=== PATIENT | male | born 1975 | race Caucasian/White ===

== ENCOUNTER 2016-09-14 11:04 | Inpatient (IN) | payer OTHER ==
[~2016-09-14] VITALS: Ht 195.6 cm; Wt 121.0 kg
[~2016-09-14 11:04] MED LIST: ETOMIDATE 20 MG INJ ONE; MIDAZOLAM 1 MG/ML 2 ML INJ ONE; ROCURONIUM 50 MG INJ ONE
[2016-09-14] MEDS ORDERED: SODIUM CHLORIDE 0.9% 1L BAG IV* STA (11:25)
[2016-09-14] MEDS ORDERED: MIDAZOLAM 1 MG/ML 5 ML INJ IV ONE (11:30)
[2016-09-14] MEDS ORDERED: ROCURONIUM 50 MG INJ IV ONE (11:30)
[2016-09-14] MEDS ORDERED: ETOMIDATE 20 MG INJ IV ONE (11:30)
--- NOTE | 2016-09-14 11:50 | ERA ---
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 He was found to have shallow respirations, and was given Narcan. He had improvement of his respirations but did not become more responsive. He was noted to have pinpoint pupils. A glucose was 476. History is limited due to patient's altered mental status. ROS All systems reviewed and are negative except as per history of present illness. Medications Home Meds Unable to Obtain Active Prescriptions or Reported Meds Allergies Allergies: Coded Allergies: Unable to Assess (Verified Allergy, Severe, 09/14/16) PMhx/Soc Past medical history: Unknown Past surgical history: Unknown Social history: Unknown FmHx Unobtainable due to altered mental status Physical Exam Vitals Vital Signs Date Time Temp Pulse Resp B/P Pulse Ox O2 Delivery O2 Flow Rate FiO2 09/14/16 12:32 100.5 114 20 121/80 98 Room Air 09/14/16 11:11 98.6 141 19 141/98 83 Physical Exam Const: Unresponsive, occasional spontaneous movements of hoarse extremities Head: Atraumatic Eyes: Normal Conjunctiva, pinpoint pupils ENT: Normal External Ears, gurgling respirations and large emesis on the mouthing clothes Neck: No mass or bruising Resp: Bilateral rales in diffuse lung paige, right greater than left. Tachypnea. Cardio: Tachycardia, regular rhythm, no murmurs Abd: Soft, non distended. No pulsatile mass Skin: No petechiae or rashes Back: No midline or flank tenderness Ext: No cyanosis, or edema Neur: Unresponsive, occasional spontaneous movement of 4 extremities Psych: Unobtainable due to altered mental status Result Diagram: 09/14/16 1150 09/14/16 1150 Results 24 hrs Laboratory Tests Test 09/14/16 11:25 09/14/16 11:50 Blood Gas Specimen Source Blood arterial Arterial Blood Date Drawn 09/14/2016 12:18:21 PM Arterial Blood pH (Temp corrected) 7.282 Arterial Blood pCO2 (Temp correct) 47.2mmhg Arterial Blood pO2 (Temp corrected) 70.3mmHG Arterial Blood HCO3 21.8mmol/L Arterial Blood Base Excess -5.1mmol/L Arterial Blood Oxygen Saturation 92.9mmHG Vinicius Test ACCEPTAB Arterial Blood Gas Puncture Site Right Radial Arterial Blood Carboxyhemoglobin 0.8% Arterial Blood Methemoglobin 0.4% Blood Gas A-a O2 Differential 595.5mmHg Oxyhemoglobin Percent 91.8% Total Hemoglobin 15.9g/dl Blood Gas Temperature 37.0C Blood Gas Respiration Rate 30.0 Blood Gas Modality VENT - AC FiO2 100.0% Blood Gas Tidal Volume 500.0mL Blood Gas Low PEEP Setting 10.0cmH2O Blood Gas Critical Value Read Back DR. MORALES Blood Gas Notified Whom RT Blood Gas Notified Time 09/14/2016 12:23:29 PM Lactic Acid Level 2.7mmol/L Creatine Kinase 256IU/L White Blood Count 26.710^3/ul Red Blood Count 4.9810^6/ul Hemoglobin 14.6g/dl Hematocrit 44.9% Mean Corpuscular Volume 90.2fl Mean Corpuscular Hemoglobin 29.3pg Mean Corpuscular Hemoglobin Concent 32.5g/dl Red Cell Distribution Width 13.4% Platelet Count 39617^3/UL Mean Platelet Volume 9.3fl Neutrophils % 92.2% Lymphocytes % 2.7% Monocytes % 3.1% Eosinophils % 0.2% Basophils % 0.2% Nucleated Red Blood Cells % 0.0/100WBC Neutrophils # 24.610^3/ul Lymphocytes # 0.710^3/ul Monocytes # 0.810^3/ul Eosinophils # 0.110^3/ul Basophils # 0.110^3/ul Nucleated Red Blood Cells # 0.010^3/ul Prothrombin Time 13.2Sec Prothrombin Time Ratio 1.0 INR International Normalized Ratio 1.00 Activated Partial Thromboplast Time 25.3Sec Urine Color YELLOW Urine Clarity CLEAR Urine pH 5.0 Urine Specific [place] 1.024 Urine Ketones NEGATIVEmg/dL Urine Nitrite NEGATIVEmg/dL Urine Bilirubin NEGATIVEmg/dL Urine Urobilinogen NEGATIVEmg/dL Urine Leukocyte Esterase NEGATIVELeu/ul Urine Hemoglobin NEGATIVEmg/dL Urine Glucose NEGATIVEmg/dL Urine Total Protein NEGATIVEmg/dl Sodium Level 147mmol/L Potassium Level 3.6mmol/L Chloride Level 106mmol/L Carbon Dioxide Level 24mmol/L Anion Gap 21 Blood Urea Nitrogen 15mg/dl Creatinine 1.52mg/dl Glucose Level 232mg/dl Calcium Level 7.9mg/dl Total Bilirubin 0.4mg/dl Direct Bilirubin 0.00mg/dl Indirect Bilirubin 0.4mg/dl Aspartate Amino Transf (AST/SGOT) 162IU/L Alanine Aminotransferase (ALT/SGPT) 93IU/L Alkaline Phosphatase 78IU/L Troponin I 0.774ng/ml Total Protein 6.4g/dl Albumin 3.6g/dl Globulin 2.80g/dl Albumin/Globulin Ratio 1.28 Lipase 259U/L Salicylates Level < 1.0mg/dl Urine Opiates Screen Negative Acetaminophen Level < 10.0ug/ml Urine Barbiturates Negative Urine Amphetamines Screen POSITIVE Urine Benzodiazepines Screen Negative Urine Cocaine Screen Negative Urine Cannabinoids Negative Ethyl Alcohol Level < 10.0mg/dl Current Medications Medications (Trade) Dose Ordered Sig/Paulina Route PRN Reason Start Time Stop Time Status Last Admin Dose Admin Sodium Chloride (NS) 4,650 ml BOLUS OVER 2 HOURS STAT IV* 09/14/16 11:25 09/14/16 11:29 DC 09/14/16 12:48 Etomidate (Amidate) 30 mg ONCE ONCE IV 09/14/16 11:30 09/14/16 11:31 DC Rocuronium [place] (Zemuron) 130 mg ONCE ONCE IV 09/14/16 11:30 09/14/16 11:31 DC Midazolam HCl 5 mg 5 mg ONCE ONCE IV 09/14/16 11:30 09/14/16 11:31 DC Ceftriaxone Sodium (Rocephin) 50 ml @ 100 mls/hr ONCE ONCE IVPB 09/14/16 12:30 09/14/16 12:59 DC 09/14/16 12:30 Pantoprazole (Protonix Iv) 40 mg ONCE ONCE IV 09/14/16 14:30 09/14/16 14:31 DC 09/14/16 15:03 Epinephrine 1 mg STK-MED ONCE .ROUTE 09/14/16 14:17 09/14/16 14:18 DC Aspirin (Aspirin) 300 mg ONCE ONCE [place] 09/14/16 15:30 09/14/16 15:31 Procedures/MDM EKG read by me: Time 1107, rate 117 Rhythm: Sinus tachycardia [place]: Normal Intervals: Normal ST-T waves: ST depression in anterior and lateral leads Ectopy: No Q-waves: No Impression: Sinus tachycardia with possible ischemic changes. No STEMI Endotracheal Intubation by me: Pre assessment performed. Pre-oxygenation performed with 100% oxygen RSI: Performed w/o complication or hypoxic events. Medications as ordered. Blade: Mac 4 ET Tube: 7.5 cm Depth: 24 cm at the lip Intubation confirmed by colorimetric CO2, equal breath sounds, quiet over the stomach. Chest X-ray 1V Interpreted by me: 5 cm above the marlin ET tube. Normal soft tissue, No pneumothorax. ET tube will be advanced by 2 cm. Central Line Placement by me: Patient consented, sterilely draped, full prep, gown, glove, mask, time out performed. Anesthesia: Deferred Location: Left subclavian Device: Multiple lumen Technique: Seldinger technique. Secured with suture. Results: Venous return from all ports with easy saline flush. No complications. Guide wire retrieved and disposed of. Chest X-ray 1V Interpreted by me: Central line in SVC, Normal soft tissue, No evidence of pneumothorax. EKG read by me: Time 1339, rate 107 Rhythm: Sinus tachycardia [place]: Normal Intervals: Normal ST-T waves: no ischemic changes Ectopy: No Q-waves: No Impression: No evidence of ischemia or arrhythmia MDM: Patient is a 43-year-old male brought by ambulance to the ER after being found unresponsive in his car. There is vomiting prior to ER arrival and in the ER. There is evidence of aspiration. The patient was satting 88% on nonrebreather mask with poor protection of airway, so he was intubated for oxygenation and airway protection. He had dry mucous membranes and was found to have a core temperature of 100.5, so sepsis protocol was initiated. The patient was given weight-based fluids and antibiotics, and blood and urine cultures were sent. A left subclavian central line was placed for access and further monitoring. A Paulino catheter was placed with minimal urine output. CT scan of the head was unremarkable. Labs revealed significant leukocytosis and mild elevation of lactic acid. Chest x-ray showed diffuse infiltrates which may be due to underlying pneumonia but more likely due to aspiration. Tox screen was positive for amphetamines, but clinically the patient had signs suggestive of opiate overdose. He had initially had low respiratory rate, and he had pinpoint pupils on arrival in the ER. The patient had an EKG with ST depressions initially, and his troponin was elevated. Repeat EKG showed normalization of ST depressions, which I believe are more likely due to sepsis and/or strain from amphetamine use. He was given aspirin rectally for cardiac protection. There was no evidence of STEMI. He will be admitted to the ICU for further workup and treatment. Case was discussed with Dr. Dale. Critical Care Time: 40 minutes Treatments/Evaluations: Close monitoring and treatment of unstable vital signs, cardiorespiratory, and neurologic status, while maintaining tight balance of fluid, respiratory, and cardiac interventions. This time includes discussing the case with the patient and the patient's family. This time does not include all procedures stated elsewhere in this record. This time also includes reviewing old records, labs and radiological studies. This time includes examining and re-examining the patient. Additionally, this time also includes arranging care with admitting and consulting physicians. Departure Diagnosis: Primary Impression: Altered mental status Qualified Code: R40.2432 - [place] coma scale total score 3-8, at arrival to emergency department Additional Impressions: Sepsis Qualified Code: A41.9 - Sepsis, due to unspecified organism Hypoxemia Aspiration into airway Qualified Code: T17.908A - Aspiration into airway, initial encounter Drug overdose Qualified Code: T50.904A - Drug overdose, undetermined intent, initial encounter Condition: Serious LACY MORALES MD Sep 14, 2016 11:50
--- NOTE | 2016-09-14 12:20 | RADRPT ---
PROCEDURE: XR Chest. CLINICAL INDICATION: Status post intubation TECHNIQUE: Single portable view of the chest was obtained COMPARISON: None FINDINGS: There is a new endotracheal tube 6.9 cm above the marlin. There is a left-sided central line with its tip overlying the mid SVC. There is no pneumothorax. The heart is normal in size. There are scattered patchy bilateral upper lobe and lower lobe infiltrates. RPTAT: AA IMPRESSION: New endotracheal tube in appropriate position. Left-sided central line in place with no pneumothorax. Scattered bilateral infiltrates. .Patricio Fagan MD, MD Date Time Electronically viewed and signed by .Patricio Fagan MD, on 09/14/2016 12:19 .S/
[2016-09-14 12:23] LABS: AADO2 Arterial 595.5 mmHg (7.0-24.0); Allen Test ACCEPTAB; Arterial Base Excess -5.1 mmol/L (-3.0-3); Arterial COHb 0.8 % (0.0-3.0); Arterial Fraction of Oxyhgb 91.8 % (93.0-99.0); Arterial HCO3 21.8 mmol/L (22.0-26.0); Arterial MetHb 0.4 % (0.0-1.5); Arterial Total Hemglobin 15.9 g/dl (12.0-18.0); MODE VENT - AC
[2016-09-14 12:24] LABS: ABNORMAL IP MESSAGE 1; BASOPHIL # 0.1 10^3/ul (0.0-0.1); BASOPHILS % 0.2 % (0.0-2.0); EOSINOPHILS # 0.1 10^3/ul (0.0-0.5); EOSINOPHILS % 0.2 % (0.0-7.0); HEMATOCRIT 44.9 % (42.0-52.0); HEMOGLOBIN 14.6 g/dl (14.0-18.0); LYMPHOCYTES # 0.7 10^3/ul (0.8-2.9); LYMPHOCYTES % 2.7 % (15.0-51.0); MEAN CORPUSCULAR HEMOGLOBIN 29.3 pg (29.0-33.0); MEAN CORPUSCULAR HGB CONC 32.5 g/dl (32.0-37.0); MEAN CORPUSCULAR VOLUME 90.2 fl (82.0-101.0); MEAN PLATELET VOLUME 9.3 fl (7.4-10.4); MONOCYTE # 0.8 10^3/ul (0.3-0.9); MONOCYTES % 3.1 % (0.0-11.0); NEUTROPHIL # 24.6 10^3/ul (1.6-7.5); NEUTROPHILS % 92.2 % (39.0-77.0); PLATELET COUNT 349 10^3/UL (140-415); POSITIVE DIFF @See below; RED BLOOD COUNT 4.98 10^6/ul (4.70-6.10); RED CELL DISTRIBUTION WIDTH 13.4 % (11.5-14.5); WHITE BLOOD COUNT 26.7 10^3/ul (4.8-10.8)
[2016-09-14 12:29] LABS: ADD UMIC NO; UR ASCORBIC ACID 40 mg/dL (NEGATIVE); UR BILIRUBIN (Dip) NEGATIVE (NEGATIVE); UR BLOOD (Dip) NEGATIVE (NEGATIVE); UR CLARITY CLEAR (CLEAR); UR COLOR YELLOW (YELLOW); UR GLUCOSE (Dip) NEGATIVE (NEGATIVE); UR KETONES (Dip) NEGATIVE (NEGATIVE); UR LEUKOCYTE ESTERASE (Dip) NEGATIVE Leu/ul (NEGATIVE); UR NITRITE (Dip) NEGATIVE (NEGATIVE); UR SPECIFIC GRAVITY (Dip) 1.024 (1.003-1.030); UR TOTAL PROTEIN (Dip) NEGATIVE (NEGATIVE); UR UROBILINOGEN (Dip) NEGATIVE (NEGATIVE)
[2016-09-14] MEDS ORDERED: CEFTRIAXONE 2 GM/50 ML (PMX) 50 ML IVPB ONE (12:30)
[2016-09-14 13:04] LABS: PROTIME 13.2 Sec (12.2-14.2)
[2016-09-14 13:05] LABS: PARTIAL THROMBOPLASTIN TIME 25.3 Sec (25.0-35.0)
[2016-09-14 13:06] LABS: BARBITURATES Negative (NEGATIVE); BENZODIAZEPINES Negative (NEGATIVE); CANNABINOIDS Negative (NEGATIVE); COCAINE Negative (NEGATIVE); OPIATES Negative (NEGATIVE)
[2016-09-14 13:28] LABS: ACETAMINOPHEN < 10.0 ug/ml (10.0-30.0); ALANINE AMINOTRANSFERASE 93 IU/L (13-69); ALBUMIN 3.6 g/dl (3.3-4.9); ALBUMIN/GLOBULIN RATIO 1.28; ALKALINE PHOSPHATASE 78 IU/L (42-121); ANION GAP 21 (8-16); ASPARTATE AMINO TRANSFERASE 162 IU/L (15-46); BILIRUBIN,INDIRECT 0.4 mg/dl (0-1.1); BILIRUBIN,TOTAL 0.4 mg/dl (0.2-1.3); BLOOD UREA NITROGEN 15 mg/dl (7-20); CALCIUM 7.9 mg/dl (8.4-10.2); CARBON DIOXIDE 24 mmol/L (21-31); CHLORIDE 106 mmol/L (97-110); CREATININE 1.52 mg/dl (0.61-1.24); GLUCOSE 232 mg/dl (70-220); POTASSIUM 3.6 mmol/L (3.5-5.1); SALICYLATE < 1.0 mg/dl (5.0-30.0); SODIUM 147 mmol/L (135-144); TOTAL PROTEIN 6.4 g/dl (6.1-8.1)
[2016-09-14 13:30] LABS: TROPONIN-I 0.774 ng/ml (0.00-0.12)
[2016-09-14 13:40] LABS: ETHANOL < 10.0 mg/dl
[2016-09-14] MEDS ORDERED: EPINEPHrine 0.1 MG/ML SYG ONE (14:17)
[2016-09-14] MEDS ORDERED: PANTOPRAZOLE 40 MG INJ IV ONE (14:30)
--- NOTE | 2016-09-14 14:35 | RADRPT ---
PROCEDURE: CT brain without contrast CLINICAL INDICATION: Overdose. Altered mental status TECHNIQUE: CT of the brain without contrast performed on a multidetector CT scanner, with multiplan ar reformats. One or more of the following dose reduction techniques were used: Automated exposure control, adjustment in mA and / or kV according to patient size, use of iterative reconstructive gaurav hnique. CTDIvol = 44 mGy; DLP = 720 mGy-cm. COMPARISON: None available FINDINGS: No acute intracranial hemorrhage is identified. No extra-axial fluid collection is seen. There is no mass effect. No midline shift is identified. The ventricles/sulci are within normal limits for size and configuration. The density of the brain is unremarkable. Mendoza-white differentiation is preserved. Calvarium and skull base are intact. The mastoids are grossly clear. Mild bilateral sphenoid sinus mucosal thickening with small left-sided mucous retention cyst, and mild bilateral posterior ethmoi d air cell mucosal thickening are noted. IMPRESSION: No evidence of acute intracranial pathology; unremarkable noncontrast CT appearance of the brain. RPTAT: VV .Myke Baumann MD, MD Date Time Electronically viewed and signed by .Myke Baumann MD, MD on 09/14/2016 14:35 .O/
[2016-09-14] MEDS ORDERED: PROPOFOL 100 ML ONE (15:23)
[2016-09-14] MEDS ORDERED: ASPIRIN 300 MG SUPP PR ONE (15:30)
[2016-09-14] MEDS: PROPOFOL 100 ML IV SCH (16:16)
--- NOTE | 2016-09-14 16:32 | HP ---
Date/Time of Note Date/Time of Note DATE: 09/14/16 TIME: 16:21 Assessment/Plan VTE Prophylaxis VTE Prophylaxis Intervention: SCD's Lines/Catheters Urinary Cath still in place: No Assessment/Plan Chief Complaint/Hosp Course 1. 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 NSTEMI likely type II from demand Cardiology consultation, 2D echo 3. Leukocytosis-reactive Monitor 4. Hypernatremia with likely acute kidney injury secondary to dehydration IV fluid 5. Hyperglycemia possibly from stress Check A1c Prophylaxis: SCD Problems: HPI/ROS Admit Date/Time Admit Date/Time September 14, 2016 Hx of Present Illness Patient is 43-year-old male with unknown medical history. 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 He was found to have shallow respirations and was given Narcan. He had improvement of his respirations but did not become more responsive. He was noted to have pinpoint pupils and glucose was 476. Patient was altered and was intubated in the ER for airway protection, no history can be obtained from patient and history is obtained from the ER physician. ROS Unable to obtain PMH/Family/Social Past Medical History Unable to obtain Family History Significant Family History: other (Unable to obtain) Social History Unable to obtain Smoking Status: Unknown if ever smoked Exam/Review of Systems Vital Signs Vitals Vital Signs Date Time Temp Pulse Resp B/P Pulse Ox O2 Delivery O2 Flow Rate FiO2 09/14/16 15:36 103 20 114/92 100 Mechanical Ventilator 09/14/16 15:01 100 09/14/16 14:30 99.8 Exam Constitutional: non-verbal Head: normocephalic ENMT: intubated Respiratory: clear to auscultation Cardiovascular: regular rate and rhythm Gastrointestinal: soft, No distended Musculoskeletal: nl extremities to inspection Labs Result Diagram: 09/14/16 1150 09/14/16 1150 Medications Medications Current Medications Propofol (Diprivan) 100 ml @ 0 mls/hr TITRATE IV Last administered on 09/14/16t 16:16; Admin Dose 6.6 MLS/HR; Start 09/14/16 at 14:[address] head:No evidence of acute intracranial pathology; unremarkable noncontrast CT appearance of the brain. Chest x-ray:New endotracheal tube in appropriate position. Left-sided central line in place with no pneumothorax. Scattered bilateral infiltrates. MARCIO STOREY Sep 14, 2016 16:32
[2016-09-14] MEDS ORDERED: ONDANSETRON 4 MG INJ IV PRN (17:00)
[2016-09-14] MEDS ORDERED: NACL 0.9% 3 ML SYG IV SCH (17:00)
[2016-09-14] MEDS ORDERED: morphine 4 MG/ML VIAL IV PRN (17:00)
[2016-09-14] MEDS: 1/2 NS + KCL 20 MEQ 1,000 ML IV SCH (17:29)
[2016-09-15] MEDS: 1/2 NS + KCL 20 MEQ 1,000 ML IV SCH ×3 (01:35→18:00)
[2016-09-15] MEDS: PANTOPRAZOLE 40 MG INJ IV SCH ×2 (05:51→11:16)
[2016-09-15 06:09] LABS: HAAIG REFLEX REFLEX FILED
[2016-09-15 06:26] LABS: BASOPHIL # 0.1 10^3/ul (0.0-0.1); BASOPHILS % 0.3 % (0.0-2.0); EOSINOPHILS # 0.1 10^3/ul (0.0-0.5); EOSINOPHILS % 0.6 % (0.0-7.0); HEMATOCRIT 42.1 % (42.0-52.0); HEMOGLOBIN 13.4 g/dl (14.0-18.0); LYMPHOCYTES # 1.3 10^3/ul (0.8-2.9); MEAN CORPUSCULAR HEMOGLOBIN 29.3 pg (29.0-33.0); MEAN CORPUSCULAR HGB CONC 31.8 g/dl (32.0-37.0); MEAN CORPUSCULAR VOLUME 91.9 fl (82.0-101.0); MEAN PLATELET VOLUME 9.4 fl (7.4-10.4); MONOCYTE # 0.8 10^3/ul (0.3-0.9); MONOCYTES % 4.7 % (0.0-11.0); NEUTROPHIL # 15.6 10^3/ul (1.6-7.5); NEUTROPHILS % 86.8 % (39.0-77.0); PLATELET COUNT 279 10^3/UL (140-415); RED BLOOD COUNT 4.58 10^6/ul (4.70-6.10); RED CELL DISTRIBUTION WIDTH 13.3 % (11.5-14.5)
[2016-09-15 06:36] LABS: ALBUMIN/GLOBULIN RATIO 1.07; BILIRUBIN,INDIRECT 1.1 mg/dl (0-1.1); BILIRUBIN,TOTAL 1.1 mg/dl (0.2-1.3); CALCIUM 7.7 mg/dl (8.4-10.2); CHOL/HDL RATIO 4.1 RATIO; CREATININE 0.99 mg/dl (0.61-1.24); MAGNESIUM 1.9 mg/dl (1.7-2.5); PHOSPHORUS 3.3 mg/dl (2.5-4.9); POTASSIUM 4.3 mmol/L (3.5-5.1); TOTAL PROTEIN 5.8 g/dl (6.1-8.1)
[2016-09-15 06:51] LABS: T3 UPTAKE 43.5 % (23.5-40.5)
--- NOTE | 2016-09-15 07:44 | RADRPT ---
PROCEDURE: MR Brain noncontrast. CLINICAL INDICATION: Altered level of consciousness. CVA. The patient was in a hot car for a long p eriod of time TECHNIQUE: Multiplanar multisequence noncontrast MRI of the brain was performed. COMPARISON: Noncontrast CT of the head from September 14, 2016. FINDINGS: The ventricles and sulci are within normal limits. There is ovoid symmetric T2 hyperintensity within the bilateral globus pallidus with associate restr icted diffusion. There is also subtle T2 hyperintensity within the bilateral posterior limb/cerebral peduncles with questionable associated restricted diffusion. There are mild to moderate scattered bilateral subcortical T2 hyperintensities which are nonspecific . There is also a 3 mm acute / recent infarction within the right frontal lobe (image 15 series 3). There is no intracranial hemorrhage or extra-axial fluid collection. There is no midline shift. The brainstem is within normal limits. The posterior fossa is unremarkable. The normal intracranial, intravascular flow voids are preserved. The orbits are grossly unremarkable. There is mild bilateral ethmoid sinus mucosal thickening. There is minimal bilateral maxillary sinu s mucosal thickening. There is no destructive osseous lesion. IMPRESSION: 1. Ovoid symmetric T2 hyperintensity with associated restricted diffusion within the bilateral glob us pallidus suggesting acute hypoxic ischemic injury which can be seen with carbon monoxide poisonin g less likely etiologies. 2. Acute / recent 3 mm infarction within the right frontal lobe 3. Mild to moderate scattered bilateral subcortical T2 hyperintensities which are nonspecific but m ay be related to sequelae of migraines, prior trauma, prior infectious/inflammatory etiologies or ea rly chronic microvascular ischemic changes. Further findings as detailed above. These findings were discussed with Dr. Hernández at 07:40 a.m. on September 15, 2016. RPTAT: PP .Jeancarlos Freeman MD, Date Time Electronically viewed and signed by .Jeancarlos Freeman MD, on 09/15/2016 07:43 .F/
[2016-09-15 07:59] LABS: HEPATITIS B CORE ANTIBODY NEGATIVE (NEGATIVE)
[2016-09-15] MEDS: FENTAnyl (DRIP) 1000 mcg/100mL 100 ML IV SCH (13:49)
--- NOTE | 2016-09-15 16:04 | RADRPT ---
Echocardiogram Report Patient Name: ASIM REYNAGA Gender: Male Date: 12-Feb-1973 Study Date: 15-Sep-2016 [employer] Driver: Lalit Baldwin RDCS Location: 1 Ref. Physician: MARCIO STOREY Quality: Technically Difficult Study Procedures: Transthoracic echocardiogram with complete 2D, M-Mode, and doppler examination. Indications: Elevated troponins. 2D/M Mode Doppler Measurement Value Normal Ranges Measurement Value Normal Ranges LVIDd 2D 5.0 3.5 - 5.6 cm AV Peak Daniele 1.3 m/sec LVIDs 2D 2.4 2.1 - 4.1 cm AV Peak PG 6.3 mmHg LVPWd 2D 1.1 0.6 - 1.1 cm LVOT Peak Daniele 1.0 m/sec IVSd 2D 1.2 0.6 - 1.1 cm LVOT Peak PG 4.2 mmHg AoR Diam 2D 3.4 2.0 - 3.7 cm MV E Peak Daniele 0.5 m/sec EDV 2D 118.2 cm3 MV A Peak Dan[place] 0.6 m/sec ESV 2D 13.6 cm3 MV E/A 0.9 LA Dimen 2D 3.8 2.3 - 4.0 cm MV Decel Time 139 msec MV Decel [place] 4 MV E/A 0.9 TR Peak Daniele 1.9 m/sec TR Peak PG 14.7 mmHg RVSP 30.0 mmHg Findings Left Ventricle: Lower limits of normal systolic function. Normal left ventricular cavity size. Normal left ventricular wall thickness. Ejection fraction is visually estimated at 5055 %. Right Ventricle: Normal right ventricular size. Normal right ventricular systolic function. Left Atrium: The left atrium is normal in size. Right Atrium: The right atrium is normal in size. Mitral Valve: Mitral valve leaflets appear mildly thickened. Mild mitral annular calcification. Trace mitral regurgitation. Aortic Valve: Normal appearance of the aortic valve. No significant aortic stenosis or insufficiency. Tricuspid Valve: Normal appearance of the tricuspid valve. Estimated peak PA systolic pressure 30 mmHg. There is trace tricuspid regurgitation. Pulmonic Valve: Pulmonic valve not well visualized. Pericardium: Normal pericardium with no significant pericardial effusion. Aorta: Normal aortic root. IVC: Inferior vena cava without respiratory collapse, however, patient on ventilator. Conclusions 1.The left ventricle is normal in size with lower limits of normal systolic function. 2.Estimated left ventricular ejection fraction of 50-55%. Electronically Signed By: Inocencio Street 15-Sep-2016 16:03:37 -0700 Patient Name: ASIM REYNAGA Study Date: 15-Sep-2016 [id number]
--- NOTE | 2016-09-15 17:48 | PN ---
Date/Time of Note Date/Time of Note DATE: 09/15/16 TIME: 17:39 Assessment/Plan VTE Prophylaxis VTE Prophylaxis Intervention: SCD's Lines/Catheters Urinary Cath still in place: No Assessment/Plan Chief Complaint/Hosp Course 1. 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 NSTEMI likely type II from demand Cardiology consultation, 2D echo shows borderline normal EF 3. Leukocytosis-reactive Monitor 4. Hypernatremia with likely acute kidney injury secondary to dehydration- resolved IV fluid 5. Hyperglycemia from stress-resolved A1c at 5.6 6. Anoxic brain injury as noted on brain MRI secondary to prolonged hypoxia from drug overdose Neurological consultation Prophylaxis: SCD Problems: Subjective 24 Hr Interval Summary Subjective hx not possible: pt non-verbal Exam/Review of Systems Vital Signs Vitals Vital Signs Date Time Temp Pulse Resp B/P Pulse Ox O2 Delivery O2 Flow Rate FiO2 09/15/16 14:30 99 20 149/75 92 Mechanical Ventilator 09/15/16 13:30 99.0 09/15/16 11:22 40 Intake and Output 09/14/16 09/14/16 09/15/16 15:00 23:00 07:00 Intake Total 4700 ml Output Total 550 ml Balance 4150 ml Exam Constitutional: non-verbal ENMT: intubated Respiratory: clear to auscultation Cardiovascular: regular rate and rhythm Gastrointestinal: soft, No distended Musculoskeletal: nl extremities to inspection Results Result Diagram: 09/15/16 0544 09/15/16 0544 Results 24 hrs Laboratory Tests Test 09/15/16 05:44 White Blood Count 18.0 #H Red Blood Count 4.58 L Hemoglobin 13.4 L Hematocrit 42.1 Mean Corpuscular Volume 91.9 Mean Corpuscular Hemoglobin 29.3 Mean Corpuscular Hemoglobin Concent 31.8 L Red Cell Distribution Width 13.3 Platelet Count 279 # Mean Platelet Volume 9.4 Neutrophils % 86.8 H Lymphocytes % 7.0 L Monocytes % 4.7 Eosinophils % 0.6 Basophils % 0.3 Nucleated Red Blood Cells % 0.0 Neutrophils # 15.6 H Lymphocytes # 1.3 Monocytes # 0.8 Eosinophils # 0.1 Basophils # 0.1 Nucleated Red Blood Cells # 0.0 Sodium Level 143 Potassium Level 4.3 Chloride Level 103 Carbon Dioxide Level 30 Anion Gap 14 # Blood Urea Nitrogen 18 Creatinine 0.99 Glucose Level 97 # Hemoglobin A1c 5.6 Lactic Acid Level 1.5 Calcium Level 7.7 L Phosphorus Level 3.3 Magnesium Level 1.9 Total Bilirubin 1.1 Direct Bilirubin 0.00 Indirect Bilirubin 1.1 Aspartate Amino Transf (AST/SGOT) 122 H Alanine Aminotransferase (ALT/SGPT) 77 H Alkaline Phosphatase 67 Total Protein 5.8 L Albumin 3.0 L Globulin 2.80 Albumin/Globulin Ratio 1.07 Triglycerides Level 93 Cholesterol Level 129 LDL Cholesterol, Calculated 79 HDL Cholesterol 31 Cholesterol/HDL Ratio 4.1 Free Thyroxine Index 2.65 Thyroxine (T4) 6.1 Triiodothyronine (T3) Uptake 43.5 H Hepatitis B Surface Antigen NEGATIVE Hepatitis B Core Total Antibody NEGATIVE Hepatitis C Antibody NEGATIVE HIV (1&2) Antibody NEGATIVE Medications Medications Current Medications Propofol 100 ml @ 0 mls/hr TITRATE IV Last administered on 09/14/16 16:16; Admin Dose 6.6 MLS/HR; Start 09/14/16 at 14:00 Potassium Chloride/Sodium Chloride (1/2 NS + KCl 20 Meq) 1,000 ml @ 125 mls/hr Q8H IV Last administered on 09/15/16 11:16; Admin Dose 125 MLS/HR; Start at 18:00 Ondansetron HCl (Zofran Inj) 4 mg Q6H PRN IV NAUSEA AND/OR VOMITING; Start 09/14 at 17:00 Morphine Sulfate (morphine) 2 mg Q4H PRN IV SEVERE PAIN LEVEL 7-10; Start at 17:00 Pantoprazole 40 mg 40 mg DAILY@06 IV Last administered on 09/15/16 11:16; Admin Dose 40 MG; Start 09/15/16 at 06:00 Fentanyl (Sublimaze) 100 ml @ 2.5 mls/hr TITRATE IV Last administered on 13:49; Admin Dose 2.5 MLS/HR; Start 09/15/16 at 13:30 MARCIO STOREY Sep 15, 2016 17:48
--- NOTE | 2016-09-15 19:16 | CONS ---
Date/Time of Note Date/Time of Note DATE: 09/15/16 TIME: 19:09 Assessment/Plan Assessment/Plan Chief Complaint/Hosp Course Assessment: NSTEMI - likely type 2 Acute encephalopathy Acute left frontal stroke Possible anoxic brain injury Amphetamine abuse Leukocytosis - possibly reactive Recommendations: -echocardiogram showed LVEF 50-55% -check additional troponin -continue aspirin 300mg NM daily -follow up neurology recommendations Problems: Consultation Date/Type/Reason Admit Date/Time September 14, 2016 Type of Consultation: Cardiology Reason for Consultation elevated troponin Hx of Present Illness The patient is a 43 year-old male who was brought into the emergency department after being 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 He was reported to have shallow breathing and pinpoint pupils. He has been intubated for airway protection. His urine toxicology was positive for amphetamines. Initial EKG showed sinus tachycardia with inferior and lateral ST depressions, though repeat EKG showed resolution of ST depressions. Initial troponin was mildly elevated at 0.774. Brain MRI showed evidence of an acute right frontal lobe stroke as well as changes suggestive of anoxic brain injury. Unable to obtain review of systems, patient is intubated. Past Medical History Unable to obtain Past Surgical History Unable to obtain Family History Significant Family History: other (unable to obtain) Social History Unable to obtain Smoking Status: Unknown if ever smoked Exam/Review of Systems Vital Signs Vitals Vital Signs Date Time Temp Pulse Resp B/P Pulse Ox O2 Delivery O2 Flow Rate FiO2 09/15/16 17:30 99.7 104 24 134/71 95 Mechanical Ventilator 09/15/16 17:17 40 Intake and Output 09/14/16 09/14/16 09/15/16 15:00 23:00 07:00 Intake Total 4700 ml Output Total 550 ml Balance 4150 ml Exam Constitutional: other (sedated), No alert Psych: No nl mood/affect, No no complaints Head: atraumatic, normocephalic Eyes: nl conjunctiva, nl lids ENMT: intubated Respiratory: clear to auscultation Cardiovascular: regular rate and rhythm Gastrointestinal: non-tender, soft Musculoskeletal: nl extremities to inspection Extremities: No clubbing, No cyanosis, No edema Neurological: No nl mental status, No nl speech Skin: nl turgor Results Result Diagram: 09/15/16 0544 09/15/16 0544 Results 24 hrs Laboratory Tests Test 09/15/16 05:44 White Blood Count 18.0 #H Red Blood Count 4.58 L Hemoglobin 13.4 L Hematocrit 42.1 Mean Corpuscular Volume 91.9 Mean Corpuscular Hemoglobin 29.3 Mean Corpuscular Hemoglobin Concent 31.8 L Red Cell Distribution Width 13.3 Platelet Count 279 # Mean Platelet Volume 9.4 Neutrophils % 86.8 H Lymphocytes % 7.0 L Monocytes % 4.7 Eosinophils % 0.6 Basophils % 0.3 Nucleated Red Blood Cells % 0.0 Neutrophils # 15.6 H Lymphocytes # 1.3 Monocytes # 0.8 Eosinophils # 0.1 Basophils # 0.1 Nucleated Red Blood Cells # 0.0 Sodium Level 143 Potassium Level 4.3 Chloride Level 103 Carbon Dioxide Level 30 Anion Gap 14 # Blood Urea Nitrogen 18 Creatinine 0.99 Glucose Level 97 # Hemoglobin A1c 5.6 Lactic Acid Level 1.5 Calcium Level 7.7 L Phosphorus Level 3.3 Magnesium Level 1.9 Total Bilirubin 1.1 Direct Bilirubin 0.00 Indirect Bilirubin 1.1 Aspartate Amino Transf (AST/SGOT) 122 H Alanine Aminotransferase (ALT/SGPT) 77 H Alkaline Phosphatase 67 Total Protein 5.8 L Albumin 3.0 L Globulin 2.80 Albumin/Globulin Ratio 1.07 Triglycerides Level 93 Cholesterol Level 129 LDL Cholesterol, Calculated 79 HDL Cholesterol 31 Cholesterol/HDL Ratio 4.1 Free Thyroxine Index 2.65 Thyroxine (T4) 6.1 Triiodothyronine (T3) Uptake 43.5 H Hepatitis B Surface Antigen NEGATIVE Hepatitis B Core Total Antibody NEGATIVE Hepatitis C Antibody NEGATIVE HIV (1&2) Antibody NEGATIVE Medications Medications Current Medications Propofol 100 ml @ 0 mls/hr TITRATE IV Last administered on 09/14/16 16:16; Admin Dose 6.6 MLS/HR; Start 09/14/16 at 14:00 Potassium Chloride/Sodium Chloride (1/2 NS + KCl 20 Meq) 1,000 ml @ 125 mls/hr Q8H IV Last administered on 09/15/16 11:16; Admin Dose 125 MLS/HR; Start at 18:00 Ondansetron HCl (Zofran Inj) 4 mg Q6H PRN IV NAUSEA AND/OR VOMITING; Start 09/14 at 17:00 Morphine Sulfate (morphine) 2 mg Q4H PRN IV SEVERE PAIN LEVEL 7-10; Start at 17:00 Pantoprazole 40 mg 40 mg DAILY@06 IV Last administered on 09/15/16 11:16; Admin Dose 40 MG; Start 09/15/16 at 06:00 Fentanyl 100 ml @ 2.5 mls/hr TITRATE IV Last administered on 09/15/16 13:49; Admin Dose 2.5 MLS/HR; Start 09/15/16 at 13:30 Midazolam HCl (Versed) 50 ml @ 1 mls/hr TITRATE IV ; Start 09/15/16 at 19:00 THERESA PARIS MD Sep 15, 2016 19:16
[2016-09-15] MEDS: MIDAZOLAM (DRIP) 50 mg/50 mL 50 ML IV SCH (19:56)
[2016-09-15] MEDS: ASPIRIN 300 MG SUPP PR SCH (19:56)
[2016-09-15 23:07] VITALS: TEMP 99
[2016-09-15 23:30] VITALS: Ht 195.6 cm; Wt 121.0 kg
[2016-09-16] VITALS (80 sets, daily range): BP systolic 104–143; BP diastolic 55–92; PULSE 89–124; RESP 18–36
[2016-09-16] MEDS: PROPOFOL 100 ML IV SCH ×7 (00:01→19:27)
[2016-09-16] MEDS: FENTAnyl (DRIP) 1000 mcg/100mL 100 ML IV SCH ×3 (00:04→21:13)
[2016-09-16] MEDS: 1/2 NS + KCL 20 MEQ 1,000 ML IV SCH ×2 (03:03→11:53)
[2016-09-16] MEDS: PANTOPRAZOLE 40 MG INJ IV SCH (06:04)
[2016-09-16 07:22] LABS: BASOPHIL # 0.1 10^3/ul (0.0-0.1); BASOPHILS % 0.4 % (0.0-2.0); EOSINOPHILS # 0.6 10^3/ul (0.0-0.5); EOSINOPHILS % 3.9 % (0.0-7.0); HEMATOCRIT 37.1 % (42.0-52.0); LYMPHOCYTES # 1.3 10^3/ul (0.8-2.9); LYMPHOCYTES % 8.5 % (15.0-51.0); MEAN CORPUSCULAR HEMOGLOBIN 29.9 pg (29.0-33.0); MEAN CORPUSCULAR HGB CONC 32.3 g/dl (32.0-37.0); MEAN CORPUSCULAR VOLUME 92.5 fl (82.0-101.0); MEAN PLATELET VOLUME 9.7 fl (7.4-10.4); MONOCYTES % 6.4 % (0.0-11.0); NEUTROPHILS % 80.3 % (39.0-77.0); PLATELET COUNT 245 10^3/UL (140-415); RED BLOOD COUNT 4.01 10^6/ul (4.70-6.10); RED CELL DISTRIBUTION WIDTH 13.2 % (11.5-14.5); WHITE BLOOD COUNT 14.9 10^3/ul (4.8-10.8)
[2016-09-16 07:33] LABS: CREATININE 0.69 mg/dl (0.61-1.24); PHOSPHORUS 2.2 mg/dl (2.5-4.9); POTASSIUM 3.8 mmol/L (3.5-5.1)
[2016-09-16 07:50] LABS: TROPONIN-I 3.76 ng/ml (0.00-0.12)
[2016-09-16] MEDS: MIDAZOLAM (DRIP) 50 mg/50 mL 50 ML IV SCH (08:30)
[2016-09-16] MEDS: ASPIRIN 300 MG SUPP PR SCH (08:42)
--- NOTE | 2016-09-16 09:58 | CONS ---
Date/Time of Note Date/Time of Note DATE: 09/16/16 TIME: 09:51 Assessment/Plan Assessment/Plan Chief Complaint/Hosp Course 43 yo M with history of methamphetamine abuse admitted with respiratory failure , encephalopathy requiring intubation. MRI shows changes suggestive of hypoxic injury. Recommendations -likely hypoxic injury upon review of MRI common to have involvement of globus pallidus from hypoxia -ECHO is wnl, possible brief arrhythmia contributing to embolic appearing right frontal infarct -requiring sedation at this time due to severe agitation, wean off as tolerated may benefit from repeat MRI in a few days to evaluate for further ischemic injury Problems: Consultation Date/Type/Reason Admit Date/Time September 14, 2016 Date of Consultation: Sep 16, 2016 Type of Consultation: Neurology Reason for Consultation eval for hypoxic injury encephalopathy Referring Provider: MARCIO STOREY Hx of Present Illness 43 year old male brought into the ED found unresponsive in the drivers seat of his car, reported to have shallow breathing pinpoint pupils with history of methamphetamine abuse. On arrival he was intubated for airway protection, given narcan. Utox + for amphetamines, elevated troponins with sinus tachycardia and ST depressions resolving. MRI Brain shows hypoxic injury to bilateral globus pallidus and small acute infarct right frontal lobe. He remains intubated on sedation, moving around all extremities without following any commands. Subjective hx not possible: pt critical Psychological: No nl mood/affect, No no complaints Social History Smoking Status: Current some day smoker Exam/Review of Systems Vital Signs Vitals Vital Signs Date Time Temp Pulse Resp B/P Pulse Ox O2 Delivery O2 Flow Rate FiO2 09/16/16 08:33 98.8 09/16/16 08:30 93 20 118/85 100 09/16/16 07:45 Mechanical Ventilator 09/16/16 05:00 40 Intake and Output 09/15/16 09/15/16 09/16/16 15:00 23:00 07:00 Intake Total 1021.5 ml Output Total 2000 ml 820 ml Balance -2000 ml 201.5 ml Exam intubated examined on low dose sedation CN: pin point minimal reactivity, dolls intact corneals and gag are present when attempting to check gag patient reaches at ET tube moving all extremities and withdraws appropriately becomes agitated Results Result Diagram: 09/16/16 0510 09/16/16 0510 Results 24 hrs Laboratory Tests Test 09/16/16 05:10 White Blood Count 14.9 H Red Blood Count 4.01 L Hemoglobin 12.0 L Hematocrit 37.1 L Mean Corpuscular Volume 92.5 Mean Corpuscular Hemoglobin 29.9 Mean Corpuscular Hemoglobin Concent 32.3 Red Cell Distribution Width 13.2 Platelet Count 245 Mean Platelet Volume 9.7 Neutrophils % 80.3 H Lymphocytes % 8.5 L Monocytes % 6.4 Eosinophils % 3.9 Basophils % 0.4 Nucleated Red Blood Cells % 0.0 Neutrophils # 12.0 H Lymphocytes # 1.3 Monocytes # 1.0 H Eosinophils # 0.6 H Basophils # 0.1 Nucleated Red Blood Cells # 0.0 Sodium Level 140 Potassium Level 3.8 Chloride Level 102 Carbon Dioxide Level 31 Anion Gap 11 Blood Urea Nitrogen 14 Creatinine 0.69 Glucose Level 82 Calcium Level 8.0 L Phosphorus Level 2.2 #L Magnesium Level 2.0 Troponin I 3.760 *H Medications Medications Current Medications Propofol 100 ml @ 0 mls/hr TITRATE IV Last administered on 09/16/16 08:30; Admin Dose 36 MLS/HR; Start 09/14/16 at 14:00 Potassium Chloride/Sodium Chloride (1/2 NS + KCl 20 Meq) 1,000 ml @ 125 mls/hr Q8H IV Last administered on 09/16/16 03:03; Admin Dose 125 MLS/HR; Start at 18:00 Ondansetron HCl (Zofran Inj) 4 mg Q6H PRN IV NAUSEA AND/OR VOMITING; Start 09/14 at 17:00 Morphine Sulfate (morphine) 2 mg Q4H PRN IV SEVERE PAIN LEVEL 7-10; Start at 17:00 Pantoprazole 40 mg 40 mg DAILY@06 IV Last administered on 09/16/16 06:04; Admin Dose 40 MG; Start 09/15/16 at 06:00 Fentanyl 100 ml @ 2.5 mls/hr TITRATE IV Last administered on 09/16/16 00:04; Admin Dose 2.5 MLS/HR; Start 09/15/16 at 13:30 Midazolam HCl (Versed) 50 ml @ 1 mls/hr TITRATE IV Last administered on 08:30; Admin Dose 1.5 MLS/HR; Start 09/15/16 at 19:00 Aspirin (Aspirin) 300 mg DAILY [place] Last administered on 09/16/16 08:42; Admin Dose 300 MG; Start 09/15/16 at 19:30 JOSSE ALANIZ MD Sep 16, 2016 09:58
--- NOTE | 2016-09-16 12:14 | RADRPT ---
PROCEDURE: XR Chest. CLINICAL INDICATION: Endotracheal tube placement TECHNIQUE: Single frontal chest x-ray. COMPARISON: 09/14/2016 FINDINGS: There is an endotracheal tube in place with the tip 5 cm above the marlin. Nasogastric tube is in p lace with tip extending into the stomach. There is a left subclavian central venous catheter in tri ce unchanged. . Low lung volumes with cardiomegaly, hilar vascular and interstitial congestion and mild perihilar edema is slightly worsened. There is increased haziness at the lung bases suggestive of pleural effusions. Left basilar atelectasis is increased.. .. The osseous structures are intac t. IMPRESSION: Tubes and lines as described. Cardiomegaly with increase congestive heart failure, perihilar edema and small pleural effusions.. RPTAT: QQ .Herman Hemphill MD, MD Date Time Electronically viewed and signed by .Herman Hemphill MD, MD on 09/16/2016 12:13 .L/
--- NOTE | 2016-09-16 12:24 | PN ---
Date/Time of Note Date/Time of Note DATE: 09/16/16 TIME: 12:22 Assessment/Plan VTE Prophylaxis VTE Prophylaxis Intervention: SCD's Assessment/Plan Chief Complaint/Hosp Course 1. 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 NSTEMI likely type II from demand Cardiology consultation, 2D echo shows borderline normal EF Continue aspirin 3. Leukocytosis-reactive Monitor 4. Hypernatremia with likely acute kidney injury secondary to dehydration- resolved IV fluid 5. Hyperglycemia from stress-resolved A1c at 5.6 6. Anoxic brain injury as noted on brain MRI secondary to prolonged hypoxia from drug overdose Neurological consultation appreciated Prophylaxis: SCD Problems: Subjective 24 Hr Interval Summary Subjective hx not possible: pt non-verbal Exam/Review of Systems Vital Signs Vitals Vital Signs Date Time Temp Pulse Resp B/P Pulse Ox O2 Delivery O2 Flow Rate FiO2 09/16/16 12:19 99.0 09/16/16 08:30 93 20 118/85 100 09/16/16 07:45 Mechanical Ventilator 09/16/16 05:00 40 Intake and Output 09/15/16 09/15/16 09/16/16 15:00 23:00 07:00 Intake Total 1021.5 ml Output Total 2000 ml 820 ml Balance -2000 ml 201.5 ml Exam Constitutional: non-verbal Respiratory: clear to auscultation Cardiovascular: regular rate and rhythm Gastrointestinal: soft, No distended Musculoskeletal: nl extremities to inspection Results Result Diagram: 09/16/16 0510 09/16/16 0510 Results 24 hrs Laboratory Tests Test 09/16/16 05:10 White Blood Count 14.9 H Red Blood Count 4.01 L Hemoglobin 12.0 L Hematocrit 37.1 L Mean Corpuscular Volume 92.5 Mean Corpuscular Hemoglobin 29.9 Mean Corpuscular Hemoglobin Concent 32.3 Red Cell Distribution Width 13.2 Platelet Count 245 Mean Platelet Volume 9.7 Neutrophils % 80.3 H Lymphocytes % 8.5 L Monocytes % 6.4 Eosinophils % 3.9 Basophils % 0.4 Nucleated Red Blood Cells % 0.0 Neutrophils # 12.0 H Lymphocytes # 1.3 Monocytes # 1.0 H Eosinophils # 0.6 H Basophils # 0.1 Nucleated Red Blood Cells # 0.0 Sodium Level 140 Potassium Level 3.8 Chloride Level 102 Carbon Dioxide Level 31 Anion Gap 11 Blood Urea Nitrogen 14 Creatinine 0.69 Glucose Level 82 Calcium Level 8.0 L Phosphorus Level 2.2 #L Magnesium Level 2.0 Troponin I 3.760 *H Medications Medications Current Medications Propofol 100 ml @ 0 mls/hr TITRATE IV Last administered on 09/16/16 12:17; Admin Dose 25.4 MLS/HR; Start 09/14/16 at 14:00 Potassium Chloride/Sodium Chloride (1/2 NS + KCl 20 Meq) 1,000 ml @ 125 mls/hr Q8H IV Last administered on 09/16/16 11:53; Admin Dose 125 MLS/HR; Start at 18:00 Ondansetron HCl (Zofran Inj) 4 mg Q6H PRN IV NAUSEA AND/OR VOMITING; Start 09/14 at 17:00 Pantoprazole 40 mg 40 mg DAILY@06 IV Last administered on 09/16/16 06:04; Admin Dose 40 MG; Start 09/15/16 at 06:00 Fentanyl 100 ml @ 2.5 mls/hr TITRATE IV Last administered on 09/16/16 10:15; Admin Dose 10 MLS/HR; Start 09/15/16 at 13:30 Midazolam HCl (Versed) 50 ml @ 1 mls/hr TITRATE IV Last administered on 08:30; Admin Dose 1.5 MLS/HR; Start 09/15/16 at 19:00 Aspirin (Aspirin) 300 mg DAILY IN Last administered on 09/16/16 08:42; Admin Dose 300 MG; Start 09/15/16 at 19:30 Morphine Sulfate (morphine) 2 mg Q4H PRN IV SEVERE PAIN LEVEL 7-10; Start at 10:30 MARCIO STOREY Sep 16, 2016 12:23
--- NOTE | 2016-09-16 13:44 | CONS ---
Date/Time of Note Date/Time of Note DATE: 09/16/16 TIME: 13:35 Assessment/Plan Assessment/Plan Additional Assessment/Plan IMP: 1. AMS--encephalopathy currently of unclear etiology. Concern for possible anoxia though difficult to assess in view of high sedatives. 2. Resp Failure 3. Acute Renal Failure--eval for rhabdo 4. Substance Abuse 5. Demand Ischemia/type II NSTEMI 6. Concern for aspiration pneumonitis RECS: 1. IV abx 2. Taper sedatives 3. Stat CK 4. IVF's 5. Reassess mental status 6. Consider EEG 35 min cc time Consultation Date/Type/Reason Admit Date/Time September 14, 2016 Date of Consultation: Sep 16, 2016 Type of Consultation: Pulmonary/CCM Hx of Present Illness Briefly, this is a 43-year-old male with a history of substance abuse, notably with methamphetamines and heroin, who was found unresponsive and apneic. He was intubated for airway protection and has since been in the ED and now in the ICU. Thus far, he has been found to have type II NSTEMI and possible acute CVA ( based on MRI). He is deeply sedated on the vent. unable to obtain Psychological: No nl mood/affect, No no complaints Past Medical History Medical History: no pertinent history Past Surgical History Past Surgical Hx: no surgical history Family History Significant Family History: no pertinent family hx Social History Smoking Status: Current some day smoker Drug Use: heroin, other Exam/Review of Systems Vital Signs Vitals Vital Signs Date Time Temp Pulse Resp B/P Pulse Ox O2 Delivery O2 Flow Rate FiO2 09/16/16 12:19 99.0 09/16/16 08:30 93 20 118/85 100 09/16/16 07:45 Mechanical Ventilator 09/16/16 05:00 40 Intake and Output 09/15/16 09/15/16 09/16/16 15:00 23:00 07:00 Intake Total 1021.5 ml Output Total 2000 ml 820 ml Balance -2000 ml 201.5 ml Exam Constitutional: non-verbal Head: atraumatic, normocephalic Eyes: PERRL, nl conjunctiva ENMT: intubated, mucosa pink and moist, nl external ears & nose Neck: non-tender, supple Respiratory: diminished breath sounds, normal air movement Cardiovascular: regular rate and rhythm Gastrointestinal: nl liver, spleen, non-tender, soft Extremities: normal pulses Neurological: DTR's symmetric Results Result Diagram: 09/16/16 0510 09/16/16 0510 Results 24 hrs Laboratory Tests Test 09/16/16 05:10 White Blood Count 14.9 H Red Blood Count 4.01 L Hemoglobin 12.0 L Hematocrit 37.1 L Mean Corpuscular Volume 92.5 Mean Corpuscular Hemoglobin 29.9 Mean Corpuscular Hemoglobin Concent 32.3 Red Cell Distribution Width 13.2 Platelet Count 245 Mean Platelet Volume 9.7 Neutrophils % 80.3 H Lymphocytes % 8.5 L Monocytes % 6.4 Eosinophils % 3.9 Basophils % 0.4 Nucleated Red Blood Cells % 0.0 Neutrophils # 12.0 H Lymphocytes # 1.3 Monocytes # 1.0 H Eosinophils # 0.6 H Basophils # 0.1 Nucleated Red Blood Cells # 0.0 Sodium Level 140 Potassium Level 3.8 Chloride Level 102 Carbon Dioxide Level 31 Anion Gap 11 Blood Urea Nitrogen 14 Creatinine 0.69 Glucose Level 82 Calcium Level 8.0 L Phosphorus Level 2.2 #L Magnesium Level 2.0 Troponin I 3.760 *H Medications Medications Current Medications Propofol 100 ml @ 0 mls/hr TITRATE IV Last administered on 09/16/16 12:17; Admin Dose 25.4 MLS/HR; Start 09/14/16 at 14:00 Potassium Chloride/Sodium Chloride (1/2 NS + KCl 20 Meq) 1,000 ml @ 125 mls/hr Q8H IV Last administered on 09/16/16 11:53; Admin Dose 125 MLS/HR; Start at 18:00 Ondansetron HCl (Zofran Inj) 4 mg Q6H PRN IV NAUSEA AND/OR VOMITING; Start 09/14 at 17:00 Pantoprazole 40 mg 40 mg DAILY@06 IV Last administered on 09/16/16 06:04; Admin Dose 40 MG; Start 09/15/16 at 06:00 Fentanyl 100 ml @ 2.5 mls/hr TITRATE IV Last administered on 09/16/16 10:15; Admin Dose 10 MLS/HR; Start 09/15/16 at 13:30 Midazolam HCl (Versed) 50 ml @ 1 mls/hr TITRATE IV Last administered on 08:30; Admin Dose 1.5 MLS/HR; Start 09/15/16 at 19:00 Aspirin (Aspirin) 300 mg DAILY [place] Last administered on 09/16/16 08:42; Admin Dose 300 MG; Start 09/15/16 at 19:30 Morphine Sulfate (morphine) 2 mg Q4H PRN IV SEVERE PAIN LEVEL 7-10; Start at 10:30 KIKI EUBANKS MD Sep 16, 2016 13:44
[2016-09-16] MEDS ORDERED: SODIUM BICARBONATE (IV ADD) 150 MEQ in DEXTROSE 5% 1,000 ML IV SCH (15:00)
[2016-09-16] MEDS: AMPICILLIN/SULB 3 GM/NS (PMX) 100 ML IVPB SCH ×2 (15:30→18:11)
[2016-09-16] MEDS: SODIUM BICARBONATE (IV ADD) 150 MEQ in DEXTROSE 5% 1,000 ML IV SCH (15:39)
[2016-09-17] VITALS (64 sets, daily range): BP systolic 101–130; BP diastolic 34–86; PULSE 83–97; RESP 16–30
[2016-09-17] MEDS: AMPICILLIN/SULB 3 GM/NS (PMX) 100 ML IVPB SCH ×5 (01:19→23:27)
[2016-09-17 05:05] LABS: AADO2 Arterial 157.5 mmHg (7.0-24.0); Arterial Base Excess 6.7 mmol/L (-3.0-3); Arterial COHb 0.4 % (0.0-3.0); Arterial Fraction of Oxyhgb 94.9 % (93.0-99.0); Arterial HCO3 31.2 mmol/L (22.0-26.0); Arterial MetHb 0.4 % (0.0-1.5); Arterial Total Hemglobin 12.6 g/dl (12.0-18.0); MODE VENT - AC
[2016-09-17] MEDS: PROPOFOL 100 ML IV SCH ×6 (05:07→21:19)
[2016-09-17] MEDS: SODIUM BICARBONATE (IV ADD) 150 MEQ in DEXTROSE 5% 1,000 ML IV SCH (05:07)
[2016-09-17] MEDS: FENTAnyl (DRIP) 1000 mcg/100mL 100 ML IV SCH ×2 (05:10→14:56)
[2016-09-17 06:03] LABS: BASOPHILS % 0.4 % (0.0-2.0); EOSINOPHILS # 0.5 10^3/ul (0.0-0.5); EOSINOPHILS % 4.9 % (0.0-7.0); HEMATOCRIT 34.2 % (42.0-52.0); HEMOGLOBIN 11.2 g/dl (14.0-18.0); LYMPHOCYTES % 8.7 % (15.0-51.0); MEAN CORPUSCULAR HEMOGLOBIN 29.6 pg (29.0-33.0); MEAN CORPUSCULAR HGB CONC 32.7 g/dl (32.0-37.0); MEAN CORPUSCULAR VOLUME 90.5 fl (82.0-101.0); MEAN PLATELET VOLUME 9.6 fl (7.4-10.4); MONOCYTE # 0.8 10^3/ul (0.3-0.9); NEUTROPHIL # 8.6 10^3/ul (1.6-7.5); NEUTROPHILS % 78.4 % (39.0-77.0); PLATELET COUNT 222 10^3/UL (140-415); RED BLOOD COUNT 3.78 10^6/ul (4.70-6.10); RED CELL DISTRIBUTION WIDTH 12.8 % (11.5-14.5)
[2016-09-17 06:41] LABS: CALCIUM 7.7 mg/dl (8.4-10.2); CREATININE 0.64 mg/dl (0.61-1.24); MAGNESIUM 1.8 mg/dl (1.7-2.5); PHOSPHORUS 3.3 mg/dl (2.5-4.9); POTASSIUM 3.4 mmol/L (3.5-5.1)
[2016-09-17] MEDS: MIDAZOLAM (DRIP) 50 mg/50 mL 50 ML IV SCH (07:06)
[2016-09-17] MEDS: ASPIRIN 300 MG SUPP PR SCH (09:01)
--- NOTE | 2016-09-17 10:57 | PN ---
Date/Time of Note Date/Time of Note DATE: 09/17/16 TIME: 10:56 Assessment/Plan VTE Prophylaxis VTE Prophylaxis Intervention: SCD's Assessment/Plan Chief Complaint/Hosp Course 1. 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 NSTEMI likely type II from demand Cardiology consultation, 2D echo shows borderline normal EF Continue aspirin 3. Leukocytosis-reactive Monitor 4. Hypernatremia with likely acute kidney injury secondary to dehydration- resolved IV fluid 5. Hyperglycemia from stress-resolved A1c at 5.6 6. Anoxic brain injury as noted on brain MRI secondary to prolonged hypoxia from drug overdose Neurological consultation appreciated Prophylaxis: SCD Problems: Subjective 24 Hr Interval Summary Subjective hx not possible: pt non-verbal Exam/Review of Systems Vital Signs Vitals Vital Signs Date Time Temp Pulse Resp B/P Pulse Ox O2 Delivery O2 Flow Rate FiO2 09/17/16 10:30 87 20 125/78 93 09/17/16 08:00 98.7 09/17/16 06:00 Mechanical Ventilator 09/17/16 05:43 40 Intake and Output 09/16/16 09/16/16 09/17/16 15:00 23:00 07:00 Intake Total 1565.6 ml 1473.39 ml 1179.69 ml Output Total 345 ml 410 ml 525 ml Balance 1220.6 ml 1063.39 ml 654.69 ml Exam Constitutional: non-verbal Respiratory: clear to auscultation Cardiovascular: regular rate and rhythm Gastrointestinal: soft, No distended Musculoskeletal: nl extremities to inspection Results Result Diagram: 09/17/16 0530 09/17/16 0530 Results 24 hrs Laboratory Tests Test 09/16/16 14:12 09/17/16 05:00 09/17/16 05:30 Creatine Kinase 2781 H 1399 H Blood Gas Specimen Source Blood arterial Arterial Blood Date Drawn 09/17/2016 4:59:59 AM Arterial Blood pH (Temp corrected) 7.467 H Arterial Blood pCO2 (Temp correct) 44.2 Arterial Blood pO2 (Temp corrected) 76.9 L Arterial Blood HCO3 31.2 H Arterial Blood Base Excess 6.7 H Arterial Blood Oxygen Saturation 95.7 Vinicius Test N/A Arterial Blood Gas Puncture Site Right Brachial Arterial Blood Carboxyhemoglobin 0.4 Arterial Blood Methemoglobin 0.4 Blood Gas A-a O2 Differential 157.5 H Oxyhemoglobin Percent 94.9 Total Hemoglobin 12.6 Blood Gas Temperature 37.0 Blood Gas Respiration Rate 20.0 Blood Gas Actual Respiration Rate 20 Blood Gas Modality VENT - AC FiO2 40.0 Blood Gas Tidal Volume 500.0 Blood Gas Low PEEP Setting 5.0 Blood Gas Notified Whom LW Blood Gas Notified Time 09/17/2016 5:05:41 AM White Blood Count 11.0 #H Red Blood Count 3.78 L Hemoglobin 11.2 L Hematocrit 34.2 L Mean Corpuscular Volume 90.5 Mean Corpuscular Hemoglobin 29.6 Mean Corpuscular Hemoglobin Concent 32.7 Red Cell Distribution Width 12.8 Platelet Count 222 Mean Platelet Volume 9.6 Neutrophils % 78.4 H Lymphocytes % 8.7 L Monocytes % 7.0 Eosinophils % 4.9 Basophils % 0.4 Nucleated Red Blood Cells % 0.0 Neutrophils # 8.6 H Lymphocytes # 1.0 Monocytes # 0.8 Eosinophils # 0.5 Basophils # 0.0 Nucleated Red Blood Cells # 0.0 Sodium Level 141 Potassium Level 3.4 L Chloride Level 98 Carbon Dioxide Level 32 H Anion Gap 14 Blood Urea Nitrogen 9 Creatinine 0.64 Glucose Level 98 Lactic Acid Level 0.8 Calcium Level 7.7 L Phosphorus Level 3.3 Magnesium Level 1.8 Medications Medications Current Medications Propofol (Diprivan) 100 ml @ 0 mls/hr TITRATE IV Last administered on 09/17/16 09:02; Admin Dose 45 MLS/HR; Start 09/14/16 at 14:00 Ondansetron HCl (Zofran Inj) 4 mg Q6H PRN IV NAUSEA AND/OR VOMITING; Start 09/14 at 17:00 Pantoprazole 40 mg 40 mg DAILY@06 IV Last administered on 09/16/16 06:04; Admin Dose 40 MG; Start 09/15/16 at 06:00 Fentanyl 100 ml @ 2.5 mls/hr TITRATE IV Last administered on 09/17/16 05:10; Admin Dose 10 MLS/HR; Start 09/15/16 at 13:30 Midazolam HCl (Versed) 50 ml @ 1 mls/hr TITRATE IV Last administered on 07:06; Admin Dose 2 MLS/HR; Start 09/15/16 at 19:00 Aspirin (Aspirin) 300 mg DAILY [place] Last administered on 09/17/16 09:01; Admin Dose 300 MG; Start 09/15/16 at 19:30 Morphine Sulfate 2 mg 2 mg Q4H PRN IV SEVERE PAIN LEVEL 7-10; Start 09/16/16 at 10:30 Ampicillin Sodium/ Sulbactam Sodium 100 ml @ 100 mls/hr Q6 IVPB Last administered on 09/17/16 05:11; Admin Dose 100 MLS/HR; Start 09/16/16 at 14:00 Sodium Bicarbonate/ Dextrose (Na Bicarb/D5W) 1,150 ml @ 100 mls/hr [id number] IV Last administered on 09/17/16 05:07; Admin Dose 100 MLS/HR; Start 09/16/16 at 15: 30 MARCIO STOREY Sep 17, 2016 10:57
--- NOTE | 2016-09-17 12:38 | RADRPT ---
PROCEDURE: Chest radiograph CLINICAL INDICATION: vent. TECHNIQUE: Single portable frontal view. COMPARISON: Radiograph of 09/16/2016. FINDINGS: The endotracheal tube terminates about 5.0 cm above the marlin. The left internal jugular subclavian line terminates in the superior vena cava. The enteric tube courses below the diaphragm of the field of view. Small right pleural effusion layering in the mid and lower lung. Mild pulmonary vascular congestion. The heart is enlarged. No suspicious bone lesion. IMPRESSION: 1.Overall, improved aeration of both lungs since the most recent examination. There is mild palmar vascular congestion with small right pleural effusion. 2. All support lines and tubes in appropriate position. RPTAT: PP Physician Sasha Date Time Electronically viewed and signed by Physician Sasha on 09/17/2016 12:37 LG/
[2016-09-17] MEDS ORDERED: POTASSIUM CHLORIDE 250 ML IVPB ONE (13:00)
--- NOTE | 2016-09-17 13:12 | CONS ---
Date/Time of Note Date/Time of Note DATE: 09/17/16 TIME: 13:09 Consult Date/Type/Reason Admit Date/Time Sep 14, 2016 at 16:36 Initial Consult Date 09/16/16 Type of Consultation: Pulmonary/CCM Ordering Provider: MARCIO STOREY Subjective On sedation on MV. Objective Vital Signs Date Time Temp Pulse Resp B/P Pulse Ox O2 Delivery O2 Flow Rate FiO2 09/17/16 12:00 87 09/17/16 11:28 20 95 40 09/17/16 10:30 125/78 09/17/16 08:00 98.7 09/17/16 06:00 Mechanical Ventilator Intake and Output 09/16/16 09/16/16 09/17/16 15:00 23:00 07:00 Intake Total 1565.6 ml 1473.39 ml 1222.36 ml Output Total 345 ml 410 ml 625 ml Balance 1220.6 ml 1063.39 ml 597.36 ml Exam HEENT: Neck supple; no JVD; no LAD; + ET tube CVS: RRR, S1 and S2 CHEST: Clear ABD: Soft, NT, + BS EXT: No c/c/e Results/Medications Result Diagram: 09/17/16 0530 09/17/16 0530 Results 24 hrs Laboratory Tests Test 09/16/16 14:12 09/17/16 05:00 09/17/16 05:30 Creatine Kinase 2781 H 1399 H Blood Gas Specimen Source Blood arterial Arterial Blood Date Drawn 09/17/2016 4:59:59 AM Arterial Blood pH (Temp corrected) 7.467 H Arterial Blood pCO2 (Temp correct) 44.2 Arterial Blood pO2 (Temp corrected) 76.9 L Arterial Blood HCO3 31.2 H Arterial Blood Base Excess 6.7 H Arterial Blood Oxygen Saturation 95.7 Vinicius Test N/A Arterial Blood Gas Puncture Site Right Brachial Arterial Blood Carboxyhemoglobin 0.4 Arterial Blood Methemoglobin 0.4 Blood Gas A-a O2 Differential 157.5 H Oxyhemoglobin Percent 94.9 Total Hemoglobin 12.6 Blood Gas Temperature 37.0 Blood Gas Respiration Rate 20.0 Blood Gas Actual Respiration Rate 20 Blood Gas Modality VENT - AC FiO2 40.0 Blood Gas Tidal Volume 500.0 Blood Gas Low PEEP Setting 5.0 Blood Gas Notified Whom LW Blood Gas Notified Time 09/17/2016 5:05:41 AM White Blood Count 11.0 #H Red Blood Count 3.78 L Hemoglobin 11.2 L Hematocrit 34.2 L Mean Corpuscular Volume 90.5 Mean Corpuscular Hemoglobin 29.6 Mean Corpuscular Hemoglobin Concent 32.7 Red Cell Distribution Width 12.8 Platelet Count 222 Mean Platelet Volume 9.6 Neutrophils % 78.4 H Lymphocytes % 8.7 L Monocytes % 7.0 Eosinophils % 4.9 Basophils % 0.4 Nucleated Red Blood Cells % 0.0 Neutrophils # 8.6 H Lymphocytes # 1.0 Monocytes # 0.8 Eosinophils # 0.5 Basophils # 0.0 Nucleated Red Blood Cells # 0.0 Sodium Level 141 Potassium Level 3.4 L Chloride Level 98 Carbon Dioxide Level 32 H Anion Gap 14 Blood Urea Nitrogen 9 Creatinine 0.64 Glucose Level 98 Lactic Acid Level 0.8 Calcium Level 7.7 L Phosphorus Level 3.3 Magnesium Level 1.8 Medications Current Medications Propofol (Diprivan) 100 ml @ 0 mls/hr TITRATE IV Last administered on 09/17/16 11:36; Admin Dose 40 MLS/HR; Start 09/14/16 at 14:00 Ondansetron HCl (Zofran Inj) 4 mg Q6H PRN IV NAUSEA AND/OR VOMITING; Start 09/14 at 17:00 Pantoprazole 40 mg 40 mg DAILY@06 IV Last administered on 09/16/16 06:04; Admin Dose 40 MG; Start 09/15/16 at 06:00 Fentanyl 100 ml @ 2.5 mls/hr TITRATE IV Last administered on 09/17/16 05:10; Admin Dose 10 MLS/HR; Start 09/15/16 at 13:30 Midazolam HCl (Versed) 50 ml @ 1 mls/hr TITRATE IV Last administered on 07:06; Admin Dose 2 MLS/HR; Start 09/15/16 at 19:00 Aspirin (Aspirin) 300 mg DAILY GA Last administered on 09/17/16 09:01; Admin Dose 300 MG; Start 09/15/16 at 19:30 Morphine Sulfate 2 mg 2 mg Q4H PRN IV SEVERE PAIN LEVEL 7-10; Start 09/16/16 at 10:30 Ampicillin Sodium/ Sulbactam Sodium 100 ml @ 100 mls/hr Q6 IVPB Last administered on 09/17/16 11:38; Admin Dose 100 MLS/HR; Start 09/16/16 at 14:00 Sodium Bicarbonate 150 meq/Dextrose 1,150 ml @ 100 mls/hr [id number] IV Last administered on 09/17/16 05:07; Admin Dose 100 MLS/HR; Start 09/16/16 at 15:30 Potassium Chloride (KCl 40 MEQ/250 ML NS) 250 ml @ 62.5 mls/hr ONCE ONCE IVPB ; Start 09/17/16 at 13:00; Stop 09/17/16 at 16:59 Assessment/Plan Chief Complaint/Hosp Course Briefly, this is a 43-year-old male with a history of substance abuse, notably with methamphetamines and heroin, who was found unresponsive and apneic. He was intubated for airway protection and has since been in the ED and now in the ICU. Thus far, he has been found to have type II NSTEMI and possible acute CVA ( based on MRI). He is deeply sedated on the vent. Problems: Additional Assessment/Plan IMP: 1. AMS--encephalopathy currently of unclear etiology. Concern for possible anoxia though difficult to assess in view of high sedatives. 2. Resp Failure 3. Acute Renal Failure--resolved 4. Mild Rhabdo 5. Demand Ischemia/type II NSTEMI 6. Concern for aspiration pneumonitis 7. [place] and Meth use RECS: 1. IV abx 2. Precedex gtt tonight 3. Wean to CPAP in am 4. D/C IVF's 5. May need methadone once extubated 35 min cc time KIKI EUBANKS MD Sep 17, 2016 13:12
[2016-09-17] MEDS: DEXTROSE 5%-0.9% NACL 1,000 ML IV SCH (15:34)
[2016-09-18] VITALS (39 sets, daily range): BP systolic 102–170; BP diastolic 68–98; PULSE 71–101; RESP 18–36
[2016-09-18] MEDS: DEXMEDETOMIDINE HCL 200 MCG in SOD CHLORIDE 0.9% 48 ML IV SCH ×4 (00:24→10:14)
[2016-09-18] MEDS: DEXTROSE 5%-0.9% NACL 1,000 ML IV SCH (01:03)
[2016-09-18] MEDS: PROPOFOL 100 ML IV SCH ×7 (01:04→22:02)
[2016-09-18 05:16] LABS: BASOPHILS % 0.3 % (0.0-2.0); EOSINOPHILS # 0.6 10^3/ul (0.0-0.5); EOSINOPHILS % 5.4 % (0.0-7.0); HEMATOCRIT 35.5 % (42.0-52.0); HEMOGLOBIN 11.7 g/dl (14.0-18.0); LYMPHOCYTES # 0.6 10^3/ul (0.8-2.9); LYMPHOCYTES % 5.9 % (15.0-51.0); MEAN CORPUSCULAR HEMOGLOBIN 29.8 pg (29.0-33.0); MEAN CORPUSCULAR VOLUME 90.3 fl (82.0-101.0); MEAN PLATELET VOLUME 9.7 fl (7.4-10.4); MONOCYTE # 0.8 10^3/ul (0.3-0.9); MONOCYTES % 7.5 % (0.0-11.0); NEUTROPHIL # 8.3 10^3/ul (1.6-7.5); NEUTROPHILS % 80.1 % (39.0-77.0); PLATELET COUNT 256 10^3/UL (140-415); RED BLOOD COUNT 3.93 10^6/ul (4.70-6.10); RED CELL DISTRIBUTION WIDTH 12.4 % (11.5-14.5); WHITE BLOOD COUNT 10.4 10^3/ul (4.8-10.8)
[2016-09-18] MEDS: PANTOPRAZOLE 40 MG INJ IV SCH (05:17)
[2016-09-18] MEDS: AMPICILLIN/SULB 3 GM/NS (PMX) 100 ML IVPB SCH ×3 (05:17→19:07)
[2016-09-18 06:03] LABS: CALCIUM 8.2 mg/dl (8.4-10.2); CREATININE 0.63 mg/dl (0.61-1.24); POTASSIUM 3.6 mmol/L (3.5-5.1)
--- NOTE | 2016-09-18 08:01 | RADRPT ---
PROCEDURE: XR Chest. CLINICAL INDICATION: Shortness of breath. TECHNIQUE: Single frontal view. COMPARISON: 09/17/2016. FINDINGS: The endotracheal tube, nasogastric tube, and left subclavian vein catheter remain in satisfactory po sition. Mild pulmonary edema and bibasilar atelectasis is slightly worse than seen previously. The lungs are otherwise clear. The heart is mildly enlarged. There are small bilateral pleural effusions. There is no pneumothorax. IMPRESSION: 1. Slightly worse appearance of the lungs. 2. No other change from 09/17/2016. RPTAT: QQ .Sunny Oleary MD, MD Date Time Electronically viewed and signed by .Sunny Oleary MD, on 09/18/2016 08:01 .R/
[2016-09-18] MEDS: ASPIRIN 300 MG SUPP PR SCH (09:09)
[2016-09-18] MEDS: FENTAnyl (DRIP) 1000 mcg/100mL 100 ML IV SCH ×2 (09:21→19:43)
--- NOTE | 2016-09-18 11:58 | CONS ---
Date/Time of Note Date/Time of Note DATE: 09/18/16 TIME: 11:56 Consult Date/Type/Reason Admit Date/Time Sep 14, 2016 at 16:36 Initial Consult Date 09/16/16 Type of Consultation: Pulmonary/CCM Ordering Provider: MARCIO STOREY Subjective Significant agitation and secretions. Unable to wean from mechanical ventilation this morning. Objective Vital Signs Date Time Temp Pulse Resp B/P Pulse Ox O2 Delivery O2 Flow Rate FiO2 09/18/16 11:07 73 21 97 80 09/18/16 10:00 142/88 09/18/16 09:00 Mechanical Ventilator 09/18/16 07:30 99.2 Intake and Output 09/17/16 09/17/16 09/18/16 15:00 23:00 07:00 Intake Total 2043.5 ml 1273.70 ml 1337.42 ml Output Total 810 ml 650 ml 380 ml Balance 1233.5 ml 623.70 ml 957.42 ml Exam PHYSICAL EXAMINATION GENERAL: Well-nourished well-developed gentleman intubated sedated on mechanical ventilation VITAL SIGNS: see below. HEENT: Pupils equal, round, and reactive to light. Tracheostomy site clean and intact. CARDIAC: S1, S2, no added sounds or movements CHEST: Diminished air entry bilaterally. ABDOMEN: Mildly distended. Bowel sounds present no guarding or rebound EXTREMITIES: No cyanosis, clubbing edema +1 NEUROLOGIC: Generalized weakness Results/Medications Result Diagram: 09/18/16 0400 09/18/16 0400 Results 24 hrs Laboratory Tests Test 09/18/16 04:00 White Blood Count 10.4 Red Blood Count 3.93 L Hemoglobin 11.7 L Hematocrit 35.5 L Mean Corpuscular Volume 90.3 Mean Corpuscular Hemoglobin 29.8 Mean Corpuscular Hemoglobin Concent 33.0 Red Cell Distribution Width 12.4 Platelet Count 256 Mean Platelet Volume 9.7 Neutrophils % 80.1 H Lymphocytes % 5.9 L Monocytes % 7.5 Eosinophils % 5.4 Basophils % 0.3 Nucleated Red Blood Cells % 0.0 Neutrophils # 8.3 H Lymphocytes # 0.6 L Monocytes # 0.8 Eosinophils # 0.6 H Basophils # 0.0 Nucleated Red Blood Cells # 0.0 Sodium Level 142 Potassium Level 3.6 Chloride Level 101 Carbon Dioxide Level 30 Anion Gap 15 Blood Urea Nitrogen 9 Creatinine 0.63 Glucose Level 142 # Calcium Level 8.2 L Medications Current Medications Propofol (Diprivan) 100 ml @ 0 mls/hr TITRATE IV Last administered on 09/18/16 09:09; Admin Dose 20 MLS/HR; Start 09/14/16 at 14:00 Ondansetron HCl (Zofran Inj) 4 mg Q6H PRN IV NAUSEA AND/OR VOMITING; Start 09/14 at 17:00 Pantoprazole 40 mg 40 mg DAILY@06 IV Last administered on 09/18/16 05:17; Admin Dose 40 MG; Start 09/15/16 at 06:00 Fentanyl 100 ml @ 2.5 mls/hr TITRATE IV Last administered on 09/18/16 09:21; Admin Dose 5 MLS/HR; Start 09/15/16 at 13:30 Midazolam HCl (Versed) 50 ml @ 1 mls/hr TITRATE IV Last administered on 07:06; Admin Dose 2 MLS/HR; Start 09/15/16 at 19:00 Aspirin (Aspirin) [address] Last administered on 09/18/16 09:09; Admin Dose 300 MG; Start 09/15/16 at 19:30 Morphine Sulfate 2 mg 2 mg Q4H PRN IV SEVERE PAIN LEVEL 7-10; Start 09/16/16 at 10:30 Ampicillin Sodium/ Sulbactam Sodium 100 ml @ 100 mls/hr Q6 IVPB Last administered on 09/18/16 05:17; Admin Dose 100 MLS/HR; Start 09/16/16 at 14:00 Dexmedetomidine HCl 200 mcg/ Sodium Chloride 50 ml @ 6.05 mls/hr TITRATE IV Last administered on 09/18/16 10:14; Admin Dose 15.12 MLS/HR; Start 09/18/16 at 00:00; Stop 09/18/16 at 12:00 Dextrose/Sodium Chloride (D5-NS) 1,000 ml @ 100 mls/hr Q10H IV Last administered on 09/18/16 01:03; Admin Dose 100 MLS/HR; Start 09/17/16 at 15:00 Assessment/Plan Chief Complaint/Hosp Course Additional Assessment/Plan IMP: 1. AMS--encephalopathy currently of unclear etiology. Concern for possible anoxia though difficult to assess in view of high sedatives. 2. Resp Failure 3. Acute Renal Failure--resolved 4. Mild Rhabdo clinically improving 5. Demand Ischemia/type II NSTEMI 6. Concern for aspiration pneumonitis 7. Heroin and Meth use RECS: 1. IV abx 2. Precedex gtt tonight 3. No stable for weaning this morning. Continue mechanical ventilation 4. D/C IVF's 5. May need methadone once extubated 35 min cc time Problems: BRANDON CORONA MD, [facility] Sep 18, 2016 11:58
--- NOTE | 2016-09-18 18:15 | CONS ---
Date/Time of Note Date/Time of Note DATE: 09/18/16 TIME: 18:13 Assessment/Plan Assessment/Plan Chief Complaint/Hosp Course Assessment: NSTEMI - likely type 2 Acute encephalopathy Acute left frontal stroke Possible anoxic brain injury Amphetamine abuse Leukocytosis - possibly reactive, improving Recommendations: -echocardiogram showed LVEF 50-55% -continue aspirin 300mg HI daily -follow up neurology recommendations Problems: Consultation Date/Type/Reason Admit Date/Time Sep 14, 2016 at 16:36 Initial Consult Date 09/16/16 Type of Consultation: Cardiology 24 HR Interval Summary Free Text/Dictation Remains intubated. Reports of being very agitated when weaning down on sedation. Detailed Summary Additional Comments Unable to obtain review of systems, patient is intubated. Exam/Review of Systems Vital Signs Vitals Vital Signs Date Time Temp Pulse Resp B/P Pulse Ox O2 Delivery O2 Flow Rate FiO2 09/18/16 18:00 75 20 138/87 99 Mechanical Ventilator 09/18/16 17:40 80 09/18/16 16:00 99.6 Intake and Output 09/17/16 09/17/16 09/18/16 15:00 23:00 07:00 Intake Total 2043.5 ml 1273.70 ml 1337.42 ml Output Total 810 ml 650 ml 380 ml Balance 1233.5 ml 623.70 ml 957.42 ml Exam Constitutional: other (sedated), No alert Psych: No nl mood/affect, No no complaints Head: atraumatic, normocephalic Eyes: nl conjunctiva, nl lids ENMT: intubated Respiratory: clear to auscultation Cardiovascular: regular rate and rhythm Gastrointestinal: non-tender, soft Musculoskeletal: nl extremities to inspection Extremities: No clubbing, No cyanosis, No edema Neurological: No nl mental status, No nl speech Skin: nl turgor Results Result Diagram: 09/18/16 0400 09/18/16 0400 Results 24 hrs Laboratory Tests Test 09/18/16 04:00 White Blood Count 10.4 Red Blood Count 3.93 L Hemoglobin 11.7 L Hematocrit 35.5 L Mean Corpuscular Volume 90.3 Mean Corpuscular Hemoglobin 29.8 Mean Corpuscular Hemoglobin Concent 33.0 Red Cell Distribution Width 12.4 Platelet Count 256 Mean Platelet Volume 9.7 Neutrophils % 80.1 H Lymphocytes % 5.9 L Monocytes % 7.5 Eosinophils % 5.4 Basophils % 0.3 Nucleated Red Blood Cells % 0.0 Neutrophils # 8.3 H Lymphocytes # 0.6 L Monocytes # 0.8 Eosinophils # 0.6 H Basophils # 0.0 Nucleated Red Blood Cells # 0.0 Sodium Level 142 Potassium Level 3.6 Chloride Level 101 Carbon Dioxide Level 30 Anion Gap 15 Blood Urea Nitrogen 9 Creatinine 0.63 Glucose Level 142 # Calcium Level 8.2 L Medications Medications Current Medications Propofol (Diprivan) 100 ml @ 0 mls/hr TITRATE IV Last administered on 09/18/16 16:21; Admin Dose 36.3 MLS/HR; Start 09/14/16 at 14:00 Ondansetron HCl (Zofran Inj) 4 mg Q6H PRN IV NAUSEA AND/OR VOMITING; Start 09/14 at 17:00 Pantoprazole 40 mg 40 mg DAILY@06 IV Last administered on 09/18/16 05:17; Admin Dose 40 MG; Start 09/15/16 at 06:00 Fentanyl 100 ml @ 2.5 mls/hr TITRATE IV Last administered on 09/18/16 09:21; Admin Dose 5 MLS/HR; Start 09/15/16 at 13:30 Midazolam HCl (Versed) 50 ml @ 1 mls/hr TITRATE IV Last administered on 07:06; Admin Dose 2 MLS/HR; Start 09/15/16 at 19:00 Aspirin (Aspirin) 300 mg DAILY HI Last administered on 09/18/16 09:09; Admin Dose 300 MG; Start 09/15/16 at 19:30 Morphine Sulfate 2 mg 2 mg Q4H PRN IV SEVERE PAIN LEVEL 7-10; Start 09/16/16 at 10:30 Ampicillin Sodium/ Sulbactam Sodium (Unasyn 3gm/NS (Pmx)) 100 ml @ 100 mls/hr Q6 IVPB Last administered on 09/18/16 12:03; Admin Dose 100 MLS/HR; Start at 14:00 THERESA PARIS MD Sep 18, 2016 18:15
--- NOTE | 2016-09-18 18:59 | PN ---
Date/Time of Note Date/Time of Note DATE: 09/18/16 TIME: 18:59 Assessment/Plan VTE Prophylaxis VTE Prophylaxis Intervention: LMWH Lines/Catheters IV Catheter Type (from Nrs): Central Line Central line still needed: Yes Urinary Cath still in place: Yes Reason Cath still needed: urinary retention Assessment/Plan Chief Complaint/Hosp Course Wean sedation Extubate tomorrow Problems: Subjective 24 Hr Interval Summary Free Text/Dictation Unable to be extubated today Remains on sedation Exam/Review of Systems Vital Signs Vitals Vital Signs Date Time Temp Pulse Resp B/P Pulse Ox O2 Delivery O2 Flow Rate FiO2 09/18/16 18:00 75 20 138/87 99 Mechanical Ventilator 09/18/16 17:40 80 09/18/16 16:00 99.6 Intake and Output 09/17/16 09/17/16 09/18/16 15:00 23:00 07:00 Intake Total 2043.5 ml 1273.70 ml 1337.42 ml Output Total 810 ml 650 ml 380 ml Balance 1233.5 ml 623.70 ml 957.42 ml Results Result Diagram: 09/18/16 0400 09/18/16 0400 Results 24 hrs Laboratory Tests Test 09/18/16 04:00 White Blood Count 10.4 Red Blood Count 3.93 L Hemoglobin 11.7 L Hematocrit 35.5 L Mean Corpuscular Volume 90.3 Mean Corpuscular Hemoglobin 29.8 Mean Corpuscular Hemoglobin Concent 33.0 Red Cell Distribution Width 12.4 Platelet Count 256 Mean Platelet Volume 9.7 Neutrophils % 80.1 H Lymphocytes % 5.9 L Monocytes % 7.5 Eosinophils % 5.4 Basophils % 0.3 Nucleated Red Blood Cells % 0.0 Neutrophils # 8.3 H Lymphocytes # 0.6 L Monocytes # 0.8 Eosinophils # 0.6 H Basophils # 0.0 Nucleated Red Blood Cells # 0.0 Sodium Level 142 Potassium Level 3.6 Chloride Level 101 Carbon Dioxide Level 30 Anion Gap 15 Blood Urea Nitrogen 9 Creatinine 0.63 Glucose Level 142 # Calcium Level 8.2 L Medications Medications Current Medications Propofol (Diprivan) 100 ml @ 0 mls/hr TITRATE IV Last administered on 09/18/16t 16:21; Admin Dose 36.3 MLS/HR; Start 09/14/16 at 14:00 Ondansetron HCl (Zofran Inj) 4 mg Q6H PRN IV NAUSEA AND/OR VOMITING; Start 09/14 at 17:00 Pantoprazole 40 mg 40 mg DAILY@06 IV Last administered on 09/18/16 05:17; Admin Dose 40 MG; Start 09/15/16 at 06:00 Fentanyl 100 ml @ 2.5 mls/hr TITRATE IV Last administered on 09/18/16 09:21; Admin Dose 5 MLS/HR; Start 09/15/16 at 13:30 Midazolam HCl (Versed) 50 ml @ 1 mls/hr TITRATE IV Last administered on 07:06; Admin Dose 2 MLS/HR; Start 09/15/16 at 19:00 Aspirin (Aspirin) 300 mg DAILY [place] Last administered on 09/18/16 09:09; Admin Dose 300 MG; Start 09/15/16 at 19:30 Morphine Sulfate 2 mg 2 mg Q4H PRN IV SEVERE PAIN LEVEL 7-10; Start 09/16/16 at 10:30 Ampicillin Sodium/ Sulbactam Sodium (Unasyn 3gm/NS (Pmx)) 100 ml @ 100 mls/hr Q6 IVPB Last administered on 09/18/16 12:03; Admin Dose 100 MLS/HR; Start at 14:00 LACY WOLF MD Sep 18, 2016 18:59
[2016-09-18] MEDS: MIDAZOLAM (DRIP) 50 mg/50 mL 50 ML IV SCH (21:23)
[2016-09-19] VITALS (36 sets, daily range): BP systolic 119–151; BP diastolic 71–89; PULSE 76–86; RESP 10–24
[2016-09-19] MEDS: AMPICILLIN/SULB 3 GM/NS (PMX) 100 ML IVPB SCH ×4 (00:49→18:31)
[2016-09-19] MEDS: PROPOFOL 100 ML IV SCH ×9 (00:52→21:41)
[2016-09-19] MEDS: MIDAZOLAM (DRIP) 50 mg/50 mL 50 ML IV SCH ×3 (03:01→18:55)
[2016-09-19] MEDS: FENTAnyl (DRIP) 1000 mcg/100mL 100 ML IV SCH ×2 (04:34→18:54)
[2016-09-19] MEDS: PANTOPRAZOLE 40 MG INJ IV SCH (05:21)
[2016-09-19 05:39] LABS: BASOPHILS % 0.4 % (0.0-2.0); EOSINOPHILS # 0.7 10^3/ul (0.0-0.5); EOSINOPHILS % 6.9 % (0.0-7.0); HEMATOCRIT 35.5 % (42.0-52.0); HEMOGLOBIN 11.6 g/dl (14.0-18.0); LYMPHOCYTES # 1.2 10^3/ul (0.8-2.9); LYMPHOCYTES % 11.8 % (15.0-51.0); MEAN CORPUSCULAR HEMOGLOBIN 29.3 pg (29.0-33.0); MEAN CORPUSCULAR HGB CONC 32.7 g/dl (32.0-37.0); MEAN CORPUSCULAR VOLUME 89.6 fl (82.0-101.0); MEAN PLATELET VOLUME 9.6 fl (7.4-10.4); MONOCYTE # 0.9 10^3/ul (0.3-0.9); MONOCYTES % 9.6 % (0.0-11.0); NEUTROPHIL # 6.9 10^3/ul (1.6-7.5); NEUTROPHILS % 70.4 % (39.0-77.0); PLATELET COUNT 294 10^3/UL (140-415); RED BLOOD COUNT 3.96 10^6/ul (4.70-6.10); RED CELL DISTRIBUTION WIDTH 12.5 % (11.5-14.5); WHITE BLOOD COUNT 9.8 10^3/ul (4.8-10.8)
[2016-09-19 06:12] LABS: ALBUMIN/GLOBULIN RATIO 0.93; BILIRUBIN,INDIRECT 0.4 mg/dl (0-1.1); BILIRUBIN,TOTAL 0.4 mg/dl (0.2-1.3); CALCIUM 8.4 mg/dl (8.4-10.2); CREATININE 0.62 mg/dl (0.61-1.24); POTASSIUM 3.6 mmol/L (3.5-5.1); TOTAL PROTEIN 6.2 g/dl (6.1-8.1)
[2016-09-19] MEDS: ASPIRIN 300 MG SUPP PR SCH (09:34)
[2016-09-19] MEDS ORDERED: PROPOFOL 100 ML ONE (09:36)
[2016-09-19] MEDS: ENOXAPARIN 40 MG/0.4 ML SYG SC SCH (10:12)
--- NOTE | 2016-09-19 11:20 | CONS ---
Date/Time of Note Date/Time of Note DATE: 09/19/16 TIME: 11:18 Consult Date/Type/Reason Admit Date/Time Sep 14, 2016 at 16:36 Initial Consult Date 09/16/16 Type of Consultation: Neurology Reason for Consultation encephalopathy Subjective remains intubated unable to wean ARF improved, on propofol drip Objective Vital Signs Date Time Temp Pulse Resp B/P Pulse Ox O2 Delivery O2 Flow Rate FiO2 09/19/16 11:00 82 20 130/75 98 Mechanical Ventilator 09/19/16 08:00 80 09/19/16 08:00 97.8 Intake and Output 09/18/16 09/18/16 09/19/16 15:00 23:00 07:00 Intake Total 742.30 ml 701.9 ml 920.48 ml Output Total 1060 ml 895 ml 730 ml Balance -317.70 ml -193.1 ml 190.48 ml Exam sedated- limited exam unable to open eyes to stimuli CN: 1 mm Dolls intact corneals and gag present Motor: minimal w/d of LE to noxious toes are mute Results/Medications Result Diagram: 09/19/16 0500 09/19/16 0500 Results 24 hrs Laboratory Tests Test 09/19/16 05:00 White Blood Count 9.8 Red Blood Count 3.96 L Hemoglobin 11.6 L Hematocrit 35.5 L Mean Corpuscular Volume 89.6 Mean Corpuscular Hemoglobin 29.3 Mean Corpuscular Hemoglobin Concent 32.7 Red Cell Distribution Width 12.5 Platelet Count 294 Mean Platelet Volume 9.6 Neutrophils % 70.4 Lymphocytes % 11.8 L Monocytes % 9.6 Eosinophils % 6.9 Basophils % 0.4 Nucleated Red Blood Cells % 0.0 Neutrophils # 6.9 Lymphocytes # 1.2 Monocytes # 0.9 Eosinophils # 0.7 H Basophils # 0.0 Nucleated Red Blood Cells # 0.0 Sodium Level 144 Potassium Level 3.6 Chloride Level 103 Carbon Dioxide Level 32 H Anion Gap 13 Blood Urea Nitrogen 9 Creatinine 0.62 Glucose Level 123 Calcium Level 8.4 Total Bilirubin 0.4 Direct Bilirubin 0.00 Indirect Bilirubin 0.4 Aspartate Amino Transf (AST/SGOT) 44 Alanine Aminotransferase (ALT/SGPT) 43 Alkaline Phosphatase 98 Troponin I 0.814 *H Total Protein 6.2 Albumin 3.0 L Globulin 3.20 Albumin/Globulin Ratio 0.93 Medications Current Medications Ondansetron HCl (Zofran Inj) 4 mg Q6H PRN IV NAUSEA AND/OR VOMITING; Start 09/14 at 17:00 Pantoprazole 40 mg 40 mg DAILY@06 IV Last administered on 09/19/16 05:21; Admin Dose 40 MG; Start 09/15/16 at 06:00 Fentanyl (Sublimaze) 100 ml @ 2.5 mls/hr TITRATE IV Last administered on 04:34; Admin Dose 2.5 MLS/HR; Start 09/15/16 at 13:30 Aspirin (Aspirin) 300 mg DAILY AL Last administered on 09/19/16 09:34; Admin Dose 300 MG; Start 09/15/16 at 19:30 Morphine Sulfate 2 mg 2 mg Q4H PRN IV SEVERE PAIN LEVEL 7-10; Start 09/16/16 at 10:30 Ampicillin Sodium/ Sulbactam Sodium 100 ml @ 100 mls/hr Q6 IVPB Last administered on 09/19/16 05:21; Admin Dose 100 MLS/HR; Start 09/16/16 at 14:00 Propofol 100 ml @ 0 mls/hr TITRATE IV Last administered on 09/19/16 10:28; Admin Dose 36.3 MLS/HR; Start 09/19/16 at 09:30 Midazolam HCl (Versed) 50 ml @ 1 mls/hr TITRATE IV Last administered on 10:18; Admin Dose 5 MLS/HR; Start 09/19/16 at 09:30 Enoxaparin Sodium (Lovenox) 40 mg DAILY SC Last administered on 09/19/16 10:12 ; Admin Dose 40 MG; Start 09/19/16 at 10:00 Assessment/Plan Chief Complaint/Hosp Course 43 yo M with history of methamphetamine abuse admitted with respiratory failure , encephalopathy requiring intubation. MRI shows changes suggestive of hypoxic injury. Recommendations -likely hypoxic injury upon review of MRI common to have involvement of globus pallidus from hypoxia -ECHO is wnl, possible brief arrhythmia contributing to embolic appearing right frontal infarct -may continue aspirin 300 mg per rectum daily -recommend repeat MRI Brain w/o contrast when stable to evaluate for extent of hypoxic injury Problems: JOSSE ALANIZ MD Sep 19, 2016 11:20
--- NOTE | 2016-09-19 11:20 | CONS ---
Date/Time of Note Date/Time of Note DATE: 09/19/16 TIME: :17 Consult Date/Type/Reason Admit Date/Time Sep 14, 2016 at 16:36 Initial Consult Date 09/16/16 Type of Consultation: Pulmonary Subjective Remains intubated on mechanical ventilation. Copious secretions requiring frequent suctioning. Continues multiple sedatives and fentanyl for pain control. FiO2 at 80%. Objective Vital Signs Date Time Temp Pulse Resp B/P Pulse Ox O2 Delivery O2 Flow Rate FiO2 09/19/16 08:00 80 09/19/16 08:00 97.8 82 20 151/88 100 Mechanical Ventilator Intake and Output 09/18/16 09/18/16 09/19/16 15:00 23:00 07:00 Intake Total 742.30 ml 701.9 ml 920.48 ml Output Total 1060 ml 895 ml 730 ml Balance -317.70 ml -193.1 ml 190.48 ml Exam PHYSICAL EXAMINATION GENERAL: Well-nourished well-developed gentleman intubated sedated on mechanical ventilation VITAL SIGNS: see below. HEENT: Pupils equal, round, and reactive to light. CARDIAC: S1, S2, no added sounds or movements CHEST: Diminished air entry bilaterally. Bilateral rales. ABDOMEN: Mildly distended. Bowel sounds present no guarding or rebound EXTREMITIES: No cyanosis, clubbing edema +1 NEUROLOGIC: Generalized weakness Results/Medications Result Diagram: 09/19/16 0500 09/19/16 0500 Results 24 hrs Laboratory Tests Test 09/19/16 05:00 White Blood Count 9.8 Red Blood Count 3.96 L Hemoglobin 11.6 L Hematocrit 35.5 L Mean Corpuscular Volume 89.6 Mean Corpuscular Hemoglobin 29.3 Mean Corpuscular Hemoglobin Concent 32.7 Red Cell Distribution Width 12.5 Platelet Count 294 Mean Platelet Volume 9.6 Neutrophils % 70.4 Lymphocytes % 11.8 L Monocytes % 9.6 Eosinophils % 6.9 Basophils % 0.4 Nucleated Red Blood Cells % 0.0 Neutrophils # 6.9 Lymphocytes # 1.2 Monocytes # 0.9 Eosinophils # 0.7 H Basophils # 0.0 Nucleated Red Blood Cells # 0.0 Sodium Level 144 Potassium Level 3.6 Chloride Level 103 Carbon Dioxide Level 32 H Anion Gap 13 Blood Urea Nitrogen 9 Creatinine 0.62 Glucose Level 123 Calcium Level 8.4 Total Bilirubin 0.4 Direct Bilirubin 0.00 Indirect Bilirubin 0.4 Aspartate Amino Transf (AST/SGOT) 44 Alanine Aminotransferase (ALT/SGPT) 43 Alkaline Phosphatase 98 Troponin I 0.814 *H Total Protein 6.2 Albumin 3.0 L Globulin 3.20 Albumin/Globulin Ratio 0.93 Medications Current Medications Ondansetron HCl (Zofran Inj) 4 mg Q6H PRN IV NAUSEA AND/OR VOMITING; Start 09/14 at 17:00 Pantoprazole 40 mg 40 mg DAILY@06 IV Last administered on 09/19/16 05:21; Admin Dose 40 MG; Start 09/15/16 at 06:00 Fentanyl (Sublimaze) 100 ml @ 2.5 mls/hr TITRATE IV Last administered on 04:34; Admin Dose 2.5 MLS/HR; Start 09/15/16 at 13:30 Aspirin (Aspirin) 300 mg DAILY HI Last administered on 09/19/16 09:34; Admin Dose 300 MG; Start 09/15/16 at 19:30 Morphine Sulfate 2 mg 2 mg Q4H PRN IV SEVERE PAIN LEVEL 7-10; Start 09/16/16 at 10:30 Ampicillin Sodium/ Sulbactam Sodium 100 ml @ 100 mls/hr Q6 IVPB Last administered on 09/19/16 05:21; Admin Dose 100 MLS/HR; Start 09/16/16 at 14:00 Propofol 100 ml @ 0 mls/hr TITRATE IV Last administered on 09/19/16 10:28; Admin Dose 36.3 MLS/HR; Start 09/19/16 at 09:30 Midazolam HCl (Versed) 50 ml @ 1 mls/hr TITRATE IV Last administered on 10:18; Admin Dose 5 MLS/HR; Start 09/19/16 at 09:30 Enoxaparin Sodium (Lovenox) 40 mg DAILY SC Last administered on 09/19/16 10:12 ; Admin Dose 40 MG; Start 09/19/16 at 10:00 Assessment/Plan Chief Complaint/Hosp Course Additional Assessment/Plan IMP: 1. AMS--encephalopathy currently of unclear etiology. Concern for possible anoxia though difficult to assess in view of high sedatives. 2. Resp Failure 3. Acute Renal Failure--resolved 4. Mild Rhabdo clinically improving 5. Demand Ischemia/type II NSTEMI 6. Concern for aspiration pneumonitis 7. Heroin and Meth use RECS: 1. IV abx 2. Continues propofol fentanyl and Versed. 3. Continue mechanical ventilation decrease FiO2 as tolerated 4. low-dose Lasix. 5. May need methadone once extubated 35 min cc time Problems: BRANDON CORONA MD, [facility] Sep 19, 2016 11:20
[2016-09-19] MEDS: FUROSEMIDE 40 MG INJ IV SCH (12:54)
--- NOTE | 2016-09-19 18:24 | CONS ---
Date/Time of Note Date/Time of Note DATE: 09/19/16 TIME: 18:23 Assessment/Plan Assessment/Plan Chief Complaint/Hosp Course Assessment: NSTEMI - likely type 2 Acute encephalopathy Acute left frontal stroke Possible anoxic brain injury Amphetamine abuse Leukocytosis - possibly reactive, improving Recommendations: -echocardiogram showed LVEF 50-55% -continue aspirin 300mg MA daily -follow up neurology recommendations Problems: Consultation Date/Type/Reason Admit Date/Time Sep 14, 2016 at 16:36 Initial Consult Date 09/16/16 Type of Consultation: Cardiology 24 HR Interval Summary Free Text/Dictation Remains intubated. No significant clinical changes. Detailed Summary Additional Comments Unable to obtain review of systems, patient is intubated. Exam/Review of Systems Vital Signs Vitals Vital Signs Date Time Temp Pulse Resp B/P Pulse Ox O2 Delivery O2 Flow Rate FiO2 09/19/16 17:30 81 20 98 70 09/19/16 17:00 125/73 Mechanical Ventilator 09/19/16 16:00 98.6 Intake and Output 09/18/16 09/18/16 09/19/16 15:00 23:00 07:00 Intake Total 742.30 ml 701.9 ml 920.48 ml Output Total 1060 ml 895 ml 730 ml Balance -317.70 ml -193.1 ml 190.48 ml Exam Constitutional: other (sedated), No alert Psych: No nl mood/affect, No no complaints Head: atraumatic, normocephalic Eyes: nl conjunctiva, nl lids ENMT: intubated Respiratory: clear to auscultation Cardiovascular: regular rate and rhythm Gastrointestinal: non-tender, soft Musculoskeletal: nl extremities to inspection Extremities: No clubbing, No cyanosis, No edema Neurological: No nl mental status, No nl speech Skin: nl turgor Results Result Diagram: 09/19/16 0500 09/19/16 0500 Results 24 hrs Laboratory Tests Test 09/19/16 05:00 White Blood Count 9.8 Red Blood Count 3.96 L Hemoglobin 11.6 L Hematocrit 35.5 L Mean Corpuscular Volume 89.6 Mean Corpuscular Hemoglobin 29.3 Mean Corpuscular Hemoglobin Concent 32.7 Red Cell Distribution Width 12.5 Platelet Count 294 Mean Platelet Volume 9.6 Neutrophils % 70.4 Lymphocytes % 11.8 L Monocytes % 9.6 Eosinophils % 6.9 Basophils % 0.4 Nucleated Red Blood Cells % 0.0 Neutrophils # 6.9 Lymphocytes # 1.2 Monocytes # 0.9 Eosinophils # 0.7 H Basophils # 0.0 Nucleated Red Blood Cells # 0.0 Sodium Level 144 Potassium Level 3.6 Chloride Level 103 Carbon Dioxide Level 32 H Anion Gap 13 Blood Urea Nitrogen 9 Creatinine 0.62 Glucose Level 123 Calcium Level 8.4 Total Bilirubin 0.4 Direct Bilirubin 0.00 Indirect Bilirubin 0.4 Aspartate Amino Transf (AST/SGOT) 44 Alanine Aminotransferase (ALT/SGPT) 43 Alkaline Phosphatase 98 Troponin I 0.814 *H Total Protein 6.2 Albumin 3.0 L Globulin 3.20 Albumin/Globulin Ratio 0.93 Medications Medications Current Medications Ondansetron HCl 4 mg 4 mg Q6H PRN IV NAUSEA AND/OR VOMITING; Start 09/14/16 at 17:00 Fentanyl (Sublimaze) 100 ml @ 2.5 mls/hr TITRATE IV Last administered on 04:34; Admin Dose 2.5 MLS/HR; Start 09/15/16 at 13:30 Aspirin (Aspirin) 300 mg DAILY [place] Last administered on 09/19/16 09:34; Admin Dose 300 MG; Start 09/15/16 at 19:30 Morphine Sulfate 2 mg 2 mg Q4H PRN IV SEVERE PAIN LEVEL 7-10; Start 09/16/16 at 10:30 Ampicillin Sodium/ Sulbactam Sodium 100 ml @ 100 mls/hr Q6 IVPB Last administered on 09/19/16 15:15; Admin Dose 100 MLS/HR; Start 09/16/16 at 14:00 Propofol 100 ml @ 0 mls/hr TITRATE IV Last administered on 09/19/16 16:33; Admin Dose 36.3 MLS/HR; Start 09/19/16 at 09:30 Midazolam HCl (Versed) 50 ml @ 1 mls/hr TITRATE IV Last administered on 10:18; Admin Dose 5 MLS/HR; Start 09/19/16 at 09:30 Enoxaparin Sodium (Lovenox) 40 mg DAILY [place] Last administered on 09/19/16 10:12 ; Admin Dose 40 MG; Start 09/19/16 at 10:00 Furosemide (Lasix) 40 mg DAILY IV Last administered on 09/19/16t 12:54; Admin Dose 40 MG; Start 09/19/16 at 11:30 Lansoprazole (Prevacid) 30 mg DAILY@06 NGT ; Start 09/20/16 at 06:00 THERESA PARIS MD Sep 19, 2016 18:24
--- NOTE | 2016-09-19 20:04 | PN ---
Date/Time of Note Date/Time of Note DATE: 09/19/16 TIME: 20:02 Assessment/Plan VTE Prophylaxis VTE Prophylaxis Intervention: heparin Lines/Catheters IV Catheter Type (from Nrsg): Central Line Central line still needed: Yes Urinary Cath still in place: Yes Reason Cath still needed: urinary retention Assessment/Plan Chief Complaint/Hosp Course 41 yo male with etoh use d/o, opiate use d/o who has developed respiratory failure requiring mechanical ventilation and VAP - Continue abx for pneumonia - Overloaded, needs diuresis - Wean sedation as able Extubate when able Problems: Subjective 24 Hr Interval Summary Free Text/Dictation Still quite sedated, unable to be extubated Worsening hypoxia, requiring 80% FiO2 now Exam/Review of Systems Vital Signs Vitals Vital Signs Date Time Temp Pulse Resp B/P Pulse Ox O2 Delivery O2 Flow Rate FiO2 09/19/16 19:11 82 20 97 70 09/19/16 19:00 148/82 Mechanical Ventilator 09/19/16 16:00 98.6 Intake and Output 09/18/16 09/18/16 09/19/16 15:00 23:00 07:00 Intake Total 742.30 ml 701.9 ml 920.48 ml Output Total 1060 ml 895 ml 730 ml Balance -317.70 ml -193.1 ml 190.48 ml Results Result Diagram: 09/19/16 0500 09/19/16 0500 Results 24 hrs Laboratory Tests Test 09/19/16 05:00 White Blood Count 9.8 Red Blood Count 3.96 L Hemoglobin 11.6 L Hematocrit 35.5 L Mean Corpuscular Volume 89.6 Mean Corpuscular Hemoglobin 29.3 Mean Corpuscular Hemoglobin Concent 32.7 Red Cell Distribution Width 12.5 Platelet Count 294 Mean Platelet Volume 9.6 Neutrophils % 70.4 Lymphocytes % 11.8 L Monocytes % 9.6 Eosinophils % 6.9 Basophils % 0.4 Nucleated Red Blood Cells % 0.0 Neutrophils # 6.9 Lymphocytes # 1.2 Monocytes # 0.9 Eosinophils # 0.7 H Basophils # 0.0 Nucleated Red Blood Cells # 0.0 Sodium Level 144 Potassium Level 3.6 Chloride Level 103 Carbon Dioxide Level 32 H Anion Gap 13 Blood Urea Nitrogen 9 Creatinine 0.62 Glucose Level 123 Calcium Level 8.4 Total Bilirubin 0.4 Direct Bilirubin 0.00 Indirect Bilirubin 0.4 Aspartate Amino Transf (AST/SGOT) 44 Alanine Aminotransferase (ALT/SGPT) 43 Alkaline Phosphatase 98 Troponin I 0.814 *H Total Protein 6.2 Albumin 3.0 L Globulin 3.20 Albumin/Globulin Ratio 0.93 Medications Medications Current Medications Ondansetron HCl 4 mg 4 mg Q6H PRN IV NAUSEA AND/OR VOMITING; Start 09/14/16 at 17:00 Fentanyl (Sublimaze) 100 ml @ 2.5 mls/hr TITRATE IV Last administered on 18:54; Admin Dose 7.5 MLS/HR; Start 09/15/16 at 13:30 Aspirin (Aspirin) 300 mg DAILY [place] Last administered on 09/19/16 09:34; Admin Dose 300 MG; Start 09/15/16 at 19:30 Morphine Sulfate 2 mg 2 mg Q4H PRN IV SEVERE PAIN LEVEL 7-10; Start 09/16/16 at 10:30 Ampicillin Sodium/ Sulbactam Sodium 100 ml @ 100 mls/hr Q6 IVPB Last administered on 09/19/16 18:31; Admin Dose 100 MLS/HR; Start 09/16/16 at 14:00 Propofol 100 ml @ 0 mls/hr TITRATE IV Last administered on 09/19/16 18:55; Admin Dose 36.3 MLS/HR; Start 09/19/16 at 09:30 Midazolam HCl (Versed) 50 ml @ 1 mls/hr TITRATE IV Last administered on 18:55; Admin Dose 5 MLS/HR; Start 09/19/16 at 09:30 Enoxaparin Sodium (Lovenox) 40 mg DAILY [place] Last administered on 09/19/16 10:12 ; Admin Dose 40 MG; Start 09/19/16 at 10:00 Furosemide (Lasix) 40 mg DAILY IV Last administered on 09/19/16 12:54; Admin Dose 40 MG; Start 09/19/16 at 11:30 Lansoprazole (Prevacid) 30 mg DAILY@06 NGT ; Start 09/20/16 at 06:00 LACY WOLF MD Sep 19, 2016 20:04
[2016-09-20] VITALS (48 sets, daily range): BP systolic 108–144; BP diastolic 64–103; PULSE 74–91; RESP 20
[2016-09-20] MEDS: PROPOFOL 100 ML IV SCH ×9 (01:21→23:02)
[2016-09-20] MEDS: MIDAZOLAM (DRIP) 50 mg/50 mL 50 ML IV SCH ×2 (04:32→15:48)
[2016-09-20 05:40] LABS: BASOPHIL # 0.1 10^3/ul (0.0-0.1); BASOPHILS % 0.6 % (0.0-2.0); EOSINOPHILS # 0.6 10^3/ul (0.0-0.5); HEMATOCRIT 34.8 % (42.0-52.0); HEMOGLOBIN 11.4 g/dl (14.0-18.0); LYMPHOCYTES % 11.5 % (15.0-51.0); MEAN CORPUSCULAR HEMOGLOBIN 29.4 pg (29.0-33.0); MEAN CORPUSCULAR HGB CONC 32.8 g/dl (32.0-37.0); MEAN CORPUSCULAR VOLUME 89.7 fl (82.0-101.0); MEAN PLATELET VOLUME 9.4 fl (7.4-10.4); MONOCYTE # 0.8 10^3/ul (0.3-0.9); MONOCYTES % 9.4 % (0.0-11.0); NEUTROPHIL # 6.2 10^3/ul (1.6-7.5); NEUTROPHILS % 70.1 % (39.0-77.0); PLATELET COUNT 308 10^3/UL (140-415); RED BLOOD COUNT 3.88 10^6/ul (4.70-6.10); RED CELL DISTRIBUTION WIDTH 12.3 % (11.5-14.5); WHITE BLOOD COUNT 8.9 10^3/ul (4.8-10.8)
[2016-09-20] MEDS: LANSOPRAZOLE 30 MG CAP NGT SCH (05:53)
[2016-09-20] MEDS: AMPICILLIN/SULB 3 GM/NS (PMX) 100 ML IVPB SCH ×5 (05:53→23:44)
[2016-09-20 06:47] LABS: CALCIUM 8.5 mg/dl (8.4-10.2); CREATININE 0.62 mg/dl (0.61-1.24); MAGNESIUM 1.9 mg/dl (1.7-2.5); PHOSPHORUS 4.7 mg/dl (2.5-4.9); POTASSIUM 3.6 mmol/L (3.5-5.1)
[2016-09-20 07:54] LABS: Allen Test ACCEPTAB; Arterial Base Excess 6.2 mmol/L (-3.0-3); Arterial COHb 0.3 % (0.0-3.0); Arterial HCO3 31.7 mmol/L (22.0-26.0); Arterial MetHb 0.3 % (0.0-1.5); Arterial Total Hemglobin 12.4 g/dl (12.0-18.0); MODE VENT - AC
[2016-09-20] MEDS: FENTAnyl (DRIP) 1000 mcg/100mL 100 ML IV SCH ×2 (08:08→20:19)
--- NOTE | 2016-09-20 08:52 | RADRPT ---
PROCEDURE: XR Chest. CLINICAL INDICATION: pna chf TECHNIQUE: PA and Lateral views of the chest were obtained. COMPARISON: Chest x-ray 09/18/2016 FINDINGS: The endotracheal tube is stable in position, terminating approximate 4.2 cm above the marlin. The left subclavian central venous catheter is stable, terminating in the mid superior vena cava. N o nasogastric tube is again seen to course beneath the left hemidiaphragm, into the stomach, and the on the field of view. There are persistent low lung volumes. The cardiac silhouette is mildly enlarged. There is increased pulmonary vascular congestion. There is increased diffuse hazy opacity throughout the right greater than left lungs, suggesting wor sening asymmetric pulmonary edema. Small right pleural effusion with adjacent atelectasis is stable. Trace left pleural effusion is likely stable. No pneumothorax is identified. There are degenerative changes of the visualized spine. IMPRESSION: 1. Increased pulmonary vascular congestion and worsening asymmetric pulmonary edema, as described ab ove. 2. Stable support lines/tubes. 3. Mild cardiomegaly. 4. Small right pleural effusion with adjacent bibasilar atelectasis, stable. 5. Stable trace left pleural effusion with adjacent atelectasis. RPTAT: EE Physician Ashly Date Time Electronically viewed and signed by Physician Ashly on 09/20/2016 08:52 PORTIA/
[2016-09-20] MEDS: ASPIRIN 300 MG SUPP PR SCH (09:09)
[2016-09-20] MEDS: FUROSEMIDE 40 MG INJ IV SCH ×2 (09:10→18:51)
[2016-09-20] MEDS: ENOXAPARIN 40 MG/0.4 ML SYG SC SCH (09:11)
--- NOTE | 2016-09-20 15:34 | CONS ---
Date/Time of Note Date/Time of Note DATE: 09/20/16 TIME: 15:32 Consult Date/Type/Reason Admit Date/Time Sep 14, 2016 at 16:36 Initial Consult Date 09/16/16 Type of Consultation: Pulmonary Subjective Patient still has copious oral secretions. Requires intubation and mechanical ventilation and sedation. Objective Vital Signs Date Time Temp Pulse Resp B/P Pulse Ox O2 Delivery O2 Flow Rate FiO2 09/20/16 14:00 85 20 116/73 98 Mechanical Ventilator 09/20/16 13:25 70 09/20/16 12:00 99.2 Intake and Output 09/19/16 09/19/16 09/20/16 14:59 22:59 06:59 Intake Total 653 ml 866.7 ml 817.14 ml Output Total 525 ml 1235 ml 480 ml Balance 128 ml -368.3 ml 337.14 ml Exam PHYSICAL EXAMINATION GENERAL: Well-nourished well-developed gentleman intubated sedated on mechanical ventilation VITAL SIGNS: see below. HEENT: Pupils equal, round, and reactive to light. CARDIAC: S1, S2, no added sounds or movements CHEST: Diminished air entry bilaterally. Bilateral rales. ABDOMEN: Mildly distended. Bowel sounds present no guarding or rebound EXTREMITIES: No cyanosis, clubbing edema +1 NEUROLOGIC: Generalized weakness Results/Medications Result Diagram: 09/20/16 0500 09/20/16 0500 Results 24 hrs Laboratory Tests Test 09/20/16 05:00 09/20/16 07:00 White Blood Count 8.9 Red Blood Count 3.88 L Hemoglobin 11.4 L Hematocrit 34.8 L Mean Corpuscular Volume 89.7 Mean Corpuscular Hemoglobin 29.4 Mean Corpuscular Hemoglobin Concent 32.8 Red Cell Distribution Width 12.3 Platelet Count 308 Mean Platelet Volume 9.4 Neutrophils % 70.1 Lymphocytes % 11.5 L Monocytes % 9.4 Eosinophils % 7.0 Basophils % 0.6 Nucleated Red Blood Cells % 0.0 Neutrophils # 6.2 Lymphocytes # 1.0 Monocytes # 0.8 Eosinophils # 0.6 H Basophils # 0.1 Nucleated Red Blood Cells # 0.0 Sodium Level 141 Potassium Level 3.6 Chloride Level 98 Carbon Dioxide Level 33 H Anion Gap 14 Blood Urea Nitrogen 12 Creatinine 0.62 Glucose Level 128 Calcium Level 8.5 Phosphorus Level 4.7 Magnesium Level 1.9 Blood Gas Specimen Source Blood arterial Arterial Blood Date Drawn 09/20/2016 7:20:39 AM Arterial Blood pH (Temp corrected) 7.426 Arterial Blood pCO2 (Temp correct) 49.3 H Arterial Blood pO2 (Temp corrected) 61.1 L Arterial Blood HCO3 31.7 H Arterial Blood Base Excess 6.2 H Arterial Blood Oxygen Saturation 90.5 L Vinicius Test ACCEPTAB Arterial Blood Gas Puncture Site Right Radial Arterial Blood Carboxyhemoglobin 0.3 Arterial Blood Methemoglobin 0.3 Blood Gas A-a O2 Differential 385.0 H Oxyhemoglobin Percent 90.0 L Total Hemoglobin 12.4 Blood Gas Temperature 37.0 Blood Gas Respiration Rate 20.0 Blood Gas Actual Respiration Rate 24 Blood Gas Modality VENT - AC FiO2 70.0 Blood Gas Tidal Volume 500.0 Blood Gas Low PEEP Setting 5.0 Blood Gas Notified Whom JLD Blood Gas Notified Time 09/20/2016 7:54:17 AM Medications Current Medications Ondansetron HCl 4 mg 4 mg Q6H PRN IV NAUSEA AND/OR VOMITING; Start 09/14/16 at 17:00 Fentanyl (Sublimaze) 100 ml @ 2.5 mls/hr TITRATE IV Last administered on 08:08; Admin Dose 7.5 MLS/HR; Start 09/15/16 at 13:30 Aspirin (Aspirin) 300 mg DAILY [place] Last administered on 09/20/16 09:09; Admin Dose 300 MG; Start 09/15/16 at 19:30 Morphine Sulfate 2 mg 2 mg Q4H PRN IV SEVERE PAIN LEVEL 7-10; Start 09/16/16 at 10:30 Ampicillin Sodium/ Sulbactam Sodium 100 ml @ 100 mls/hr Q6 IVPB Last administered on 09/20/16 12:42; Admin Dose 100 MLS/HR; Start 09/16/16 at 14:00 Propofol 100 ml @ 0 mls/hr TITRATE IV Last administered on 09/20/16 13:54; Admin Dose 36.3 MLS/HR; Start 09/19/16 at 09:30 Midazolam HCl (Versed) 50 ml @ 1 mls/hr TITRATE IV Last administered on 04:32; Admin Dose 3 MLS/HR; Start 09/19/16 at 09:30 Enoxaparin Sodium (Lovenox) 40 mg DAILY [place] Last administered on 09/20/16 09:11 ; Admin Dose 40 MG; Start 09/19/16 at 10:00 Furosemide (Lasix) 40 mg DAILY IV Last administered on 09/20/16 09:10; Admin Dose 40 MG; Start 09/19/16 at 11:30 Lansoprazole (Prevacid) 30 mg DAILY@06 NGT Last administered on 09/20/16 05:53 ; Admin Dose 30 MG; Start 09/20/16 at 06:00 Assessment/Plan Chief Complaint/Hosp Course Additional Assessment/Plan IMP: 1. AMS--encephalopathy currently of unclear etiology. Concern for possible anoxia though difficult to assess in view of high sedatives. 2. Resp Failure, chest x-ray demonstrates worsening pulmonary edema. 3. Acute Renal Failure--resolved 4. Mild Rhabdo clinically improving 5. Demand Ischemia/type II NSTEMI 6. Concern for aspiration pneumonitis 7. Heroin and Meth use RECS: 1. IV abx 2. Continues propofol fentanyl and Versed. 3. Continue mechanical ventilation decrease FiO2 as tolerated 4. Increase Lasix. 5. May need methadone once extubated 35 min cc time Problems: BRANDON CORONA MD, [facility] Sep 20, 2016 15:34
--- NOTE | 2016-09-20 15:40 | PN ---
Date/Time of Note Date/Time of Note DATE: 09/20/16 TIME: 15:26 Assessment/Plan VTE Prophylaxis VTE Prophylaxis Intervention: LMWH Lines/Catheters IV Catheter Type (from Nrsg): Central Line Central line still needed: Yes Urinary Cath still in place: Yes Reason Cath still needed: urinary retention Assessment/Plan Chief Complaint/Hosp Course 41 yo male with etoh use d/o, opiate use d/o who has developed respiratory failure requiring mechanical ventilation and VAP PULM: Acute hypoxic respiratory failure: - Still requiring high FiO2, XR shows edema, perhaps pneumonia. There is some moderate secretions on suctioning - Continue abx for pneumonia - Overloaded w pulmonary edema, needs diuresis - Wean sedation as able and extubate when able RENAL: No active issues CV: - HD stable - Type II NSTEMI on admission, resolved NEURO: - Imaging suggestive of watershed ischemic injury - Repeat MRI when stable to asess extent PSYCH: - Presentation likely 2/2 opiate overdose, also amphetamine use d/o - Assess need for opiate replacement therapy when extubated ID: - Likley pnumoenia - Sputum GS showing GPCs - Continue unasyn HEME: - Anemia, mild, stable PPx: HSQ, PPI Problems: Subjective 24 Hr Interval Summary Free Text/Dictation Sedation unable to be weaned as patient becomes very agitated Currently remains heavily sedated on fentanyl, versed, propofol Exam/Review of Systems Vital Signs Vitals Vital Signs Date Time Temp Pulse Resp B/P Pulse Ox O2 Delivery O2 Flow Rate FiO2 09/20/16 14:00 85 20 116/73 98 Mechanical Ventilator 09/20/16 13:25 70 09/20/16 12:00 99.2 Intake and Output 09/19/16 09/19/16 09/20/16 15:00 23:00 07:00 Intake Total 690 ml 865.5 ml 916.84 ml Output Total 525 ml 1295 ml 420 ml Balance 165 ml -429.5 ml 496.84 ml Exam Intubated and sedated AC VT 500, 20, 70%, 5 No response to commands or noxious stimuli currentyl Heart sounds normal Lungs clear anteriorly belly soft No edema Mild hypercapnea on ABG Lytes normal Stable H/H Results Result Diagram: 09/20/16 0500 09/20/16 0500 Results 24 hrs Laboratory Tests Test 09/20/16 05:00 09/20/16 07:00 White Blood Count 8.9 Red Blood Count 3.88 L Hemoglobin 11.4 L Hematocrit 34.8 L Mean Corpuscular Volume 89.7 Mean Corpuscular Hemoglobin 29.4 Mean Corpuscular Hemoglobin Concent 32.8 Red Cell Distribution Width 12.3 Platelet Count 308 Mean Platelet Volume 9.4 Neutrophils % 70.1 Lymphocytes % 11.5 L Monocytes % 9.4 Eosinophils % 7.0 Basophils % 0.6 Nucleated Red Blood Cells % 0.0 Neutrophils # 6.2 Lymphocytes # 1.0 Monocytes # 0.8 Eosinophils # 0.6 H Basophils # 0.1 Nucleated Red Blood Cells # 0.0 Sodium Level 141 Potassium Level 3.6 Chloride Level 98 Carbon Dioxide Level 33 H Anion Gap 14 Blood Urea Nitrogen 12 Creatinine 0.62 Glucose Level 128 Calcium Level 8.5 Phosphorus Level 4.7 Magnesium Level 1.9 Blood Gas Specimen Source Blood arterial Arterial Blood Date Drawn 09/20/2016 7:20:39 AM Arterial Blood pH (Temp corrected) 7.426 Arterial Blood pCO2 (Temp correct) 49.3 H Arterial Blood pO2 (Temp corrected) 61.1 L Arterial Blood HCO3 31.7 H Arterial Blood Base Excess 6.2 H Arterial Blood Oxygen Saturation 90.5 L Vinicius Test ACCEPTAB Arterial Blood Gas Puncture Site Right Radial Arterial Blood Carboxyhemoglobin 0.3 Arterial Blood Methemoglobin 0.3 Blood Gas A-a O2 Differential 385.0 H Oxyhemoglobin Percent 90.0 L Total Hemoglobin 12.4 Blood Gas Temperature 37.0 Blood Gas Respiration Rate 20.0 Blood Gas Actual Respiration Rate 24 Blood Gas Modality VENT - AC FiO2 70.0 Blood Gas Tidal Volume 500.0 Blood Gas Low PEEP Setting 5.0 Blood Gas Notified Whom JLD Blood Gas Notified Time 09/20/2016 7:54:17 AM Medications Medications Current Medications Ondansetron HCl 4 mg 4 mg Q6H PRN IV NAUSEA AND/OR VOMITING; Start 09/14/16 at 17:00 Fentanyl (Sublimaze) 100 ml @ 2.5 mls/hr TITRATE IV Last administered on 08:08; Admin Dose 7.5 MLS/HR; Start 09/15/16 at 13:30 Aspirin (Aspirin) 300 mg DAILY [place] Last administered on 09/20/16 09:09; Admin Dose 300 MG; Start 09/15/16 at 19:30 Morphine Sulfate 2 mg 2 mg Q4H PRN IV SEVERE PAIN LEVEL 7-10; Start 09/16/16 at 10:30 Ampicillin Sodium/ Sulbactam Sodium 100 ml @ 100 mls/hr Q6 IVPB Last administered on 09/20/16 12:42; Admin Dose 100 MLS/HR; Start 09/16/16 at 14:00 Propofol 100 ml @ 0 mls/hr TITRATE IV Last administered on 09/20/16 13:54; Admin Dose 36.3 MLS/HR; Start 09/19/16 at 09:30 Midazolam HCl (Versed) 50 ml @ 1 mls/hr TITRATE IV Last administered on 04:32; Admin Dose 3 MLS/HR; Start 09/19/16 at 09:30 Enoxaparin Sodium (Lovenox) 40 mg DAILY SC Last administered on 09/20/16 09:11 ; Admin Dose 40 MG; Start 09/19/16 at 10:00 Furosemide (Lasix) 40 mg DAILY IV Last administered on 09/20/16 09:10; Admin Dose 40 MG; Start 09/19/16 at 11:30 Lansoprazole (Prevacid) 30 mg DAILY@06 NGT Last administered on 09/20/16 05:53 ; Admin Dose 30 MG; Start 09/20/16 at 06:00 LACY WOLF MD Sep 20, 2016 15:36
--- NOTE | 2016-09-20 17:25 | CONS ---
Date/Time of Note Date/Time of Note DATE: 09/20/16 TIME: 17:23 Assessment/Plan Assessment/Plan Chief Complaint/Hosp Course Assessment: NSTEMI - likely type 2 Acute hypoxic respiratory failure - intubated, on mechanical ventilation, per pulmonology Acute encephalopathy Acute left frontal stroke Possible anoxic brain injury - per neurology Amphetamine abuse Recommendations: -on IV Lasix, monitor volume status -continue aspirin 300mg OK daily -echocardiogram showed LVEF 50-55% Problems: Consultation Date/Type/Reason Admit Date/Time Sep 14, 2016 at 16:36 Initial Consult Date 09/16/16 Type of Consultation: Cardiology 24 HR Interval Summary Free Text/Dictation Remains intubated. No significant clinical changes. Detailed Summary Additional Comments Unable to obtain, patient is intubated. Exam/Review of Systems Vital Signs Vitals Vital Signs Date Time Temp Pulse Resp B/P Pulse Ox O2 Delivery O2 Flow Rate FiO2 09/20/16 16:00 99.4 75 20 112/65 99 Mechanical Ventilator 09/20/16 13:25 70 Intake and Output 09/19/16 09/19/16 09/20/16 15:00 23:00 07:00 Intake Total 690 ml 865.5 ml 916.84 ml Output Total 525 ml 1295 ml 420 ml Balance 165 ml -429.5 ml 496.84 ml Exam Constitutional: other (sedated), No alert Psych: No nl mood/affect, No no complaints Head: atraumatic, normocephalic Eyes: nl conjunctiva, nl lids ENMT: intubated Respiratory: clear to auscultation Cardiovascular: regular rate and rhythm Gastrointestinal: non-tender, soft Musculoskeletal: nl extremities to inspection Extremities: No clubbing, No cyanosis, No edema Neurological: No nl mental status, No nl speech Skin: nl turgor Results Result Diagram: 09/20/16 0500 09/20/16 0500 Results 24 hrs Laboratory Tests Test 09/20/16 05:00 09/20/16 07:00 White Blood Count 8.9 Red Blood Count 3.88 L Hemoglobin 11.4 L Hematocrit 34.8 L Mean Corpuscular Volume 89.7 Mean Corpuscular Hemoglobin 29.4 Mean Corpuscular Hemoglobin Concent 32.8 Red Cell Distribution Width 12.3 Platelet Count 308 Mean Platelet Volume 9.4 Neutrophils % 70.1 Lymphocytes % 11.5 L Monocytes % 9.4 Eosinophils % 7.0 Basophils % 0.6 Nucleated Red Blood Cells % 0.0 Neutrophils # 6.2 Lymphocytes # 1.0 Monocytes # 0.8 Eosinophils # 0.6 H Basophils # 0.1 Nucleated Red Blood Cells # 0.0 Sodium Level 141 Potassium Level 3.6 Chloride Level 98 Carbon Dioxide Level 33 H Anion Gap 14 Blood Urea Nitrogen 12 Creatinine 0.62 Glucose Level 128 Calcium Level 8.5 Phosphorus Level 4.7 Magnesium Level 1.9 Blood Gas Specimen Source Blood arterial Arterial Blood Date Drawn 09/20/2016 7:20:39 AM Arterial Blood pH (Temp corrected) 7.426 Arterial Blood pCO2 (Temp correct) 49.3 H Arterial Blood pO2 (Temp corrected) 61.1 L Arterial Blood HCO3 31.7 H Arterial Blood Base Excess 6.2 H Arterial Blood Oxygen Saturation 90.5 L Vinicius Test ACCEPTAB Arterial Blood Gas Puncture Site Right Radial Arterial Blood Carboxyhemoglobin 0.3 Arterial Blood Methemoglobin 0.3 Blood Gas A-a O2 Differential 385.0 H Oxyhemoglobin Percent 90.0 L Total Hemoglobin 12.4 Blood Gas Temperature 37.0 Blood Gas Respiration Rate 20.0 Blood Gas Actual Respiration Rate 24 Blood Gas Modality VENT - AC FiO2 70.0 Blood Gas Tidal Volume 500.0 Blood Gas Low PEEP Setting 5.0 Blood Gas Notified Whom JLD Blood Gas Notified Time 09/20/2016 7:54:17 AM Medications Medications Current Medications Ondansetron HCl 4 mg 4 mg Q6H PRN IV NAUSEA AND/OR VOMITING; Start 09/14/16 at 17:00 Fentanyl (Sublimaze) 100 ml @ 2.5 mls/hr TITRATE IV Last administered on 08:08; Admin Dose 7.5 MLS/HR; Start 09/15/16 at 13:30 Aspirin (Aspirin) 300 mg DAILY [place] Last administered on 09/20/16 09:09; Admin Dose 300 MG; Start 09/15/16 at 19:30 Morphine Sulfate 2 mg 2 mg Q4H PRN IV SEVERE PAIN LEVEL 7-10; Start 09/16/16 at 10:30 Ampicillin Sodium/ Sulbactam Sodium 100 ml @ 100 mls/hr Q6 IVPB Last administered on 09/20/16 12:42; Admin Dose 100 MLS/HR; Start 09/16/16 at 14:00 Propofol 100 ml @ 0 mls/hr TITRATE IV Last administered on 09/20/16 16:36; Admin Dose 36.3 MLS/HR; Start 09/19/16 at 09:30 Midazolam HCl (Versed) 50 ml @ 1 mls/hr TITRATE IV Last administered on 15:48; Admin Dose 5 MLS/HR; Start 09/19/16 at 09:30 Enoxaparin Sodium (Lovenox) 40 mg DAILY [place] Last administered on 09/20/16 09:11 ; Admin Dose 40 MG; Start 09/19/16 at 10:00 Lansoprazole (Prevacid) 30 mg DAILY@06 NGT Last administered on 09/20/16 05:53 ; Admin Dose 30 MG; Start 09/20/16 at 06:00 THERESA PARIS MD Sep 20, 2016 17:25
[2016-09-21] VITALS (65 sets, daily range): BP systolic 94–130; BP diastolic 60–85; PULSE 70–111; RESP 18–24
[2016-09-21] MEDS: PROPOFOL 100 ML IV SCH ×8 (01:00→23:08)
[2016-09-21] MEDS: MIDAZOLAM (DRIP) 50 mg/50 mL 50 ML IV SCH ×3 (01:31→19:51)
[2016-09-21] MEDS: LANSOPRAZOLE 30 MG CAP NGT SCH (05:27)
[2016-09-21] MEDS: AMPICILLIN/SULB 3 GM/NS (PMX) 100 ML IVPB SCH ×4 (05:27→23:33)
[2016-09-21] MEDS: FUROSEMIDE 40 MG INJ IV SCH ×2 (05:27→18:05)
[2016-09-21 06:03] LABS: BASOPHILS % 0.5 % (0.0-2.0); EOSINOPHILS # 0.6 10^3/ul (0.0-0.5); HEMATOCRIT 36.1 % (42.0-52.0); HEMOGLOBIN 11.9 g/dl (14.0-18.0); LYMPHOCYTES % 11.6 % (15.0-51.0); MEAN CORPUSCULAR HEMOGLOBIN 29.5 pg (29.0-33.0); MEAN CORPUSCULAR VOLUME 89.4 fl (82.0-101.0); MEAN PLATELET VOLUME 9.5 fl (7.4-10.4); MONOCYTE # 0.7 10^3/ul (0.3-0.9); MONOCYTES % 8.1 % (0.0-11.0); NEUTROPHIL # 6.1 10^3/ul (1.6-7.5); NEUTROPHILS % 70.6 % (39.0-77.0); PLATELET COUNT 359 10^3/UL (140-415); RED BLOOD COUNT 4.04 10^6/ul (4.70-6.10); RED CELL DISTRIBUTION WIDTH 12.2 % (11.5-14.5); WHITE BLOOD COUNT 8.6 10^3/ul (4.8-10.8)
[2016-09-21 06:18] LABS: CALCIUM 8.6 mg/dl (8.4-10.2); CREATININE 0.69 mg/dl (0.61-1.24); PHOSPHORUS 4.5 mg/dl (2.5-4.9); POTASSIUM 3.4 mmol/L (3.5-5.1)
--- NOTE | 2016-09-21 08:39 | RADRPT ---
PROCEDURE: XR Chest. CLINICAL INDICATION: Pneumonia, CHF TECHNIQUE: A single AP view of the chest was obtained. COMPARISON: Chest x-ray dated 09/20/2016 FINDINGS: The endotracheal tube tip is approximately 4.3 cm above the marlin. The tip of the enteric tube pr ojects over the left upper quadrant. There is a left subclavian central venous catheter with tip cee r the cavoatrial junction. Lung volumes are low with compressive changes and crowding of the central pulmonary vascular marking s. No focal airspace opacity, pleural effusion or pneumothorax is seen. The cardiomediastinal silho uette is within normal limits for size. The osseous structures are unremarkable. IMPRESSION: 1. Low lung volumes with mild pulmonary vascular congestion. Lung aeration is improved when compare d to the prior examination. 2. Tubes and lines, as described above. RPTAT: HH .Lory Love MD, MD Date Time Electronically viewed and signed by .Lory Love MD, on 09/21/2016 08:39 .G/
[2016-09-21] MEDS: ENOXAPARIN 40 MG/0.4 ML SYG SC SCH (09:18)
[2016-09-21] MEDS: ASPIRIN 300 MG SUPP PR SCH (09:18)
[2016-09-21] MEDS: FENTAnyl (DRIP) 1000 mcg/100mL 100 ML IV SCH ×2 (09:50→22:24)
--- NOTE | 2016-09-21 10:07 | CONS ---
Date/Time of Note Date/Time of Note DATE: 09/21/16 TIME: 10:03 Consult Date/Type/Reason Admit Date/Time Sep 14, 2016 at 16:36 Initial Consult Date 09/16/16 Type of Consultation: Pulmonary Subjective No significant changes continues mechanical ventilation. Copious oral secretions. Significant agitation off sedatives. Objective Vital Signs Date Time Temp Pulse Resp B/P Pulse Ox O2 Delivery O2 Flow Rate FiO2 09/21/16 07:50 75 20 97 70 09/21/16 06:00 111/68 09/21/16 04:00 98.7 09/20/16 20:00 Mechanical Ventilator Intake and Output 09/20/16 09/20/16 09/21/16 15:00 23:00 07:00 Intake Total 792.0 ml 768.5 ml 651.5 ml Output Total 2000 ml 1175 ml 925 ml Balance -1208.0 ml -406.5 ml -273.5 ml Exam PHYSICAL EXAMINATION GENERAL: Well-nourished well-developed gentleman intubated sedated on mechanical ventilation VITAL SIGNS: see below. HEENT: Pupils equal, round, and reactive to light. CARDIAC: S1, S2, no added sounds or movements CHEST: Diminished air entry bilaterally. Bilateral rales. ABDOMEN: Mildly distended. Bowel sounds present no guarding or rebound EXTREMITIES: No cyanosis, clubbing edema +1 NEUROLOGIC: Generalized weakness Results/Medications Result Diagram: 09/21/16 0523 09/21/16 0547 Results 24 hrs Laboratory Tests Test 09/21/16 05:23 09/21/16 05:47 White Blood Count 8.6 Red Blood Count 4.04 L Hemoglobin 11.9 L Hematocrit 36.1 L Mean Corpuscular Volume 89.4 Mean Corpuscular Hemoglobin 29.5 Mean Corpuscular Hemoglobin Concent 33.0 Red Cell Distribution Width 12.2 Platelet Count 359 Mean Platelet Volume 9.5 Neutrophils % 70.6 Lymphocytes % 11.6 L Monocytes % 8.1 Eosinophils % 7.0 Basophils % 0.5 Nucleated Red Blood Cells % 0.0 Neutrophils # 6.1 Lymphocytes # 1.0 Monocytes # 0.7 Eosinophils # 0.6 H Basophils # 0.0 Nucleated Red Blood Cells # 0.0 Sodium Level 143 Potassium Level 3.4 L Chloride Level 97 Carbon Dioxide Level 34 H Anion Gap 15 Blood Urea Nitrogen 14 Creatinine 0.69 Glucose Level 124 Calcium Level 8.6 Phosphorus Level 4.5 Magnesium Level 2.0 Medications Current Medications Ondansetron HCl 4 mg 4 mg Q6H PRN IV NAUSEA AND/OR VOMITING; Start 09/14/16 at 17:00 Fentanyl (Sublimaze) 100 ml @ 2.5 mls/hr TITRATE IV Last administered on 09:50; Admin Dose 7.5 MLS/HR; Start 09/15/16 at 13:30 Aspirin (Aspirin) [address] Last administered on 09/21/16 09:18; Admin Dose 300 MG; Start 09/15/16 at 19:30 Morphine Sulfate 2 mg 2 mg Q4H PRN IV SEVERE PAIN LEVEL 7-10; Start 09/16/16 at 10:30 Ampicillin Sodium/ Sulbactam Sodium 100 ml @ 100 mls/hr Q6 IVPB Last administered on 09/21/16 05:27; Admin Dose 100 MLS/HR; Start 09/16/16 at 14:00 Propofol 100 ml @ 0 mls/hr TITRATE IV Last administered on 09/21/16 09:19; Admin Dose 36.3 MLS/HR; Start 09/19/16 at 09:30 Midazolam HCl (Versed) 50 ml @ 1 mls/hr TITRATE IV Last administered on 01:31; Admin Dose 5 MLS/HR; Start 09/19/16 at 09:30 Enoxaparin Sodium (Lovenox) 40 mg DAILY SC Last administered on 09/21/16 09:18 ; Admin Dose 40 MG; Start 09/19/16 at 10:00 Lansoprazole (Prevacid) 30 mg DAILY@06 NGT Last administered on 09/21/16 05:27 ; Admin Dose 30 MG; Start 09/20/16 at 06:00 Assessment/Plan Chief Complaint/Hosp Course Assessment/Plan IMP: 1. AMS--encephalopathy currently of unclear etiology. Concern for possible anoxia though difficult to assess in view of high sedatives. 2. Resp Failure, chest x-ray demonstrates worsening pulmonary edema. 3. Acute Renal Failure--resolved 4. Mild Rhabdo clinically improving 5. Demand Ischemia/type II NSTEMI 6. Concern for aspiration pneumonitis 7. Heroin and Meth use RECS: 1. IV abx, chest x-ray shows improved aeration. 2. Continues propofol fentanyl and Versed. 3. Continue mechanical ventilation decrease FiO2 as tolerated 4. Continue diuretics 5. Continue tube feeding 6. DVT GI prophylaxis 35 min cc time Problems: BRANDON CORONA [facility], [facility] Sep 21, 2016 10:07
--- NOTE | 2016-09-21 13:56 | CONS ---
Date/Time of Note Date/Time of Note DATE: 09/21/16 TIME: 13:55 Assessment/Plan Assessment/Plan Chief Complaint/Hosp Course Assessment: NSTEMI - likely type 2 Acute hypoxic respiratory failure - intubated, on mechanical ventilation, per pulmonology Acute encephalopathy Acute left frontal stroke Possible anoxic brain injury - per neurology Amphetamine abuse Recommendations: -on IV Lasix, monitor volume status -continue aspirin 300mg ND daily -echocardiogram showed LVEF 50-55% Problems: Consultation Date/Type/Reason Admit Date/Time Sep 14, 2016 at 16:36 Initial Consult Date 09/16/16 Type of Consultation: Cardiology 24 HR Interval Summary Free Text/Dictation No significant clinical changes. Remains intubated. Unable to wean sedation, patient becomes very agitated. Detailed Summary Additional Comments Unable to obtain review of systems, patient is intubated. Exam/Review of Systems Vital Signs Vitals Vital Signs Date Time Temp Pulse Resp B/P Pulse Ox O2 Delivery O2 Flow Rate FiO2 09/21/16 11:30 80 20 97 70 09/21/16 11:00 130/85 09/21/16 08:00 98.5 09/20/16 20:00 Mechanical Ventilator Intake and Output 09/20/16 09/20/16 09/21/16 15:00 23:00 07:00 Intake Total 792.0 ml 768.5 ml 681.5 ml Output Total 2000 ml 1175 ml 1175 ml Balance -1208.0 ml -406.5 ml -493.5 ml Exam Constitutional: other (sedated), No alert Psych: No nl mood/affect, No no complaints Head: atraumatic, normocephalic Eyes: nl conjunctiva, nl lids ENMT: intubated Respiratory: clear to auscultation Cardiovascular: regular rate and rhythm Gastrointestinal: non-tender, soft Musculoskeletal: nl extremities to inspection Extremities: No clubbing, No cyanosis, No edema Neurological: No nl mental status, No nl speech Skin: nl turgor Results Result Diagram: 09/21/16 0523 09/21/16 0547 Results 24 hrs Laboratory Tests Test 09/21/16 05:23 09/21/16 05:47 White Blood Count 8.6 Red Blood Count 4.04 L Hemoglobin 11.9 L Hematocrit 36.1 L Mean Corpuscular Volume 89.4 Mean Corpuscular Hemoglobin 29.5 Mean Corpuscular Hemoglobin Concent 33.0 Red Cell Distribution Width 12.2 Platelet Count 359 Mean Platelet Volume 9.5 Neutrophils % 70.6 Lymphocytes % 11.6 L Monocytes % 8.1 Eosinophils % 7.0 Basophils % 0.5 Nucleated Red Blood Cells % 0.0 Neutrophils # 6.1 Lymphocytes # 1.0 Monocytes # 0.7 Eosinophils # 0.6 H Basophils # 0.0 Nucleated Red Blood Cells # 0.0 Sodium Level 143 Potassium Level 3.4 L Chloride Level 97 Carbon Dioxide Level 34 H Anion Gap 15 Blood Urea Nitrogen 14 Creatinine 0.69 Glucose Level 124 Calcium Level 8.6 Phosphorus Level 4.5 Magnesium Level 2.0 Medications Medications Current Medications Ondansetron HCl 4 mg 4 mg Q6H PRN IV NAUSEA AND/OR VOMITING; Start 09/14/16 at 17:00 Fentanyl (Sublimaze) 100 ml @ 2.5 mls/hr TITRATE IV Last administered on 09:50; Admin Dose 7.5 MLS/HR; Start 09/15/16 at 13:30 Aspirin (Aspirin) 300 mg DAILY [place] Last administered on 09/21/16 09:18; Admin Dose 300 MG; Start 09/15/16 at 19:30 Morphine Sulfate 2 mg 2 mg Q4H PRN IV SEVERE PAIN LEVEL 7-10; Start 09/16/16 at 10:30 Ampicillin Sodium/ Sulbactam Sodium 100 ml @ 100 mls/hr Q6 IVPB Last administered on 09/21/16 12:59; Admin Dose 100 MLS/HR; Start 09/16/16 at 14:00 Propofol 100 ml @ 0 mls/hr TITRATE IV Last administered on 09/21/16 12:20; Admin Dose 36.3 MLS/HR; Start 09/19/16 at 09:30 Midazolam HCl (Versed) 50 ml @ 1 mls/hr TITRATE IV Last administered on 01:31; Admin Dose 5 MLS/HR; Start 09/19/16 at 09:30 Enoxaparin Sodium (Lovenox) 40 mg DAILY SC Last administered on 09/21/16 09:18 ; Admin Dose 40 MG; Start 09/19/16 at 10:00 Lansoprazole (Prevacid) 30 mg DAILY@06 NGT Last administered on 09/21/16t 05:27 ; Admin Dose 30 MG; Start 09/20/16 at 06:00 THERESA PARIS MD Sep 21, 2016 13:56
--- NOTE | 2016-09-21 17:40 | PN ---
Date/Time of Note Date/Time of Note DATE: 09/21/16 TIME: 17:39 Assessment/Plan VTE Prophylaxis VTE Prophylaxis Intervention: LMWH Lines/Catheters IV Catheter Type (from Nrs): Central Line Central line still needed: Yes Urinary Cath still in place: Yes Reason Cath still needed: urinary retention Assessment/Plan Chief Complaint/Hosp Course 41 yo male with etoh use d/o, opiate use d/o who has developed respiratory failure requiring mechanical ventilation and VAP PULM: Acute hypoxic respiratory failure: - Still requiring high FiO2, XR shows edema, perhaps pneumonia. There is some moderate secretions on suctioning - Continue abx for pneumonia - Overloaded w pulmonary edema, needs diuresis - Wean sedation as able and extubate when able RENAL: No active issues CV: - HD stable - Type II NSTEMI on admission, resolved NEURO: - Imaging suggestive of watershed ischemic injury - Repeat MRI when stable to asess extent PSYCH: - Presentation likely 2/2 opiate overdose, also amphetamine use d/o - Assess need for opiate replacement therapy when extubated ID: - Likley pnumoenia - Sputum GS showing GPCs - Continue unasyn HEME: - Anemia, mild, stable PPx: HSQ, PPI Problems: Subjective 24 Hr Interval Summary Free Text/Dictation Not change to clinical status Remains intubated on high O2 requirement. Diuresing effectively Unable to be weaned from sedation or vent Exam/Review of Systems Vital Signs Vitals Vital Signs Date Time Temp Pulse Resp B/P Pulse Ox O2 Delivery O2 Flow Rate FiO2 09/21/16 16:00 82 20 108/61 98 09/21/16 16:00 70 09/21/16 14:00 98.3 09/20/16 20:00 Mechanical Ventilator Intake and Output 09/20/16 09/20/16 09/21/16 14:59 22:59 06:59 Intake Total 892.0 ml 804.5 ml 694.0 ml Output Total 2000 ml 1025 ml 1075 ml Balance -1108.0 ml -220.5 ml -381.0 ml Results Result Diagram: 09/21/16 0523 09/21/16 0547 Results 24 hrs Laboratory Tests Test 09/21/16 05:23 09/21/16 05:47 White Blood Count 8.6 Red Blood Count 4.04 L Hemoglobin 11.9 L Hematocrit 36.1 L Mean Corpuscular Volume 89.4 Mean Corpuscular Hemoglobin 29.5 Mean Corpuscular Hemoglobin Concent 33.0 Red Cell Distribution Width 12.2 Platelet Count 359 Mean Platelet Volume 9.5 Neutrophils % 70.6 Lymphocytes % 11.6 L Monocytes % 8.1 Eosinophils % 7.0 Basophils % 0.5 Nucleated Red Blood Cells % 0.0 Neutrophils # 6.1 Lymphocytes # 1.0 Monocytes # 0.7 Eosinophils # 0.6 H Basophils # 0.0 Nucleated Red Blood Cells # 0.0 Sodium Level 143 Potassium Level 3.4 L Chloride Level 97 Carbon Dioxide Level 34 H Anion Gap 15 Blood Urea Nitrogen 14 Creatinine 0.69 Glucose Level 124 Calcium Level 8.6 Phosphorus Level 4.5 Magnesium Level 2.0 Medications Medications Current Medications Ondansetron HCl 4 mg 4 mg Q6H PRN IV NAUSEA AND/OR VOMITING; Start 09/14/16 at 17:00 Fentanyl (Sublimaze) 100 ml @ 2.5 mls/hr TITRATE IV Last administered on 09:50; Admin Dose 7.5 MLS/HR; Start 09/15/16 at 13:30 Aspirin (Aspirin) 300 mg DAILY [place] Last administered on 09/21/16 09:18; Admin Dose 300 MG; Start 09/15/16 at 19:30 Morphine Sulfate 2 mg 2 mg Q4H PRN IV SEVERE PAIN LEVEL 7-10; Start 09/16/16 at 10:30 Ampicillin Sodium/ Sulbactam Sodium 100 ml @ 100 mls/hr Q6 IVPB Last administered on 09/21/16 12:59; Admin Dose 100 MLS/HR; Start 09/16/16 at 14:00 Propofol 100 ml @ 0 mls/hr TITRATE IV Last administered on 09/21/16 17:10; Admin Dose 36.3 MLS/HR; Start 09/19/16 at 09:30 Midazolam HCl (Versed) 50 ml @ 1 mls/hr TITRATE IV Last administered on 14:16; Admin Dose 5 MLS/HR; Start 09/19/16 at 09:30 Enoxaparin Sodium (Lovenox) 40 mg DAILY SC Last administered on 09/21/16 09:18 ; Admin Dose 40 MG; Start 09/19/16 at 10:00 Lansoprazole (Prevacid) 30 mg DAILY@06 NGT Last administered on 09/21/16t 05:27 ; Admin Dose 30 MG; Start 09/20/16 at 06:00 LACY WOLF MD Sep 21, 2016 17:40
[2016-09-21 21:20] LABS: AADO2 Arterial 579.8 mmHg (7.0-24.0); Allen Test ACCEPTAB; Arterial Base Excess 6.6 mmol/L (-3.0-3); Arterial COHb 0.3 % (0.0-3.0); Arterial Fraction of Oxyhgb 96.2 % (93.0-99.0); Arterial HCO3 31.2 mmol/L (22.0-26.0); Arterial MetHb 0.3 % (0.0-1.5); Arterial Total Hemglobin 14.2 g/dl (12.0-18.0); Blood Gas Mean Airway Pressure 12; MODE VENT - AC
[2016-09-22] VITALS (52 sets, daily range): BP systolic 84–153; BP diastolic 46–111; PULSE 88–106; RESP 0–34
[2016-09-22] MEDS: PROPOFOL 100 ML IV SCH ×8 (01:48→23:48)
[2016-09-22] MEDS: LANSOPRAZOLE 30 MG CAP NGT SCH (05:23)
[2016-09-22] MEDS: FUROSEMIDE 40 MG INJ IV SCH ×3 (05:23→18:24)
[2016-09-22] MEDS: AMPICILLIN/SULB 3 GM/NS (PMX) 100 ML IVPB SCH ×2 (05:23→11:42)
[2016-09-22 06:03] LABS: BASOPHIL # 0.1 10^3/ul (0.0-0.1); BASOPHILS % 0.7 % (0.0-2.0); EOSINOPHILS # 0.5 10^3/ul (0.0-0.5); EOSINOPHILS % 4.9 % (0.0-7.0); HEMATOCRIT 39.1 % (42.0-52.0); HEMOGLOBIN 12.6 g/dl (14.0-18.0); LYMPHOCYTES # 1.1 10^3/ul (0.8-2.9); LYMPHOCYTES % 10.4 % (15.0-51.0); MEAN CORPUSCULAR HEMOGLOBIN 28.8 pg (29.0-33.0); MEAN CORPUSCULAR HGB CONC 32.2 g/dl (32.0-37.0); MEAN CORPUSCULAR VOLUME 89.5 fl (82.0-101.0); MEAN PLATELET VOLUME 9.5 fl (7.4-10.4); MONOCYTE # 0.8 10^3/ul (0.3-0.9); MONOCYTES % 7.4 % (0.0-11.0); NEUTROPHIL # 7.9 10^3/ul (1.6-7.5); NEUTROPHILS % 74.2 % (39.0-77.0); PLATELET COUNT 425 10^3/UL (140-415); RED BLOOD COUNT 4.37 10^6/ul (4.70-6.10); RED CELL DISTRIBUTION WIDTH 12.3 % (11.5-14.5); WHITE BLOOD COUNT 10.6 10^3/ul (4.8-10.8)
[2016-09-22 06:42] LABS: CALCIUM 8.8 mg/dl (8.4-10.2); CREATININE 0.77 mg/dl (0.61-1.24); MAGNESIUM 2.1 mg/dl (1.7-2.5); PHOSPHORUS 4.9 mg/dl (2.5-4.9); POTASSIUM 3.2 mmol/L (3.5-5.1)
[2016-09-22] MEDS: MIDAZOLAM (DRIP) 50 mg/50 mL 50 ML IV SCH ×2 (07:00→23:49)
[2016-09-22] MEDS: ASPIRIN 300 MG SUPP PR SCH (09:45)
[2016-09-22] MEDS: ENOXAPARIN 40 MG/0.4 ML SYG SC SCH (09:46)
--- NOTE | 2016-09-22 09:47 | RADRPT ---
PROCEDURE: Chest radiograph CLINICAL INDICATION: pna chf. TECHNIQUE: Single portable frontal view. COMPARISON: Radiograph 09/21/2016. FINDINGS: The endotracheal tube terminates about 5 cm above the marlin. Left subclavian central line terminates in the superior vena cava. Low lung volumes with mild pulmonary vascular congestion. No pleural effusion. The cardiomediastinal silhouette is normal. No suspicious bone lesion. IMPRESSION: 1. Overall, no change in aeration of the lungs since yesterday's examination. Mild pulmonary vascu lar congestion. 2. All support lines and tubes in appropriate position. RPTAT: PP Physician Sasha Date Time Electronically viewed and signed by Physician Sasha on 09/22/2016 09:47 LG/
[2016-09-22 10:24] LABS: AADO2 Arterial 452.9 mmHg (7.0-24.0); Allen Test ACCEPTAB; Arterial Base Excess 8.3 mmol/L (-3.0-3); Arterial COHb 0.3 % (0.0-3.0); Arterial Fraction of Oxyhgb 98.2 % (93.0-99.0); Arterial HCO3 33.5 mmol/L (22.0-26.0); Arterial MetHb 0.2 % (0.0-1.5); Arterial Total Hemglobin 13.8 g/dl (12.0-18.0); MODE VENT - AC
[2016-09-22] MEDS: FENTAnyl (DRIP) 1000 mcg/100mL 100 ML IV SCH ×2 (11:43→23:49)
[2016-09-22] MEDS ORDERED: POTASSIUM CHLORIDE (SR) 20 MEQ TAB PO ONE (12:30)
[2016-09-22] MEDS ORDERED: VANCOMYCIN IV PER PHARMACY XX SCH (12:30)
[2016-09-22] MEDS ORDERED: VANCOMYCIN 2 GM in SOD CHLORIDE 0.9% 500 ML IVPB ONE (14:00)
[2016-09-22] MEDS: DOXYCYCLINE 100 MG in SOD CHLORIDE 0.9% 250 ML IVPB SCH (14:06)
--- NOTE | 2016-09-22 14:30 | CONS ---
Date/Time of Note Date/Time of Note DATE: 09/22/16 TIME: 14:28 Consult Date/Type/Reason Admit Date/Time Sep 14, 2016 at 16:36 Initial Consult Date 09/16/16 Type of Consultation: Pulmonary Subjective Agitated off sedation. Remains comfortable. Decreased oral secretions. Objective Vital Signs Date Time Temp Pulse Resp B/P Pulse Ox O2 Delivery O2 Flow Rate FiO2 09/22/16 11:00 98.4 99 20 103/66 96 09/22/16 10:30 80 09/22/16 07:00 Mechanical Ventilator Intake and Output 09/21/16 09/21/16 09/22/16 14:59 22:59 06:59 Intake Total 830.4 ml 626.5 ml 588.0 ml Output Total 910 ml 1175 ml 350 ml Balance -79.6 ml -548.5 ml 238.0 ml Exam PHYSICAL EXAMINATION GENERAL: Well-nourished well-developed gentleman intubated sedated on mechanical ventilation VITAL SIGNS: see below. HEENT: Pupils equal, round, and reactive to light. CARDIAC: S1, S2, no added sounds or movements CHEST: Diminished air entry bilaterally. Bilateral rales. ABDOMEN: Mildly distended. Bowel sounds present no guarding or rebound EXTREMITIES: No cyanosis, clubbing edema +1 NEUROLOGIC: Generalized weakness Results/Medications Result Diagram: 09/22/16 0500 09/22/16 0500 Results 24 hrs Laboratory Tests Test 09/21/16 20:30 09/22/16 05:00 09/22/16 07:00 Blood Gas Specimen Source Blood arterial Blood arterial Arterial Blood Date Drawn 09/21/2016 9:10:21 PM 09/22/2016 10:10:35 AM Arterial Blood pH (Temp corrected) 7.465 H 7.457 H Arterial Blood pCO2 (Temp correct) 44.4 48.5 H Arterial Blood pO2 (Temp corrected) 88.8 139.1 H Arterial Blood HCO3 31.2 H 33.5 H Arterial Blood Base Excess 6.6 H 8.3 H Arterial Blood Oxygen Saturation 96.8 98.7 H Vinicius Test ACCEPTAB ACCEPTAB Arterial Blood Gas Puncture Site Right Radial Right Radial Arterial Blood Carboxyhemoglobin 0.3 0.3 Arterial Blood Methemoglobin 0.3 0.2 Blood Gas A-a O2 Differential 579.8 H 452.9 H Oxyhemoglobin Percent 96.2 98.2 Total Hemoglobin 14.2 13.8 Blood Gas Temperature 37.0 37.0 Blood Gas Respiration Rate 20.0 20.0 Blood Gas Actual Respiration Rate 20 21 Blood Gas Modality VENT - AC VENT - AC FiO2 100.0 90.0 Blood Gas Tidal Volume 500.0 500.0 Blood Gas Mean Airway Pressure 12 Blood Gas Low PEEP Setting 5.0 5.0 Blood Gas Inspiratory Pressure 28.0 Blood Gas Notified Whom KATIE INTERIANO Blood Gas Notified Time 09/21/2016 9:17:48 PM 09/22/2016 10:24:37 AM White Blood Count 10.6 # Red Blood Count 4.37 L Hemoglobin 12.6 L Hematocrit 39.1 L Mean Corpuscular Volume 89.5 Mean Corpuscular Hemoglobin 28.8 L Mean Corpuscular Hemoglobin Concent 32.2 Red Cell Distribution Width 12.3 Platelet Count 425 H Mean Platelet Volume 9.5 Neutrophils % 74.2 Lymphocytes % 10.4 L Monocytes % 7.4 Eosinophils % 4.9 Basophils % 0.7 Nucleated Red Blood Cells % 0.0 Neutrophils # 7.9 H Lymphocytes # 1.1 Monocytes # 0.8 Eosinophils # 0.5 Basophils # 0.1 Nucleated Red Blood Cells # 0.0 Sodium Level 146 H Potassium Level 3.2 L Chloride Level 98 Carbon Dioxide Level 34 H Anion Gap 17 H Blood Urea Nitrogen 16 Creatinine 0.77 Glucose Level 108 Calcium Level 8.8 Phosphorus Level 4.9 Magnesium Level 2.1 Medications Current Medications Ondansetron HCl 4 mg 4 mg Q6H PRN IV NAUSEA AND/OR VOMITING; Start 09/14/16 at 17:00 Fentanyl (Sublimaze) 100 ml @ 2.5 mls/hr TITRATE IV Last administered on 11:43; Admin Dose 7.5 MLS/HR; Start 09/15/16 at 13:30 Aspirin (Aspirin) 300 mg DAILY [place] Last administered on 09/22/16 09:45; Admin Dose 300 MG; Start 09/15/16 at 19:30 Morphine Sulfate 2 mg 2 mg Q4H PRN IV SEVERE PAIN LEVEL 7-10; Start 09/16/16 at 10:30 Propofol 100 ml @ 0 mls/hr TITRATE IV Last administered on 09/22/16 13:49; Admin Dose 32.67 MLS/HR; Start 09/19/16 at 09:30 Midazolam HCl (Versed) 50 ml @ 1 mls/hr TITRATE IV Last administered on 07:00; Admin Dose 5 MLS/HR; Start 09/19/16 at 09:30 Enoxaparin Sodium (Lovenox) 40 mg DAILY SC Last administered on 09/22/16 09:46 ; Admin Dose 40 MG; Start 09/19/16 at 10:00 Lansoprazole 30 mg 30 mg DAILY@06 NGT Last administered on 09/22/16 05:23; Admin Dose 30 MG; Start 09/20/16 at 06:00 Doxycycline Hyclate/Sodium Chloride (Vibramycin/NS) 250 ml @ 250 mls/hr Q12 IVPB Last administered on 09/22/16 14:06; Admin Dose 250 MLS/HR; Start at 14:00 Assessment/Plan Chief Complaint/Hosp Course Assessment/Plan IMP: 1. AMS--encephalopathy currently of unclear etiology. Concern for possible anoxia though difficult to assess in view of high sedatives. 2. Resp Failure, chest x-ray radiographic improvement. 3. Acute Renal Failure--resolved 4. Mild Rhabdo improved. 5. Demand Ischemia/type II NSTEMI 6. Concern for aspiration pneumonitis 7. Heroin and Meth use RECS: 1. IV abx, chest x-ray shows improved aeration. 2. Continues propofol fentanyl and Versed. 3. Continue mechanical ventilation decrease FiO2 as tolerated, CPAP trial today if FiO2 acceptable. 4. Continue diuretics 5. Continue tube feeding 6. DVT GI prophylaxis 35 min cc time Problems: BRANDON CORONA MD, [facility] Sep 22, 2016 14:30
--- NOTE | 2016-09-22 19:41 | PN ---
Date/Time of Note Date/Time of Note DATE: 09/22/16 TIME: 19:39 Assessment/Plan VTE Prophylaxis VTE Prophylaxis Intervention: LMWH Lines/Catheters IV Catheter Type (from Nrsg): Central Line Central line still needed: Yes Urinary Cath still in place: Yes Reason Cath still needed: urinary retention Assessment/Plan Chief Complaint/Hosp Course 41 yo male with etoh use d/o, opiate use d/o who has developed respiratory failure requiring mechanical ventilation and VAP PULM: Acute hypoxic respiratory failure: - Still requiring high FiO2, XR shows edema and pneumonia. There is some moderate secretions on suctioning. Trach aspirated growing MRSA. Continue doxy/ unasyn - Overloaded w pulmonary edema, needs further diuresis - Wean sedation as able and extubate when able RENAL: No active issues CV: - HD stable - Type II NSTEMI on admission, resolved NEURO: - Imaging suggestive of watershed ischemic injury - Repeat MRI when stable to asess extent PSYCH: - Presentation likely 2/2 opiate overdose, also amphetamine use d/o - Assess need for opiate replacement therapy when extubated ID: - Likley pnumoenia - Sputum GS showing GPCs - Continue unasyn HEME: - Anemia, mild, stable PPx: HSQ, PPI Problems: Subjective 24 Hr Interval Summary Free Text/Dictation Still heavy secretions from suctioning ET tube Trach aspirate growing MRSA sensitve to doxy so this was added Otherwise minimal change to status Unable to be weaned from sedation as very agitated Exam/Review of Systems Vital Signs Vitals Vital Signs Date Time Temp Pulse Resp B/P Pulse Ox O2 Delivery O2 Flow Rate FiO2 09/22/16 18:00 88 20 123/75 95 09/22/16 17:12 60 09/22/16 16:12 98.3 09/22/16 07:00 Mechanical Ventilator Intake and Output 09/21/16 09/21/16 09/22/16 15:00 23:00 07:00 Intake Total 781.6 ml 675.0 ml 775.8 ml Output Total 800 ml 1110 ml 475 ml Balance -18.4 ml -435.0 ml 300.8 ml Exam Intubated Sedated Results Result Diagram: 09/22/16 0500 09/22/16 0500 Results 24 hrs Laboratory Tests Test 09/21/16 20:30 09/22/16 05:00 09/22/16 07:00 Blood Gas Specimen Source Blood arterial Blood arterial Arterial Blood Date Drawn 09/21/2016 9:10:21 PM 09/22/2016 10:10:35 AM Arterial Blood pH (Temp corrected) 7.465 H 7.457 H Arterial Blood pCO2 (Temp correct) 44.4 48.5 H Arterial Blood pO2 (Temp corrected) 88.8 139.1 H Arterial Blood HCO3 31.2 H 33.5 H Arterial Blood Base Excess 6.6 H 8.3 H Arterial Blood Oxygen Saturation 96.8 98.7 H Vinicius Test ACCEPTAB ACCEPTAB Arterial Blood Gas Puncture Site Right Radial Right Radial Arterial Blood Carboxyhemoglobin 0.3 0.3 Arterial Blood Methemoglobin 0.3 0.2 Blood Gas A-a O2 Differential 579.8 H 452.9 H Oxyhemoglobin Percent 96.2 98.2 Total Hemoglobin 14.2 13.8 Blood Gas Temperature 37.0 37.0 Blood Gas Respiration Rate 20.0 20.0 Blood Gas Actual Respiration Rate 20 21 Blood Gas Modality VENT - AC VENT - AC FiO2 100.0 90.0 Blood Gas Tidal Volume 500.0 500.0 Blood Gas Mean Airway Pressure 12 Blood Gas Low PEEP Setting 5.0 5.0 Blood Gas Inspiratory Pressure 28.0 Blood Gas Notified Whom KATIE INTERIANO Blood Gas Notified Time 09/21/2016 9:17:48 PM 09/22/2016 10:24:37 AM White Blood Count 10.6 # Red Blood Count 4.37 L Hemoglobin 12.6 L Hematocrit 39.1 L Mean Corpuscular Volume 89.5 Mean Corpuscular Hemoglobin 28.8 L Mean Corpuscular Hemoglobin Concent 32.2 Red Cell Distribution Width 12.3 Platelet Count 425 H Mean Platelet Volume 9.5 Neutrophils % 74.2 Lymphocytes % 10.4 L Monocytes % 7.4 Eosinophils % 4.9 Basophils % 0.7 Nucleated Red Blood Cells % 0.0 Neutrophils # 7.9 H Lymphocytes # 1.1 Monocytes # 0.8 Eosinophils # 0.5 Basophils # 0.1 Nucleated Red Blood Cells # 0.0 Sodium Level 146 H Potassium Level 3.2 L Chloride Level 98 Carbon Dioxide Level 34 H Anion Gap 17 H Blood Urea Nitrogen 16 Creatinine 0.77 Glucose Level 108 Calcium Level 8.8 Phosphorus Level 4.9 Magnesium Level 2.1 Medications Medications Current Medications Ondansetron HCl 4 mg 4 mg Q6H PRN IV NAUSEA AND/OR VOMITING; Start 09/14/16 at 17:00 Fentanyl (Sublimaze) 100 ml @ 2.5 mls/hr TITRATE IV Last administered on 11:43; Admin Dose 7.5 MLS/HR; Start 09/15/16 at 13:30 Aspirin (Aspirin) 300 mg DAILY [place] Last administered on 09/22/16 09:45; Admin Dose 300 MG; Start 09/15/16 at 19:30 Morphine Sulfate 2 mg 2 mg Q4H PRN IV SEVERE PAIN LEVEL 7-10; Start 09/16/16 at 10:30 Propofol 100 ml @ 0 mls/hr TITRATE IV Last administered on 09/22/16 13:49; Admin Dose 32.67 MLS/HR; Start 09/19/16 at 09:30 Midazolam HCl (Versed) 50 ml @ 1 mls/hr TITRATE IV Last administered on 07:00; Admin Dose 5 MLS/HR; Start 09/19/16 at 09:30 Enoxaparin Sodium (Lovenox) 40 mg DAILY SC Last administered on 09/22/16 09:46 ; Admin Dose 40 MG; Start 09/19/16 at 10:00 Lansoprazole 30 mg 30 mg DAILY@06 NGT Last administered on 09/22/16 05:23; Admin Dose 30 MG; Start 09/20/16 at 06:00 Doxycycline Hyclate/Sodium Chloride (Vibramycin/NS) 250 ml @ 250 mls/hr Q12 IVPB Last administered on 09/22/16 14:06; Admin Dose 250 MLS/HR; Start at 14:00 LACY WOLF MD Sep 22, 2016 19:41
--- NOTE | 2016-09-22 21:08 | RADRPT ---
PROCEDURE: Portable chest x-ray. CLINICAL INDICATION: 41-year-old man. Endotracheal tube placement.. TECHNIQUE: Portable AP view of the chest. COMPARISON: Chest x-ray from earlier the same day at 06:15 a.m. FINDINGS: The ET tube, left subclavian line and enteric tube are in similar position. Cardiomediastinal contours are unchanged There is right lower lobe atelectasis that is increased from prior exam with elevation of the right diaphragm. Lungs are otherwise clear. Negative for pleural effusion or pneumothorax.. IMPRESSION: Right lower lobe atelectasis is increased from prior exam. Superimposed aspiration or pneumonia can not be excluded. RPTAT: HCTS Physician Rosaura Date Time Electronically viewed and signed by Physician Rosaura on 09/22/2016 21:07 /
[2016-09-22] MEDS ORDERED: VANCOMYCIN 1.25 GM in SOD CHLORIDE 0.9% 250 ML IVPB SCH (22:00)
--- NOTE | 2016-09-22 22:16 | CONS ---
Date/Time of Note Date/Time of Note DATE: 09/22/16 TIME: 22:15 Assessment/Plan Assessment/Plan Chief Complaint/Hosp Course Assessment: NSTEMI - likely type 2 Acute hypoxic respiratory failure - intubated, on mechanical ventilation, per pulmonology Acute encephalopathy Acute left frontal stroke Possible anoxic brain injury - per neurology Amphetamine abuse Recommendations: -on IV Lasix, monitor volume status -continue aspirin 300mg MO daily -echocardiogram showed LVEF 50-55% Problems: Consultation Date/Type/Reason Admit Date/Time Sep 14, 2016 at 16:36 Initial Consult Date 09/16/16 Type of Consultation: Cardiology 24 HR Interval Summary Free Text/Dictation No significant clinical changes. Remains intubated. Unable to wean sedation, patient becomes very agitated. Detailed Summary Additional Comments Unable to obtain review of systems, patient is intubated. Exam/Review of Systems Vital Signs Vitals Vital Signs Date Time Temp Pulse Resp B/P Pulse Ox O2 Delivery O2 Flow Rate FiO2 09/22/16 18:00 88 20 123/75 95 09/22/16 17:12 60 09/22/16 16:12 98.3 09/22/16 07:00 Mechanical Ventilator Intake and Output 09/21/16 09/21/16 09/22/16 15:00 23:00 07:00 Intake Total 781.6 ml 675.0 ml 775.8 ml Output Total 800 ml 1110 ml 475 ml Balance -18.4 ml -435.0 ml 300.8 ml Exam Constitutional: other (sedated), No alert Psych: No nl mood/affect, No no complaints Head: atraumatic, normocephalic Eyes: nl conjunctiva, nl lids ENMT: intubated Respiratory: clear to auscultation Cardiovascular: regular rate and rhythm Gastrointestinal: non-tender, soft Musculoskeletal: nl extremities to inspection Extremities: No clubbing, No cyanosis, No edema Neurological: No nl mental status, No nl speech Skin: nl turgor Results Result Diagram: 09/22/16 0500 09/22/16 0500 Results 24 hrs Laboratory Tests Test 09/22/16 05:00 09/22/16 07:00 White Blood Count 10.6 # Red Blood Count 4.37 L Hemoglobin 12.6 L Hematocrit 39.1 L Mean Corpuscular Volume 89.5 Mean Corpuscular Hemoglobin 28.8 L Mean Corpuscular Hemoglobin Concent 32.2 Red Cell Distribution Width 12.3 Platelet Count 425 H Mean Platelet Volume 9.5 Neutrophils % 74.2 Lymphocytes % 10.4 L Monocytes % 7.4 Eosinophils % 4.9 Basophils % 0.7 Nucleated Red Blood Cells % 0.0 Neutrophils # 7.9 H Lymphocytes # 1.1 Monocytes # 0.8 Eosinophils # 0.5 Basophils # 0.1 Nucleated Red Blood Cells # 0.0 Sodium Level 146 H Potassium Level 3.2 L Chloride Level 98 Carbon Dioxide Level 34 H Anion Gap 17 H Blood Urea Nitrogen 16 Creatinine 0.77 Glucose Level 108 Calcium Level 8.8 Phosphorus Level 4.9 Magnesium Level 2.1 Blood Gas Specimen Source Blood arterial Arterial Blood Date Drawn 09/22/2016 10:10:35 AM Arterial Blood pH (Temp corrected) 7.457 H Arterial Blood pCO2 (Temp correct) 48.5 H Arterial Blood pO2 (Temp corrected) 139.1 H Arterial Blood HCO3 33.5 H Arterial Blood Base Excess 8.3 H Arterial Blood Oxygen Saturation 98.7 H Vinicius Test ACCEPTAB Arterial Blood Gas Puncture Site Right Radial Arterial Blood Carboxyhemoglobin 0.3 Arterial Blood Methemoglobin 0.2 Blood Gas A-a O2 Differential 452.9 H Oxyhemoglobin Percent 98.2 Total Hemoglobin 13.8 Blood Gas Temperature 37.0 Blood Gas Respiration Rate 20.0 Blood Gas Actual Respiration Rate 21 Blood Gas Modality VENT - AC FiO2 90.0 Blood Gas Tidal Volume 500.0 Blood Gas Low PEEP Setting 5.0 Blood Gas Notified Whom JLD Blood Gas Notified Time 09/22/2016 10:24:37 AM Medications Medications Current Medications Ondansetron HCl 4 mg 4 mg Q6H PRN IV NAUSEA AND/OR VOMITING; Start 09/14/16 at 17:00 Fentanyl (Sublimaze) 100 ml @ 2.5 mls/hr TITRATE IV Last administered on 11:43; Admin Dose 7.5 MLS/HR; Start 09/15/16 at 13:30 Aspirin (Aspirin) 300 mg DAILY [place] Last administered on 09/22/16 09:45; Admin Dose 300 MG; Start 09/15/16 at 19:30 Morphine Sulfate 2 mg 2 mg Q4H PRN IV SEVERE PAIN LEVEL 7-10; Start 09/16/16 at 10:30 Propofol 100 ml @ 0 mls/hr TITRATE IV Last administered on 09/22/16 20:51; Admin Dose 36.3 MLS/HR; Start 09/19/16 at 09:30 Midazolam HCl (Versed) 50 ml @ 1 mls/hr TITRATE IV Last administered on 07:00; Admin Dose 5 MLS/HR; Start 09/19/16 at 09:30 Enoxaparin Sodium (Lovenox) 40 mg DAILY [place] Last administered on 09/22/16 09:46 ; Admin Dose 40 MG; Start 09/19/16 at 10:00 Lansoprazole 30 mg 30 mg DAILY@06 NGT Last administered on 09/22/16 05:23; Admin Dose 30 MG; Start 09/20/16 at 06:00 Doxycycline Hyclate/Sodium Chloride (Vibramycin/NS) 250 ml @ 250 mls/hr Q12 IVPB Last administered on 09/22/16 14:06; Admin Dose 250 MLS/HR; Start at 14:00 THERESA PARIS MD Sep 22, 2016 22:16
--- NOTE | 2016-09-22 23:59 | RADRPT ---
PROCEDURE: Portable chest x-ray. CLINICAL INDICATION: 41-year-old male. Endotracheal tube placement.. TECHNIQUE: Portable AP view of the chest. COMPARISON: Chest x-ray from earlier the same evening at 08:35 p.m.. FINDINGS: Endotracheal tube tip is 5.1 cm from marlin. Enteric tube courses to the diaphragm with the distal tip not imaged. There is a left subclavian central venous line in the mid SVC. Cardiomediastinal contours are stable. There is right lower lobe atelectasis with elevation of the right diaphragm as before. Negative for pleural effusion or pneumothorax..> IMPRESSION: Endotracheal tube in good position. Lines and tubes are unchanged. Right lower lobe atelectasis is unchanged. RPTAT: HCTS Physician Rosaura Date Time Electronically viewed and signed by Ameena Ricci Physician on 09/22/2016 23:59 /
[2016-09-23] VITALS (37 sets, daily range): BP systolic 99–166; BP diastolic 52–113; PULSE 83–117; RESP 13–32
[2016-09-23] MEDS: DOXYCYCLINE 100 MG in SOD CHLORIDE 0.9% 250 ML IVPB SCH ×3 (01:44→20:50)
[2016-09-23] MEDS: PROPOFOL 100 ML IV SCH ×7 (02:39→23:46)
[2016-09-23] MEDS: LANSOPRAZOLE 30 MG CAP NGT SCH (06:08)
[2016-09-23] MEDS: FUROSEMIDE 40 MG INJ IV SCH ×2 (06:09→18:22)
[2016-09-23 06:21] LABS: BASOPHIL # 0.1 10^3/ul (0.0-0.1); BASOPHILS % 0.7 % (0.0-2.0); EOSINOPHILS # 0.7 10^3/ul (0.0-0.5); EOSINOPHILS % 6.5 % (0.0-7.0); HEMATOCRIT 38.5 % (42.0-52.0); HEMOGLOBIN 12.5 g/dl (14.0-18.0); LYMPHOCYTES # 1.7 10^3/ul (0.8-2.9); LYMPHOCYTES % 16.7 % (15.0-51.0); MEAN CORPUSCULAR HEMOGLOBIN 29.2 pg (29.0-33.0); MEAN CORPUSCULAR HGB CONC 32.5 g/dl (32.0-37.0); MEAN PLATELET VOLUME 9.3 fl (7.4-10.4); MONOCYTE # 0.8 10^3/ul (0.3-0.9); MONOCYTES % 7.6 % (0.0-11.0); NEUTROPHIL # 6.8 10^3/ul (1.6-7.5); NEUTROPHILS % 66.6 % (39.0-77.0); PLATELET COUNT 462 10^3/UL (140-415); RED BLOOD COUNT 4.28 10^6/ul (4.70-6.10); RED CELL DISTRIBUTION WIDTH 12.4 % (11.5-14.5); WHITE BLOOD COUNT 10.2 10^3/ul (4.8-10.8)
[2016-09-23 06:53] LABS: CALCIUM 8.8 mg/dl (8.4-10.2); CREATININE 0.78 mg/dl (0.61-1.24); PHOSPHORUS 4.5 mg/dl (2.5-4.9); POTASSIUM 3.5 mmol/L (3.5-5.1)
[2016-09-23 08:29] LABS: AADO2 Arterial 433.8 mmHg (7.0-24.0); Allen Test ACCEPTAB; Arterial COHb 0.3 % (0.0-3.0); Arterial Fraction of Oxyhgb 95.9 % (93.0-99.0); Arterial HCO3 32.5 mmol/L (22.0-26.0); Arterial MetHb 0.2 % (0.0-1.5); Arterial Total Hemglobin 14.5 g/dl (12.0-18.0); MODE VENT - AC
[2016-09-23] MEDS: ASPIRIN 300 MG SUPP PR SCH (09:41)
[2016-09-23] MEDS: ENOXAPARIN 40 MG/0.4 ML SYG SC SCH (09:44)
[2016-09-23] MEDS: MIDAZOLAM (DRIP) 50 mg/50 mL 50 ML IV SCH ×2 (11:41→23:00)
--- NOTE | 2016-09-23 12:23 | CONS ---
Date/Time of Note Date/Time of Note DATE: 09/23/16 TIME: 12:21 Consult Date/Type/Reason Admit Date/Time Sep 14, 2016 at 16:36 Initial Consult Date 09/16/16 Type of Consultation: Pulmonary Subjective Significant agitation off sedation. Not consistently following commands. Increased FiO2 to 100%. Objective Vital Signs Date Time Temp Pulse Resp B/P Pulse Ox O2 Delivery O2 Flow Rate FiO2 09/23/16 11:11 91 20 99 70 09/23/16 10:00 114/81 Mechanical Ventilator 09/23/16 08:15 98.8 Intake and Output 09/22/16 09/22/16 09/23/16 15:00 23:00 07:00 Intake Total 465.49 ml 1398.835 ml 1020.2 ml Output Total 700 ml 400 ml 510 ml Balance -234.51 ml 998.835 ml 510.2 ml Exam PHYSICAL EXAMINATION GENERAL: Well-nourished well-developed gentleman intubated sedated on mechanical ventilation VITAL SIGNS: see below. HEENT: Pupils equal, round, and reactive to light. CARDIAC: S1, S2, no added sounds or movements CHEST: Diminished air entry bilaterally. Bilateral rales. ABDOMEN: Mildly distended. Bowel sounds present no guarding or rebound EXTREMITIES: No cyanosis, clubbing edema +1 NEUROLOGIC: Generalized weakness Results/Medications Result Diagram: 09/23/16 0550 09/23/16 0550 Results 24 hrs Laboratory Tests Test 09/23/16 05:50 09/23/16 07:00 White Blood Count 10.2 Red Blood Count 4.28 L Hemoglobin 12.5 L Hematocrit 38.5 L Mean Corpuscular Volume 90.0 Mean Corpuscular Hemoglobin 29.2 Mean Corpuscular Hemoglobin Concent 32.5 Red Cell Distribution Width 12.4 Platelet Count 462 H Mean Platelet Volume 9.3 Neutrophils % 66.6 Lymphocytes % 16.7 Monocytes % 7.6 Eosinophils % 6.5 Basophils % 0.7 Nucleated Red Blood Cells % 0.0 Neutrophils # 6.8 Lymphocytes # 1.7 Monocytes # 0.8 Eosinophils # 0.7 H Basophils # 0.1 Nucleated Red Blood Cells # 0.0 Sodium Level 142 Potassium Level 3.5 Chloride Level 102 Carbon Dioxide Level 32 H Anion Gap 12 Blood Urea Nitrogen 19 Creatinine 0.78 Glucose Level 120 Calcium Level 8.8 Phosphorus Level 4.5 Magnesium Level 2.0 Blood Gas Specimen Source Blood arterial Arterial Blood Date Drawn 09/23/2016 7:55:58 AM Arterial Blood pH (Temp corrected) 7.437 Arterial Blood pCO2 (Temp correct) 49.3 H Arterial Blood pO2 (Temp corrected) 84.8 Arterial Blood HCO3 32.5 H Arterial Blood Base Excess 7.0 H Arterial Blood Oxygen Saturation 96.4 Vinicius Test ACCEPTAB Arterial Blood Gas Puncture Site Right Radial Arterial Blood Carboxyhemoglobin 0.3 Arterial Blood Methemoglobin 0.2 Blood Gas A-a O2 Differential 433.8 H Oxyhemoglobin Percent 95.9 Total Hemoglobin 14.5 Blood Gas Temperature 37.0 Blood Gas Respiration Rate 20.0 Blood Gas Modality VENT - AC FiO2 80.0 Blood Gas Tidal Volume 500.0 Blood Gas Low PEEP Setting 5.0 Blood Gas Notified Whom DT Blood Gas Notified Time 09/23/2016 8:29:31 AM Medications Current Medications Ondansetron HCl 4 mg 4 mg Q6H PRN IV NAUSEA AND/OR VOMITING; Start 09/14/16 at 17:00 Fentanyl (Sublimaze) 100 ml @ 2.5 mls/hr TITRATE IV Last administered on 23:49; Admin Dose 7.5 MLS/HR; Start 09/15/16 at 13:30 Aspirin (Aspirin) 300 mg DAILY [place] Last administered on 09/23/16 09:41; Admin Dose 300 MG; Start 09/15/16 at 19:30 Morphine Sulfate 2 mg 2 mg Q4H PRN IV SEVERE PAIN LEVEL 7-10; Start 09/16/16 at 10:30 Propofol 100 ml @ 0 mls/hr TITRATE IV Last administered on 09/23/16 11:43; Admin Dose 29.04 MLS/HR; Start 09/19/16 at 09:30 Midazolam HCl (Versed) 50 ml @ 1 mls/hr TITRATE IV Last administered on 11:41; Admin Dose 5 MLS/HR; Start 09/19/16 at 09:30 Enoxaparin Sodium (Lovenox) 40 mg DAILY [place] Last administered on 09/23/16 09:44 ; Admin Dose 40 MG; Start 09/19/16 at 10:00 Lansoprazole 30 mg 30 mg DAILY@06 NGT Last administered on 09/23/16 06:08; Admin Dose 30 MG; Start 09/20/16 at 06:00 Doxycycline Hyclate/Sodium Chloride (Vibramycin/NS) 250 ml @ 250 mls/hr Q12 IVPB Last administered on 09/23/16 11:47; Admin Dose 250 MLS/HR; Start at 14:00 Assessment/Plan Chief Complaint/Hosp Course Assessment/Plan IMP: 1. AMS--encephalopathy currently of unclear etiology. Concern for possible anoxia though difficult to assess in view of high sedatives. 2. Resp Failure, chest x-ray radiographic improvement. Significant hypoxemic respiratory failure however. Questionable shunt phenomena. 3. Acute Renal Failure--resolved 4. Mild Rhabdo improved. 5. Demand Ischemia/type II NSTEMI 6. Concern for aspiration pneumonitis 7. Heroin and Meth use questionable alcohol abuse also. RECS: 1. continue antibiotics 2. Addition of Librium, decrease propofol and Versed as tolerated, 3. Continue mechanical ventilation decrease FiO2 as tolerated, not stable for weaning. 4. Continue diuretics trial of steroids. 5. Continue tube feeding 6. DVT GI prophylaxis 35 min cc time Problems: BRANDON CORONA [facility], [facility] Sep 23, 2016 12:23
[2016-09-23] MEDS: FENTAnyl (DRIP) 1000 mcg/100mL 100 ML IV SCH (13:36)
[2016-09-23] MEDS: METHYLPREDNISOLONE 125 MG INJ IV SCH ×2 (13:38→22:26)
[2016-09-23] MEDS: CHLORDIAZEPOXIDE 25 MG CAP PO SCH ×2 (13:38→20:50)
--- NOTE | 2016-09-23 14:50 | RADRPT ---
PROCEDURE: XR Chest. CLINICAL INDICATION: Pneumonia and CHF TECHNIQUE: AP view of the chest was performed. COMPARISON: None. FINDINGS: The endotracheal tube tip is above the marlin and the feeding tube courses below the left hemidiaphr agm. The left-sided central line terminates in the region of the proximal SVC/brachiocephalic juncti on. The cardiac silhouette is within normal limits. There are low lung volumes with right lower lobe atelectasis, unchanged IMPRESSION: Support tubes and lines remain unchanged. Right lower lobe atelectasis is again demonstrated RPTAT: QQ .Bernie Chavez MD, Date Time Electronically viewed and signed by .Bernie Chavez MD, on 09/23/2016 14:50 .M/
--- NOTE | 2016-09-23 18:12 | PN ---
Date/Time of Note Date/Time of Note DATE: 09/23/16 TIME: 18:10 Assessment/Plan VTE Prophylaxis VTE Prophylaxis Intervention: LMWH Lines/Catheters IV Catheter Type (from Nrs): Central Line Central line still needed: Yes Urinary Cath still in place: Yes Reason Cath still needed: urinary retention Assessment/Plan Chief Complaint/Hosp Course 41 yo male with etoh use d/o, opiate use d/o who has developed respiratory failure requiring mechanical ventilation and VAP PULM: Acute hypoxic respiratory failure: - Still requiring high FiO2, XR shows edema and pneumonia. There is thick secretions on suctioning. Trach aspirated growing MRSA. Continue doxy/unasyn - Overloaded w pulmonary edema, needs further diuresis - Wean sedation as able and extubate when able RENAL: No active issues CV: - HD stable - Type II NSTEMI on admission, resolved NEURO: - Imaging suggestive of watershed ischemic injury - Repeat MRI when stable to asess extent PSYCH: - Presentation likely 2/2 opiate overdose, also amphetamine use d/o - Assess need for opiate replacement therapy when extubated ID: - Likley pnumoenia 2/2 MSRA - Continue unasyn/doxy HEME: - Anemia, mild, stable PPx: HSQ, PPI Problems: Subjective 24 Hr Interval Summary Free Text/Dictation REmains unitubated wtih copious secretions Agitated, tachypneic when sedation is weaned Exam/Review of Systems Vital Signs Vitals Vital Signs Date Time Temp Pulse Resp B/P Pulse Ox O2 Delivery O2 Flow Rate FiO2 09/23/16 17:19 112 29 95 70 09/23/16 16:00 98.6 131/91 Mechanical Ventilator Intake and Output 09/22/16 09/22/16 09/23/16 15:00 23:00 07:00 Intake Total 465.49 ml 1398.835 ml 1050.2 ml Output Total 700 ml 400 ml 610 ml Balance -234.51 ml 998.835 ml 440.2 ml Results Result Diagram: 09/23/16 0550 09/23/16 0550 Results 24 hrs Laboratory Tests Test 09/23/16 05:50 09/23/16 07:00 White Blood Count 10.2 Red Blood Count 4.28 L Hemoglobin 12.5 L Hematocrit 38.5 L Mean Corpuscular Volume 90.0 Mean Corpuscular Hemoglobin 29.2 Mean Corpuscular Hemoglobin Concent 32.5 Red Cell Distribution Width 12.4 Platelet Count 462 H Mean Platelet Volume 9.3 Neutrophils % 66.6 Lymphocytes % 16.7 Monocytes % 7.6 Eosinophils % 6.5 Basophils % 0.7 Nucleated Red Blood Cells % 0.0 Neutrophils # 6.8 Lymphocytes # 1.7 Monocytes # 0.8 Eosinophils # 0.7 H Basophils # 0.1 Nucleated Red Blood Cells # 0.0 Sodium Level 142 Potassium Level 3.5 Chloride Level 102 Carbon Dioxide Level 32 H Anion Gap 12 Blood Urea Nitrogen 19 Creatinine 0.78 Glucose Level 120 Calcium Level 8.8 Phosphorus Level 4.5 Magnesium Level 2.0 Blood Gas Specimen Source Blood arterial Arterial Blood Date Drawn 09/23/2016 7:55:58 AM Arterial Blood pH (Temp corrected) 7.437 Arterial Blood pCO2 (Temp correct) 49.3 H Arterial Blood pO2 (Temp corrected) 84.8 Arterial Blood HCO3 32.5 H Arterial Blood Base Excess 7.0 H Arterial Blood Oxygen Saturation 96.4 Vinicius Test ACCEPTAB Arterial Blood Gas Puncture Site Right Radial Arterial Blood Carboxyhemoglobin 0.3 Arterial Blood Methemoglobin 0.2 Blood Gas A-a O2 Differential 433.8 H Oxyhemoglobin Percent 95.9 Total Hemoglobin 14.5 Blood Gas Temperature 37.0 Blood Gas Respiration Rate 20.0 Blood Gas Modality VENT - AC FiO2 80.0 Blood Gas Tidal Volume 500.0 Blood Gas Low PEEP Setting 5.0 Blood Gas Notified Whom DT Blood Gas Notified Time 09/23/2016 8:29:31 AM Medications Medications Current Medications Ondansetron HCl 4 mg 4 mg Q6H PRN IV NAUSEA AND/OR VOMITING; Start 09/14/16 at 17:00 Fentanyl (Sublimaze) 100 ml @ 2.5 mls/hr TITRATE IV Last administered on 13:36; Admin Dose 7.5 MLS/HR; Start 09/15/16 at 13:30 Aspirin (Aspirin) 300 mg DAILY [place] Last administered on 09/23/16 09:41; Admin Dose 300 MG; Start 09/15/16 at 19:30 Morphine Sulfate 2 mg 2 mg Q4H PRN IV SEVERE PAIN LEVEL 7-10; Start 09/16/16 at 10:30 Propofol 100 ml @ 0 mls/hr TITRATE IV Last administered on 09/23/16 11:43; Admin Dose 29.04 MLS/HR; Start 09/19/16 at 09:30 Midazolam HCl (Versed) 50 ml @ 1 mls/hr TITRATE IV Last administered on 11:41; Admin Dose 5 MLS/HR; Start 09/19/16 at 09:30 Enoxaparin Sodium (Lovenox) 40 mg DAILY [place] Last administered on 09/23/16 09:44 ; Admin Dose 40 MG; Start 09/19/16 at 10:00 Lansoprazole 30 mg 30 mg DAILY@06 NGT Last administered on 09/23/16 06:08; Admin Dose 30 MG; Start 09/20/16 at 06:00 Doxycycline Hyclate/Sodium Chloride (Vibramycin/NS) 250 ml @ 250 mls/hr Q12 IVPB Last administered on 09/23/16 11:47; Admin Dose 250 MLS/HR; Start at 14:00 Methylprednisolone Sodium Succinate (Solu-Medrol) 60 mg Q8 IV Last administered on 09/23/16 13:38; Admin Dose 60 MG; Start 09/23/16 at 14:00 Chlordiazepoxide (Librium) 50 mg TID PO Last administered on 09/23/16 13:38; Admin Dose 50 MG; Start 09/23/16 at 13:00 LACY WOLF MD Sep 23, 2016 18:11
[2016-09-24] VITALS (70 sets, daily range): BP systolic 86–156; BP diastolic 51–94; PULSE 53–94; RESP 0–23
[2016-09-24] MEDS: PROPOFOL 100 ML IV SCH ×3 (02:37→20:13)
[2016-09-24] MEDS: FENTAnyl (DRIP) 1000 mcg/100mL 100 ML IV SCH ×2 (03:15→13:04)
[2016-09-24 05:07] LABS: BASOPHILS % 0.3 % (0.0-2.0); EOSINOPHILS % 0.1 % (0.0-7.0); HEMATOCRIT 38.5 % (42.0-52.0); HEMOGLOBIN 12.3 g/dl (14.0-18.0); LYMPHOCYTES % 7.8 % (15.0-51.0); MEAN CORPUSCULAR HEMOGLOBIN 28.5 pg (29.0-33.0); MEAN CORPUSCULAR HGB CONC 31.9 g/dl (32.0-37.0); MEAN CORPUSCULAR VOLUME 89.1 fl (82.0-101.0); MEAN PLATELET VOLUME 9.5 fl (7.4-10.4); MONOCYTE # 0.3 10^3/ul (0.3-0.9); MONOCYTES % 2.5 % (0.0-11.0); NEUTROPHIL # 10.7 10^3/ul (1.6-7.5); PLATELET COUNT 526 10^3/UL (140-415); RED BLOOD COUNT 4.32 10^6/ul (4.70-6.10); RED CELL DISTRIBUTION WIDTH 12.2 % (11.5-14.5); WHITE BLOOD COUNT 12.2 10^3/ul (4.8-10.8)
[2016-09-24 05:13] LABS: CALCIUM 9.2 mg/dl (8.4-10.2); CREATININE 0.84 mg/dl (0.61-1.24); MAGNESIUM 2.2 mg/dl (1.7-2.5); PHOSPHORUS 5.9 mg/dl (2.5-4.9); POTASSIUM 3.7 mmol/L (3.5-5.1)
[2016-09-24] MEDS: LANSOPRAZOLE 30 MG CAP NGT SCH (05:48)
[2016-09-24] MEDS: METHYLPREDNISOLONE 125 MG INJ IV SCH ×3 (05:48→21:42)
[2016-09-24] MEDS: FUROSEMIDE 40 MG INJ IV SCH ×2 (05:49→17:48)
[2016-09-24] MEDS: ASPIRIN 300 MG SUPP PR SCH (08:09)
[2016-09-24] MEDS: CHLORDIAZEPOXIDE 25 MG CAP PO SCH ×3 (08:09→20:35)
[2016-09-24] MEDS: DOXYCYCLINE 100 MG in SOD CHLORIDE 0.9% 250 ML IVPB SCH ×2 (08:09→20:35)
[2016-09-24] MEDS: ENOXAPARIN 40 MG/0.4 ML SYG SC SCH (08:10)
[2016-09-24 08:38] LABS: AADO2 Arterial 384.7 mmHg (7.0-24.0); Allen Test ACCEPTAB; Arterial Base Excess 6.6 mmol/L (-3.0-3); Arterial COHb 0 % (0.0-3.0); Arterial Fraction of Oxyhgb 91.2 % (93.0-99.0); Arterial MetHb 0.2 % (0.0-1.5); Arterial Total Hemglobin 14.5 g/dl (12.0-18.0); MODE VENT - AC
--- NOTE | 2016-09-24 10:05 | RADRPT ---
PROCEDURE: XR Chest 1 View. CLINICAL INDICATION: Shortness of breath. TECHNIQUE: AP view of the chest was obtained. COMPARISON: September 23, 2016 FINDINGS: The cardiomediastinal silhouette is within normal limits. Endotracheal and nasogastric tubes are sta ble and appear in grossly appropriate location. Left-sided central line is unchanged. Central pulm onary vascular congestion and interstitial prominence is seen in both lungs. Right basilar infiltra latrice, combined with small pleural effusion have increased. Elevated right hemidiaphragm is noted. Th e osseous structures are intact. IMPRESSION: Central pulmonary vascular congestion and interstitial prominence is seen in both lungs. Interval increase in right basilar infiltrates, combined with small pleural effusion. Elevated right hemidiaphragm. RPTAT: AA .Rock Escudero MD, Date Time Electronically viewed and signed by .Rock Escudero MD, MD on 09/24/2016 10:04 .P/
[2016-09-24] MEDS: MIDAZOLAM (DRIP) 50 mg/50 mL 50 ML IV SCH ×2 (13:03→20:13)
--- NOTE | 2016-09-24 14:20 | CONS ---
Date/Time of Note Date/Time of Note DATE: 09/24/16 TIME: 14:18 Consult Date/Type/Reason Admit Date/Time Sep 14, 2016 at 16:36 Initial Consult Date 09/16/16 Type of Consultation: Pulmonary Subjective Remains encephalopathic. Continues to have moderate oral secretions. FiO2 decreased to 70%. Significant agitation off sedatives. Does not follow commands. Objective Vital Signs Date Time Temp Pulse Resp B/P Pulse Ox O2 Delivery O2 Flow Rate FiO2 09/24/16 12:45 68 20 95 60 09/24/16 08:26 97.5 09/24/16 08:15 125/81 09/24/16 06:00 Mechanical Ventilator Intake and Output 09/23/16 09/23/16 09/24/16 15:00 23:00 07:00 Intake Total 905.38 ml 810.6 ml 549.78 ml Output Total 900 ml 1000 ml 265 ml Balance 5.38 ml -189.4 ml 284.78 ml Exam PHYSICAL EXAMINATION GENERAL: Well-nourished well-developed gentleman intubated sedated on mechanical ventilation VITAL SIGNS: see below. HEENT: Pupils equal, round, and reactive to light. CARDIAC: S1, S2, no added sounds or movements CHEST: Diminished air entry bilaterally. Bilateral rales. ABDOMEN: Mildly distended. Bowel sounds present no guarding or rebound EXTREMITIES: No cyanosis, clubbing edema +1 NEUROLOGIC: Generalized weakness Results/Medications Result Diagram: 09/24/16 0438 09/24/16 0438 Results 24 hrs Laboratory Tests Test 09/24/16 04:38 09/24/16 07:00 White Blood Count 12.2 H Red Blood Count 4.32 L Hemoglobin 12.3 L Hematocrit 38.5 L Mean Corpuscular Volume 89.1 Mean Corpuscular Hemoglobin 28.5 L Mean Corpuscular Hemoglobin Concent 31.9 L Red Cell Distribution Width 12.2 Platelet Count 526 H Mean Platelet Volume 9.5 Neutrophils % 88.0 H Lymphocytes % 7.8 L Monocytes % 2.5 Eosinophils % 0.1 Basophils % 0.3 Nucleated Red Blood Cells % 0.0 Neutrophils # 10.7 H Lymphocytes # 1.0 Monocytes # 0.3 Eosinophils # 0.0 Basophils # 0.0 Nucleated Red Blood Cells # 0.0 Sodium Level 144 Potassium Level 3.7 Chloride Level 104 Carbon Dioxide Level 30 Anion Gap 14 Blood Urea Nitrogen 24 H Creatinine 0.84 Glucose Level 150 Calcium Level 9.2 Phosphorus Level 5.9 H Magnesium Level 2.2 Blood Gas Specimen Source Blood arterial Arterial Blood Date Drawn 09/24/2016 8:10:52 AM Arterial Blood pH (Temp corrected) 7.436 Arterial Blood pCO2 (Temp correct) 48.7 H Arterial Blood pO2 (Temp corrected) 62.1 L Arterial Blood HCO3 32.0 H Arterial Blood Base Excess 6.6 H Arterial Blood Oxygen Saturation 91.4 L Vinicius Test ACCEPTAB Arterial Blood Gas Puncture Site Right Radial Arterial Blood Carboxyhemoglobin 0 Arterial Blood Methemoglobin 0.2 Blood Gas A-a O2 Differential 384.7 H Oxyhemoglobin Percent 91.2 L Total Hemoglobin 14.5 Blood Gas Temperature 37.0 Blood Gas Respiration Rate 20.0 Blood Gas Actual Respiration Rate 22 Blood Gas Modality VENT - AC FiO2 70.0 Blood Gas Tidal Volume 500.0 Blood Gas Low PEEP Setting 5.0 Blood Gas Notified Whom DT Blood Gas Notified Time 09/24/2016 8:38:29 AM Medications Current Medications Ondansetron HCl 4 mg 4 mg Q6H PRN IV NAUSEA AND/OR VOMITING; Start 09/14/16 at 17:00 Fentanyl (Sublimaze) 100 ml @ 2.5 mls/hr TITRATE IV Last administered on 13:04; Admin Dose 10 MLS/HR; Start 09/15/16 at 13:30 Aspirin (Aspirin) 300 mg DAILY [place] Last administered on 09/24/16 08:09; Admin Dose 300 MG; Start 09/15/16 at 19:30 Morphine Sulfate 2 mg 2 mg Q4H PRN IV SEVERE PAIN LEVEL 7-10; Start 09/16/16 at 10:30 Propofol 100 ml @ 0 mls/hr TITRATE IV Last administered on 09/24/16 05:59; Admin Dose 21.78 MLS/HR; Start 09/19/16 at 09:30 Midazolam HCl (Versed) 50 ml @ 1 mls/hr TITRATE IV Last administered on 13:03; Admin Dose 10 MLS/HR; Start 09/19/16 at 09:30 Enoxaparin Sodium (Lovenox) 40 mg DAILY [place] Last administered on 09/24/16 08:10 ; Admin Dose 40 MG; Start 09/19/16 at 10:00 Lansoprazole 30 mg 30 mg DAILY@06 NGT Last administered on 09/24/16 05:48; Admin Dose 30 MG; Start 09/20/16 at 06:00 Doxycycline Hyclate/Sodium Chloride (Vibramycin/NS) 250 ml @ 250 mls/hr Q12 IVPB Last administered on 09/24/16 08:09; Admin Dose 250 MLS/HR; Start at 14:00 Methylprednisolone Sodium Succinate (Solu-Medrol) 60 mg Q8 IV Last administered on 09/24/16 05:48; Admin Dose 60 MG; Start 09/23/16 at 14:00 Chlordiazepoxide (Librium) 50 mg TID PO Last administered on 09/24/16 13:03; Admin Dose 50 MG; Start 09/23/16 at 13:00 Assessment/Plan Chief Complaint/Hosp Course Assessment/Plan IMP: 1. AMS--encephalopathy currently of unclear etiology. Concern for possible anoxia though difficult to assess in view of high sedatives. 2. Resp Failure, chest x-ray radiographic improvement. Significant hypoxemic respiratory failure however. Questionable shunt phenomena. 3. Acute Renal Failure--resolved 4. Mild Rhabdo improved. 5. Demand Ischemia/type II NSTEMI 6. Concern for aspiration pneumonitis 7. Heroin and Meth use questionable alcohol abuse also. RECS: 1. continue antibiotics 2. Addition of Librium, decrease propofol and Versed as tolerated, 3. Continue mechanical ventilation decrease FiO2 as tolerated, not stable for weaning. 4. Continue diuretics trial of steroids. 5. Continue tube feeding 6. DVT GI prophylaxis Social work needs to the nares family conference to update family regarding goals of care. 35 min cc time Problems: BRANDON CORONA MD, [facility] Sep 24, 2016 14:20
--- NOTE | 2016-09-24 18:12 | PN ---
Date/Time of Note Date/Time of Note DATE: 09/24/16 TIME: 18:10 Assessment/Plan VTE Prophylaxis VTE Prophylaxis Intervention: LMWH Lines/Catheters IV Catheter Type (from Nrsg): Central Line Central line still needed: Yes Urinary Cath still in place: Yes Reason Cath still needed: urinary retention Assessment/Plan Chief Complaint/Hosp Course 41 yo male with etoh use d/o, opiate use d/o who has developed respiratory failure requiring mechanical ventilation and VAP PULM: Acute hypoxic respiratory failure: - Still requiring high FiO2, XR shows edema and pneumonia. There is thick secretions on suctioning. Trach aspirated growing MRSA. Continue doxy/unasyn - Some pulmonary edema, continue lasix but close eye on creatinine/overdiuresis - Wean sedation as able and extubate when able RENAL: No active issues CV: - HD stable - Type II NSTEMI on admission, resolved NEURO: - Imaging suggestive of watershed ischemic injury - Repeat MRI when stable to asess extent PSYCH: - Presentation likely 2/2 opiate overdose, also amphetamine use d/o - Assess need for opiate replacement therapy when extubated ID: - Likley pnumoenia 2/2 MSRA - Continue unasyn/doxy HEME: - Anemia, mild, stable PPx: HSQ, PPI Problems: Subjective 24 Hr Interval Summary Free Text/Dictation No change to patient's status Remains intubated, heavily sedated High FiO2 70% with heavy secretinos on suctioning Exam/Review of Systems Vital Signs Vitals Vital Signs Date Time Temp Pulse Resp B/P Pulse Ox O2 Delivery O2 Flow Rate FiO2 09/24/16 17:11 80 20 93 60 09/24/16 15:46 97.5 09/24/16 15:30 118/73 09/24/16 06:00 Mechanical Ventilator Intake and Output 09/23/16 09/23/16 09/24/16 15:00 23:00 07:00 Intake Total 905.38 ml 810.6 ml 571.56 ml Output Total 900 ml 1000 ml 265 ml Balance 5.38 ml -189.4 ml 306.56 ml Exam Sedated N Lungs with rhonchi bilaterally Results Result Diagram: 09/24/16 0438 09/24/16 0438 Results 24 hrs Laboratory Tests Test 09/24/16 04:38 09/24/16 07:00 White Blood Count 12.2 H Red Blood Count 4.32 L Hemoglobin 12.3 L Hematocrit 38.5 L Mean Corpuscular Volume 89.1 Mean Corpuscular Hemoglobin 28.5 L Mean Corpuscular Hemoglobin Concent 31.9 L Red Cell Distribution Width 12.2 Platelet Count 526 H Mean Platelet Volume 9.5 Neutrophils % 88.0 H Lymphocytes % 7.8 L Monocytes % 2.5 Eosinophils % 0.1 Basophils % 0.3 Nucleated Red Blood Cells % 0.0 Neutrophils # 10.7 H Lymphocytes # 1.0 Monocytes # 0.3 Eosinophils # 0.0 Basophils # 0.0 Nucleated Red Blood Cells # 0.0 Sodium Level 144 Potassium Level 3.7 Chloride Level 104 Carbon Dioxide Level 30 Anion Gap 14 Blood Urea Nitrogen 24 H Creatinine 0.84 Glucose Level 150 Calcium Level 9.2 Phosphorus Level 5.9 H Magnesium Level 2.2 Blood Gas Specimen Source Blood arterial Arterial Blood Date Drawn 09/24/2016 8:10:52 AM Arterial Blood pH (Temp corrected) 7.436 Arterial Blood pCO2 (Temp correct) 48.7 H Arterial Blood pO2 (Temp corrected) 62.1 L Arterial Blood HCO3 32.0 H Arterial Blood Base Excess 6.6 H Arterial Blood Oxygen Saturation 91.4 L Vinicius Test ACCEPTAB Arterial Blood Gas Puncture Site Right Radial Arterial Blood Carboxyhemoglobin 0 Arterial Blood Methemoglobin 0.2 Blood Gas A-a O2 Differential 384.7 H Oxyhemoglobin Percent 91.2 L Total Hemoglobin 14.5 Blood Gas Temperature 37.0 Blood Gas Respiration Rate 20.0 Blood Gas Actual Respiration Rate 22 Blood Gas Modality VENT - AC FiO2 70.0 Blood Gas Tidal Volume 500.0 Blood Gas Low PEEP Setting 5.0 Blood Gas Notified Whom DT Blood Gas Notified Time 09/24/2016 8:38:29 AM Medications Medications Current Medications Ondansetron HCl 4 mg 4 mg Q6H PRN IV NAUSEA AND/OR VOMITING; Start 09/14/16 at 17:00 Fentanyl (Sublimaze) 100 ml @ 2.5 mls/hr TITRATE IV Last administered on 13:04; Admin Dose 10 MLS/HR; Start 09/15/16 at 13:30 Aspirin (Aspirin) 300 mg DAILY [place] Last administered on 09/24/16 08:09; Admin Dose 300 MG; Start 09/15/16 at 19:30 Morphine Sulfate 2 mg 2 mg Q4H PRN IV SEVERE PAIN LEVEL 7-10; Start 09/16/16 at 10:30 Propofol 100 ml @ 0 mls/hr TITRATE IV Last administered on 09/24/16 05:59; Admin Dose 21.78 MLS/HR; Start 09/19/16 at 09:30 Midazolam HCl (Versed) 50 ml @ 1 mls/hr TITRATE IV Last administered on 13:03; Admin Dose 10 MLS/HR; Start 09/19/16 at 09:30 Enoxaparin Sodium (Lovenox) 40 mg DAILY SC Last administered on 09/24/16 08:10 ; Admin Dose 40 MG; Start 09/19/16 at 10:00 Lansoprazole 30 mg 30 mg DAILY@06 NGT Last administered on 09/24/16 05:48; Admin Dose 30 MG; Start 09/20/16 at 06:00 Doxycycline Hyclate/Sodium Chloride (Vibramycin/NS) 250 ml @ 250 mls/hr Q12 IVPB Last administered on 09/24/16 08:09; Admin Dose 250 MLS/HR; Start at 14:00 Methylprednisolone Sodium Succinate (Solu-Medrol) 60 mg Q8 IV Last administered on 09/24/16 14:34; Admin Dose 60 MG; Start 09/23/16 at 14:00 Chlordiazepoxide (Librium) 50 mg TID PO Last administered on 09/24/16 13:03; Admin Dose 50 MG; Start 09/23/16 at 13:00 LACY WOLF MD Sep 24, 2016 18:12
[2016-09-25] VITALS (67 sets, daily range): BP systolic 92–172; BP diastolic 50–107; PULSE 49–118; RESP 0–30
[2016-09-25] MEDS: FENTAnyl (DRIP) 1000 mcg/100mL 100 ML IV SCH ×3 (00:32→20:53)
[2016-09-25] MEDS: MIDAZOLAM (DRIP) 50 mg/50 mL 50 ML IV SCH ×3 (02:37→17:37)
[2016-09-25 05:41] LABS: BASOPHILS % 0.4 % (0.0-2.0); EOSINOPHILS % 0.1 % (0.0-7.0); HEMATOCRIT 36.7 % (42.0-52.0); HEMOGLOBIN 11.8 g/dl (14.0-18.0); LYMPHOCYTES # 1.4 10^3/ul (0.8-2.9); LYMPHOCYTES % 13.3 % (15.0-51.0); MEAN CORPUSCULAR HEMOGLOBIN 28.9 pg (29.0-33.0); MEAN CORPUSCULAR HGB CONC 32.2 g/dl (32.0-37.0); MEAN CORPUSCULAR VOLUME 89.7 fl (82.0-101.0); MEAN PLATELET VOLUME 9.7 fl (7.4-10.4); MONOCYTE # 0.6 10^3/ul (0.3-0.9); MONOCYTES % 5.4 % (0.0-11.0); NEUTROPHIL # 8.3 10^3/ul (1.6-7.5); NEUTROPHILS % 79.5 % (39.0-77.0); PLATELET COUNT 553 10^3/UL (140-415); RED BLOOD COUNT 4.09 10^6/ul (4.70-6.10); RED CELL DISTRIBUTION WIDTH 12.4 % (11.5-14.5); WHITE BLOOD COUNT 10.5 10^3/ul (4.8-10.8)
[2016-09-25] MEDS: LANSOPRAZOLE 30 MG CAP NGT SCH (06:01)
[2016-09-25] MEDS: METHYLPREDNISOLONE 125 MG INJ IV SCH ×3 (06:01→21:23)
[2016-09-25] MEDS: FUROSEMIDE 40 MG INJ IV SCH ×2 (06:02→17:37)
[2016-09-25 06:15] LABS: ALBUMIN 3.5 g/dl (3.3-4.9); ALBUMIN/GLOBULIN RATIO 1.02; BILIRUBIN,INDIRECT 0.2 mg/dl (0-1.1); BILIRUBIN,TOTAL 0.2 mg/dl (0.2-1.3); CALCIUM 9.1 mg/dl (8.4-10.2); CREATININE 0.76 mg/dl (0.61-1.24); POTASSIUM 3.5 mmol/L (3.5-5.1); TOTAL PROTEIN 6.9 g/dl (6.1-8.1)
[2016-09-25] MEDS: ASPIRIN 300 MG SUPP PR SCH (07:48)
[2016-09-25] MEDS: ENOXAPARIN 40 MG/0.4 ML SYG SC SCH (07:49)
[2016-09-25] MEDS: DOXYCYCLINE 100 MG in SOD CHLORIDE 0.9% 250 ML IVPB SCH (07:50)
[2016-09-25] MEDS: CHLORDIAZEPOXIDE 25 MG CAP PO SCH ×3 (07:50→20:53)
--- NOTE | 2016-09-25 10:27 | CONS ---
Date/Time of Note Date/Time of Note DATE: 09/25/16 TIME: 10:26 Consult Date/Type/Reason Admit Date/Time Sep 14, 2016 at 16:36 Initial Consult Date 09/16/16 Type of Consultation: Pulmonary Subjective No significant changes. Significant agitation off sedation. Remains hemodynamically stable. Decreased FiO2 requirements decreased secretions. Objective Vital Signs Date Time Temp Pulse Resp B/P Pulse Ox O2 Delivery O2 Flow Rate FiO2 09/25/16 08:00 52 09/25/16 07:59 97.4 09/25/16 06:00 111/65 99 Mechanical Ventilator 09/25/16 05:12 20 70 Intake and Output 09/24/16 09/24/16 09/25/16 15:00 23:00 07:00 Intake Total 518.58 ml 741.02 ml 597.45 ml Output Total 385 ml 810 ml 335 ml Balance 133.58 ml -68.98 ml 262.45 ml Exam PHYSICAL EXAMINATION GENERAL: Well-nourished well-developed gentleman intubated sedated on mechanical ventilation VITAL SIGNS: see below. HEENT: Pupils equal, round, and reactive to light. CARDIAC: S1, S2, no added sounds or movements CHEST: Diminished air entry bilaterally. Bilateral rales. ABDOMEN: Mildly distended. Bowel sounds present no guarding or rebound EXTREMITIES: No cyanosis, clubbing edema +1 NEUROLOGIC: Generalized weakness Results/Medications Result Diagram: 09/25/16 0400 09/25/16 0400 Results 24 hrs Laboratory Tests Test 09/25/16 04:00 White Blood Count 10.5 Red Blood Count 4.09 L Hemoglobin 11.8 L Hematocrit 36.7 L Mean Corpuscular Volume 89.7 Mean Corpuscular Hemoglobin 28.9 L Mean Corpuscular Hemoglobin Concent 32.2 Red Cell Distribution Width 12.4 Platelet Count 553 H Mean Platelet Volume 9.7 Neutrophils % 79.5 H Lymphocytes % 13.3 L Monocytes % 5.4 Eosinophils % 0.1 Basophils % 0.4 Nucleated Red Blood Cells % 0.0 Neutrophils # 8.3 H Lymphocytes # 1.4 Monocytes # 0.6 Eosinophils # 0.0 Basophils # 0.0 Nucleated Red Blood Cells # 0.0 Sodium Level 144 Potassium Level 3.5 Chloride Level 106 Carbon Dioxide Level 31 Anion Gap 11 Blood Urea Nitrogen 35 #H Creatinine 0.76 Glucose Level 159 Calcium Level 9.1 Total Bilirubin 0.2 Direct Bilirubin 0.00 Indirect Bilirubin 0.2 Aspartate Amino Transf (AST/SGOT) 26 Alanine Aminotransferase (ALT/SGPT) 62 Alkaline Phosphatase 109 Total Protein 6.9 Albumin 3.5 Globulin 3.40 H Albumin/Globulin Ratio 1.02 Medications Current Medications Ondansetron HCl 4 mg 4 mg Q6H PRN IV NAUSEA AND/OR VOMITING; Start 09/14/16 at 17:00 Fentanyl (Sublimaze) 100 ml @ 2.5 mls/hr TITRATE IV Last administered on 10:09; Admin Dose 7.5 MLS/HR; Start 09/15/16 at 13:30 Aspirin (Aspirin) 300 mg DAILY SC Last administered on 09/25/16 07:48; Admin Dose 300 MG; Start 09/15/16 at 19:30 Morphine Sulfate 2 mg 2 mg Q4H PRN IV SEVERE PAIN LEVEL 7-10; Start 09/16/16 at 10:30 Propofol 100 ml @ 0 mls/hr TITRATE IV Last administered on 09/24/16 20:13; Admin Dose 3.63 MLS/HR; Start 09/19/16 at 09:30 Midazolam HCl (Versed) 50 ml @ 1 mls/hr TITRATE IV Last administered on 10:09; Admin Dose 6 MLS/HR; Start 09/19/16 at 09:30 Enoxaparin Sodium (Lovenox) 40 mg DAILY SC Last administered on 09/25/16 07:49 ; Admin Dose 40 MG; Start 09/19/16 at 10:00 Lansoprazole 30 mg 30 mg DAILY@06 NGT Last administered on 09/25/16 06:01; Admin Dose 30 MG; Start 09/20/16 at 06:00 Doxycycline Hyclate/Sodium Chloride (Vibramycin/NS) 250 ml @ 250 mls/hr Q12 IVPB Last administered on 09/25/16 07:50; Admin Dose 250 MLS/HR; Start at 14:00 Methylprednisolone Sodium Succinate (Solu-Medrol) 60 mg Q8 IV Last administered on 09/25/16 06:01; Admin Dose 60 MG; Start 09/23/16 at 14:00 Chlordiazepoxide (Librium) 50 mg TID PO Last administered on 09/25/16t 07:50; Admin Dose 50 MG; Start 09/23/16 at 13:00 Assessment/Plan Chief Complaint/Hosp Course Assessment/Plan IMP: 1. AMS--encephalopathy currently of unclear etiology. Possible anoxic brain injury. 2. Resp Failure, chest x-ray radiographic improvement. Significant hypoxemic respiratory failure however. Questionable shunt phenomena. 3. Acute Renal Failure--resolved 4. Mild Rhabdo improved. 5. Demand Ischemia/type II NSTEMI 6. Concern for aspiration pneumonitis 7. Heroin and Meth use questionable alcohol abuse also. RECS: 1. continue antibiotics 2. Addition of Librium, decrease propofol and Versed as tolerated, 3. Continue mechanical ventilation decrease FiO2 as tolerated, CPAP trial again today. With decrease sedation. 4. Continue diuretics trial of steroids. 5. Continue tube feeding 6. DVT GI prophylaxis Social work needs to the nares family conference to update family regarding goals of care. 35 min cc time Problems: BRANDON CORONA MD, [facility] Sep 25, 2016 10:27
[2016-09-25] MEDS ORDERED: DEXMEDETOMIDINE HCL 200 MCG in SOD CHLORIDE 0.9% 48 ML IV SCH (13:00)
[2016-09-25] MEDS ORDERED: DEXMEDETOMIDINE HCL 200 MCG in NS 50 ML IV SCH (13:30)
[2016-09-25 13:46] LABS: Allen Test ACCEPTAB; Arterial Base Excess 4.1 mmol/L (-3.0-3); Arterial COHb 0.3 % (0.0-3.0); Arterial Fraction of Oxyhgb 93.3 % (93.0-99.0); Arterial HCO3 30.1 mmol/L (22.0-26.0); Arterial MetHb 0.1 % (0.0-1.5); Arterial Total Hemglobin 14.3 g/dl (12.0-18.0); Blood Gas PS 10; MODE VENT - CPAP
--- NOTE | 2016-09-25 14:44 | PN ---
Date/Time of Note Date/Time of Note DATE: 09/25/16 TIME: 14:41 Assessment/Plan VTE Prophylaxis VTE Prophylaxis Intervention: SCD's Assessment/Plan Chief Complaint/Hosp Course 41 yo male with etoh use d/o, opiate use d/o who has developed respiratory failure requiring mechanical ventilation and VAP PULM: Acute hypoxic respiratory failure: - Still requiring high FiO2, XR shows edema and pneumonia. There is thick secretions on suctioning. Trach aspirated growing MRSA. Continue doxy/unasyn - Some pulmonary edema, continue lasix but close eye on creatinine/overdiuresis - Wean sedation as able and extubate when able RENAL: No active issues CV: - HD stable - Type II NSTEMI on admission, resolved NEURO: - Imaging suggestive of watershed ischemic injury - Repeat MRI when stable to asess extent PSYCH: - Presentation likely 2/2 opiate overdose, also amphetamine use d/o - Assess need for opiate replacement therapy when extubated ID: - Likely PNA 2/2 MSRA - Continue unasyn/doxy HEME: - Anemia, mild, stable PPx: SCDs, PPI Problems: Subjective 24 Hr Interval Summary Subjective hx not possible: pt non-verbal Exam/Review of Systems Vital Signs Vitals Vital Signs Date Time Temp Pulse Resp B/P Pulse Ox O2 Delivery O2 Flow Rate FiO2 09/25/16 14:20 40 09/25/16 12:00 103 09/25/16 07:59 97.4 09/25/16 06:00 111/65 99 Mechanical Ventilator 09/25/16 05:12 20 Intake and Output 09/24/16 09/24/16 09/25/16 15:00 23:00 07:00 Intake Total 518.58 ml 741.02 ml 597.45 ml Output Total 385 ml 810 ml 335 ml Balance 133.58 ml -68.98 ml 262.45 ml Exam Constitutional: non-verbal ENMT: intubated Respiratory: clear to auscultation Cardiovascular: regular rate and rhythm Gastrointestinal: soft, No distended Musculoskeletal: nl extremities to inspection Results Result Diagram: 09/25/16 0400 09/25/16 0400 Results 24 hrs Laboratory Tests Test 09/25/16 04:00 09/25/16 13:30 White Blood Count 10.5 Red Blood Count 4.09 L Hemoglobin 11.8 L Hematocrit 36.7 L Mean Corpuscular Volume 89.7 Mean Corpuscular Hemoglobin 28.9 L Mean Corpuscular Hemoglobin Concent 32.2 Red Cell Distribution Width 12.4 Platelet Count 553 H Mean Platelet Volume 9.7 Neutrophils % 79.5 H Lymphocytes % 13.3 L Monocytes % 5.4 Eosinophils % 0.1 Basophils % 0.4 Nucleated Red Blood Cells % 0.0 Neutrophils # 8.3 H Lymphocytes # 1.4 Monocytes # 0.6 Eosinophils # 0.0 Basophils # 0.0 Nucleated Red Blood Cells # 0.0 Sodium Level 144 Potassium Level 3.5 Chloride Level 106 Carbon Dioxide Level 31 Anion Gap 11 Blood Urea Nitrogen 35 #H Creatinine 0.76 Glucose Level 159 Calcium Level 9.1 Total Bilirubin 0.2 Direct Bilirubin 0.00 Indirect Bilirubin 0.2 Aspartate Amino Transf (AST/SGOT) 26 Alanine Aminotransferase (ALT/SGPT) 62 Alkaline Phosphatase 109 Total Protein 6.9 Albumin 3.5 Globulin 3.40 H Albumin/Globulin Ratio 1.02 Blood Gas Specimen Source Blood arterial Arterial Blood Date Drawn 09/25/2016 1:30:07 PM Arterial Blood pH (Temp corrected) 7.392 Arterial Blood pCO2 (Temp correct) 50.7 H Arterial Blood pO2 (Temp corrected) 71.9 L Arterial Blood HCO3 30.1 H Arterial Blood Base Excess 4.1 H Arterial Blood Oxygen Saturation 93.7 L Vinicius Test ACCEPTAB Arterial Blood Gas Puncture Site Right Radial Arterial Blood Carboxyhemoglobin 0.3 Arterial Blood Methemoglobin 0.1 Blood Gas A-a O2 Differential 155.0 H Oxyhemoglobin Percent 93.3 Total Hemoglobin 14.3 Blood Gas Temperature 37.0 Blood Gas Actual Respiration Rate 23 Blood Gas Modality VENT - CPAP FiO2 40.0 Blood Gas Low PEEP Setting 5.0 Blood Gas Pressure Support 10 Blood Gas Notified Whom JLD Blood Gas Notified Time 09/25/2016 1:45:46 PM Medications Medications Current Medications Ondansetron HCl 4 mg 4 mg Q6H PRN IV NAUSEA AND/OR VOMITING; Start 09/14/16 at 17:00 Fentanyl (Sublimaze) 100 ml @ 2.5 mls/hr TITRATE IV Last administered on 10:09; Admin Dose 7.5 MLS/HR; Start 09/15/16 at 13:30 Aspirin (Aspirin) 300 mg DAILY [place] Last administered on 09/25/16 07:48; Admin Dose 300 MG; Start 09/15/16 at 19:30 Morphine Sulfate 2 mg 2 mg Q4H PRN IV SEVERE PAIN LEVEL 7-10; Start 09/16/16 at 10:30 Propofol 100 ml @ 0 mls/hr TITRATE IV Last administered on 09/24/16 20:13; Admin Dose 3.63 MLS/HR; Start 09/19/16 at 09:30 Midazolam HCl (Versed) 50 ml @ 1 mls/hr TITRATE IV Last administered on 10:09; Admin Dose 6 MLS/HR; Start 09/19/16 at 09:30 Enoxaparin Sodium (Lovenox) 40 mg DAILY SC Last administered on 09/25/16 07:49 ; Admin Dose 40 MG; Start 09/19/16 at 10:00 Lansoprazole 30 mg 30 mg DAILY@06 NGT Last administered on 09/25/16 06:01; Admin Dose 30 MG; Start 09/20/16 at 06:00 Doxycycline Hyclate/Sodium Chloride (Vibramycin/NS) 250 ml @ 250 mls/hr Q12 IVPB Last administered on 09/25/16 07:50; Admin Dose 250 MLS/HR; Start at 14:00 Methylprednisolone Sodium Succinate (Solu-Medrol) 60 mg Q8 IV Last administered on 09/25/16 06:01; Admin Dose 60 MG; Start 09/23/16 at 14:00 Chlordiazepoxide 50 mg 50 mg TID PO Last administered on 09/25/16 13:45; Admin Dose 50 MG; Start 09/23/16 at 13:00 Dexmedetomidine HCl/Sodium Chloride (Precedex/NS) 50 ml @ 6.05 mls/hr TITRATE IV ; Start 09/25/16 at 13:30 MARCIO STOREY Sep 25, 2016 14:44
[2016-09-25] MEDS: PROPOFOL 100 ML IV SCH ×2 (15:15→20:53)
--- NOTE | 2016-09-25 15:45 | CONS ---
Date/Time of Note Date/Time of Note DATE: 09/25/16 TIME: 15:35 Assessment/Plan Assessment/Plan Additional Assessment/Plan 41-year-old male found in his car slumped over tox screen positive for methamphetamine MRI questionably consistent with carbon monoxide poisoning and other etiology Sepsis syndrome Respiratory failure Pneumonia Demand ischemia Reading of her neurologist recommendations I will order repeat MRI. 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 Consultation Date/Type/Reason Admit Date/Time Sep 14, 2016 at 16:36 Type of Consultation: Pain management Hx of Present Illness 41-year-old man was found down in his car slumped over transferred to the emergency room [facility]. Patient is in the intensive care unit septic probable secondary to pneumonia. Also diagnosis of demand ischemia and possible anoxic encephalopathy, possible carbon monoxide poisoning, questionable opioid overdose. Tox screen positive for amphetamines only, although medical records indicate that patient may have overdosed on heroin also. There are no family members immediately available to question. Psychological: No nl mood/affect, No no complaints Past Medical History Medical History: no pertinent history Past Surgical History Past Surgical Hx: no surgical history Social History Smoking Status: Current some day smoker Drug Use: heroin, other Exam/Review of Systems Vital Signs Vitals Vital Signs Date Time Temp Pulse Resp B/P Pulse Ox O2 Delivery O2 Flow Rate FiO2 09/25/16 14:20 40 09/25/16 12:00 103 09/25/16 07:59 97.4 09/25/16 06:00 111/65 99 Mechanical Ventilator 09/25/16 05:12 20 Intake and Output 09/24/16 09/24/16 09/25/16 15:00 23:00 07:00 Intake Total 518.58 ml 741.02 ml 597.45 ml Output Total 385 ml 810 ml 335 ml Balance 133.58 ml -68.98 ml 262.45 ml Exam Constitutional: other (Intubated sedated) Eyes: EOMI, PERRL, nl conjunctiva, nl lids, nl sclera Neck: non-tender, supple Respiratory: clear to auscultation, normal air movement Cardiovascular: nl pulses, regular rate and rhythm Gastrointestinal: nl liver, spleen, non-tender, soft Results Result Diagram: 09/25/16 0400 09/25/16 0400 Results 24 hrs Laboratory Tests Test 09/25/16 04:00 09/25/16 13:30 White Blood Count 10.5 Red Blood Count 4.09 L Hemoglobin 11.8 L Hematocrit 36.7 L Mean Corpuscular Volume 89.7 Mean Corpuscular Hemoglobin 28.9 L Mean Corpuscular Hemoglobin Concent 32.2 Red Cell Distribution Width 12.4 Platelet Count 553 H Mean Platelet Volume 9.7 Neutrophils % 79.5 H Lymphocytes % 13.3 L Monocytes % 5.4 Eosinophils % 0.1 Basophils % 0.4 Nucleated Red Blood Cells % 0.0 Neutrophils # 8.3 H Lymphocytes # 1.4 Monocytes # 0.6 Eosinophils # 0.0 Basophils # 0.0 Nucleated Red Blood Cells # 0.0 Sodium Level 144 Potassium Level 3.5 Chloride Level 106 Carbon Dioxide Level 31 Anion Gap 11 Blood Urea Nitrogen 35 #H Creatinine 0.76 Glucose Level 159 Calcium Level 9.1 Total Bilirubin 0.2 Direct Bilirubin 0.00 Indirect Bilirubin 0.2 Aspartate Amino Transf (AST/SGOT) 26 Alanine Aminotransferase (ALT/SGPT) 62 Alkaline Phosphatase 109 Total Protein 6.9 Albumin 3.5 Globulin 3.40 H Albumin/Globulin Ratio 1.02 Blood Gas Specimen Source Blood arterial Arterial Blood Date Drawn 09/25/2016 1:30:07 PM Arterial Blood pH (Temp corrected) 7.392 Arterial Blood pCO2 (Temp correct) 50.7 H Arterial Blood pO2 (Temp corrected) 71.9 L Arterial Blood HCO3 30.1 H Arterial Blood Base Excess 4.1 H Arterial Blood Oxygen Saturation 93.7 L Vinicius Test ACCEPTAB Arterial Blood Gas Puncture Site Right Radial Arterial Blood Carboxyhemoglobin 0.3 Arterial Blood Methemoglobin 0.1 Blood Gas A-a O2 Differential 155.0 H Oxyhemoglobin Percent 93.3 Total Hemoglobin 14.3 Blood Gas Temperature 37.0 Blood Gas Actual Respiration Rate 23 Blood Gas Modality VENT - CPAP FiO2 40.0 Blood Gas Low PEEP Setting 5.0 Blood Gas Pressure Support 10 Blood Gas Notified Whom JLD Blood Gas Notified Time 09/25/2016 1:45:46 PM Medications Medications Current Medications Ondansetron HCl 4 mg 4 mg Q6H PRN IV NAUSEA AND/OR VOMITING; Start 09/14/16 at 17:00 Fentanyl (Sublimaze) 100 ml @ 2.5 mls/hr TITRATE IV Last administered on 10:09; Admin Dose 7.5 MLS/HR; Start 09/15/16 at 13:30 Aspirin (Aspirin) 300 mg DAILY [place] Last administered on 09/25/16 07:48; Admin Dose 300 MG; Start 09/15/16 at 19:30 Morphine Sulfate 2 mg 2 mg Q4H PRN IV SEVERE PAIN LEVEL 7-10; Start 09/16/16 at 10:30 Propofol 100 ml @ 0 mls/hr TITRATE IV Last administered on 09/25/16 15:15; Admin Dose 7.26 MLS/HR; Start 09/19/16 at 09:30 Midazolam HCl (Versed) 50 ml @ 1 mls/hr TITRATE IV Last administered on 10:09; Admin Dose 6 MLS/HR; Start 09/19/16 at 09:30 Enoxaparin Sodium (Lovenox) 40 mg DAILY SC Last administered on 09/25/16 07:49 ; Admin Dose 40 MG; Start 09/19/16 at 10:00 Lansoprazole 30 mg 30 mg DAILY@06 NGT Last administered on 09/25/16 06:01; Admin Dose 30 MG; Start 09/20/16 at 06:00 Doxycycline Hyclate/Sodium Chloride (Vibramycin/NS) 250 ml @ 250 mls/hr Q12 IVPB Last administered on 09/25/16 07:50; Admin Dose 250 MLS/HR; Start at 14:00 Methylprednisolone Sodium Succinate (Solu-Medrol) 60 mg Q8 IV Last administered on 09/25/16 15:15; Admin Dose 60 MG; Start 09/23/16 at 14:00 Chlordiazepoxide 50 mg 50 mg TID PO Last administered on 09/25/16 13:45; Admin Dose 50 MG; Start 09/23/16 at 13:00 Dexmedetomidine HCl/Sodium Chloride (Precedex/NS) 50 ml @ 6.05 mls/hr TITRATE IV ; Start 09/25/16 at 13:30 NAZ MILES Sep 25, 2016 15:45
[2016-09-26] VITALS (56 sets, daily range): BP systolic 78–137; BP diastolic 46–105; PULSE 44–122; RESP 0–25
[2016-09-26] MEDS: DOXYCYCLINE 100 MG in SOD CHLORIDE 0.9% 250 ML IVPB SCH ×3 (00:23→20:49)
[2016-09-26] MEDS: MIDAZOLAM (DRIP) 50 mg/50 mL 50 ML IV SCH ×2 (00:25→09:22)
[2016-09-26] MEDS: PROPOFOL 100 ML IV SCH ×5 (00:25→20:50)
[2016-09-26] MEDS: FUROSEMIDE 40 MG INJ IV SCH ×2 (06:00→17:48)
[2016-09-26] MEDS: LANSOPRAZOLE 30 MG CAP NGT SCH (06:00)
[2016-09-26] MEDS: METHYLPREDNISOLONE 125 MG INJ IV SCH ×3 (06:00→22:10)
[2016-09-26] MEDS: FENTAnyl (DRIP) 1000 mcg/100mL 100 ML IV SCH (06:07)
[2016-09-26 06:21] LABS: BASOPHIL # 0.1 10^3/ul (0.0-0.1); BASOPHILS % 0.5 % (0.0-2.0); HEMOGLOBIN 12.5 g/dl (14.0-18.0); LYMPHOCYTES # 2.1 10^3/ul (0.8-2.9); LYMPHOCYTES % 19.4 % (15.0-51.0); MEAN CORPUSCULAR HEMOGLOBIN 29.1 pg (29.0-33.0); MEAN CORPUSCULAR HGB CONC 32.1 g/dl (32.0-37.0); MEAN CORPUSCULAR VOLUME 90.7 fl (82.0-101.0); MEAN PLATELET VOLUME 9.7 fl (7.4-10.4); MONOCYTE # 0.9 10^3/ul (0.3-0.9); MONOCYTES % 7.8 % (0.0-11.0); NEUTROPHILS % 71.3 % (39.0-77.0); PLATELET COUNT 652 10^3/UL (140-415); RED CELL DISTRIBUTION WIDTH 12.2 % (11.5-14.5)
[2016-09-26 06:55] LABS: CREATININE 0.8 mg/dl (0.61-1.24); MAGNESIUM 2.3 mg/dl (1.7-2.5); PHOSPHORUS 4.1 mg/dl (2.5-4.9)
--- NOTE | 2016-09-26 07:41 | RADRPT ---
PROCEDURE: MR Brain with and without contrast. CLINICAL INDICATION: Accept encephalopathy TECHNIQUE: An MRI of the brain was performed on a Signa 3 toro scanner utilizing the following se quences: Sagittal T1 weighted, axial T2 weighted, axial diffusion weighted (EPI technique [id number]), axial ADC mapping, axial FLAIR, coronal GRE, and post contrast coronal and axial T1 weighted. 10 cc of Magnevist was given intravenously without complication. COMPARISON: MRI of the brain 09/14/2016 FINDINGS: There is interval decrease T2, FLAIR hyperintensity in the bilateral globus pallidi and normalizatio n of the diffusion abnormality. Mild peripheral T1 hyperintensity and enhancement are visualized. Mi ld increase hypointensity is seen on the gradient-echo images likely reflecting microhemorrhage. No new diffusion weighted abnormalities are seen to suggest the presence of acute ischemia. There is n o acute mass effect, or midline shift. No extra-axial fluid collection is seen. The ventricles and sulci are normal in size and configuration. Several small foci of increased T2 weighted/FLAIR sign al intensity are seen in the subcortical white matter. The signal intensity is normal within the br ain stem and cerebellum. The craniocervical junction is normal. Normal flow voids are visible in th e proximal intracranial arteries and dural sinuses, indicating patency. The postcontrast images yonas w no abnormal leptomeningeal, or dural enhancement. There is increased opacification of the right frontal, ethmoid, maxillary and bilateral sphenoid sinuses. Interval opacification of bilateral mas toid air cells and middle ear cavities is also noted . A catheter seen in the right nasal cavity. IMPRESSION: 1. Interval decrease bilateral globus pallidi hyperintensities with evidence of microhemorrhage, mi ld T1 hyperintensity and enhancement. 2. Several foci of increased T2 weighted/FLAIR signal intensity in the subcortical white matter, no nspecific in appearance, and could be related to complicated migraines, hypertensive microvascular i schemic disease, sequela from prior traumatic or inflammatory insults. 3. Increased opacification of the paranasal sinuses, bilateral mastoids and middle ear cavities. 4. No evidence of acute ischemia. RPTAT: HCNS Kathi Camacho Physician Date Time Electronically viewed and signed by Kathi Camacho, Physician on 09/26/2016 07:40 CS/
--- NOTE | 2016-09-26 07:57 | RADRPT ---
PROCEDURE: XR Chest. CLINICAL INDICATION: pna chf TECHNIQUE: Single frontal view of the chest was obtained COMPARISON: Chest x-ray 09/24/2016 FINDINGS: The patient is rotated slightly rightward. The endotracheal tube terminates approximate 4 cm above the marlin. Nasogastric tube courses into t he stomach in the field of view. The left subclavian central venous catheter with tip in the mid sup erior vena cava is stable in position. There are persistent low lung volumes with stable mild elevation of the right hemidiaphragm. The cardiac silhouette is within normal limits for portable technique. There is stable mild central pulmonary vascular congestion.. Right lower lung consolidative opacity persists and is concerning for pneumonia, not significantly c hanged. There is new ill-defined opacity at the left lung base which may represent atelectasis, edema, or ea rly consolidation. No pneumothorax or significant pleural effusion is identified. There are degenerative changes of the visualized spine. IMPRESSION: 1. Stable support lines/tubes. 2. Persistent right basilar consolidative opacity, concerning for pneumonia. 3. New ill-defined left basilar opacity which may represent atelectasis, edema, or early consolidat ion. 4. Stable mild central pulmonary vascular congestion. RPTAT: EE Physician Ashly Date Time Electronically viewed and signed by Physician Ashly on 09/26/2016 07:56 /
[2016-09-26] MEDS: CHLORDIAZEPOXIDE 25 MG CAP PO SCH ×3 (09:16→20:49)
[2016-09-26] MEDS: ASPIRIN 300 MG SUPP PR SCH (09:16)
[2016-09-26] MEDS: ENOXAPARIN 40 MG/0.4 ML SYG SC SCH (09:33)
--- NOTE | 2016-09-26 10:16 | CONS ---
Date/Time of Note Date/Time of Note DATE: 09/26/16 TIME: 10:14 Consult Date/Type/Reason Admit Date/Time Sep 14, 2016 at 16:36 Initial Consult Date 09/16/16 Type of Consultation: Pulmonary Subjective Ongoing agitation. Continues mechanical ventilation. Tolerated CPAP trial yesterday however had tachypnea at the end of the CPAP trial. Objective Vital Signs Date Time Temp Pulse Resp B/P Pulse Ox O2 Delivery O2 Flow Rate FiO2 09/26/16 08:00 97.6 58 20 113/77 94 Mechanical Ventilator 09/26/16 07:45 70 Intake and Output 09/25/16 09/25/16 09/26/16 15:00 23:00 07:00 Intake Total 564.13 ml 422.68 ml 684.5 ml Output Total 700 ml 985 ml 875 ml Balance -135.87 ml -562.32 ml -190.5 ml Exam PHYSICAL EXAMINATION GENERAL: Well-nourished well-developed gentleman intubated sedated on mechanical ventilation VITAL SIGNS: see below. HEENT: Pupils equal, round, and reactive to light. CARDIAC: S1, S2, no added sounds or movements CHEST: Diminished air entry bilaterally. Bilateral rales. ABDOMEN: Mildly distended. Bowel sounds present no guarding or rebound EXTREMITIES: No cyanosis, clubbing edema +1 NEUROLOGIC: Generalized weakness Results/Medications Result Diagram: 09/26/16 0445 09/26/16 0445 Results 24 hrs Laboratory Tests Test 09/25/16 13:30 09/26/16 04:45 Blood Gas Specimen Source Blood arterial Arterial Blood Date Drawn 09/25/2016 1:30:07 PM Arterial Blood pH (Temp corrected) 7.392 Arterial Blood pCO2 (Temp correct) 50.7 H Arterial Blood pO2 (Temp corrected) 71.9 L Arterial Blood HCO3 30.1 H Arterial Blood Base Excess 4.1 H Arterial Blood Oxygen Saturation 93.7 L Vinicius Test ACCEPTAB Arterial Blood Gas Puncture Site Right Radial Arterial Blood Carboxyhemoglobin 0.3 Arterial Blood Methemoglobin 0.1 Blood Gas A-a O2 Differential 155.0 H Oxyhemoglobin Percent 93.3 Total Hemoglobin 14.3 Blood Gas Temperature 37.0 Blood Gas Actual Respiration Rate 23 Blood Gas Modality VENT - CPAP FiO2 40.0 Blood Gas Low PEEP Setting 5.0 Blood Gas Pressure Support 10 Blood Gas Notified Whom JLD Blood Gas Notified Time 09/25/2016 1:45:46 PM White Blood Count 11.0 H Red Blood Count 4.30 L Hemoglobin 12.5 L Hematocrit 39.0 L Mean Corpuscular Volume 90.7 Mean Corpuscular Hemoglobin 29.1 Mean Corpuscular Hemoglobin Concent 32.1 Red Cell Distribution Width 12.2 Platelet Count 652 H Mean Platelet Volume 9.7 Neutrophils % 71.3 Lymphocytes % 19.4 Monocytes % 7.8 Eosinophils % 0.0 Basophils % 0.5 Nucleated Red Blood Cells % 0.0 Neutrophils # (Manual) 7.8 H Lymphocytes # 2.1 Monocytes # 0.9 Eosinophils # 0.0 Basophils # 0.1 Nucleated Red Blood Cells # 0.0 Sodium Level 147 H Potassium Level 3.0 L Chloride Level 106 Carbon Dioxide Level 30 Anion Gap 14 Blood Urea Nitrogen 37 H Creatinine 0.80 Glucose Level 110 # Calcium Level 9.0 Phosphorus Level 4.1 Magnesium Level 2.3 Medications Current Medications Ondansetron HCl 4 mg 4 mg Q6H PRN IV NAUSEA AND/OR VOMITING; Start 09/14/16 at 17:00 Fentanyl (Sublimaze) 100 ml @ 2.5 mls/hr TITRATE IV Last administered on 06:07; Admin Dose 3 MLS/HR; Start 09/15/16 at 13:30 Aspirin (Aspirin) 300 mg DAILY ND Last administered on 09/26/16 09:16; Admin Dose 300 MG; Start 09/15/16 at 19:30 Morphine Sulfate 2 mg 2 mg Q4H PRN IV SEVERE PAIN LEVEL 7-10; Start 09/16/16 at 10:30 Propofol 100 ml @ 0 mls/hr TITRATE IV Last administered on 09/26/16 06:07; Admin Dose 18.15 MLS/HR; Start 09/19/16 at 09:30 Midazolam HCl (Versed) 50 ml @ 1 mls/hr TITRATE IV Last administered on 09:22; Admin Dose 3 MLS/HR; Start 09/19/16 at 09:30 Enoxaparin Sodium (Lovenox) 40 mg DAILY SC Last administered on 09/26/16 09:33 ; Admin Dose 40 MG; Start 09/19/16 at 10:00 Lansoprazole 30 mg 30 mg DAILY@06 NGT Last administered on 09/26/16 06:00; Admin Dose 30 MG; Start 09/20/16 at 06:00 Doxycycline Hyclate/Sodium Chloride (Vibramycin/NS) 250 ml @ 250 mls/hr Q12 IVPB Last administered on 09/26/16 09:18; Admin Dose 250 MLS/HR; Start at 14:00 Methylprednisolone Sodium Succinate (Solu-Medrol) 60 mg Q8 IV Last administered on 09/26/16 06:00; Admin Dose 60 MG; Start 09/23/16 at 14:00 Chlordiazepoxide 50 mg 50 mg TID PO Last administered on 09/26/16 09:16; Admin Dose 50 MG; Start 09/23/16 at 13:00 Dexmedetomidine HCl/Sodium Chloride (Precedex/NS) 50 ml @ 6.05 mls/hr TITRATE IV ; Start 09/25/16 at 13:30 Assessment/Plan Chief Complaint/Hosp Course Assessment/Plan IMP: 1. AMS--encephalopathy currently of unclear etiology. Possible anoxic brain injury. 2. Resp Failure, atelectasis right lower lobe. Significant hypoxemic respiratory failure however. Questionable shunt phenomena. 3. Acute Renal Failure--resolved 4. Mild Rhabdo improved. 5. Demand Ischemia/type II NSTEMI 6. Concern for aspiration pneumonitis 7. Heroin and Meth use questionable alcohol abuse also. 8. Hypokalemia RECS: 1. continue antibiotics 2. Addition of Librium, decrease propofol and Versed as tolerated, 3. Continue mechanical ventilation decrease FiO2 as tolerated, CPAP trial again today. 4. Continue diuretics trial of steroids. 5. Continue tube feeding 6. DVT GI prophylaxis Palliative care consult, contact family discussed goals of care. 35 min cc time Problems: BRANDON CORONA MD, [facility] Sep 26, 2016 10:16
[2016-09-26] MEDS: POTASSIUM CHLORIDE 50 ML IVPB SCH ×2 (10:51→12:10)
--- NOTE | 2016-09-26 13:48 | CONS ---
Date/Time of Note Date/Time of Note DATE: 09/26/16 TIME: 13:46 Assessment/Plan Assessment/Plan Chief Complaint/Hosp Course Assessment: NSTEMI - likely type 2 Acute hypoxic respiratory failure - intubated, per pulmonology Acute encephalopathy Acute left frontal stroke Possible anoxic brain injury - per neurology Amphetamine abuse Recommendations: -on IV Lasix, monitor volume status -continue aspirin 300mg MT daily -echocardiogram showed LVEF 50-55% Problems: Consultation Date/Type/Reason Admit Date/Time Sep 14, 2016 at 16:36 Initial Consult Date 09/16/16 Type of Consultation: Cardiology 24 HR Interval Summary Free Text/Dictation On CPAP trial. Detailed Summary Additional Comments Unable to obtain review of systems, patient with altered mental status. Exam/Review of Systems Vital Signs Vitals Vital Signs Date Time Temp Pulse Resp B/P Pulse Ox O2 Delivery O2 Flow Rate FiO2 09/26/16 12:30 75 14 95 50 09/26/16 08:00 97.6 113/77 Mechanical Ventilator Intake and Output 09/25/16 09/25/16 09/26/16 15:00 23:00 07:00 Intake Total 564.13 ml 422.68 ml 684.5 ml Output Total 700 ml 985 ml 875 ml Balance -135.87 ml -562.32 ml -190.5 ml Exam Constitutional: confused No alert Psych: No nl mood/affect, No no complaints Head: atraumatic, normocephalic Eyes: nl conjunctiva, nl lids ENMT: intubated Respiratory: clear to auscultation Cardiovascular: regular rate and rhythm Gastrointestinal: non-tender, soft Musculoskeletal: nl extremities to inspection Extremities: No clubbing, No cyanosis, No edema Neurological: No nl mental status, No nl speech Skin: nl turgor Results Result Diagram: 09/26/16 0445 09/26/16 0445 Results 24 hrs Laboratory Tests Test 09/26/16 04:45 09/26/16 10:18 White Blood Count 11.0 H Red Blood Count 4.30 L Hemoglobin 12.5 L Hematocrit 39.0 L Mean Corpuscular Volume 90.7 Mean Corpuscular Hemoglobin 29.1 Mean Corpuscular Hemoglobin Concent 32.1 Red Cell Distribution Width 12.2 Platelet Count 652 H Mean Platelet Volume 9.7 Neutrophils % 71.3 Lymphocytes % 19.4 Monocytes % 7.8 Eosinophils % 0.0 Basophils % 0.5 Nucleated Red Blood Cells % 0.0 Neutrophils # (Manual) 7.8 H Lymphocytes # 2.1 Monocytes # 0.9 Eosinophils # 0.0 Basophils # 0.1 Nucleated Red Blood Cells # 0.0 Sodium Level 147 H Potassium Level 3.0 L Chloride Level 106 Carbon Dioxide Level 30 Anion Gap 14 Blood Urea Nitrogen 37 H Creatinine 0.80 Glucose Level 110 # Calcium Level 9.0 Phosphorus Level 4.1 Magnesium Level 2.3 Bedside Glucose 140 Medications Medications Current Medications Ondansetron HCl 4 mg 4 mg Q6H PRN IV NAUSEA AND/OR VOMITING; Start 09/14/16 at 17:00 Fentanyl (Sublimaze) 100 ml @ 2.5 mls/hr TITRATE IV Last administered on 06:07; Admin Dose 3 MLS/HR; Start 09/15/16 at 13:30 Aspirin (Aspirin) 300 mg DAILY MT Last administered on 09/26/16 09:16; Admin Dose 300 MG; Start 09/15/16 at 19:30 Morphine Sulfate 2 mg 2 mg Q4H PRN IV SEVERE PAIN LEVEL 7-10; Start 09/16/16 at 10:30 Propofol 100 ml @ 0 mls/hr TITRATE IV Last administered on 09/26/16 06:07; Admin Dose 18.15 MLS/HR; Start 09/19/16 at 09:30 Midazolam HCl (Versed) 50 ml @ 1 mls/hr TITRATE IV Last administered on 09:22; Admin Dose 3 MLS/HR; Start 09/19/16 at 09:30 Enoxaparin Sodium (Lovenox) 40 mg DAILY SC Last administered on 09/26/16 09:33 ; Admin Dose 40 MG; Start 09/19/16 at 10:00 Lansoprazole 30 mg 30 mg DAILY@06 NGT Last administered on 09/26/16 06:00; Admin Dose 30 MG; Start 09/20/16 at 06:00 Doxycycline Hyclate/Sodium Chloride (Vibramycin/NS) 250 ml @ 250 mls/hr Q12 IVPB Last administered on 09/26/16 09:18; Admin Dose 250 MLS/HR; Start at 14:00 Methylprednisolone Sodium Succinate (Solu-Medrol) 60 mg Q8 IV Last administered on 09/26/16 06:00; Admin Dose 60 MG; Start 09/23/16 at 14:00 Chlordiazepoxide 50 mg 50 mg TID PO Last administered on 09/26/16 13:30; Admin Dose 50 MG; Start 09/23/16 at 13:00 Dexmedetomidine HCl 200 mcg/ Sodium Chloride 50 ml @ 6.05 mls/hr TITRATE IV ; Start 09/25/16 at 13:30 Potassium Chloride (KCl 20 MEQ/50 ML SW) 50 ml @ 25 mls/hr Q2H IVPB Last administered on 09/26/16 12:10; Admin Dose 25 MLS/HR; Start 09/26/16 at 10:30; Stop 09/26/16 at 14:29 THERESA PARIS MD Sep 26, 2016 13:48
[2016-09-26 14:32] LABS: AADO2 Arterial 229.5 mmHg (7.0-24.0); Allen Test ACCEPTAB; Arterial Base Excess 4.3 mmol/L (-3.0-3); Arterial COHb 0.3 % (0.0-3.0); Arterial HCO3 29.1 mmol/L (22.0-26.0); Arterial MetHb 0.2 % (0.0-1.5); Arterial Total Hemglobin 14.8 g/dl (12.0-18.0); Blood Gas PS 10; MODE VENT - CPAP
--- NOTE | 2016-09-26 15:29 | PN ---
Date/Time of Note Date/Time of Note DATE: 09/26/16 TIME: 15:27 Assessment/Plan VTE Prophylaxis VTE Prophylaxis Intervention: SCD's Assessment/Plan Chief Complaint/Hosp Course 41 yo male with etoh use d/o, opiate use d/o who has developed respiratory failure requiring mechanical ventilation and VAP PULM: Acute hypoxic respiratory failure: - Still requiring high FiO2, XR shows edema and pneumonia. There is thick secretions on suctioning. Trach aspirated growing MRSA. Continue doxy/unasyn - Some pulmonary edema, continue lasix but close eye on creatinine/overdiuresis - Wean sedation as able and extubate when able RENAL: No active issues CV: - HD stable - Type II NSTEMI on admission, resolved NEURO: - Imaging suggestive of watershed ischemic injury - Repeat MRI when stable to asess extent PSYCH: - Presentation likely 2/2 opiate overdose, also amphetamine use d/o - Assess need for opiate replacement therapy when extubated ID: - Likely PNA 2/2 MSRA - Continue unasyn/doxy HEME: - Anemia, mild, stable PPx: SCDs, PPI Problems: Subjective 24 Hr Interval Summary Subjective hx not possible: pt non-verbal Exam/Review of Systems Vital Signs Vitals Vital Signs Date Time Temp Pulse Resp B/P Pulse Ox O2 Delivery O2 Flow Rate FiO2 09/26/16 12:30 75 14 95 50 09/26/16 08:00 97.6 113/77 Mechanical Ventilator Intake and Output 09/25/16 09/25/16 09/26/16 15:00 23:00 07:00 Intake Total 564.13 ml 422.68 ml 684.5 ml Output Total 700 ml 985 ml 875 ml Balance -135.87 ml -562.32 ml -190.5 ml Exam Constitutional: non-verbal ENMT: intubated Respiratory: clear to auscultation Cardiovascular: regular rate and rhythm Gastrointestinal: soft, No distended Musculoskeletal: nl extremities to inspection Results Result Diagram: 09/26/16 0445 09/26/165 Results 24 hrs Laboratory Tests Test 09/26/16 04:45 09/26/16 10:18 09/26/16 14:15 White Blood Count 11.0 H Red Blood Count 4.30 L Hemoglobin 12.5 L Hematocrit 39.0 L Mean Corpuscular Volume 90.7 Mean Corpuscular Hemoglobin 29.1 Mean Corpuscular Hemoglobin Concent 32.1 Red Cell Distribution Width 12.2 Platelet Count 652 H Mean Platelet Volume 9.7 Neutrophils % 71.3 Lymphocytes % 19.4 Monocytes % 7.8 Eosinophils % 0.0 Basophils % 0.5 Nucleated Red Blood Cells % 0.0 Neutrophils # (Manual) 7.8 H Lymphocytes # 2.1 Monocytes # 0.9 Eosinophils # 0.0 Basophils # 0.1 Nucleated Red Blood Cells # 0.0 Sodium Level 147 H Potassium Level 3.0 L Chloride Level 106 Carbon Dioxide Level 30 Anion Gap 14 Blood Urea Nitrogen 37 H Creatinine 0.80 Glucose Level 110 # Calcium Level 9.0 Phosphorus Level 4.1 Magnesium Level 2.3 Bedside Glucose 140 Blood Gas Specimen Source Blood arterial Arterial Blood Date Drawn 09/26/2016 2:20:06 PM Arterial Blood pH (Temp corrected) 7.439 Arterial Blood pCO2 (Temp correct) 44.0 Arterial Blood pO2 (Temp corrected) 77.5 L Arterial Blood HCO3 29.1 H Arterial Blood Base Excess 4.3 H Arterial Blood Oxygen Saturation 95.5 Vinicius Test ACCEPTAB Arterial Blood Gas Puncture Site Right Radial Arterial Blood Carboxyhemoglobin 0.3 Arterial Blood Methemoglobin 0.2 Blood Gas A-a O2 Differential 229.5 H Oxyhemoglobin Percent 95.0 Total Hemoglobin 14.8 Blood Gas Temperature 37.0 Blood Gas Actual Respiration Rate 24 Blood Gas Modality VENT - CPAP FiO2 50.0 Blood Gas Low PEEP Setting 5.0 Blood Gas Pressure Support 10 Blood Gas Notified Whom JLD Blood Gas Notified Time 09/26/2016 2:32:36 PM Medications Medications Current Medications Ondansetron HCl 4 mg 4 mg Q6H PRN IV NAUSEA AND/OR VOMITING; Start 09/14/16 at 17:00 Fentanyl (Sublimaze) 100 ml @ 2.5 mls/hr TITRATE IV Last administered on 06:07; Admin Dose 3 MLS/HR; Start 09/15/16 at 13:30 Aspirin (Aspirin) 300 mg DAILY MI Last administered on 09/26/16 09:16; Admin Dose 300 MG; Start 09/15/16 at 19:30 Morphine Sulfate 2 mg 2 mg Q4H PRN IV SEVERE PAIN LEVEL 7-10; Start 09/16/16 at 10:30 Propofol 100 ml @ 0 mls/hr TITRATE IV Last administered on 09/26/16 06:07; Admin Dose 18.15 MLS/HR; Start 09/19/16 at 09:30 Midazolam HCl (Versed) 50 ml @ 1 mls/hr TITRATE IV Last administered on 09:22; Admin Dose 3 MLS/HR; Start 09/19/16 at 09:30 Enoxaparin Sodium (Lovenox) 40 mg DAILY SC Last administered on 09/26/16 09:33 ; Admin Dose 40 MG; Start 09/19/16 at 10:00 Lansoprazole 30 mg 30 mg DAILY@06 NGT Last administered on 09/26/16 06:00; Admin Dose 30 MG; Start 09/20/16 at 06:00 Doxycycline Hyclate/Sodium Chloride (Vibramycin/NS) 250 ml @ 250 mls/hr Q12 IVPB Last administered on 09/26/16 09:18; Admin Dose 250 MLS/HR; Start at 14:00 Methylprednisolone Sodium Succinate (Solu-Medrol) 60 mg Q8 IV Last administered on 09/26/16 14:20; Admin Dose 60 MG; Start 09/23/16 at 14:00 Chlordiazepoxide 50 mg 50 mg TID PO Last administered on 09/26/16 13:30; Admin Dose 50 MG; Start 09/23/16 at 13:00 Dexmedetomidine HCl/Sodium Chloride (Precedex/NS) 50 ml @ 6.05 mls/hr TITRATE IV ; Start 09/25/16 at 13:30 MARCIO STOREY Sep 26, 2016 15:29
[2016-09-27] VITALS (56 sets, daily range): BP systolic 97–168; BP diastolic 49–97; PULSE 56–95; RESP 15–23
[2016-09-27] MEDS: PROPOFOL 100 ML IV SCH ×6 (00:36→23:53)
[2016-09-27] MEDS: MIDAZOLAM (DRIP) 50 mg/50 mL 50 ML IV SCH (05:04)
[2016-09-27 05:46] LABS: BASOPHILS % 0.2 % (0.0-2.0); HEMATOCRIT 39.9 % (42.0-52.0); LYMPHOCYTES # 1.2 10^3/ul (0.8-2.9); LYMPHOCYTES % 13.5 % (15.0-51.0); MEAN CORPUSCULAR HEMOGLOBIN 29.1 pg (29.0-33.0); MEAN CORPUSCULAR HGB CONC 32.6 g/dl (32.0-37.0); MEAN CORPUSCULAR VOLUME 89.3 fl (82.0-101.0); MEAN PLATELET VOLUME 9.6 fl (7.4-10.4); MONOCYTE # 0.7 10^3/ul (0.3-0.9); MONOCYTES % 7.3 % (0.0-11.0); PLATELET COUNT 694 10^3/UL (140-415); RED BLOOD COUNT 4.47 10^6/ul (4.70-6.10); RED CELL DISTRIBUTION WIDTH 12.1 % (11.5-14.5); WHITE BLOOD COUNT 9.1 10^3/ul (4.8-10.8)
--- NOTE | 2016-09-27 06:12 | CONS ---
Date/Time of Note Date/Time of Note DATE: 09/27/16 TIME: 06:10 Assessment/Plan Assessment/Plan Chief Complaint/Hosp Course 41-year-old man was found down in his car slumped over transferred to the emergency room [facility]. Patient is in the intensive care unit septic probable secondary to pneumonia. Also diagnosis of demand ischemia and possible anoxic encephalopathy, possible carbon monoxide poisoning, questionable opioid overdose. Tox screen positive for amphetamines only, although medical records indicate that patient may have overdosed on heroin also. There are no family members immediately available to question. Problems: Additional Assessment/Plan There is been no change in patient's overall clinical condition, he remains encephalopathic and agitated when sedation vacation. Blood tox screen pending but I do not believe it will contribute very much other than if another substance is found it would explain his profound and prolonged encephalopathic condition. Consultation Date/Type/Reason Admit Date/Time Sep 14, 2016 at 16:36 Initial Consult Date 09/16/16 Type of Consultation: Pain management Exam/Review of Systems Vital Signs Vitals Vital Signs Date Time Temp Pulse Resp B/P Pulse Ox O2 Delivery O2 Flow Rate FiO2 09/27/16 05:35 65 20 97 60 09/27/16 02:30 119/73 09/27/16 02:00 Mechanical Ventilator 09/27/16 00:00 98.2 Intake and Output 09/26/16 09/26/16 09/27/16 15:00 23:00 07:00 Intake Total 482.0 ml 751.05 ml 300.20 ml Output Total 757 ml 735 ml 270 ml Balance -275.0 ml 16.05 ml 30.20 ml Results Result Diagram: 09/26/16 0445 09/26/16 0445 Results 24 hrs Laboratory Tests Test 09/26/16 10:18 09/26/16 14:15 09/27/16 04:55 Bedside Glucose 140 Blood Gas Specimen Source Blood arterial Arterial Blood Date Drawn 09/26/2016 2:20:06 PM Arterial Blood pH (Temp corrected) 7.439 Arterial Blood pCO2 (Temp correct) 44.0 Arterial Blood pO2 (Temp corrected) 77.5 L Arterial Blood HCO3 29.1 H Arterial Blood Base Excess 4.3 H Arterial Blood Oxygen Saturation 95.5 Vinicius Test ACCEPTAB Arterial Blood Gas Puncture Site Right Radial Arterial Blood Carboxyhemoglobin 0.3 Arterial Blood Methemoglobin 0.2 Blood Gas A-a O2 Differential 229.5 H Oxyhemoglobin Percent 95.0 Total Hemoglobin 14.8 Blood Gas Temperature 37.0 Blood Gas Actual Respiration Rate 24 Blood Gas Modality VENT - CPAP FiO2 50.0 Blood Gas Low PEEP Setting 5.0 Blood Gas Pressure Support 10 Blood Gas Notified Whom JLD Blood Gas Notified Time 09/26/2016 2:32:36 PM White Blood Count Pending Red Blood Count Pending Hemoglobin Pending Hematocrit Pending Mean Corpuscular Volume Pending Mean Corpuscular Hemoglobin Pending Mean Corpuscular Hemoglobin Concent Pending Red Cell Distribution Width Pending Platelet Count Pending Mean Platelet Volume Pending Medications Medications Current Medications Ondansetron HCl 4 mg 4 mg Q6H PRN IV NAUSEA AND/OR VOMITING; Start 09/14/16 at 17:00 Fentanyl (Sublimaze) 100 ml @ 2.5 mls/hr TITRATE IV Last administered on 06:07; Admin Dose 3 MLS/HR; Start 09/15/16 at 13:30 Aspirin (Aspirin) 300 mg DAILY ID Last administered on 09/26/16 09:16; Admin Dose 300 MG; Start 09/15/16 at 19:30 Morphine Sulfate 2 mg 2 mg Q4H PRN IV SEVERE PAIN LEVEL 7-10; Start 09/16/16 at 10:30 Propofol 100 ml @ 0 mls/hr TITRATE IV Last administered on 09/27/16 05:04; Admin Dose 21.78 MLS/HR; Start 09/19/16 at 09:30 Midazolam HCl (Versed) 50 ml @ 1 mls/hr TITRATE IV Last administered on 05:04; Admin Dose 3 MLS/HR; Start 09/19/16 at 09:30 Enoxaparin Sodium (Lovenox) 40 mg DAILY SC Last administered on 09/26/16 09:33 ; Admin Dose 40 MG; Start 09/19/16 at 10:00 Lansoprazole 30 mg 30 mg DAILY@06 NGT Last administered on 09/26/16 06:00; Admin Dose 30 MG; Start 09/20/16 at 06:00 Doxycycline Hyclate/Sodium Chloride (Vibramycin/NS) 250 ml @ 250 mls/hr Q12 IVPB Last administered on 09/26/16 20:49; Admin Dose 250 MLS/HR; Start at 14:00 Methylprednisolone Sodium Succinate (Solu-Medrol) 60 mg Q8 IV Last administered on 09/26/16 22:10; Admin Dose 60 MG; Start 09/23/16 at 14:00 Chlordiazepoxide 50 mg 50 mg TID PO Last administered on 09/26/16 20:49; Admin Dose 50 MG; Start 09/23/16 at 13:00 Dexmedetomidine HCl/Sodium Chloride (Precedex/NS) 50 ml @ 6.05 mls/hr TITRATE IV ; Start 09/25/16 at 13:30 NAZ MILES Sep 27, 2016 06:12
[2016-09-27 06:22] LABS: CALCIUM 9.2 mg/dl (8.4-10.2); CREATININE 0.83 mg/dl (0.61-1.24); MAGNESIUM 2.4 mg/dl (1.7-2.5); PHOSPHORUS 4.9 mg/dl (2.5-4.9); POTASSIUM 3.6 mmol/L (3.5-5.1)
[2016-09-27] MEDS: FENTAnyl (DRIP) 1000 mcg/100mL 100 ML IV SCH (06:50)
[2016-09-27] MEDS: METHYLPREDNISOLONE 125 MG INJ IV SCH ×3 (06:50→22:06)
[2016-09-27] MEDS: LANSOPRAZOLE 30 MG CAP NGT SCH (06:50)
[2016-09-27] MEDS: FUROSEMIDE 40 MG INJ IV SCH ×2 (06:50→17:16)
--- NOTE | 2016-09-27 08:21 | RADRPT ---
PROCEDURE: XR Chest. CLINICAL INDICATION: CHF, pneumonia. TECHNIQUE: Single frontal chest x-ray. COMPARISON: Chest radiograph 09/24/2016. FINDINGS: Endotracheal tube tip terminates 5 cm above the marlin. An enteric tube is seen coursing below the left diaphragm but its tip is not imaged. The left subclavian central venous catheter is again noted with tip in the distal superior vena cava . The cardiomediastinal silhouette is similar. Persistent low lung volumes with stable mild elevation of the right hemidiaphragm are again noted. M ild central pulmonary congestion is noted. Persistent bilateral lung base opacity which may represent atelectasis and/or consolidation, right g reater than left. New focal opacity in the left mid lung zone which may represent pneumonia versus edema. No pneumothorax or significant pleural effusion is seen. No acute osseous abnormality is noted. IMPRESSION: 1. Persistent low lung volumes with stable mild elevation of the right hemidiaphragm are again note d. 2. Persistent bilateral lung base atelectasis and/or consolidation, right greater than left. New f ocal opacity in the left mid lung zone which may represent pneumonia versus edema. 3. Mild similar pulmonary vascular congestion. 4. Supporting lines and tubes remain in place. RPTAT: HFN .Carmencita Reyes MD, Date Time Electronically viewed and signed by .Carmencita Reyes MD, on 09/27/2016 08:20 .N/
[2016-09-27] MEDS: CHLORDIAZEPOXIDE 25 MG CAP PO SCH ×3 (08:30→20:34)
[2016-09-27] MEDS: ASPIRIN 300 MG SUPP PR SCH (08:30)
[2016-09-27] MEDS: DOXYCYCLINE 100 MG in SOD CHLORIDE 0.9% 250 ML IVPB SCH ×2 (08:31→20:37)
[2016-09-27] MEDS: ENOXAPARIN 40 MG/0.4 ML SYG SC SCH (08:42)
--- NOTE | 2016-09-27 11:00 | CONS ---
Date/Time of Note Date/Time of Note DATE: 09/27/16 TIME: 10:58 Consult Date/Type/Reason Admit Date/Time Sep 14, 2016 at 16:36 Initial Consult Date 09/16/16 Type of Consultation: Pulmonary Subjective Tolerated to a CPAP trial yesterday however still has significant agitation with altered mental status not following commands. Was not extubated because of concern for airway protection. Objective Vital Signs Date Time Temp Pulse Resp B/P Pulse Ox O2 Delivery O2 Flow Rate FiO2 09/27/16 10:45 74 20 130/79 96 Mechanical Ventilator 09/27/16 09:25 60 09/27/16 07:00 97.8 Intake and Output 09/26/16 09/26/16 09/27/16 14:59 22:59 06:59 Intake Total 516.0 ml 605.01 ml 648.39 ml Output Total 1207 ml 645 ml 480 ml Balance -691.0 ml -39.99 ml 168.39 ml Exam PHYSICAL EXAMINATION GENERAL: Well-nourished well-developed gentleman intubated sedated on mechanical ventilation VITAL SIGNS: see below. HEENT: Pupils equal, round, and reactive to light. CARDIAC: S1, S2, no added sounds or movements CHEST: Diminished air entry bilaterally. Bilateral rales. ABDOMEN: Mildly distended. Bowel sounds present no guarding or rebound EXTREMITIES: No cyanosis, clubbing edema +1 NEUROLOGIC: Generalized weakness Results/Medications Result Diagram: 09/27/16 0455 09/27/16 0455 Results 24 hrs Laboratory Tests Test 09/26/16 14:15 09/27/16 04:55 Blood Gas Specimen Source Blood arterial Arterial Blood Date Drawn 09/26/2016 2:20:06 PM Arterial Blood pH (Temp corrected) 7.439 Arterial Blood pCO2 (Temp correct) 44.0 Arterial Blood pO2 (Temp corrected) 77.5 L Arterial Blood HCO3 29.1 H Arterial Blood Base Excess 4.3 H Arterial Blood Oxygen Saturation 95.5 Vinicius Test ACCEPTAB Arterial Blood Gas Puncture Site Right Radial Arterial Blood Carboxyhemoglobin 0.3 Arterial Blood Methemoglobin 0.2 Blood Gas A-a O2 Differential 229.5 H Oxyhemoglobin Percent 95.0 Total Hemoglobin 14.8 Blood Gas Temperature 37.0 Blood Gas Actual Respiration Rate 24 Blood Gas Modality VENT - CPAP FiO2 50.0 Blood Gas Low PEEP Setting 5.0 Blood Gas Pressure Support 10 Blood Gas Notified Whom JLD Blood Gas Notified Time 09/26/2016 2:32:36 PM White Blood Count 9.1 Red Blood Count 4.47 L Hemoglobin 13.0 L Hematocrit 39.9 L Mean Corpuscular Volume 89.3 Mean Corpuscular Hemoglobin 29.1 Mean Corpuscular Hemoglobin Concent 32.6 Red Cell Distribution Width 12.1 Platelet Count 694 H Mean Platelet Volume 9.6 Neutrophils % 78.0 H Lymphocytes % 13.5 L Monocytes % 7.3 Eosinophils % 0.0 Basophils % 0.2 Nucleated Red Blood Cells % 0.0 Neutrophils # (Manual) 7.1 Lymphocytes # 1.2 Monocytes # 0.7 Eosinophils # 0.0 Basophils # 0.0 Nucleated Red Blood Cells # 0.0 Sodium Level 147 H Potassium Level 3.6 Chloride Level 107 Carbon Dioxide Level 30 Anion Gap 14 Blood Urea Nitrogen 35 H Creatinine 0.83 Glucose Level 158 Calcium Level 9.2 Phosphorus Level 4.9 Magnesium Level 2.4 Medications Current Medications Ondansetron HCl 4 mg 4 mg Q6H PRN IV NAUSEA AND/OR VOMITING; Start 09/14/16 at 17:00 Fentanyl (Sublimaze) 100 ml @ 2.5 mls/hr TITRATE IV Last administered on 06:50; Admin Dose 2.5 MLS/HR; Start 09/15/16 at 13:30 Aspirin (Aspirin) 300 mg DAILY [place] Last administered on 09/27/16 08:30; Admin Dose 300 MG; Start 09/15/16 at 19:30 Morphine Sulfate 2 mg 2 mg Q4H PRN IV SEVERE PAIN LEVEL 7-10; Start 09/16/16 at 10:30 Propofol 100 ml @ 0 mls/hr TITRATE IV Last administered on 09/27/16 10:37; Admin Dose 21.78 MLS/HR; Start 09/19/16 at 09:30 Midazolam HCl (Versed) 50 ml @ 1 mls/hr TITRATE IV Last administered on 05:04; Admin Dose 3 MLS/HR; Start 09/19/16 at 09:30 Enoxaparin Sodium (Lovenox) 40 mg DAILY SC Last administered on 09/27/16 08:42 ; Admin Dose 40 MG; Start 09/19/16 at 10:00 Lansoprazole 30 mg 30 mg DAILY@06 NGT Last administered on 09/27/16 06:50; Admin Dose 30 MG; Start 09/20/16 at 06:00 Doxycycline Hyclate/Sodium Chloride (Vibramycin/NS) 250 ml @ 250 mls/hr Q12 IVPB Last administered on 09/27/16 08:31; Admin Dose 250 MLS/HR; Start at 14:00 Methylprednisolone Sodium Succinate (Solu-Medrol) 60 mg Q8 IV Last administered on 09/27/16 06:50; Admin Dose 60 MG; Start 09/23/16 at 14:00 Chlordiazepoxide 50 mg 50 mg TID PO Last administered on 09/27/16 08:30; Admin Dose 50 MG; Start 09/23/16 at 13:00 Dexmedetomidine HCl/Sodium Chloride (Precedex/NS) 50 ml @ 6.05 mls/hr TITRATE IV ; Start 09/25/16 at 13:30 Assessment/Plan Chief Complaint/Hosp Course Assessment/Plan IMP: 1. AMS--encephalopathy currently of unclear etiology. Possible anoxic brain injury. MRI findings noted. 2. Resp Failure, atelectasis right lower lobe. Significant hypoxemic respiratory failure however. Questionable shunt phenomena. 3. Acute Renal Failure--resolved 4. Mild Rhabdo improved. 5. Demand Ischemia/type II NSTEMI 6. Concern for aspiration pneumonitis 7. Heroin and Meth use questionable alcohol abuse also. 8. Hypokalemia RECS: 1. continue antibiotics 2. Decrease sedation as tolerated 3. Continue mechanical ventilation decrease FiO2 as tolerated, CPAP trial again today. 4. Decrease steroids. 5. Continue tube feeding 6. DVT GI prophylaxis Palliative care consult, contact family discussed goals of care. Patient will likely need tracheostomy and G-tube given prolonged mechanical ventilation and failure to wean. 35 min cc time Problems: BRANDON CORONA MD, [facility] Sep 27, 2016 11:00
--- NOTE | 2016-09-27 19:14 | PN ---
Date/Time of Note Date/Time of Note DATE: 09/27/16 TIME: 19:13 Assessment/Plan VTE Prophylaxis VTE Prophylaxis Intervention: SCD's Assessment/Plan Chief Complaint/Hosp Course 41 yo male with etoh use d/o, opiate use d/o who has developed respiratory failure requiring mechanical ventilation and VAP PULM: Acute hypoxic respiratory failure: - Still requiring high FiO2, XR shows edema and pneumonia. There is thick secretions on suctioning. Trach aspirated growing MRSA. Continue doxy/unasyn - Some pulmonary edema, continue lasix but close eye on creatinine/overdiuresis - Wean sedation as able and extubate when able, patient not tolerating CPAP trials as becomes too agitated off sedation RENAL: No active issues CV: - HD stable - Type II NSTEMI on admission, resolved NEURO: - Imaging suggestive of watershed ischemic injury - Repeat MRI when stable to asess extent PSYCH: - Presentation likely 2/2 opiate overdose, also amphetamine use d/o - Assess need for opiate replacement therapy when extubated ID: - Likely PNA 2/2 MSRA - Continue unasyn/doxy HEME: - Anemia, mild, stable PPx: SCDs, PPI Problems: Subjective 24 Hr Interval Summary Subjective hx not possible: pt non-verbal Exam/Review of Systems Vital Signs Vitals Vital Signs Date Time Temp Pulse Resp B/P Pulse Ox O2 Delivery O2 Flow Rate FiO2 09/27/16 19:00 64 20 103/56 96 Mechanical Ventilator 09/27/16 18:30 85 09/27/16 16:00 98.5 Intake and Output 09/26/16 09/26/16 09/27/16 15:00 23:00 07:00 Intake Total 482.0 ml 751.05 ml 512.85 ml Output Total 757 ml 735 ml 420 ml Balance -275.0 ml 16.05 ml 92.85 ml Exam Constitutional: non-verbal ENMT: intubated Respiratory: clear to auscultation Cardiovascular: regular rate and rhythm Gastrointestinal: soft, No distended Musculoskeletal: nl extremities to inspection Results Result Diagram: 09/27/16 0455 09/27/16 0455 Results 24 hrs Laboratory Tests Test 09/27/16 04:55 White Blood Count 9.1 Red Blood Count 4.47 L Hemoglobin 13.0 L Hematocrit 39.9 L Mean Corpuscular Volume 89.3 Mean Corpuscular Hemoglobin 29.1 Mean Corpuscular Hemoglobin Concent 32.6 Red Cell Distribution Width 12.1 Platelet Count 694 H Mean Platelet Volume 9.6 Neutrophils % 78.0 H Lymphocytes % 13.5 L Monocytes % 7.3 Eosinophils % 0.0 Basophils % 0.2 Nucleated Red Blood Cells % 0.0 Neutrophils # (Manual) 7.1 Lymphocytes # 1.2 Monocytes # 0.7 Eosinophils # 0.0 Basophils # 0.0 Nucleated Red Blood Cells # 0.0 Sodium Level 147 H Potassium Level 3.6 Chloride Level 107 Carbon Dioxide Level 30 Anion Gap 14 Blood Urea Nitrogen 35 H Creatinine 0.83 Glucose Level 158 Calcium Level 9.2 Phosphorus Level 4.9 Magnesium Level 2.4 Medications Medications Current Medications Ondansetron HCl 4 mg 4 mg Q6H PRN IV NAUSEA AND/OR VOMITING; Start 09/14/16 at 17:00 Fentanyl (Sublimaze) 100 ml @ 2.5 mls/hr TITRATE IV Last administered on 06:50; Admin Dose 2.5 MLS/HR; Start 09/15/16 at 13:30 Aspirin (Aspirin) 300 mg DAILY [place] Last administered on 09/27/16 08:30; Admin Dose 300 MG; Start 09/15/16 at 19:30 Morphine Sulfate 2 mg 2 mg Q4H PRN IV SEVERE PAIN LEVEL 7-10; Start 09/16/16 at 10:30 Propofol 100 ml @ 0 mls/hr TITRATE IV Last administered on 09/27/16 18:52; Admin Dose 21.78 MLS/HR; Start 09/19/16 at 09:30 Midazolam HCl (Versed) 50 ml @ 1 mls/hr TITRATE IV Last administered on 05:04; Admin Dose 3 MLS/HR; Start 09/19/16 at 09:30 Enoxaparin Sodium (Lovenox) 40 mg DAILY SC Last administered on 09/27/16 08:42 ; Admin Dose 40 MG; Start 09/19/16 at 10:00 Lansoprazole 30 mg 30 mg DAILY@06 NGT Last administered on 09/27/16 06:50; Admin Dose 30 MG; Start 09/20/16 at 06:00 Doxycycline Hyclate/Sodium Chloride (Vibramycin/NS) 250 ml @ 250 mls/hr Q12 IVPB Last administered on 09/27/16 08:31; Admin Dose 250 MLS/HR; Start at 14:00 Methylprednisolone Sodium Succinate (Solu-Medrol) 60 mg Q8 IV Last administered on 09/27/16 14:20; Admin Dose 60 MG; Start 09/23/16 at 14:00 Chlordiazepoxide 50 mg 50 mg TID PO Last administered on 09/27/16 12:37; Admin Dose 50 MG; Start 09/23/16 at 13:00 Dexmedetomidine HCl/Sodium Chloride (Precedex/NS) 50 ml @ 6.05 mls/hr TITRATE IV ; Start 09/25/16 at 13:30 MARCIO STOREY Sep 27, 2016 19:14
[2016-09-28] VITALS (45 sets, daily range): BP systolic 87–156; BP diastolic 46–88; PULSE 44–103; RESP 11–25
[2016-09-28] MEDS: PROPOFOL 100 ML IV SCH ×4 (04:47→22:05)
[2016-09-28] MEDS: MIDAZOLAM (DRIP) 50 mg/50 mL 50 ML IV SCH (04:48)
[2016-09-28 05:16] LABS: BASOPHILS % 0.1 % (0.0-2.0); HEMATOCRIT 40.4 % (42.0-52.0); HEMOGLOBIN 13.1 g/dl (14.0-18.0); LYMPHOCYTES # 1.2 10^3/ul (0.8-2.9); LYMPHOCYTES % 10.5 % (15.0-51.0); MEAN CORPUSCULAR HEMOGLOBIN 29.4 pg (29.0-33.0); MEAN CORPUSCULAR HGB CONC 32.4 g/dl (32.0-37.0); MEAN CORPUSCULAR VOLUME 90.6 fl (82.0-101.0); MEAN PLATELET VOLUME 9.7 fl (7.4-10.4); MONOCYTE # 0.6 10^3/ul (0.3-0.9); MONOCYTES % 5.7 % (0.0-11.0); NEUTROPHILS % 83.1 % (39.0-77.0); PLATELET COUNT 683 10^3/UL (140-415); RED BLOOD COUNT 4.46 10^6/ul (4.70-6.10); RED CELL DISTRIBUTION WIDTH 12.2 % (11.5-14.5)
[2016-09-28 05:37] LABS: CALCIUM 9.4 mg/dl (8.4-10.2); CREATININE 0.88 mg/dl (0.61-1.24); MAGNESIUM 2.3 mg/dl (1.7-2.5); PHOSPHORUS 5.4 mg/dl (2.5-4.9); POTASSIUM 3.8 mmol/L (3.5-5.1)
[2016-09-28] MEDS: FUROSEMIDE 40 MG INJ IV SCH ×2 (05:45→17:13)
[2016-09-28] MEDS: LANSOPRAZOLE 30 MG CAP NGT SCH (05:45)
[2016-09-28] MEDS: METHYLPREDNISOLONE 125 MG INJ IV SCH ×3 (05:45→22:05)
[2016-09-28 07:46] LABS: AADO2 Arterial 478.9 mmHg (7.0-24.0); Allen Test ACCEPTAB; Arterial Base Excess 4.6 mmol/L (-3.0-3); Arterial COHb 0.3 % (0.0-3.0); Arterial Fraction of Oxyhgb 96.2 % (93.0-99.0); Arterial HCO3 28.1 mmol/L (22.0-26.0); Arterial MetHb 0.2 % (0.0-1.5); Arterial Total Hemglobin 14.5 g/dl (12.0-18.0); MODE VENT - AC
[2016-09-28] MEDS: CHLORDIAZEPOXIDE 25 MG CAP PO SCH ×3 (08:31→20:53)
[2016-09-28] MEDS: ASPIRIN 300 MG SUPP PR SCH (08:31)
[2016-09-28] MEDS: ENOXAPARIN 40 MG/0.4 ML SYG SC SCH (08:49)
[2016-09-28] MEDS: DOXYCYCLINE 100 MG in SOD CHLORIDE 0.9% 250 ML IVPB SCH ×2 (09:04→20:54)
--- NOTE | 2016-09-28 10:56 | RADRPT ---
PROCEDURE: XR Chest. CLINICAL INDICATION: pna chf TECHNIQUE: Single frontal view of the chest was obtained. COMPARISON: Chest x-ray from 09/27/2016 FINDINGS: The endotracheal tube and enteric tube are unchanged in position. There are stable low lung volumes. There is mild pulmonary vascular congestion which has mildly improved. There are stable small bilateral pleural effusions. IMPRESSION: Mild pulmonary vascular congestion which has mildly improved. Stable low lung volumes and small bilateral pleural effusions. RPTAT: EE Physician Carmela Date Time Electronically viewed and signed by Ravi Castillo Physician on 09/28/2016 08:08 /
--- NOTE | 2016-09-28 11:27 | CONS ---
Date/Time of Note Date/Time of Note DATE: 09/28/16 TIME: 11:26 Consult Date/Type/Reason Admit Date/Time Sep 14, 2016 at 16:36 Initial Consult Date 09/16/16 Type of Consultation: Pulmonary Subjective Failed multiple weaning trials. Intermittent agitation, and hypoxemia. Objective Vital Signs Date Time Temp Pulse Resp B/P Pulse Ox O2 Delivery O2 Flow Rate FiO2 09/28/16 11:00 50 11 129/67 98 Mechanical Ventilator 09/28/16 07:52 85 09/28/16 07:00 98.6 Intake and Output 09/27/16 09/27/16 09/28/16 15:00 23:00 07:00 Intake Total 654.50 ml 856.52 ml 530.09 ml Output Total 865 ml 755 ml 720 ml Balance -210.50 ml 101.52 ml -189.91 ml Exam PHYSICAL EXAMINATION GENERAL: Well-nourished well-developed gentleman intubated sedated on mechanical ventilation VITAL SIGNS: see below. HEENT: Pupils equal, round, and reactive to light. CARDIAC: S1, S2, no added sounds or movements CHEST: Diminished air entry bilaterally. Bilateral rales. ABDOMEN: Mildly distended. Bowel sounds present no guarding or rebound EXTREMITIES: No cyanosis, clubbing edema +1 NEUROLOGIC: Generalized weakness Results/Medications Result Diagram: 09/28/16 0430 09/28/16 0430 Results 24 hrs Laboratory Tests Test 09/28/16 04:30 09/28/16 07:00 White Blood Count 11.0 #H Red Blood Count 4.46 L Hemoglobin 13.1 L Hematocrit 40.4 L Mean Corpuscular Volume 90.6 Mean Corpuscular Hemoglobin 29.4 Mean Corpuscular Hemoglobin Concent 32.4 Red Cell Distribution Width 12.2 Platelet Count 683 H Mean Platelet Volume 9.7 Neutrophils % 83.1 H Lymphocytes % 10.5 L Monocytes % 5.7 Eosinophils % 0.0 Basophils % 0.1 Nucleated Red Blood Cells % 0.0 Neutrophils # (Manual) 9.1 H Lymphocytes # 1.2 Monocytes # 0.6 Eosinophils # 0.0 Basophils # 0.0 Nucleated Red Blood Cells # 0.0 Sodium Level 147 H Potassium Level 3.8 Chloride Level 108 Carbon Dioxide Level 29 Anion Gap 14 Blood Urea Nitrogen 37 H Creatinine 0.88 Glucose Level 187 Calcium Level 9.4 Phosphorus Level 5.4 H Magnesium Level 2.3 Blood Gas Specimen Source Blood arterial Arterial Blood Date Drawn 09/28/2016 7:20:01 AM Arterial Blood pH (Temp corrected) 7.483 H Arterial Blood pCO2 (Temp correct) 38.4 Arterial Blood pO2 (Temp corrected) 87.3 Arterial Blood HCO3 28.1 H Arterial Blood Base Excess 4.6 H Arterial Blood Oxygen Saturation 96.7 Vinicius Test ACCEPTAB Arterial Blood Gas Puncture Site Right Radial Arterial Blood Carboxyhemoglobin 0.3 Arterial Blood Methemoglobin 0.2 Blood Gas A-a O2 Differential 478.9 H Oxyhemoglobin Percent 96.2 Total Hemoglobin 14.5 Blood Gas Temperature 37.0 Blood Gas Respiration Rate 20.0 Blood Gas Actual Respiration Rate 20 Blood Gas Modality VENT - AC FiO2 85.0 Blood Gas Tidal Volume 500.0 Blood Gas Low PEEP Setting 5.0 Blood Gas Notified Whom JLD Blood Gas Notified Time 09/28/2016 7:46:42 AM Medications Current Medications Ondansetron HCl 4 mg 4 mg Q6H PRN IV NAUSEA AND/OR VOMITING; Start 09/14/16 at 17:00 Fentanyl (Sublimaze) 100 ml @ 2.5 mls/hr TITRATE IV Last administered on 06:50; Admin Dose 2.5 MLS/HR; Start 09/15/16 at 13:30 Aspirin (Aspirin) 300 mg DAILY [place] Last administered on 09/28/16 08:31; Admin Dose 300 MG; Start 09/15/16 at 19:30 Morphine Sulfate 2 mg 2 mg Q4H PRN IV SEVERE PAIN LEVEL 7-10; Start 09/16/16 at 10:30 Propofol 100 ml @ 0 mls/hr TITRATE IV Last administered on 09/28/16 11:03; Admin Dose 14.52 MLS/HR; Start 09/19/16 at 09:30 Midazolam HCl (Versed) 50 ml @ 1 mls/hr TITRATE IV Last administered on 04:48; Admin Dose 2 MLS/HR; Start 09/19/16 at 09:30 Enoxaparin Sodium (Lovenox) 40 mg DAILY SC Last administered on 09/28/16 08:49 ; Admin Dose 40 MG; Start 09/19/16 at 10:00 Lansoprazole 30 mg 30 mg DAILY@06 NGT Last administered on 09/28/16 05:45; Admin Dose 30 MG; Start 09/20/16 at 06:00 Doxycycline Hyclate/Sodium Chloride (Vibramycin/NS) 250 ml @ 250 mls/hr Q12 IVPB Last administered on 09/28/16 09:04; Admin Dose 250 MLS/HR; Start at 14:00 Methylprednisolone Sodium Succinate (Solu-Medrol) 60 mg Q8 IV Last administered on 09/28/16 05:45; Admin Dose 60 MG; Start 09/23/16 at 14:00 Chlordiazepoxide 50 mg 50 mg TID PO Last administered on 09/28/16 08:31; Admin Dose 50 MG; Start 09/23/16 at 13:00 Dexmedetomidine HCl/Sodium Chloride (Precedex/NS) 50 ml @ 6.05 mls/hr TITRATE IV ; Start 09/25/16 at 13:30 Assessment/Plan Chief Complaint/Hosp Course Assessment/Plan IMP: 1. AMS--encephalopathy currently of unclear etiology. Possible anoxic brain injury. MRI findings noted. 2. Resp Failure, atelectasis right lower lobe. Significant hypoxemic respiratory failure however. Questionable shunt phenomena. 3. Acute Renal Failure--resolved 4. Mild Rhabdo improved. 5. Demand Ischemia/type II NSTEMI 6. Concern for aspiration pneumonitis 7. Heroin and Meth use questionable alcohol abuse also. RECS: 1. continue antibiotics 2. Decrease sedation as tolerated 3. Continue mechanical ventilation decrease FiO2 as tolerated, will likely need tracheostomy. 4. Decrease steroids. 5. Continue tube feeding 6. DVT GI prophylaxis Palliative care consult, contact family discussed goals of care. Family conference today. Problems: BRANDON CORONA MD, [facility] Sep 28, 2016 11:27
--- NOTE | 2016-09-28 13:06 | PN ---
Date/Time of Note Date/Time of Note DATE: 09/28/16 TIME: 13:05 Assessment/Plan VTE Prophylaxis VTE Prophylaxis Intervention: SCD's Assessment/Plan Chief Complaint/Hosp Course 41 yo male with etoh use d/o, opiate use d/o who has developed respiratory failure requiring mechanical ventilation and VAP PULM: Acute hypoxic respiratory failure: - Still requiring high FiO2, XR shows edema and pneumonia. There is thick secretions on suctioning. Trach aspirated growing MRSA. Continue doxy/unasyn - Some pulmonary edema, continue lasix but close eye on creatinine/overdiuresis - Wean sedation as able and extubate when able, patient not tolerating CPAP trials as becomes too agitated off sedation, may need tracheostomy RENAL: No active issues CV: - HD stable - Type II NSTEMI on admission, resolved NEURO: - Imaging suggestive of watershed ischemic injury - Repeat MRI when stable to asess extent PSYCH: - Presentation likely 2/2 opiate overdose, also amphetamine use d/o - Assess need for opiate replacement therapy when extubated ID: - Likely PNA 2/2 MSRA - Continue unasyn/doxy HEME: - Anemia, mild, stable PPx: SCDs, PPI Problems: Subjective 24 Hr Interval Summary Subjective hx not possible: pt non-verbal Exam/Review of Systems Vital Signs Vitals Vital Signs Date Time Temp Pulse Resp B/P Pulse Ox O2 Delivery O2 Flow Rate FiO2 09/28/16 12:00 48 09/28/16 11:00 11 129/67 98 Mechanical Ventilator 09/28/16 07:52 85 09/28/16 07:00 98.6 Intake and Output 09/27/16 09/27/16 09/28/16 15:00 23:00 07:00 Intake Total 654.50 ml 856.52 ml 530.09 ml Output Total 865 ml 755 ml 720 ml Balance -210.50 ml 101.52 ml -189.91 ml Exam Constitutional: non-verbal ENMT: intubated Respiratory: clear to auscultation Cardiovascular: regular rate and rhythm Gastrointestinal: soft, No distended Musculoskeletal: nl extremities to inspection Results Result Diagram: 09/28/16 0430 09/28/16 0430 Results 24 hrs Laboratory Tests Test 09/28/16 04:30 09/28/16 07:00 White Blood Count 11.0 #H Red Blood Count 4.46 L Hemoglobin 13.1 L Hematocrit 40.4 L Mean Corpuscular Volume 90.6 Mean Corpuscular Hemoglobin 29.4 Mean Corpuscular Hemoglobin Concent 32.4 Red Cell Distribution Width 12.2 Platelet Count 683 H Mean Platelet Volume 9.7 Neutrophils % 83.1 H Lymphocytes % 10.5 L Monocytes % 5.7 Eosinophils % 0.0 Basophils % 0.1 Nucleated Red Blood Cells % 0.0 Neutrophils # (Manual) 9.1 H Lymphocytes # 1.2 Monocytes # 0.6 Eosinophils # 0.0 Basophils # 0.0 Nucleated Red Blood Cells # 0.0 Sodium Level 147 H Potassium Level 3.8 Chloride Level 108 Carbon Dioxide Level 29 Anion Gap 14 Blood Urea Nitrogen 37 H Creatinine 0.88 Glucose Level 187 Calcium Level 9.4 Phosphorus Level 5.4 H Magnesium Level 2.3 Blood Gas Specimen Source Blood arterial Arterial Blood Date Drawn 09/28/2016 7:20:01 AM Arterial Blood pH (Temp corrected) 7.483 H Arterial Blood pCO2 (Temp correct) 38.4 Arterial Blood pO2 (Temp corrected) 87.3 Arterial Blood HCO3 28.1 H Arterial Blood Base Excess 4.6 H Arterial Blood Oxygen Saturation 96.7 Vinicius Test ACCEPTAB Arterial Blood Gas Puncture Site Right Radial Arterial Blood Carboxyhemoglobin 0.3 Arterial Blood Methemoglobin 0.2 Blood Gas A-a O2 Differential 478.9 H Oxyhemoglobin Percent 96.2 Total Hemoglobin 14.5 Blood Gas Temperature 37.0 Blood Gas Respiration Rate 20.0 Blood Gas Actual Respiration Rate 20 Blood Gas Modality VENT - AC FiO2 85.0 Blood Gas Tidal Volume 500.0 Blood Gas Low PEEP Setting 5.0 Blood Gas Notified Whom JLD Blood Gas Notified Time 09/28/2016 7:46:42 AM Medications Medications Current Medications Ondansetron HCl 4 mg 4 mg Q6H PRN IV NAUSEA AND/OR VOMITING; Start 09/14/16 at 17:00 Fentanyl (Sublimaze) 100 ml @ 2.5 mls/hr TITRATE IV Last administered on 06:50; Admin Dose 2.5 MLS/HR; Start 09/15/16 at 13:30 Aspirin (Aspirin) 300 mg DAILY [place] Last administered on 09/28/16 08:31; Admin Dose 300 MG; Start 09/15/16 at 19:30 Morphine Sulfate 2 mg 2 mg Q4H PRN IV SEVERE PAIN LEVEL 7-10; Start 09/16/16 at 10:30 Propofol 100 ml @ 0 mls/hr TITRATE IV Last administered on 09/28/16 11:03; Admin Dose 14.52 MLS/HR; Start 09/19/16 at 09:30 Midazolam HCl (Versed) 50 ml @ 1 mls/hr TITRATE IV Last administered on 04:48; Admin Dose 2 MLS/HR; Start 09/19/16 at 09:30 Enoxaparin Sodium (Lovenox) 40 mg DAILY SC Last administered on 09/28/16 08:49 ; Admin Dose 40 MG; Start 09/19/16 at 10:00 Lansoprazole 30 mg 30 mg DAILY@06 NGT Last administered on 09/28/16 05:45; Admin Dose 30 MG; Start 09/20/16 at 06:00 Doxycycline Hyclate/Sodium Chloride (Vibramycin/NS) 250 ml @ 250 mls/hr Q12 IVPB Last administered on 09/28/16 09:04; Admin Dose 250 MLS/HR; Start at 14:00 Methylprednisolone Sodium Succinate (Solu-Medrol) 60 mg Q8 IV Last administered on 09/28/16 05:45; Admin Dose 60 MG; Start 09/23/16 at 14:00 Chlordiazepoxide 50 mg 50 mg TID PO Last administered on 09/28/16 08:31; Admin Dose 50 MG; Start 09/23/16 at 13:00 Dexmedetomidine HCl/Sodium Chloride (Precedex/NS) 50 ml @ 6.05 mls/hr TITRATE IV ; Start 09/25/16 at 13:30 MARCIO STOREY Sep 28, 2016 13:06
--- NOTE | 2016-09-28 13:24 | CONS ---
Date/Time of Note Date/Time of Note DATE: 09/28/16 TIME: 13:20 Assessment/Plan Assessment/Plan Chief Complaint/Hosp Course 41-year-old man was found down in his car slumped over transferred to the emergency room [facility]. Patient is in the intensive care unit septic probable secondary to pneumonia. Also diagnosis of demand ischemia and possible anoxic encephalopathy, possible carbon monoxide poisoning, questionable opioid overdose. Tox screen positive for amphetamines only, although medical records indicate that patient may have overdosed on heroin also. There are no family members immediately available to question. Problems: Consultation Date/Type/Reason Admit Date/Time Sep 14, 2016 at 16:36 Initial Consult Date 09/16/16 Type of Consultation: Palliative care 24 HR Interval Summary Free Text/Dictation Discussion with patient's father. He is given his background the patient has had many years of drug use including crystal methamphetamine. He is unclear of other recreational drugs that he may have used in the past. However he states his drug use became so bad that he was forced to tell his son not come back to his home any longer. Father was upset that he was not called sooner about his son's clinical course we explained to him that an attempt was made to find next of kin by social work service. We did not cover palliative care issues other than being his father update about his current clinical condition and scenarios that may occur, he is given permission for trach.. Because patient's father is traumatized we will not introduce anything related to change in patient's CODE STATUS, nor is it indicated at this time. We will continue to update him I have given him my cell phone number. Exam/Review of Systems Vital Signs Vitals Vital Signs Date Time Temp Pulse Resp B/P Pulse Ox O2 Delivery O2 Flow Rate FiO2 09/28/16 13:00 52 20 106/58 96 Mechanical Ventilator 09/28/16 12:00 98.4 09/28/16 07:52 85 Intake and Output 09/27/16 09/27/16 09/28/16 15:00 23:00 07:00 Intake Total 654.50 ml 856.52 ml 530.09 ml Output Total 865 ml 755 ml 720 ml Balance -210.50 ml 101.52 ml -189.91 ml Results Result Diagram: 09/28/16 0430 09/28/16 8330 Results 24 hrs Laboratory Tests Test 09/28/16 04:30 09/28/16 07:00 White Blood Count 11.0 #H Red Blood Count 4.46 L Hemoglobin 13.1 L Hematocrit 40.4 L Mean Corpuscular Volume 90.6 Mean Corpuscular Hemoglobin 29.4 Mean Corpuscular Hemoglobin Concent 32.4 Red Cell Distribution Width 12.2 Platelet Count 683 H Mean Platelet Volume 9.7 Neutrophils % 83.1 H Lymphocytes % 10.5 L Monocytes % 5.7 Eosinophils % 0.0 Basophils % 0.1 Nucleated Red Blood Cells % 0.0 Neutrophils # (Manual) 9.1 H Lymphocytes # 1.2 Monocytes # 0.6 Eosinophils # 0.0 Basophils # 0.0 Nucleated Red Blood Cells # 0.0 Sodium Level 147 H Potassium Level 3.8 Chloride Level 108 Carbon Dioxide Level 29 Anion Gap 14 Blood Urea Nitrogen 37 H Creatinine 0.88 Glucose Level 187 Calcium Level 9.4 Phosphorus Level 5.4 H Magnesium Level 2.3 Blood Gas Specimen Source Blood arterial Arterial Blood Date Drawn 09/28/2016 7:20:01 AM Arterial Blood pH (Temp corrected) 7.483 H Arterial Blood pCO2 (Temp correct) 38.4 Arterial Blood pO2 (Temp corrected) 87.3 Arterial Blood HCO3 28.1 H Arterial Blood Base Excess 4.6 H Arterial Blood Oxygen Saturation 96.7 Vinicius Test ACCEPTAB Arterial Blood Gas Puncture Site Right Radial Arterial Blood Carboxyhemoglobin 0.3 Arterial Blood Methemoglobin 0.2 Blood Gas A-a O2 Differential 478.9 H Oxyhemoglobin Percent 96.2 Total Hemoglobin 14.5 Blood Gas Temperature 37.0 Blood Gas Respiration Rate 20.0 Blood Gas Actual Respiration Rate 20 Blood Gas Modality VENT - AC FiO2 85.0 Blood Gas Tidal Volume 500.0 Blood Gas Low PEEP Setting 5.0 Blood Gas Notified Whom JLD Blood Gas Notified Time 09/28/2016 7:46:42 AM Medications Medications Current Medications Ondansetron HCl 4 mg 4 mg Q6H PRN IV NAUSEA AND/OR VOMITING; Start 09/14/16 at 17:00 Fentanyl (Sublimaze) 100 ml @ 2.5 mls/hr TITRATE IV Last administered on t 06:50; Admin Dose 2.5 MLS/HR; Start 09/15/16 at 13:30 Aspirin (Aspirin) 300 mg DAILY [place] Last administered on 09/28/16 08:31; Admin Dose 300 MG; Start 09/15/16 at 19:30 Morphine Sulfate 2 mg 2 mg Q4H PRN IV SEVERE PAIN LEVEL 7-10; Start 09/16/16 at 10:30 Propofol 100 ml @ 0 mls/hr TITRATE IV Last administered on 09/28/16 11:03; Admin Dose 14.52 MLS/HR; Start 09/19/16 at 09:30 Midazolam HCl (Versed) 50 ml @ 1 mls/hr TITRATE IV Last administered on 04:48; Admin Dose 2 MLS/HR; Start 09/19/16 at 09:30 Enoxaparin Sodium (Lovenox) 40 mg DAILY SC Last administered on 09/28/16 08:49 ; Admin Dose 40 MG; Start 09/19/16 at 10:00 Lansoprazole 30 mg 30 mg DAILY@06 NGT Last administered on 09/28/16 05:45; Admin Dose 30 MG; Start 09/20/16 at 06:00 Doxycycline Hyclate/Sodium Chloride (Vibramycin/NS) 250 ml @ 250 mls/hr Q12 IVPB Last administered on 09/28/16 09:04; Admin Dose 250 MLS/HR; Start at 14:00 Methylprednisolone Sodium Succinate (Solu-Medrol) 60 mg Q8 IV Last administered on 09/28/16 13:05; Admin Dose 60 MG; Start 09/23/16 at 14:00 Chlordiazepoxide 50 mg 50 mg TID PO Last administered on 09/28/16 13:05; Admin Dose 50 MG; Start 09/23/16 at 13:00 Dexmedetomidine HCl/Sodium Chloride (Precedex/NS) 50 ml @ 6.05 mls/hr TITRATE IV ; Start 09/25/16 at 13:30 NAZ MILES Sep 28, 2016 13:24
[2016-09-29] VITALS (59 sets, daily range): BP systolic 98–172; BP diastolic 55–108; PULSE 61–115; RESP 17–36
[2016-09-29] MEDS: PROPOFOL 100 ML IV SCH ×6 (03:00→22:28)
[2016-09-29] MEDS: METHYLPREDNISOLONE 125 MG INJ IV SCH (06:19)
[2016-09-29] MEDS: FUROSEMIDE 40 MG INJ IV SCH ×2 (06:19→18:34)
[2016-09-29] MEDS: LANSOPRAZOLE 30 MG CAP NGT SCH (06:19)
[2016-09-29 06:32] LABS: BASOPHILS % 0.1 % (0.0-2.0); HEMATOCRIT 41.5 % (42.0-52.0); HEMOGLOBIN 13.3 g/dl (14.0-18.0); LYMPHOCYTES # 1.6 10^3/ul (0.8-2.9); MEAN CORPUSCULAR HEMOGLOBIN 29.1 pg (29.0-33.0); MEAN CORPUSCULAR VOLUME 90.8 fl (82.0-101.0); MONOCYTE # 0.9 10^3/ul (0.3-0.9); MONOCYTES % 6.2 % (0.0-11.0); NEUTROPHILS % 81.9 % (39.0-77.0); RED BLOOD COUNT 4.57 10^6/ul (4.70-6.10); RED CELL DISTRIBUTION WIDTH 12.4 % (11.5-14.5); WHITE BLOOD COUNT 14.7 10^3/ul (4.8-10.8)
[2016-09-29 06:54] LABS: CALCIUM 8.6 mg/dl (8.4-10.2); CREATININE 0.77 mg/dl (0.61-1.24); POTASSIUM 3.4 mmol/L (3.5-5.1)
[2016-09-29 07:16] LABS: PLATELET COUNT 733 10^3/UL (140-415)
--- NOTE | 2016-09-29 07:49 | CONS ---
Date/Time of Note Date/Time of Note DATE: 09/29/16 TIME: 07:47 Assessment/Plan Assessment/Plan Chief Complaint/Hosp Course 41-year-old man was found down in his car slumped over transferred to the emergency room [facility]. Patient is in the intensive care unit septic probable secondary to pneumonia. Also diagnosis of demand ischemia and possible anoxic encephalopathy, possible carbon monoxide poisoning, questionable opioid overdose. Tox screen positive for amphetamines only, although medical records indicate that patient may have overdosed on heroin also. There are no family members immediately available to question. Problems: Additional Assessment/Plan There is been no change in patient's overall clinical condition. He remains intubated on 60% FiO2, presumed to be secondary to aspiration pneumonia and sepsis syndrome. When on sedation vacation patient thrashes around in the bed does not do any purposeful act does not follow simple commands. I have had a long conversation with his father yesterday please refer to note September 28. Father is in agreement with trach. Consultation Date/Type/Reason Admit Date/Time Sep 14, 2016 at 16:36 Initial Consult Date 09/16/16 Type of Consultation: Palliative care Exam/Review of Systems Vital Signs Vitals Vital Signs Date Time Temp Pulse Resp B/P Pulse Ox O2 Delivery O2 Flow Rate FiO2 09/29/16 06:30 94 20 118/71 97 09/29/16 06:00 Mechanical Ventilator 09/29/16 05:00 85 09/29/16 04:00 98.4 Intake and Output 09/28/16 09/28/16 09/29/16 15:00 23:00 07:00 Intake Total 749.68 ml 634.90 ml 515.86 ml Output Total 585 ml 670 ml 315 ml Balance 164.68 ml -35.10 ml 200.86 ml Exam Neurological: other (Does not follow simple command bilateral pupils 2 mm sluggish pupillary light reflex, no doll's bilateral disconjugate gaze) Results Result Diagram: 09/29/16 0450 09/29/16 0450 Results 24 hrs Laboratory Tests Test 09/29/16 04:50 White Blood Count 14.7 #H Red Blood Count 4.57 L Hemoglobin 13.3 L Hematocrit 41.5 L Mean Corpuscular Volume 90.8 Mean Corpuscular Hemoglobin 29.1 Mean Corpuscular Hemoglobin Concent 32.0 Red Cell Distribution Width 12.4 Platelet Count 733 H Mean Platelet Volume 10.0 Neutrophils % 81.9 H Lymphocytes % 11.0 L Monocytes % 6.2 Eosinophils % 0.0 Basophils % 0.1 Nucleated Red Blood Cells % 0.0 Neutrophils # (Manual) 12 H Lymphocytes # 1.6 Monocytes # 0.9 Eosinophils # 0.0 Basophils # 0.0 Nucleated Red Blood Cells # 0.0 Sodium Level 149 H Potassium Level 3.4 L Chloride Level 108 Carbon Dioxide Level 28 Anion Gap 16 Blood Urea Nitrogen 36 H Creatinine 0.77 Glucose Level 154 Calcium Level 8.6 Medications Medications Current Medications Ondansetron HCl 4 mg 4 mg Q6H PRN IV NAUSEA AND/OR VOMITING; Start 09/14/16 at 17:00 Fentanyl (Sublimaze) 100 ml @ 2.5 mls/hr TITRATE IV Last administered on 06:50; Admin Dose 2.5 MLS/HR; Start 09/15/16 at 13:30 Aspirin (Aspirin) [address] Last administered on 09/28/16 08:31; Admin Dose 300 MG; Start 09/15/16 at 19:30 Morphine Sulfate 2 mg 2 mg Q4H PRN IV SEVERE PAIN LEVEL 7-10; Start 09/16/16 at 10:30 Propofol 100 ml @ 0 mls/hr TITRATE IV Last administered on 09/29/16 07:26; Admin Dose 29.04 MLS/HR; Start 09/19/16 at 09:30 Midazolam HCl (Versed) 50 ml @ 1 mls/hr TITRATE IV Last administered on 04:48; Admin Dose 2 MLS/HR; Start 09/19/16 at 09:30 Enoxaparin Sodium (Lovenox) 40 mg DAILY SC Last administered on 09/28/16 08:49 ; Admin Dose 40 MG; Start 09/19/16 at 10:00 Lansoprazole 30 mg 30 mg DAILY@06 NGT Last administered on 09/29/16 06:19; Admin Dose 30 MG; Start 09/20/16 at 06:00 Doxycycline Hyclate/Sodium Chloride (Vibramycin/NS) 250 ml @ 250 mls/hr Q12 IVPB Last administered on 09/28/16 20:54; Admin Dose 250 MLS/HR; Start at 14:00 Methylprednisolone Sodium Succinate (Solu-Medrol) 60 mg Q8 IV Last administered on 09/29/16 06:19; Admin Dose 60 MG; Start 09/23/16 at 14:00 Chlordiazepoxide 50 mg 50 mg TID PO Last administered on 09/28/16 20:53; Admin Dose 50 MG; Start 09/23/16 at 13:00 Dexmedetomidine HCl/Sodium Chloride (Precedex/NS) 50 ml @ 6.05 mls/hr TITRATE IV ; Start 09/25/16 at 13:30 NAZ MILES Sep 29, 2016 07:49
[2016-09-29] MEDS: DOXYCYCLINE 100 MG in SOD CHLORIDE 0.9% 250 ML IVPB SCH ×2 (09:01→21:06)
[2016-09-29] MEDS: ENOXAPARIN 40 MG/0.4 ML SYG SC SCH (09:01)
[2016-09-29] MEDS: ASPIRIN 300 MG SUPP PR SCH (09:02)
[2016-09-29] MEDS: CHLORDIAZEPOXIDE 25 MG CAP PO SCH ×3 (09:02→21:05)
[2016-09-29] MEDS ORDERED: POTASSIUM CHLORIDE 250 ML IVPB ONE (09:30)
[2016-09-29] MEDS: MIDAZOLAM (DRIP) 50 mg/50 mL 50 ML IV SCH ×2 (09:56→23:36)
--- NOTE | 2016-09-29 11:22 | CONS ---
Date/Time of Note Date/Time of Note DATE: 09/29/16 TIME: 11:20 Consult Date/Type/Reason Admit Date/Time Sep 14, 2016 at 16:36 Initial Consult Date 09/16/16 Type of Consultation: Pulmonary Subjective Has failed multiple weaning trials at this point, family discussion with palliative care noted. Not opening eyes consistently following commands.Still has significant agitation off sedation. Objective Vital Signs Date Time Temp Pulse Resp B/P Pulse Ox O2 Delivery O2 Flow Rate FiO2 09/29/16 09:25 97 20 97 85 09/29/16 08:00 98.3 121/68 Mechanical Ventilator Intake and Output 09/28/16 09/28/16 09/29/16 14:59 22:59 06:59 Intake Total 752.18 ml 647.42 ml 514.82 ml Output Total 850 ml 650 ml 370 ml Balance -97.82 ml -2.58 ml 144.82 ml Exam PHYSICAL EXAMINATION GENERAL: Well-nourished well-developed gentleman intubated sedated on mechanical ventilation VITAL SIGNS: see below. HEENT: Pupils equal, round, and reactive to light. CARDIAC: S1, S2, no added sounds or movements CHEST: Diminished air entry bilaterally. Bilateral rales. ABDOMEN: Mildly distended. Bowel sounds present no guarding or rebound EXTREMITIES: No cyanosis, clubbing edema +1 NEUROLOGIC: Generalized weakness Results/Medications Result Diagram: 09/29/16 0450 09/29/16 0450 Results 24 hrs Laboratory Tests Test 09/29/16 04:50 White Blood Count 14.7 #H Red Blood Count 4.57 L Hemoglobin 13.3 L Hematocrit 41.5 L Mean Corpuscular Volume 90.8 Mean Corpuscular Hemoglobin 29.1 Mean Corpuscular Hemoglobin Concent 32.0 Red Cell Distribution Width 12.4 Platelet Count 733 H Mean Platelet Volume 10.0 Neutrophils % 81.9 H Lymphocytes % 11.0 L Monocytes % 6.2 Eosinophils % 0.0 Basophils % 0.1 Nucleated Red Blood Cells % 0.0 Neutrophils # (Manual) 12 H Lymphocytes # 1.6 Monocytes # 0.9 Eosinophils # 0.0 Basophils # 0.0 Nucleated Red Blood Cells # 0.0 Sodium Level 149 H Potassium Level 3.4 L Chloride Level 108 Carbon Dioxide Level 28 Anion Gap 16 Blood Urea Nitrogen 36 H Creatinine 0.77 Glucose Level 154 Calcium Level 8.6 Medications Current Medications Ondansetron HCl 4 mg 4 mg Q6H PRN IV NAUSEA AND/OR VOMITING; Start 09/14/16 at 17:00 Fentanyl (Sublimaze) 100 ml @ 2.5 mls/hr TITRATE IV Last administered on 06:50; Admin Dose 2.5 MLS/HR; Start 09/15/16 at 13:30 Aspirin (Aspirin) 300 mg DAILY [place] Last administered on 09/29/16 09:02; Admin Dose 300 MG; Start 09/15/16 at 19:30 Morphine Sulfate 2 mg 2 mg Q4H PRN IV SEVERE PAIN LEVEL 7-10; Start 09/16/16 at 10:30 Propofol 100 ml @ 0 mls/hr TITRATE IV Last administered on 09/29/16 07:26; Admin Dose 29.04 MLS/HR; Start 09/19/16 at 09:30 Midazolam HCl (Versed) 50 ml @ 1 mls/hr TITRATE IV Last administered on 09:56; Admin Dose 4 MLS/HR; Start 09/19/16 at 09:30 Enoxaparin Sodium (Lovenox) 40 mg DAILY SC Last administered on 09/29/16 09:01 ; Admin Dose 40 MG; Start 09/19/16 at 10:00 Lansoprazole 30 mg 30 mg DAILY@06 NGT Last administered on 09/29/16 06:19; Admin Dose 30 MG; Start 09/20/16 at 06:00 Doxycycline Hyclate/Sodium Chloride (Vibramycin/NS) 250 ml @ 250 mls/hr Q12 IVPB Last administered on 09/29/16 09:01; Admin Dose 250 MLS/HR; Start at 14:00 Methylprednisolone Sodium Succinate (Solu-Medrol) 60 mg Q8 IV Last administered on 09/29/16 06:19; Admin Dose 60 MG; Start 09/23/16 at 14:00 Chlordiazepoxide 50 mg 50 mg TID PO Last administered on 09/29/16 09:02; Admin Dose 50 MG; Start 09/23/16 at 13:00 Dexmedetomidine HCl 200 mcg/ Sodium Chloride 50 ml @ 6.05 mls/hr TITRATE IV ; Start 09/25/16 at 13:30 Potassium Chloride (KCl 40 MEQ/250 ML NS) 250 ml @ 62.5 mls/hr ONCE ONCE IVPB ; Start 09/29/16 at 09:30; Stop 09/29/16 at 13:29 Assessment/Plan Chief Complaint/Hosp Course Assessment/Plan IMP: 1. AMS--encephalopathy currently of unclear etiology. Possible anoxic brain injury. MRI findings noted. 2. Resp Failure, atelectasis right lower lobe. Significant hypoxemic respiratory failure however. Questionable shunt phenomena. 3. Acute Renal Failure--resolved 4. Mild Rhabdo improved. 5. Demand Ischemia/type II NSTEMI 6. Concern for aspiration pneumonitis radiographically stable. 7. Heroin and Meth use questionable alcohol abuse also. RECS: 1. continue antibiotics 2. Decrease sedation as tolerated 3. Continue mechanical ventilation decrease FiO2 as tolerated, will need tracheostomy and G-tube placement 4. Decrease steroids. 5. Continue tube feeding 6. DVT GI prophylaxis Proceed with trach and PEG placement Problems: BRANDON CORONA MD, [facility] Sep 29, 2016 11:22
--- NOTE | 2016-09-29 14:26 | CONS ---
Date/Time of Note Date/Time of Note DATE: 09/29/16 TIME: 14:22 Assessment/Plan Assessment/Plan Chief Complaint/Hosp Course Assessment: NSTEMI - likely type 2 Acute hypoxic respiratory failure - intubated, per pulmonology Acute encephalopathy Possible anoxic brain injury - per neurology Amphetamine abuse Recommendations: -on IV Lasix, monitor volume status -change aspirin to 81mg NGT daily -echocardiogram showed LVEF 50-55% -planning for tracheostomy Problems: Consultation Date/Type/Reason Admit Date/Time Sep 14, 2016 at 16:36 Initial Consult Date 09/16/16 Type of Consultation: Cardiology 24 HR Interval Summary Free Text/Dictation Remain intubated and on mechanical ventilation with FiO2 85%. Significant agitated when off sedation and does not follow commands. Detailed Summary Additional Comments Unable to obtain review of systems, patient is intubated and sedated. Exam/Review of Systems Vital Signs Vitals Vital Signs Date Time Temp Pulse Resp B/P Pulse Ox O2 Delivery O2 Flow Rate FiO2 09/29/16 13:31 97 21 100 85 09/29/16 12:00 98.3 105/62 Mechanical Ventilator Intake and Output 09/28/16 09/28/16 09/29/16 15:00 23:00 07:00 Intake Total 749.68 ml 634.90 ml 578.86 ml Output Total 585 ml 670 ml 315 ml Balance 164.68 ml -35.10 ml 263.86 ml Exam Constitutional: sedated, no alert Psych: No nl mood/affect, No no complaints Head: atraumatic, normocephalic Eyes: nl conjunctiva, nl lids ENMT: intubated Respiratory: clear to auscultation Cardiovascular: regular rate and rhythm Gastrointestinal: non-tender, soft Musculoskeletal: nl extremities to inspection Extremities: No clubbing, No cyanosis, No edema Neurological: No nl mental status, No nl speech Skin: nl turgor Results Result Diagram: 09/29/1644909/29/16449 Results 24 hrs Laboratory Tests Test 09/29/16 04:50 White Blood Count 14.7 #H Red Blood Count 4.57 L Hemoglobin 13.3 L Hematocrit 41.5 L Mean Corpuscular Volume 90.8 Mean Corpuscular Hemoglobin 29.1 Mean Corpuscular Hemoglobin Concent 32.0 Red Cell Distribution Width 12.4 Platelet Count 733 H Mean Platelet Volume 10.0 Neutrophils % 81.9 H Lymphocytes % 11.0 L Monocytes % 6.2 Eosinophils % 0.0 Basophils % 0.1 Nucleated Red Blood Cells % 0.0 Neutrophils # (Manual) 12 H Lymphocytes # 1.6 Monocytes # 0.9 Eosinophils # 0.0 Basophils # 0.0 Nucleated Red Blood Cells # 0.0 Sodium Level 149 H Potassium Level 3.4 L Chloride Level 108 Carbon Dioxide Level 28 Anion Gap 16 Blood Urea Nitrogen 36 H Creatinine 0.77 Glucose Level 154 Calcium Level 8.6 Medications Medications Current Medications Ondansetron HCl 4 mg 4 mg Q6H PRN IV NAUSEA AND/OR VOMITING; Start 09/14/16 at 17:00 Fentanyl (Sublimaze) 100 ml @ 2.5 mls/hr TITRATE IV Last administered on 06:50; Admin Dose 2.5 MLS/HR; Start 09/15/16 at 13:30 Aspirin (Aspirin) 300 mg DAILY [place] Last administered on 09/29/16 09:02; Admin Dose 300 MG; Start 09/15/16 at 19:30 Morphine Sulfate 2 mg 2 mg Q4H PRN IV SEVERE PAIN LEVEL 7-10; Start 09/16/16 at 10:30 Propofol 100 ml @ 0 mls/hr TITRATE IV Last administered on 09/29/16 11:21; Admin Dose 29.04 MLS/HR; Start 09/19/16 at 09:30 Midazolam HCl (Versed) 50 ml @ 1 mls/hr TITRATE IV Last administered on 09:56; Admin Dose 4 MLS/HR; Start 09/19/16 at 09:30 Enoxaparin Sodium (Lovenox) 40 mg DAILY SC Last administered on 09/29/16 09:01 ; Admin Dose 40 MG; Start 09/19/16 at 10:00 Lansoprazole 30 mg 30 mg DAILY@06 NGT Last administered on 09/29/16 06:19; Admin Dose 30 MG; Start 09/20/16 at 06:00 Doxycycline Hyclate/Sodium Chloride (Vibramycin/NS) 250 ml @ 250 mls/hr Q12 IVPB Last administered on 09/29/16 09:01; Admin Dose 250 MLS/HR; Start 8/11/ 17 at 14:00 Chlordiazepoxide (Librium) 25 mg TID PO Last administered on 09/29/16t 12:48; Admin Dose 25 MG; Start 09/29/16 at 13:00 Methylprednisolone Sodium Succinate (Solu-Medrol) 40 mg Q12 IV ; Start 09/29/16 at 21:00 THERESA PARIS MD Sep 29, 2016 14:26
--- NOTE | 2016-09-29 15:42 | PN ---
Date/Time of Note Date/Time of Note DATE: 09/29/16 TIME: 15:42 Assessment/Plan VTE Prophylaxis VTE Prophylaxis Intervention: SCD's Assessment/Plan Chief Complaint/Hosp Course 41 yo male with etoh use d/o, opiate use d/o who has developed respiratory failure requiring mechanical ventilation and VAP PULM: Acute hypoxic respiratory failure: - Still requiring high FiO2, XR shows edema and pneumonia. There is thick secretions on suctioning. Trach aspirated growing MRSA. Continue doxy/unasyn - Some pulmonary edema, continue lasix but close eye on creatinine/overdiuresis - Wean sedation as able and extubate when able, patient not tolerating CPAP trials as becomes too agitated off sedation, may need tracheostomy RENAL: No active issues CV: - HD stable - Type II NSTEMI on admission, resolved NEURO: - Imaging suggestive of watershed ischemic injury - Repeat MRI when stable to asess extent PSYCH: - Presentation likely 2/2 opiate overdose, also amphetamine use d/o - Assess need for opiate replacement therapy when extubated ID: - Likely PNA 2/2 MSRA - Continue unasyn/doxy HEME: - Anemia, mild, stable PPx: SCDs, PPI Problems: Subjective 24 Hr Interval Summary Subjective hx not possible: pt non-verbal Exam/Review of Systems Vital Signs Vitals Vital Signs Date Time Temp Pulse Resp B/P Pulse Ox O2 Delivery O2 Flow Rate FiO2 09/29/16 13:31 97 21 100 85 09/29/16 12:00 98.3 105/62 Mechanical Ventilator Intake and Output 09/28/16 09/28/16 09/29/16 15:00 23:00 07:00 Intake Total 749.68 ml 634.90 ml 578.86 ml Output Total 585 ml 670 ml 315 ml Balance 164.68 ml -35.10 ml 263.86 ml Exam Constitutional: non-verbal Respiratory: clear to auscultation Cardiovascular: regular rate and rhythm Gastrointestinal: soft, No distended Musculoskeletal: nl extremities to inspection Results Result Diagram: 09/29/16 0450 09/29/16 0450 Results 24 hrs Laboratory Tests Test 09/29/16 04:50 White Blood Count 14.7 #H Red Blood Count 4.57 L Hemoglobin 13.3 L Hematocrit 41.5 L Mean Corpuscular Volume 90.8 Mean Corpuscular Hemoglobin 29.1 Mean Corpuscular Hemoglobin Concent 32.0 Red Cell Distribution Width 12.4 Platelet Count 733 H Mean Platelet Volume 10.0 Neutrophils % 81.9 H Lymphocytes % 11.0 L Monocytes % 6.2 Eosinophils % 0.0 Basophils % 0.1 Nucleated Red Blood Cells % 0.0 Neutrophils # (Manual) 12 H Lymphocytes # 1.6 Monocytes # 0.9 Eosinophils # 0.0 Basophils # 0.0 Nucleated Red Blood Cells # 0.0 Sodium Level 149 H Potassium Level 3.4 L Chloride Level 108 Carbon Dioxide Level 28 Anion Gap 16 Blood Urea Nitrogen 36 H Creatinine 0.77 Glucose Level 154 Calcium Level 8.6 Medications Medications Current Medications Ondansetron HCl 4 mg 4 mg Q6H PRN IV NAUSEA AND/OR VOMITING; Start 09/14/16 at 17:00 Fentanyl (Sublimaze) 100 ml @ 2.5 mls/hr TITRATE IV Last administered on 06:50; Admin Dose 2.5 MLS/HR; Start 09/15/16 at 13:30 Morphine Sulfate 2 mg 2 mg Q4H PRN IV SEVERE PAIN LEVEL 7-10; Start 09/16/16 at 10:30 Propofol 100 ml @ 0 mls/hr TITRATE IV Last administered on 09/29/16 14:44; Admin Dose 29.04 MLS/HR; Start 09/19/16 at 09:30 Midazolam HCl (Versed) 50 ml @ 1 mls/hr TITRATE IV Last administered on 09:56; Admin Dose 4 MLS/HR; Start 09/19/16 at 09:30 Enoxaparin Sodium (Lovenox) 40 mg DAILY SC Last administered on 09/29/16 09:01 ; Admin Dose 40 MG; Start 09/19/16 at 10:00 Lansoprazole 30 mg 30 mg DAILY@06 NGT Last administered on 09/29/16 06:19; Admin Dose 30 MG; Start 09/20/16 at 06:00 Doxycycline Hyclate/Sodium Chloride (Vibramycin/NS) 250 ml @ 250 mls/hr Q12 IVPB Last administered on 09/29/16 09:01; Admin Dose 250 MLS/HR; Start at 14:00 Chlordiazepoxide (Librium) 25 mg TID PO Last administered on 8/18/17at 12:48; Admin Dose 25 MG; Start 09/29/16 at 13:00 Methylprednisolone Sodium Succinate (Solu-Medrol) 40 mg Q12 IV ; Start 09/29/16 at 21:00 Aspirin (Aspirin) 81 mg DAILY NGT ; Start 09/30/16 at 09:00 MARCIO STOREY Sep 29, 2016 15:42
[2016-09-29] MEDS: METHYLPREDNISOLONE 40 MG INJ IV SCH (21:05)
[2016-09-30] VITALS (47 sets, daily range): BP systolic 85–148; BP diastolic 56–90; PULSE 67–121; RESP 16–22
[2016-09-30] MEDS: morphine 2 MG INJ IV PRN (00:08)
[2016-09-30] MEDS: FENTAnyl (DRIP) 1000 mcg/100mL 100 ML IV SCH (00:29)
[2016-09-30] MEDS: PROPOFOL 100 ML IV SCH ×5 (02:33→22:00)
[2016-09-30 05:12] LABS: BASOPHILS % 0.2 % (0.0-2.0); EOSINOPHILS % 0.1 % (0.0-7.0); HEMATOCRIT 43.3 % (42.0-52.0); HEMOGLOBIN 13.5 g/dl (14.0-18.0); LYMPHOCYTES # 2.1 10^3/ul (0.8-2.9); LYMPHOCYTES % 12.3 % (15.0-51.0); MEAN CORPUSCULAR HEMOGLOBIN 28.5 pg (29.0-33.0); MEAN CORPUSCULAR HGB CONC 31.2 g/dl (32.0-37.0); MEAN CORPUSCULAR VOLUME 91.5 fl (82.0-101.0); MEAN PLATELET VOLUME 9.8 fl (7.4-10.4); NEUTROPHILS % 80.9 % (39.0-77.0); PLATELET COUNT 659 10^3/UL (140-415); RED BLOOD COUNT 4.73 10^6/ul (4.70-6.10); RED CELL DISTRIBUTION WIDTH 12.8 % (11.5-14.5); WHITE BLOOD COUNT 16.9 10^3/ul (4.8-10.8)
[2016-09-30 05:40] LABS: CALCIUM 9.5 mg/dl (8.4-10.2); CREATININE 0.92 mg/dl (0.61-1.24); MAGNESIUM 2.3 mg/dl (1.7-2.5); PHOSPHORUS 5.5 mg/dl (2.5-4.9); POTASSIUM 4.1 mmol/L (3.5-5.1)
[2016-09-30] MEDS: LANSOPRAZOLE 30 MG CAP NGT SCH (05:44)
[2016-09-30] MEDS: FUROSEMIDE 40 MG INJ IV SCH ×2 (05:44→17:15)
[2016-09-30 08:49] LABS: AADO2 Arterial 326.9 mmHg (7.0-24.0); Allen Test ACCEPTAB; Arterial Base Excess 3.9 mmol/L (-3.0-3); Arterial COHb 0.3 % (0.0-3.0); Arterial Fraction of Oxyhgb 98.6 % (93.0-99.0); Arterial MetHb 0.4 % (0.0-1.5); Arterial Total Hemglobin 17.7 g/dl (12.0-18.0); MODE VENT - AC
--- NOTE | 2016-09-30 09:08 | RADRPT ---
PROCEDURE: XR 1 view Chest. CLINICAL INDICATION: Pneumonia. CHF. TECHNIQUE: Portable Single frontal view of the chest was obtained. COMPARISON: September 28, 2016. FINDINGS: There is an endotracheal tube 4 cm above the marlin. There is a left-sided PICC line with tip withi n the SVC. The heart is normal in size. The lungs are hypoaerated. There is no focal consolidation. There is minimal left base atelectasis/scarring. There is no pleural effusion. No pneumothorax is identified. The osseous structures are intact.There are mild degenerative changes within the thoracic spine. IMPRESSION: No significant change. Tubes and lines unchanged. Minimal left base atelectasis/scarring. The lungs are hypoaerated. No evidence for acute cardiopulmonary disease. Further findings as detailed above. RPTAT: AA .Jeancarlos Freeman MD, MD Date Time Electronically viewed and signed by .Jeancarlos Freeman MD, on 09/30/2016 09:08 .F/
[2016-09-30] MEDS: METHYLPREDNISOLONE 40 MG INJ IV SCH ×2 (09:45→21:54)
[2016-09-30] MEDS: ASPIRIN 81 MG TAB NGT SCH (09:46)
[2016-09-30] MEDS: CHLORDIAZEPOXIDE 25 MG CAP PO SCH ×3 (09:46→21:54)
[2016-09-30] MEDS: ENOXAPARIN 40 MG/0.4 ML SYG SC SCH (09:52)
[2016-09-30] MEDS: DOXYCYCLINE 100 MG in SOD CHLORIDE 0.9% 250 ML IVPB SCH ×2 (10:07→21:55)
--- NOTE | 2016-09-30 10:56 | CONS ---
Date/Time of Note Date/Time of Note DATE: 09/30/16 TIME: 10:53 Assessment/Plan Assessment/Plan Additional Assessment/Plan X-ray was reviewed from today which is totally clear. Patient currently on assist control of 20, tidal volume 500, PEEP of 5, 60% FiO2. Next Patient maintained on propofol at 30 mics per kilogram per minute, fentanyl drip at 25 mics per hour. Next Assessment and recommendations; next 1. Patient admitted with drug overdose leading to respiratory failure. 2. Failure to be weaned from ventilator due to severe agitation whenever patient is taken off sedation. 3. Status post acute renal failure. 4. Status post rhabdo myolysis. For sedation for now again. Weaning from ventilator with depend upon adequate mental status recovery. Failing that patient likely would need to have a tracheostomy placed. Meanwhile ventilator settings have been adjusted. Patient has been switched over to assist control of 16, tidal volume 500, PEEP of 5, and 40% FiO2. Consultation Date/Type/Reason Admit Date/Time Sep 14, 2016 at 16:36 Initial Consult Date 09/16/16 Type of Consultation: Pulmonary/critical care 24 HR Interval Summary Free Text/Dictation Patient condition remains critical. Patient has failed numerous sedation vacation trials leading to severe agitation requiring him to be re-sedated and maintained on invasive mechanical ventilation. By the time I saw the patient is morning the patient is orally intubated, sedated, currently in no distress. Exam/Review of Systems Vital Signs Vitals Vital Signs Date Time Temp Pulse Resp B/P Pulse Ox O2 Delivery O2 Flow Rate FiO2 09/30/16 10:30 90 22 148/85 98 09/30/16 10:00 Mechanical Ventilator 09/30/16 08:00 98.3 09/30/16 08:00 85 Intake and Output 09/29/16 09/29/16 09/30/16 15:00 23:00 07:00 Intake Total 1006.5 ml 846.20 ml 687.26 ml Output Total 960 ml 795 ml 310 ml Balance 46.5 ml 51.20 ml 377.26 ml Exam HEENT exam; supple neck, no JVD. No lymphadenopathy. Midline trachea. No thyromegaly. Pupils are equal and reactive to light. Patient has fair dentition. Orally intubated. Chest exam; clear to auscultation. S1-S2 audible, no murmurs. Regular rhythm. Abdomen exam; soft, no organomegaly. Bowel sounds audible. Nondistended. Extremity exam; no peripheral edema. Pulses 1+ bilaterally. 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 Results Result Diagram: 09/30/16 0430 09/30/16 0430 Results 24 hrs Laboratory Tests Test 09/30/16 04:30 09/30/16 07:00 White Blood Count 16.9 H Red Blood Count 4.73 Hemoglobin 13.5 L Hematocrit 43.3 Mean Corpuscular Volume 91.5 Mean Corpuscular Hemoglobin 28.5 L Mean Corpuscular Hemoglobin Concent 31.2 L Red Cell Distribution Width 12.8 Platelet Count 659 H Mean Platelet Volume 9.8 Neutrophils % 80.9 H Lymphocytes % 12.3 L Monocytes % 6.0 Eosinophils % 0.1 Basophils % 0.2 Nucleated Red Blood Cells % 0.0 Neutrophils # (Manual) 14 H Lymphocytes # 2.1 Monocytes # 1.0 H Eosinophils # 0.0 Basophils # 0.0 Nucleated Red Blood Cells # 0.0 Sodium Level 148 H Potassium Level 4.1 Chloride Level 107 Carbon Dioxide Level 30 Anion Gap 15 Blood Urea Nitrogen 37 H Creatinine 0.92 Glucose Level 154 Calcium Level 9.5 Phosphorus Level 5.5 H Magnesium Level 2.3 Blood Gas Specimen Source Blood arterial Arterial Blood Date Drawn 09/30/2016 7:45:44 AM Arterial Blood pH (Temp corrected) 7.459 H Arterial Blood pCO2 (Temp correct) 40.4 Arterial Blood pO2 (Temp corrected) 237.2 H Arterial Blood HCO3 28.0 H Arterial Blood Base Excess 3.9 H Arterial Blood Oxygen Saturation 99.3 H Vinicius Test ACCEPTAB Arterial Blood Gas Puncture Site Right Radial Arterial Blood Carboxyhemoglobin 0.3 Arterial Blood Methemoglobin 0.4 Blood Gas A-a O2 Differential 326.9 H Oxyhemoglobin Percent 98.6 Total Hemoglobin 17.7 Blood Gas Temperature 37.0 Blood Gas Respiration Rate 20.0 Blood Gas Actual Respiration Rate 20 Blood Gas Modality VENT - AC FiO2 85.0 Blood Gas Tidal Volume 500.0 Blood Gas Low PEEP Setting 5.0 Blood Gas Notified Whom CW Blood Gas Notified Time 09/30/2016 8:24:13 AM Medications Medications Current Medications Ondansetron HCl 4 mg 4 mg Q6H PRN IV NAUSEA AND/OR VOMITING; Start 09/14/16 at 17:00 Fentanyl (Sublimaze) 100 ml @ 2.5 mls/hr TITRATE IV Last administered on 00:29; Admin Dose 2.5 MLS/HR; Start 09/15/16 at 13:30 Morphine Sulfate 2 mg 2 mg Q4H PRN IV SEVERE PAIN LEVEL 7-10 Last administered on 09/30/16 00:08; Admin Dose 2 MG; Start 09/16/16 at 10:30 Propofol 100 ml @ 0 mls/hr TITRATE IV Last administered on 09/30/16 07:33; Admin Dose 21.78 MLS/HR; Start 09/19/16 at 09:30 Midazolam HCl (Versed) 50 ml @ 1 mls/hr TITRATE IV Last administered on 23:36; Admin Dose 4 MLS/HR; Start 09/19/16 at 09:30 Enoxaparin Sodium (Lovenox) 40 mg DAILY SC Last administered on 09/30/16 09:52 ; Admin Dose 40 MG; Start 09/19/16 at 10:00 Lansoprazole 30 mg 30 mg DAILY@06 NGT Last administered on 09/30/16 05:44; Admin Dose 30 MG; Start 09/20/16 at 06:00 Doxycycline Hyclate/Sodium Chloride (Vibramycin/NS) 250 ml @ 250 mls/hr Q12 IVPB Last administered on 09/30/16 10:07; Admin Dose 250 MLS/HR; Start at 14:00 Chlordiazepoxide (Librium) 25 mg TID PO Last administered on 09/30/16 09:46; Admin Dose 25 MG; Start 09/29/16 at 13:00 Methylprednisolone Sodium Succinate (Solu-Medrol) 40 mg Q12 IV Last administered on 09/30/16 09:45; Admin Dose 40 MG; Start 09/29/16 at 21:00 Aspirin (Aspirin) 81 mg DAILY NGT Last administered on 09/30/16 09:46; Admin Dose 81 MG; Start 09/30/16 at 09:00 ROSANGELA CUEVAS Sep 30, 2016 10:55
--- NOTE | 2016-09-30 11:01 | PN ---
Date/Time of Note Date/Time of Note DATE: 09/30/16 TIME: 11:00 Assessment/Plan VTE Prophylaxis VTE Prophylaxis Intervention: SCD's Assessment/Plan Chief Complaint/Hosp Course 41 yo male with etoh use d/o, opiate use d/o who has developed respiratory failure requiring mechanical ventilation and VAP PULM: Acute hypoxic respiratory failure: - Still requiring high FiO2, XR shows edema and pneumonia. There is thick secretions on suctioning. Trach aspirated growing MRSA. Continue doxy/unasyn - Some pulmonary edema, continue lasix but close eye on creatinine/overdiuresis - Wean sedation as able and extubate when able, patient not tolerating CPAP trials as becomes too agitated off sedation, may need tracheostomy RENAL: No active issues CV: - HD stable - Type II NSTEMI on admission, resolved NEURO: - Imaging suggestive of watershed ischemic injury - Repeat MRI when stable to asess extent PSYCH: - Presentation likely 2/2 opiate overdose, also amphetamine use d/o - Assess need for opiate replacement therapy when extubated ID: - Likely PNA 2/2 MSRA - Continue unasyn/doxy HEME: - Anemia, mild, stable PPx: SCDs, PPI Problems: Subjective 24 Hr Interval Summary Subjective hx not possible: pt non-verbal Exam/Review of Systems Vital Signs Vitals Vital Signs Date Time Temp Pulse Resp B/P Pulse Ox O2 Delivery O2 Flow Rate FiO2 09/30/16 10:30 90 22 148/85 98 09/30/16 10:00 Mechanical Ventilator 09/30/16 08:00 98.3 09/30/16 08:00 85 Intake and Output 09/29/16 09/29/16 09/30/16 15:00 23:00 07:00 Intake Total 1006.5 ml 846.20 ml 687.26 ml Output Total 960 ml 795 ml 310 ml Balance 46.5 ml 51.20 ml 377.26 ml Exam Constitutional: non-verbal ENMT: intubated Respiratory: clear to auscultation Cardiovascular: regular rate and rhythm Gastrointestinal: soft, No distended Musculoskeletal: nl extremities to inspection Results Result Diagram: 09/30/16 0430 09/30/16 0430 Results 24 hrs Laboratory Tests Test 09/30/16 04:30 09/30/16 07:00 White Blood Count 16.9 H Red Blood Count 4.73 Hemoglobin 13.5 L Hematocrit 43.3 Mean Corpuscular Volume 91.5 Mean Corpuscular Hemoglobin 28.5 L Mean Corpuscular Hemoglobin Concent 31.2 L Red Cell Distribution Width 12.8 Platelet Count 659 H Mean Platelet Volume 9.8 Neutrophils % 80.9 H Lymphocytes % 12.3 L Monocytes % 6.0 Eosinophils % 0.1 Basophils % 0.2 Nucleated Red Blood Cells % 0.0 Neutrophils # (Manual) 14 H Lymphocytes # 2.1 Monocytes # 1.0 H Eosinophils # 0.0 Basophils # 0.0 Nucleated Red Blood Cells # 0.0 Sodium Level 148 H Potassium Level 4.1 Chloride Level 107 Carbon Dioxide Level 30 Anion Gap 15 Blood Urea Nitrogen 37 H Creatinine 0.92 Glucose Level 154 Calcium Level 9.5 Phosphorus Level 5.5 H Magnesium Level 2.3 Blood Gas Specimen Source Blood arterial Arterial Blood Date Drawn 09/30/2016 7:45:44 AM Arterial Blood pH (Temp corrected) 7.459 H Arterial Blood pCO2 (Temp correct) 40.4 Arterial Blood pO2 (Temp corrected) 237.2 H Arterial Blood HCO3 28.0 H Arterial Blood Base Excess 3.9 H Arterial Blood Oxygen Saturation 99.3 H Vinicius Test ACCEPTAB Arterial Blood Gas Puncture Site Right Radial Arterial Blood Carboxyhemoglobin 0.3 Arterial Blood Methemoglobin 0.4 Blood Gas A-a O2 Differential 326.9 H Oxyhemoglobin Percent 98.6 Total Hemoglobin 17.7 Blood Gas Temperature 37.0 Blood Gas Respiration Rate 20.0 Blood Gas Actual Respiration Rate 20 Blood Gas Modality VENT - AC FiO2 85.0 Blood Gas Tidal Volume 500.0 Blood Gas Low PEEP Setting 5.0 Blood Gas Notified Whom CW Blood Gas Notified Time 09/30/2016 8:24:13 AM Medications Medications Current Medications Ondansetron HCl 4 mg 4 mg Q6H PRN IV NAUSEA AND/OR VOMITING; Start 09/14/16 at 17:00 Fentanyl (Sublimaze) 100 ml @ 2.5 mls/hr TITRATE IV Last administered on 00:29; Admin Dose 2.5 MLS/HR; Start 09/15/16 at 13:30 Morphine Sulfate 2 mg 2 mg Q4H PRN IV SEVERE PAIN LEVEL 7-10 Last administered on 09/30/16 00:08; Admin Dose 2 MG; Start 09/16/16 at 10:30 Propofol 100 ml @ 0 mls/hr TITRATE IV Last administered on 09/30/16 07:33; Admin Dose 21.78 MLS/HR; Start 09/19/16 at 09:30 Midazolam HCl (Versed) 50 ml @ 1 mls/hr TITRATE IV Last administered on 23:36; Admin Dose 4 MLS/HR; Start 09/19/16 at 09:30 Enoxaparin Sodium (Lovenox) 40 mg DAILY SC Last administered on 09/30/16 09:52 ; Admin Dose 40 MG; Start 09/19/16 at 10:00 Lansoprazole 30 mg 30 mg DAILY@06 NGT Last administered on 09/30/16 05:44; Admin Dose 30 MG; Start 09/20/16 at 06:00 Doxycycline Hyclate/Sodium Chloride (Vibramycin/NS) 250 ml @ 250 mls/hr Q12 IVPB Last administered on 09/30/16 10:07; Admin Dose 250 MLS/HR; Start at 14:00 Chlordiazepoxide (Librium) 25 mg TID PO Last administered on 09/30/16 09:46; Admin Dose 25 MG; Start 09/29/16 at 13:00 Methylprednisolone Sodium Succinate (Solu-Medrol) 40 mg Q12 IV Last administered on 09/30/16 09:45; Admin Dose 40 MG; Start 09/29/16 at 21:00 Aspirin (Aspirin) 81 mg DAILY NGT Last administered on 09/30/16 09:46; Admin Dose 81 MG; Start 09/30/16 at 09:00 MARCIO STOREY Sep 30, 2016 11:01
[2016-10-01] VITALS (34 sets, daily range): BP systolic 126–174; BP diastolic 62–99; PULSE 76–108; RESP 16–22
[2016-10-01 05:04] LABS: BASOPHILS % 0.1 % (0.0-2.0); EOSINOPHILS % 0.2 % (0.0-7.0); HEMATOCRIT 44.3 % (42.0-52.0); HEMOGLOBIN 13.9 g/dl (14.0-18.0); LYMPHOCYTES # 1.3 10^3/ul (0.8-2.9); LYMPHOCYTES % 7.4 % (15.0-51.0); MEAN CORPUSCULAR HEMOGLOBIN 28.8 pg (29.0-33.0); MEAN CORPUSCULAR HGB CONC 31.4 g/dl (32.0-37.0); MEAN CORPUSCULAR VOLUME 91.9 fl (82.0-101.0); MONOCYTE # 0.9 10^3/ul (0.3-0.9); MONOCYTES % 4.7 % (0.0-11.0); NEUTROPHILS % 86.8 % (39.0-77.0); RED BLOOD COUNT 4.82 10^6/ul (4.70-6.10); RED CELL DISTRIBUTION WIDTH 12.6 % (11.5-14.5); WHITE BLOOD COUNT 18.2 10^3/ul (4.8-10.8)
[2016-10-01 05:22] LABS: PLATELET COUNT 661 10^3/UL (140-415)
[2016-10-01 05:42] LABS: CALCIUM 9.3 mg/dl (8.4-10.2); CREATININE 0.79 mg/dl (0.61-1.24); POTASSIUM 3.8 mmol/L (3.5-5.1)
[2016-10-01] MEDS: FUROSEMIDE 40 MG INJ IV SCH ×2 (05:58→18:31)
[2016-10-01] MEDS: LANSOPRAZOLE 30 MG CAP NGT SCH (05:58)
[2016-10-01] MEDS: PROPOFOL 100 ML IV SCH ×5 (08:33→23:40)
[2016-10-01] MEDS: ASPIRIN 81 MG TAB NGT SCH (09:26)
[2016-10-01] MEDS: METHYLPREDNISOLONE 40 MG INJ IV SCH (09:27)
[2016-10-01] MEDS: ENOXAPARIN 40 MG/0.4 ML SYG SC SCH (09:28)
[2016-10-01] MEDS: DOXYCYCLINE 100 MG in SOD CHLORIDE 0.9% 250 ML IVPB SCH ×2 (09:35→21:01)
[2016-10-01] MEDS: CHLORDIAZEPOXIDE 25 MG CAP PO SCH ×3 (09:41→20:55)
--- NOTE | 2016-10-01 10:00 | CONS ---
Date/Time of Note Date/Time of Note DATE: 10/01/16 TIME: 09:57 Assessment/Plan Assessment/Plan Additional Assessment/Plan Ventilator setting; AC of 16, tidal volume 500, PEEP of 5, 50% FiO2. Next Patient currently on propofol at 35 mics per kilogram per minute, fentanyl 25 mics per hour. Assessment and recommendations; 1. Patient admitted for multidrug overdose causing respiratory failure has failed numerous weaning trials from ventilator indicative of ongoing encephalopathy. 2. Status post acute renal failure due to rhabdomyolysis. 3. Leukocytosis possibly a steroid response. 4. Mild hypoxemia. Discontinue Solu-Medrol. Obtain an ABG. Patient likely will need to have a tracheostomy performed. Consultation Date/Type/Reason Admit Date/Time Sep 14, 2016 at 16:36 Initial Consult Date 09/16/16 Type of Consultation: Pulmonary/critical care 24 HR Interval Summary Free Text/Dictation Patient's condition remains critical. Patient has failed numerous weaning trials from ventilator. Never sedation is decreased the patient becomes extremely agitated. Patient also failed a weaning trial yesterday as well. General exam; young male, orally intubated, sedated, currently in no distress. Exam/Review of Systems Vital Signs Vitals Vital Signs Date Time Temp Pulse Resp B/P Pulse Ox O2 Delivery O2 Flow Rate FiO2 10/01/16 08:00 103 10/01/16 07:00 19 155/96 100 Mechanical Ventilator 10/01/16 05:29 50 10/01/16 04:00 98.2 Intake and Output 09/30/16 09/30/16 10/01/16 15:00 23:00 07:00 Intake Total 791.50 ml 787.87 ml 495.92 ml Output Total 675 ml 525 ml 615 ml Balance 116.50 ml 262.87 ml -119.08 ml Exam HEENT exam; supple neck, no JVD. No lymphadenopathy. Midline trachea. No thyromegaly. Orally intubated. Patient has fair dentition. No neck masses. Chest exam; clear to auscultation. S1-S2 audible, no murmurs. Regular rhythm. Abdomen exam; soft, no organomegaly. Protuberant. Bowel sounds audible. Extremity exam; no peripheral edema. Pulses 2+ bilaterally. 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 Results Result Diagram: 10/01/1639910/01/16 0400 Results 24 hrs Laboratory Tests Test 10/01/16 04:00 White Blood Count 18.2 H Red Blood Count 4.82 Hemoglobin 13.9 L Hematocrit 44.3 Mean Corpuscular Volume 91.9 Mean Corpuscular Hemoglobin 28.8 L Mean Corpuscular Hemoglobin Concent 31.4 L Red Cell Distribution Width 12.6 Platelet Count 661 H Mean Platelet Volume 10.0 Neutrophils % 86.8 H Lymphocytes % 7.4 L Monocytes % 4.7 Eosinophils % 0.2 Basophils % 0.1 Nucleated Red Blood Cells % 0.0 Neutrophils # (Manual) 16 H Lymphocytes # 1.3 Monocytes # 0.9 Eosinophils # 0.0 Basophils # 0.0 Nucleated Red Blood Cells # 0.0 Sodium Level 149 H Potassium Level 3.8 Chloride Level 107 Carbon Dioxide Level 31 Anion Gap 15 Blood Urea Nitrogen 36 H Creatinine 0.79 Glucose Level 188 Calcium Level 9.3 Medications Medications Current Medications Ondansetron HCl 4 mg 4 mg Q6H PRN IV NAUSEA AND/OR VOMITING; Start 09/14/16 at 17:00 Fentanyl (Sublimaze) 100 ml @ 2.5 mls/hr TITRATE IV Last administered on 00:29; Admin Dose 2.5 MLS/HR; Start 09/15/16 at 13:30 Morphine Sulfate 2 mg 2 mg Q4H PRN IV SEVERE PAIN LEVEL 7-10 Last administered on 09/30/16 00:08; Admin Dose 2 MG; Start 09/16/16 at 10:30 Propofol 100 ml @ 0 mls/hr TITRATE IV Last administered on 10/01/16 08:33; Admin Dose 25.41 MLS/HR; Start 09/19/16 at 09:30 Midazolam HCl (Versed) 50 ml @ 1 mls/hr TITRATE IV Last administered on 23:36; Admin Dose 4 MLS/HR; Start 09/19/16 at 09:30 Enoxaparin Sodium (Lovenox) 40 mg DAILY SC Last administered on 10/01/16 09:28 ; Admin Dose 40 MG; Start 09/19/16 at 10:00 Lansoprazole 30 mg 30 mg DAILY@06 NGT Last administered on 10/01/16 05:58; Admin Dose 30 MG; Start 09/20/16 at 06:00 Doxycycline Hyclate/Sodium Chloride (Vibramycin/NS) 250 ml @ 250 mls/hr Q12 IVPB Last administered on 10/01/16 09:35; Admin Dose 250 MLS/HR; Start at 14:00 Chlordiazepoxide (Librium) 25 mg TID PO Last administered on 10/01/16 09:41; Admin Dose 25 MG; Start 09/29/16 at 13:00 Methylprednisolone Sodium Succinate (Solu-Medrol) 40 mg Q12 IV Last administered on 10/01/16 09:27; Admin Dose 40 MG; Start 09/29/16 at 21:00 Aspirin (Aspirin) 81 mg DAILY NGT Last administered on 10/01/16 09:26; Admin Dose 81 MG; Start 09/30/16 at 09:00 ROSANGELA CUEVAS Oct 01, 2016 10:00
[2016-10-01] MEDS: FENTAnyl (DRIP) 1000 mcg/100mL 100 ML IV SCH (10:11)
[2016-10-01] MEDS ORDERED: NA BICARBONATE 8.4% 50 ML SYG IV ONE (13:00)
--- NOTE | 2016-10-01 13:27 | CONS ---
Date/Time of Note Date/Time of Note DATE: 10/01/16 TIME: 13:23 Assessment/Plan Assessment/Plan Chief Complaint/Hosp Course NSTEMI - likely type 2 in setting of possible amphetamine overdose and possibly coronary vasospasm. If mental status recovers, would need coronary evaluation by either cardiac cath or coronary CTA Acute hypoxic respiratory failure - intubated, awaiting trach Acute encephalopathy Possible anoxic brain injury - per neurology Amphetamine abuse Problems: Additional Assessment/Plan -aspirin 81mg NGT daily -planning for tracheostomy -if mental status recovers, coronary evaluation is reasonable -will sign off for now, please reconsult if mentation recovers or active cardiac issues develop Consultation Date/Type/Reason Admit Date/Time Sep 14, 2016 at 16:36 Initial Consult Date 09/16/16 Type of Consultation: Cardiology 24 HR Interval Summary Free Text/Dictation No o/n events. Still awaiting tracheostomy. FiO2 improving Exam/Review of Systems Vital Signs Vitals Vital Signs Date Time Temp Pulse Resp B/P Pulse Ox O2 Delivery O2 Flow Rate FiO2 10/01/16 12:00 97.7 99 22 140/67 98 Mechanical Ventilator 10/01/16 05:29 50 Intake and Output 09/30/16 09/30/16 10/01/16 14:59 22:59 06:59 Intake Total 787.87 ml 787.87 ml 553.83 ml Output Total 675 ml 445 ml 695 ml Balance 112.87 ml 342.87 ml -141.17 ml Exam Constitutional: No alert Head: atraumatic, normocephalic ENMT: intubated Neck: supple, No jvd Respiratory: diminished breath sounds, No clear to auscultation, No crackles/rales Cardiovascular: regular rate and rhythm, No edema, No systolic murmur Gastrointestinal: non-tender, soft Musculoskeletal: nl extremities to inspection Extremities: normal pulses Neurological: No nl mental status, No nl speech Results Result Diagram: 10/01/1639910/01/16399 Results 24 hrs Laboratory Tests Test 10/01/16 04:00 White Blood Count 18.2 H Red Blood Count 4.82 Hemoglobin 13.9 L Hematocrit 44.3 Mean Corpuscular Volume 91.9 Mean Corpuscular Hemoglobin 28.8 L Mean Corpuscular Hemoglobin Concent 31.4 L Red Cell Distribution Width 12.6 Platelet Count 661 H Mean Platelet Volume 10.0 Neutrophils % 86.8 H Lymphocytes % 7.4 L Monocytes % 4.7 Eosinophils % 0.2 Basophils % 0.1 Nucleated Red Blood Cells % 0.0 Neutrophils # (Manual) 16 H Lymphocytes # 1.3 Monocytes # 0.9 Eosinophils # 0.0 Basophils # 0.0 Nucleated Red Blood Cells # 0.0 Sodium Level 149 H Potassium Level 3.8 Chloride Level 107 Carbon Dioxide Level 31 Anion Gap 15 Blood Urea Nitrogen 36 H Creatinine 0.79 Glucose Level 188 Calcium Level 9.3 Medications Medications Current Medications Ondansetron HCl 4 mg 4 mg Q6H PRN IV NAUSEA AND/OR VOMITING; Start 09/14/16 at 17:00 Fentanyl (Sublimaze) 100 ml @ 2.5 mls/hr TITRATE IV Last administered on 10:11; Admin Dose 2.5 MLS/HR; Start 09/15/16 at 13:30 Morphine Sulfate 2 mg 2 mg Q4H PRN IV SEVERE PAIN LEVEL 7-10 Last administered on 09/30/16 00:08; Admin Dose 2 MG; Start 09/16/16 at 10:30 Propofol 100 ml @ 0 mls/hr TITRATE IV Last administered on 10/01/16 12:38; Admin Dose 25.41 MLS/HR; Start 09/19/16 at 09:30 Midazolam HCl (Versed) 50 ml @ 1 mls/hr TITRATE IV Last administered on 23:36; Admin Dose 4 MLS/HR; Start 09/19/16 at 09:30 Enoxaparin Sodium (Lovenox) 40 mg DAILY SC Last administered on 10/01/16 09:28 ; Admin Dose 40 MG; Start 09/19/16 at 10:00 Lansoprazole 30 mg 30 mg DAILY@06 NGT Last administered on 10/01/16 05:58; Admin Dose 30 MG; Start 09/20/16 at 06:00 Doxycycline Hyclate/Sodium Chloride (Vibramycin/NS) 250 ml @ 250 mls/hr Q12 IVPB Last administered on 10/01/16 09:35; Admin Dose 250 MLS/HR; Start at 14:00 Chlordiazepoxide (Librium) 25 mg TID PO Last administered on 10/01/16 09:41; Admin Dose 25 MG; Start 09/29/16 at 13:00 Aspirin (Aspirin) 81 mg DAILY NGT Last administered on 10/01/16 09:26; Admin Dose 81 MG; Start 09/30/16 at 09:00 WILBER BLAKE Oct 01, 2016 13:26
--- NOTE | 2016-10-01 18:23 | PN ---
Date/Time of Note Date/Time of Note DATE: 10/01/16 TIME: 18:23 Assessment/Plan VTE Prophylaxis VTE Prophylaxis Intervention: SCD's Assessment/Plan Chief Complaint/Hosp Course 41 yo male with etoh use d/o, opiate use d/o who has developed respiratory failure requiring mechanical ventilation and VAP PULM: Acute hypoxic respiratory failure: - Still requiring high FiO2, XR shows edema and pneumonia. There is thick secretions on suctioning. Trach aspirated growing MRSA. Continue doxy/unasyn - Some pulmonary edema, continue lasix but close eye on creatinine/overdiuresis - Wean sedation as able and extubate when able, patient not tolerating CPAP trials as becomes too agitated off sedation, may need tracheostomy RENAL: No active issues CV: - HD stable - Type II NSTEMI on admission, resolved NEURO: - Imaging suggestive of watershed ischemic injury - Repeat MRI when stable to asess extent PSYCH: - Presentation likely 2/2 opiate overdose, also amphetamine use d/o - Assess need for opiate replacement therapy when extubated ID: - Likely PNA 2/2 MSRA - Continue unasyn/doxy HEME: - Anemia, mild, stable PPx: SCDs, PPI Problems: Subjective 24 Hr Interval Summary Subjective hx not possible: pt non-verbal Exam/Review of Systems Vital Signs Vitals Vital Signs Date Time Temp Pulse Resp B/P Pulse Ox O2 Delivery O2 Flow Rate FiO2 10/01/16 17:10 106 19 100 50 10/01/16 16:00 97.8 132/71 Mechanical Ventilator Intake and Output 09/30/16 09/30/16 10/01/16 15:00 23:00 07:00 Intake Total 791.50 ml 787.87 ml 528.42 ml Output Total 675 ml 525 ml 865 ml Balance 116.50 ml 262.87 ml -336.58 ml Exam Constitutional: non-verbal Respiratory: clear to auscultation Cardiovascular: regular rate and rhythm Gastrointestinal: soft, No distended Musculoskeletal: nl extremities to inspection Results Result Diagram: 10/01/160 10/01/16 0400 Results 24 hrs Laboratory Tests Test 10/01/16 04:00 White Blood Count 18.2 H Red Blood Count 4.82 Hemoglobin 13.9 L Hematocrit 44.3 Mean Corpuscular Volume 91.9 Mean Corpuscular Hemoglobin 28.8 L Mean Corpuscular Hemoglobin Concent 31.4 L Red Cell Distribution Width 12.6 Platelet Count 661 H Mean Platelet Volume 10.0 Neutrophils % 86.8 H Lymphocytes % 7.4 L Monocytes % 4.7 Eosinophils % 0.2 Basophils % 0.1 Nucleated Red Blood Cells % 0.0 Neutrophils # (Manual) 16 H Lymphocytes # 1.3 Monocytes # 0.9 Eosinophils # 0.0 Basophils # 0.0 Nucleated Red Blood Cells # 0.0 Sodium Level 149 H Potassium Level 3.8 Chloride Level 107 Carbon Dioxide Level 31 Anion Gap 15 Blood Urea Nitrogen 36 H Creatinine 0.79 Glucose Level 188 Calcium Level 9.3 Medications Medications Current Medications Ondansetron HCl 4 mg 4 mg Q6H PRN IV NAUSEA AND/OR VOMITING; Start 09/14/16 at 17:00 Fentanyl (Sublimaze) 100 ml @ 2.5 mls/hr TITRATE IV Last administered on 10:11; Admin Dose 2.5 MLS/HR; Start 09/15/16 at 13:30 Morphine Sulfate 2 mg 2 mg Q4H PRN IV SEVERE PAIN LEVEL 7-10 Last administered on 09/30/16 00:08; Admin Dose 2 MG; Start 09/16/16 at 10:30 Propofol 100 ml @ 0 mls/hr TITRATE IV Last administered on 10/01/16 16:47; Admin Dose 25.41 MLS/HR; Start 09/19/16 at 09:30 Midazolam HCl (Versed) 50 ml @ 1 mls/hr TITRATE IV Last administered on 23:36; Admin Dose 4 MLS/HR; Start 09/19/16 at 09:30 Enoxaparin Sodium (Lovenox) 40 mg DAILY SC Last administered on 10/01/16 09:28 ; Admin Dose 40 MG; Start 09/19/16 at 10:00 Lansoprazole 30 mg 30 mg DAILY@06 NGT Last administered on 10/01/16 05:58; Admin Dose 30 MG; Start 09/20/16 at 06:00 Doxycycline Hyclate/Sodium Chloride (Vibramycin/NS) 250 ml @ 250 mls/hr Q12 IVPB Last administered on 10/01/16 09:35; Admin Dose 250 MLS/HR; Start at 14:00 Chlordiazepoxide (Librium) 25 mg TID PO Last administered on 10/01/16 16:49; Admin Dose 25 MG; Start 09/29/16 at 13:00 Aspirin (Aspirin) 81 mg DAILY NGT Last administered on 10/01/16 09:26; Admin Dose 81 MG; Start 09/30/16 at 09:00 MARCIO STOREY Oct 01, 2016 18:23
[2016-10-02] VITALS (62 sets, daily range): BP systolic 107–177; BP diastolic 64–98; PULSE 92–132; RESP 13–25
[2016-10-02 05:51] LABS: ABNORMAL IP MESSAGE 1; BASOPHILS % 0.2 % (0.0-2.0); EOSINOPHILS # 0.4 10^3/ul (0.0-0.5); EOSINOPHILS % 2.2 % (0.0-7.0); HEMATOCRIT 47.4 % (42.0-52.0); HEMOGLOBIN 14.6 g/dl (14.0-18.0); LYMPHOCYTES # 1.8 10^3/ul (0.8-2.9); LYMPHOCYTES % 10.1 % (15.0-51.0); MEAN CORPUSCULAR HEMOGLOBIN 28.9 pg (29.0-33.0); MEAN CORPUSCULAR HGB CONC 30.8 g/dl (32.0-37.0); MEAN CORPUSCULAR VOLUME 93.7 fl (82.0-101.0); MEAN PLATELET VOLUME 10.2 fl (7.4-10.4); MONOCYTE # 1.5 10^3/ul (0.3-0.9); MONOCYTES % 8.7 % (0.0-11.0); NEUTROPHILS % 78.1 % (39.0-77.0); PLATELET COUNT 601 10^3/UL (140-415); POSITIVE DIFF @See below; RED BLOOD COUNT 5.06 10^6/ul (4.70-6.10); RED CELL DISTRIBUTION WIDTH 12.9 % (11.5-14.5); WHITE BLOOD COUNT 17.6 10^3/ul (4.8-10.8)
[2016-10-02 06:24] LABS: CALCIUM 9.4 mg/dl (8.4-10.2); CREATININE 0.73 mg/dl (0.61-1.24); POTASSIUM 3.3 mmol/L (3.5-5.1)
[2016-10-02] MEDS: PROPOFOL 100 ML IV SCH ×3 (06:59→20:21)
[2016-10-02] MEDS: LANSOPRAZOLE 30 MG CAP NGT SCH (07:01)
[2016-10-02] MEDS: FUROSEMIDE 40 MG INJ IV SCH ×2 (07:01→17:08)
--- NOTE | 2016-10-02 08:09 | RADRPT ---
PROCEDURE: XR Chest AP portable CLINICAL INDICATION: Respiratory failure TECHNIQUE: An AP portable radiograph of the chest was submitted. COMPARISON: 09/30/2016 FINDINGS: Support Hardware: The endotracheal tube, the enteric tube, and the left subclavian central venous ca theter are stable in positioning. Cardiovascular: The cardiovascular silhouette appears unremarkable. Lung Paige: With discoid atelectasis is no longer seen at the left lung base with the lung paige c lear. Pleural Spaces: No pneumothorax or pleural effusion is identified. Osseous Structures: The osseous structures appear intact. Soft Tissues: The soft tissues appear generous. IMPRESSION: 1. The tubes and lines are stable in positioning. 2. Resolution of the discoid atelectasis previously seen at the left lung base. Physician Valentino Date Time Electronically viewed and signed by Physician Valentino on 10/02/2016 08:08 /
[2016-10-02] MEDS ORDERED: POTASSIUM CHLORIDE 250 ML IVPB ONE (08:30)
[2016-10-02] MEDS: DOXYCYCLINE 100 MG in SOD CHLORIDE 0.9% 250 ML IVPB SCH ×2 (09:27→20:24)
[2016-10-02] MEDS: CHLORDIAZEPOXIDE 25 MG CAP PO SCH ×2 (09:27→13:32)
[2016-10-02] MEDS: ASPIRIN 81 MG TAB NGT SCH (09:27)
[2016-10-02] MEDS: ENOXAPARIN 40 MG/0.4 ML SYG SC SCH (09:37)
--- NOTE | 2016-10-02 09:45 | CONS ---
Date/Time of Note Date/Time of Note DATE: 10/02/16 TIME: 09:43 Assessment/Plan Assessment/Plan Additional Assessment/Plan Chest x-ray was reviewed from today which is totally clear. Ventilator setting; AC of 16, tidal volume 500, PEEP of 5, 40% FiO2. Patient currently on propofol at 20 mics per kilogram per minute, fentanyl 25 mics per hour. Assessment and recommendations; 1. Patient admitted with multidrug overdose causing respiratory failure patient has failed numerous weaning trials from ventilator. 2. Mild leukocytosis possibly a steroid response. For sedation again. When the patient off sedation he will be again evaluated for weaning from ventilator. The patient if he fails, likely will need to have a tracheostomy performed. Consultation Date/Type/Reason Admit Date/Time Sep 14, 2016 at 16:36 Initial Consult Date 09/16/16 Type of Consultation: Pulmonary/critical care 24 HR Interval Summary Free Text/Dictation Patient condition remains critical. Remains intubated. Patient requiring continuous intravenous sedation because of severe agitation whenever sedation dose is decreased. That has precluded weaning from ventilator so far. General exam; young male, orally intubated, sedated, currently in no distress. Exam/Review of Systems Vital Signs Vitals Vital Signs Date Time Temp Pulse Resp B/P Pulse Ox O2 Delivery O2 Flow Rate FiO2 10/02/16 08:30 99 16 122/76 99 10/02/16 08:00 99.2 Mechanical Ventilator 10/02/16 05:00 50 Intake and Output 10/01/16 10/01/16 10/02/16 15:00 23:00 07:00 Intake Total 681.12 ml 386.90 ml 530.81 ml Output Total 1300 ml 975 ml 330 ml Balance -618.88 ml -588.10 ml 200.81 ml Exam HEENT exam; supple neck, no JVD. No lymphadenopathy. Midline trachea. No thyromegaly. Orally intubated. Pupils are small bilaterally. Chest exam; diminished but clear breath sound. S1-S2 audible, no murmurs. Regular rhythm. Abdomen exam; soft, nondistended. No organomegaly. Bowel sounds audible. Extremity exam; no peripheral edema. Pulses 2+ bilaterally. [employer] exam; patient is sedated. Results Result Diagram: 10/02/16 0440 10/02/16 0440 Results 24 hrs Laboratory Tests Test 10/02/16 04:40 White Blood Count 17.6 H Red Blood Count 5.06 Hemoglobin 14.6 Hematocrit 47.4 Mean Corpuscular Volume 93.7 Mean Corpuscular Hemoglobin 28.9 L Mean Corpuscular Hemoglobin Concent 30.8 L Red Cell Distribution Width 12.9 Platelet Count 601 H Mean Platelet Volume 10.2 Neutrophils % 78.1 H Lymphocytes % 10.1 L Monocytes % 8.7 Eosinophils % 2.2 Basophils % 0.2 Nucleated Red Blood Cells % 0.0 Neutrophils # (Manual) 14 H Lymphocytes # 1.8 Monocytes # 1.5 H Eosinophils # 0.4 Basophils # 0.0 Nucleated Red Blood Cells # 0.0 Sodium Level 148 H Potassium Level 3.3 L Chloride Level 104 Carbon Dioxide Level 33 H Anion Gap 14 Blood Urea Nitrogen 33 H Creatinine 0.73 Glucose Level 184 Calcium Level 9.4 Medications Medications Current Medications Ondansetron HCl 4 mg 4 mg Q6H PRN IV NAUSEA AND/OR VOMITING; Start 09/14/16 at 17:00 Fentanyl (Sublimaze) 100 ml @ 2.5 mls/hr TITRATE IV Last administered on 10:11; Admin Dose 2.5 MLS/HR; Start 09/15/16 at 13:30 Morphine Sulfate 2 mg 2 mg Q4H PRN IV SEVERE PAIN LEVEL 7-10 Last administered on 09/30/16 00:08; Admin Dose 2 MG; Start 09/16/16 at 10:30 Propofol 100 ml @ 0 mls/hr TITRATE IV Last administered on 10/02/16 06:59; Admin Dose 27.23 MLS/HR; Start 09/19/16 at 09:30 Midazolam HCl (Versed) 50 ml @ 1 mls/hr TITRATE IV Last administered on 23:36; Admin Dose 4 MLS/HR; Start 09/19/16 at 09:30 Enoxaparin Sodium (Lovenox) 40 mg DAILY SC Last administered on 10/02/16 09:37 ; Admin Dose 40 MG; Start 09/19/16 at 10:00 Lansoprazole 30 mg 30 mg DAILY@06 NGT Last administered on 10/02/16 07:01; Admin Dose 30 MG; Start 09/20/16 at 06:00 Doxycycline Hyclate/Sodium Chloride (Vibramycin/NS) 250 ml @ 250 mls/hr Q12 IVPB Last administered on 10/02/16 09:27; Admin Dose 250 MLS/HR; Start at 14:00 Chlordiazepoxide (Librium) 25 mg TID PO Last administered on 10/02/16 09:27; Admin Dose 25 MG; Start 09/29/16 at 13:00 Aspirin 81 mg 81 mg DAILY NGT Last administered on 10/02/16 09:27; Admin Dose 81 MG; Start 09/30/16 at 09:00 Potassium Chloride (KCl 40 MEQ/250 ML NS) 250 ml @ 62.5 mls/hr ONCE ONCE IVPB Last administered on 10/02/16 09:25; Admin Dose 62.5 MLS/HR; Start 10/02/16 at 08:30; Stop 10/02/16 at 12:29 ROSANGELA CUEVAS Oct 02, 2016 09:45
[2016-10-02] MEDS: morphine 2 MG INJ IV PRN (15:50)
--- NOTE | 2016-10-02 18:23 | PN ---
Date/Time of Note Date/Time of Note DATE: 10/02/16 TIME: 18:21 Assessment/Plan VTE Prophylaxis VTE Prophylaxis Intervention: LMWH Lines/Catheters IV Catheter Type (from Nrs): Central Line Central line still needed: Yes Urinary Cath still in place: Yes Reason Cath still needed: urinary retention Assessment/Plan Chief Complaint/Hosp Course 41 yo male with etoh use d/o, opiate use d/o who has developed respiratory failure requiring mechanical ventilation and VAP PULM: Acute hypoxic respiratory failure: - Continue doxy/unasyn - Some pulmonary edema, continue lasix but close eye on creatinine/overdiuresis - Wean sedation as able and extubate when able RENAL: No active issues CV: - HD stable - Type II NSTEMI on admission, resolved NEURO: - Imaging suggestive of watershed ischemic injury - Repeat MRI when stable to asess extent PSYCH: - Presentation likely 2/2 opiate overdose, also amphetamine use d/o - Assess need for opiate replacement therapy when extubated ID: - Likley pnumoenia 2/2 MSRA - Continue unasyn/doxy HEME: - Anemia, mild, stable PPx: HSQ, PPI Problems: Subjective 24 Hr Interval Summary Free Text/Dictation Still sedated and intubated FiO2 now down to 30% on vent Exam/Review of Systems Vital Signs Vitals Vital Signs Date Time Temp Pulse Resp B/P Pulse Ox O2 Delivery O2 Flow Rate FiO2 10/02/16 16:30 122 19 126/80 93 10/02/16 16:00 99.4 Mechanical Ventilator 10/02/16 15:03 40 Intake and Output 10/01/16 10/01/16 10/02/16 15:00 23:00 07:00 Intake Total 681.12 ml 386.90 ml 560.81 ml Output Total 1300 ml 975 ml 530 ml Balance -618.88 ml -588.10 ml 30.81 ml Results Result Diagram: 10/02/160 10/02/16439 Results 24 hrs Laboratory Tests Test 10/02/16 04:40 White Blood Count 17.6 H Red Blood Count 5.06 Hemoglobin 14.6 Hematocrit 47.4 Mean Corpuscular Volume 93.7 Mean Corpuscular Hemoglobin 28.9 L Mean Corpuscular Hemoglobin Concent 30.8 L Red Cell Distribution Width 12.9 Platelet Count 601 H Mean Platelet Volume 10.2 Neutrophils % 78.1 H Lymphocytes % 10.1 L Monocytes % 8.7 Eosinophils % 2.2 Basophils % 0.2 Nucleated Red Blood Cells % 0.0 Neutrophils # (Manual) 14 H Lymphocytes # 1.8 Monocytes # 1.5 H Eosinophils # 0.4 Basophils # 0.0 Nucleated Red Blood Cells # 0.0 Sodium Level 148 H Potassium Level 3.3 L Chloride Level 104 Carbon Dioxide Level 33 H Anion Gap 14 Blood Urea Nitrogen 33 H Creatinine 0.73 Glucose Level 184 Calcium Level 9.4 Medications Medications Current Medications Ondansetron HCl 4 mg 4 mg Q6H PRN IV NAUSEA AND/OR VOMITING; Start 09/14/16 at 17:00 Fentanyl (Sublimaze) 100 ml @ 2.5 mls/hr TITRATE IV Last administered on 10:11; Admin Dose 2.5 MLS/HR; Start 09/15/16 at 13:30 Morphine Sulfate 2 mg 2 mg Q4H PRN IV SEVERE PAIN LEVEL 7-10 Last administered on 09/30/16 00:08; Admin Dose 2 MG; Start 09/16/16 at 10:30 Propofol 100 ml @ 0 mls/hr TITRATE IV Last administered on 10/02/16 15:30; Admin Dose 14.52 MLS/HR; Start 09/19/16 at 09:30 Midazolam HCl (Versed) 50 ml @ 1 mls/hr TITRATE IV Last administered on 23:36; Admin Dose 4 MLS/HR; Start 09/19/16 at 09:30 Enoxaparin Sodium (Lovenox) 40 mg DAILY SC Last administered on 10/02/16 09:37 ; Admin Dose 40 MG; Start 09/19/16 at 10:00 Lansoprazole 30 mg 30 mg DAILY@06 NGT Last administered on 10/02/16 07:01; Admin Dose 30 MG; Start 09/20/16 at 06:00 Doxycycline Hyclate/Sodium Chloride (Vibramycin/NS) 250 ml @ 250 mls/hr Q12 IVPB Last administered on 10/02/16 09:27; Admin Dose 250 MLS/HR; Start at 14:00 Chlordiazepoxide (Librium) 25 mg TID PO Last administered on 10/02/16 13:32; Admin Dose 25 MG; Start 09/29/16 at 13:00 Aspirin (Aspirin) 81 mg DAILY NGT Last administered on 10/02/16 09:27; Admin Dose 81 MG; Start 09/30/16 at 09:00 Mupirocin (Bactroban) 1 applic BID TOP ; Start 10/02/16 at 21:00 LACY WOLF MD Oct 02, 2016 18:23
[2016-10-02] MEDS: MUPIROCIN 2% 22 GM OINT TOP SCH (20:20)
[2016-10-03] VITALS (38 sets, daily range): BP systolic 96–155; BP diastolic 63–94; PULSE 91–122; RESP 15–34
[2016-10-03] MEDS: PROPOFOL 100 ML IV SCH (02:24)
[2016-10-03] MEDS: morphine 2 MG INJ IV PRN ×2 (05:06→10:37)
[2016-10-03] MEDS: LANSOPRAZOLE 30 MG CAP NGT SCH (06:33)
[2016-10-03 08:03] LABS: ABNORMAL IP MESSAGE 1; BASOPHIL # 0.1 10^3/ul (0.0-0.1); BASOPHILS % 0.3 % (0.0-2.0); EOSINOPHILS # 0.5 10^3/ul (0.0-0.5); EOSINOPHILS % 2.6 % (0.0-7.0); HEMATOCRIT 44.7 % (42.0-52.0); HEMOGLOBIN 13.8 g/dl (14.0-18.0); LYMPHOCYTES # 1.8 10^3/ul (0.8-2.9); LYMPHOCYTES % 8.7 % (15.0-51.0); MEAN CORPUSCULAR HEMOGLOBIN 28.9 pg (29.0-33.0); MEAN CORPUSCULAR HGB CONC 30.9 g/dl (32.0-37.0); MEAN CORPUSCULAR VOLUME 93.7 fl (82.0-101.0); MEAN PLATELET VOLUME 10.6 fl (7.4-10.4); MONOCYTE # 1.6 10^3/ul (0.3-0.9); MONOCYTES % 7.7 % (0.0-11.0); PLATELET COUNT 467 10^3/UL (140-415); POSITIVE DIFF @See below; RED BLOOD COUNT 4.77 10^6/ul (4.70-6.10); WHITE BLOOD COUNT 20.1 10^3/ul (4.8-10.8)
[2016-10-03 08:20] LABS: ALBUMIN 3.7 g/dl (3.3-4.9); ALBUMIN/GLOBULIN RATIO 1.08; BILIRUBIN,INDIRECT 0.5 mg/dl (0-1.1); BILIRUBIN,TOTAL 0.5 mg/dl (0.2-1.3); CALCIUM 9.4 mg/dl (8.4-10.2); CREATININE 0.78 mg/dl (0.61-1.24); PHOSPHORUS 3.8 mg/dl (2.5-4.9); POTASSIUM 3.7 mmol/L (3.5-5.1); TOTAL PROTEIN 7.1 g/dl (6.1-8.1)
[2016-10-03] MEDS: DOXYCYCLINE 100 MG in SOD CHLORIDE 0.9% 250 ML IVPB SCH ×2 (08:45→20:32)
[2016-10-03] MEDS: MUPIROCIN 2% 22 GM OINT TOP SCH ×2 (08:46→20:32)
[2016-10-03] MEDS: ASPIRIN 81 MG TAB NGT SCH (08:46)
[2016-10-03] MEDS: ENOXAPARIN 40 MG/0.4 ML SYG SC SCH (08:49)
[2016-10-03] MEDS: DEXTROSE 5% 1,000 ML IV SCH ×2 (10:37→12:45)
--- NOTE | 2016-10-03 11:14 | CONS ---
Date/Time of Note Date/Time of Note DATE: 10/03/16 TIME: 11:13 Consult Date/Type/Reason Admit Date/Time Sep 14, 2016 at 16:36 Initial Consult Date 09/16/16 Type of Consultation: Pulmonary/critical care Subjective Less agitated off sedation today. Objective Vital Signs Date Time Temp Pulse Resp B/P Pulse Ox O2 Delivery O2 Flow Rate FiO2 10/03/16 08:00 99.3 105 17 119/85 99 Mechanical Ventilator 10/03/16 05:11 30 Intake and Output 10/02/16 10/02/16 10/03/16 15:00 23:00 07:00 Intake Total 1002.34 ml 485.20 ml 507.05 ml Output Total 630 ml 820 ml 360 ml Balance 372.34 ml -334.80 ml 147.05 ml Exam PHYSICAL EXAMINATION GENERAL: Well-nourished well-developed gentleman intubated on mechanical ventilation moderate secretions. VITAL SIGNS: see below. HEENT: Pupils equal, round, and reactive to light. CARDIAC: S1, S2, 1/6 systolic ejection murmur CHEST: Diminished air entry bilaterally. ABDOMEN: Mildly distended. Bowel sounds present no guarding or rebound EXTREMITIES: No cyanosis, clubbing edema +1 NEUROLOGIC: Generalized weakness Results/Medications Result Diagram: 10/03/16 0730 10/03/16 0730 Results 24 hrs Laboratory Tests Test 10/03/16 07:30 White Blood Count 20.1 H Red Blood Count 4.77 Hemoglobin 13.8 L Hematocrit 44.7 Mean Corpuscular Volume 93.7 Mean Corpuscular Hemoglobin 28.9 L Mean Corpuscular Hemoglobin Concent 30.9 L Red Cell Distribution Width 13.0 Platelet Count 467 #H Mean Platelet Volume 10.6 H Neutrophils % 80.0 H Lymphocytes % 8.7 L Monocytes % 7.7 Eosinophils % 2.6 Basophils % 0.3 Nucleated Red Blood Cells % 0.0 Neutrophils # (Manual) 16 H Lymphocytes # 1.8 Monocytes # 1.6 H Eosinophils # 0.5 Basophils # 0.1 Nucleated Red Blood Cells # 0.0 Sodium Level 152 H Potassium Level 3.7 Chloride Level 105 Carbon Dioxide Level 33 H Anion Gap 18 H Blood Urea Nitrogen 35 H Creatinine 0.78 Glucose Level 158 Calcium Level 9.4 Phosphorus Level 3.8 Magnesium Level 2.4 Total Bilirubin 0.5 Direct Bilirubin 0.00 Indirect Bilirubin 0.5 Aspartate Amino Transf (AST/SGOT) 34 Alanine Aminotransferase (ALT/SGPT) 102 H Alkaline Phosphatase 90 Total Protein 7.1 Albumin 3.7 Globulin 3.40 H Albumin/Globulin Ratio 1.08 Medications Current Medications Ondansetron HCl 4 mg 4 mg Q6H PRN IV NAUSEA AND/OR VOMITING; Start 09/14/16 at 17:00 Fentanyl (Sublimaze) 100 ml @ 2.5 mls/hr TITRATE IV Last administered on 10:11; Admin Dose 2.5 MLS/HR; Start 09/15/16 at 13:30 Morphine Sulfate 2 mg 2 mg Q4H PRN IV SEVERE PAIN LEVEL 7-10 Last administered on 10/03/16 10:37; Admin Dose 2 MG; Start 09/16/16 at 10:30 Propofol 100 ml @ 0 mls/hr TITRATE IV Last administered on 10/03/16 02:24; Admin Dose 16.8 MLS/HR; Start 09/19/16 at 09:30 Midazolam HCl (Versed) 50 ml @ 1 mls/hr TITRATE IV Last administered on 23:36; Admin Dose 4 MLS/HR; Start 09/19/16 at 09:30 Enoxaparin Sodium (Lovenox) 40 mg DAILY SC Last administered on 10/03/16 08:49 ; Admin Dose 40 MG; Start 09/19/16 at 10:00 Lansoprazole 30 mg 30 mg DAILY@06 NGT Last administered on 10/03/16 06:33; Admin Dose 30 MG; Start 09/20/16 at 06:00 Doxycycline Hyclate/Sodium Chloride (Vibramycin/NS) 250 ml @ 250 mls/hr Q12 IVPB Last administered on 10/03/16 08:45; Admin Dose 250 MLS/HR; Start at 14:00 Aspirin (Aspirin) 81 mg DAILY NGT Last administered on 10/03/16 08:46; Admin Dose 81 MG; Start 09/30/16 at 09:00 Mupirocin 1 applic 1 applic BID TOP Last administered on 10/03/16 08:46; Admin Dose 1 APPLIC; Start 10/02/16 at 21:00 Dextrose 1,000 ml @ 500 mls/hr Q2H IV Last administered on 10/03/16t 10:37; Admin Dose 500 MLS/HR; Start 10/03/16 at 09:00; Stop 10/03/16 at 13:19; Status Future hold Dextrose/Sodium Chloride (D5-1/2ns) 1,000 ml @ 75 mls/hr [id number] IV ; Start at 09:30 Assessment/Plan Chief Complaint/Hosp Course Assessment/Plan IMP: 1. AMS--encephalopathy currently of unclear etiology. Possible anoxic brain injury. MRI findings noted. 2. Resp Failure, atelectasis right lower lobe. Significant hypoxemic respiratory failure however. Questionable shunt phenomena. 3. Acute Renal Failure--resolved 4. Mild Rhabdo improved. 5. Demand Ischemia/type II NSTEMI 6. Concern for aspiration pneumonitis radiographically stable. 7. Heroin and Meth use questionable alcohol abuse also. RECS: 1. continue antibiotics 2. Decrease sedation as tolerated continue pulmonary toilet. 3. Continue mechanical ventilation decrease FiO2 as tolerated, will need tracheostomy and G-tube placement 4. Decrease steroids. 5. Continue tube feeding 6. DVT GI prophylaxis Proceed with trach and PEG placement Problems: BRANDON CORONA MD, [facility] Oct 03, 2016 11:14
[2016-10-03 13:13] LABS: AADO2 Arterial 50.7 mmHg (7.0-24.0); Allen Test ACCEPTAB; Arterial Base Excess 2.6 mmol/L (-3.0-3); Arterial COHb 0.4 % (0.0-3.0); Arterial Fraction of Oxyhgb 97.6 % (93.0-99.0); Arterial HCO3 26.7 mmol/L (22.0-26.0); Arterial MetHb 0.3 % (0.0-1.5); Arterial Total Hemglobin 14.4 g/dl (12.0-18.0); Blood Gas PS 10; MODE VENT - CPAP
--- NOTE | 2016-10-03 13:34 | PN ---
Date/Time of Note Date/Time of Note DATE: 10/03/16 TIME: 13:32 Assessment/Plan VTE Prophylaxis VTE Prophylaxis Intervention: LMWH Lines/Catheters IV Catheter Type (from Nrsg): Central Line Central line still needed: Yes Urinary Cath still in place: Yes Reason Cath still needed: urinary retention Assessment/Plan Chief Complaint/Hosp Course 41 yo male with etoh use d/o, opiate use d/o who has developed respiratory failure requiring mechanical ventilation and VAP PULM: Acute hypoxic respiratory failure: - Continue doxy course for MRSA x 14 days - Wean sedation as able and extubate when able RENAL: Hypernatremia - 2/2 diuretics. Give FW to eunatremia CV: - HD stable - Type II NSTEMI on admission, resolved NEURO: - Imaging suggestive of watershed ischemic injury - Repeat MRI when stable to assess extent PSYCH: - Presentation likely 2/2 opiate overdose, also amphetamine use d/o - Assess need for opiate replacement therapy when extubated ID: - Likley ventilator pneumoenia 2/2 MSRA - Continue doxy x 14 day course for MRSA as above HEME: - Anemia, mild, stable - Reactive thrombocytosis PPx: HSQ, PPI Problems: Subjective 24 Hr Interval Summary Free Text/Dictation Worsening hypernatremia, given D5 boluses Less agitation off of sedation Currently on CPAP trial, looks comfortable Exam/Review of Systems Vital Signs Vitals Vital Signs Date Time Temp Pulse Resp B/P Pulse Ox O2 Delivery O2 Flow Rate FiO2 10/03/16 12:00 96 10/03/16 11:20 16 100 30 10/03/16 08:00 99.3 119/85 Mechanical Ventilator Intake and Output 10/02/16 10/02/16 10/03/16 15:00 23:00 07:00 Intake Total 1002.34 ml 485.20 ml 537.05 ml Output Total 630 ml 820 ml 390 ml Balance 372.34 ml -334.80 ml 147.05 ml Exam Intubated Slightly arousable Does not respond to commands No response to noxious stimuli throughout Rhonchi in lungs Results Result Diagram: 10/03/16 0730 10/03/16 0730 Results 24 hrs Laboratory Tests Test 10/03/16 07:30 10/03/16 12:33 White Blood Count 20.1 H Red Blood Count 4.77 Hemoglobin 13.8 L Hematocrit 44.7 Mean Corpuscular Volume 93.7 Mean Corpuscular Hemoglobin 28.9 L Mean Corpuscular Hemoglobin Concent 30.9 L Red Cell Distribution Width 13.0 Platelet Count 467 #H Mean Platelet Volume 10.6 H Neutrophils % 80.0 H Lymphocytes % 8.7 L Monocytes % 7.7 Eosinophils % 2.6 Basophils % 0.3 Nucleated Red Blood Cells % 0.0 Neutrophils # (Manual) 16 H Lymphocytes # 1.8 Monocytes # 1.6 H Eosinophils # 0.5 Basophils # 0.1 Nucleated Red Blood Cells # 0.0 Sodium Level 152 H Potassium Level 3.7 Chloride Level 105 Carbon Dioxide Level 33 H Anion Gap 18 H Blood Urea Nitrogen 35 H Creatinine 0.78 Glucose Level 158 Calcium Level 9.4 Phosphorus Level 3.8 Magnesium Level 2.4 Total Bilirubin 0.5 Direct Bilirubin 0.00 Indirect Bilirubin 0.5 Aspartate Amino Transf (AST/SGOT) 34 Alanine Aminotransferase (ALT/SGPT) 102 H Alkaline Phosphatase 90 Total Protein 7.1 Albumin 3.7 Globulin 3.40 H Albumin/Globulin Ratio 1.08 Blood Gas Specimen Source Blood arterial Arterial Blood Date Drawn 10/03/2016 12:50:05 PM Arterial Blood pH (Temp corrected) 7.446 Arterial Blood pCO2 (Temp correct) 39.7 Arterial Blood pO2 (Temp corrected) 116.6 H Arterial Blood HCO3 26.7 H Arterial Blood Base Excess 2.6 Arterial Blood Oxygen Saturation 98.3 H Vinicius Test ACCEPTAB Arterial Blood Gas Puncture Site Right Radial Arterial Blood Carboxyhemoglobin 0.4 Arterial Blood Methemoglobin 0.3 Blood Gas A-a O2 Differential 50.7 H Oxyhemoglobin Percent 97.6 Total Hemoglobin 14.4 Blood Gas Temperature 37.0 Blood Gas Modality VENT - CPAP FiO2 30.0 Blood Gas Low PEEP Setting 5.0 Blood Gas Pressure Support 10 Blood Gas Notified Whom TM Blood Gas Notified Time 10/03/2016 1:13:08 PM Medications Medications Current Medications Ondansetron HCl 4 mg 4 mg Q6H PRN IV NAUSEA AND/OR VOMITING; Start 09/14/16 at 17:00 Fentanyl (Sublimaze) 100 ml @ 2.5 mls/hr TITRATE IV Last administered on t 10:11; Admin Dose 2.5 MLS/HR; Start 09/15/16 at 13:30 Morphine Sulfate 2 mg 2 mg Q4H PRN IV SEVERE PAIN LEVEL 7-10 Last administered on 10/03/16 10:37; Admin Dose 2 MG; Start 09/16/16 at 10:30 Propofol 100 ml @ 0 mls/hr TITRATE IV Last administered on 10/03/16 02:24; Admin Dose 16.8 MLS/HR; Start 09/19/16 at 09:30 Midazolam HCl (Versed) 50 ml @ 1 mls/hr TITRATE IV Last administered on 23:36; Admin Dose 4 MLS/HR; Start 09/19/16 at 09:30 Enoxaparin Sodium (Lovenox) 40 mg DAILY SC Last administered on 10/03/16 08:49 ; Admin Dose 40 MG; Start 09/19/16 at 10:00 Lansoprazole 30 mg 30 mg DAILY@06 NGT Last administered on 10/03/16 06:33; Admin Dose 30 MG; Start 09/20/16 at 06:00 Doxycycline Hyclate/Sodium Chloride (Vibramycin/NS) 250 ml @ 250 mls/hr Q12 IVPB Last administered on 10/03/16 08:45; Admin Dose 250 MLS/HR; Start at 14:00 Aspirin (Aspirin) 81 mg DAILY NGT Last administered on 10/03/16 08:46; Admin Dose 81 MG; Start 09/30/16 at 09:00 Mupirocin 1 applic 1 applic BID TOP Last administered on 10/03/16 08:46; Admin Dose 1 APPLIC; Start 10/02/16 at 21:00 Dextrose/Sodium Chloride (D5-1/2ns) 1,000 ml @ 75 mls/hr [id number] IV ; Start at 09:30 LACY WOLF MD Oct 03, 2016 13:34
[2016-10-03] MEDS: DEXTROSE 5%-0.45% NACL 1,000 ML IV SCH ×2 (15:01→22:50)
--- NOTE | 2016-10-03 15:24 | CONS ---
Date/Time of Note Date/Time of Note DATE: 10/03/16 TIME: 15:22 Assessment/Plan Assessment/Plan Chief Complaint/Hosp Course 41-year-old man was found down in his car slumped over transferred to the emergency room [facility]. Patient is in the intensive care unit septic probable secondary to pneumonia. Also diagnosis of demand ischemia and possible anoxic encephalopathy, possible carbon monoxide poisoning, questionable opioid overdose. Tox screen positive for amphetamines only, although medical records indicate that patient may have overdosed on heroin also. There are no family members immediately available to question. Problems: Additional Assessment/Plan Patient is extubated. Still has minimal purposeful movements, opens his eyes otherwise remains globally encephalopathic. I will contact patient's father once again and bring him up-to-date. Consultation Date/Type/Reason Admit Date/Time Sep 14, 2016 at 16:36 Initial Consult Date 09/16/16 Type of Consultation: Palliative Exam/Review of Systems Vital Signs Vitals Vital Signs Date Time Temp Pulse Resp B/P Pulse Ox O2 Delivery O2 Flow Rate FiO2 10/03/16 12:00 96 10/03/16 11:20 16 100 30 10/03/16 08:00 99.3 119/85 Mechanical Ventilator Intake and Output 10/02/16 10/02/16 10/03/16 15:00 23:00 07:00 Intake Total 1002.34 ml 485.20 ml 537.05 ml Output Total 630 ml 820 ml 390 ml Balance 372.34 ml -334.80 ml 147.05 ml Exam Neurological: lethargic (Oculocephalics grossly intact, opens his eyes to maximal stimulation minimal to nonpurposeful movements) Results Result Diagram: 10/03/1630 10/03/16 0730 Results 24 hrs Laboratory Tests Test 10/03/16 07:30 10/03/16 12:33 White Blood Count 20.1 H Red Blood Count 4.77 Hemoglobin 13.8 L Hematocrit 44.7 Mean Corpuscular Volume 93.7 Mean Corpuscular Hemoglobin 28.9 L Mean Corpuscular Hemoglobin Concent 30.9 L Red Cell Distribution Width 13.0 Platelet Count 467 #H Mean Platelet Volume 10.6 H Neutrophils % 80.0 H Lymphocytes % 8.7 L Monocytes % 7.7 Eosinophils % 2.6 Basophils % 0.3 Nucleated Red Blood Cells % 0.0 Neutrophils # (Manual) 16 H Lymphocytes # 1.8 Monocytes # 1.6 H Eosinophils # 0.5 Basophils # 0.1 Nucleated Red Blood Cells # 0.0 Sodium Level 152 H Potassium Level 3.7 Chloride Level 105 Carbon Dioxide Level 33 H Anion Gap 18 H Blood Urea Nitrogen 35 H Creatinine 0.78 Glucose Level 158 Calcium Level 9.4 Phosphorus Level 3.8 Magnesium Level 2.4 Total Bilirubin 0.5 Direct Bilirubin 0.00 Indirect Bilirubin 0.5 Aspartate Amino Transf (AST/SGOT) 34 Alanine Aminotransferase (ALT/SGPT) 102 H Alkaline Phosphatase 90 Total Protein 7.1 Albumin 3.7 Globulin 3.40 H Albumin/Globulin Ratio 1.08 Blood Gas Specimen Source Blood arterial Arterial Blood Date Drawn 10/03/2016 12:50:05 PM Arterial Blood pH (Temp corrected) 7.446 Arterial Blood pCO2 (Temp correct) 39.7 Arterial Blood pO2 (Temp corrected) 116.6 H Arterial Blood HCO3 26.7 H Arterial Blood Base Excess 2.6 Arterial Blood Oxygen Saturation 98.3 H Vinicius Test ACCEPTAB Arterial Blood Gas Puncture Site Right Radial Arterial Blood Carboxyhemoglobin 0.4 Arterial Blood Methemoglobin 0.3 Blood Gas A-a O2 Differential 50.7 H Oxyhemoglobin Percent 97.6 Total Hemoglobin 14.4 Blood Gas Temperature 37.0 Blood Gas Modality VENT - CPAP FiO2 30.0 Blood Gas Low PEEP Setting 5.0 Blood Gas Pressure Support 10 Blood Gas Notified Whom TM Blood Gas Notified Time 10/03/2016 1:13:08 PM Medications Medications Current Medications Ondansetron HCl 4 mg 4 mg Q6H PRN IV NAUSEA AND/OR VOMITING; Start 09/14/16 at 17:00 Fentanyl (Sublimaze) 100 ml @ 2.5 mls/hr TITRATE IV Last administered on 10:11; Admin Dose 2.5 MLS/HR; Start 09/15/16 at 13:30 Morphine Sulfate 2 mg 2 mg Q4H PRN IV SEVERE PAIN LEVEL 7-10 Last administered on 10/03/16 10:37; Admin Dose 2 MG; Start 09/16/16 at 10:30 Propofol 100 ml @ 0 mls/hr TITRATE IV Last administered on 10/03/16 02:24; Admin Dose 16.8 MLS/HR; Start 09/19/16 at 09:30 Midazolam HCl (Versed) 50 ml @ 1 mls/hr TITRATE IV Last administered on 23:36; Admin Dose 4 MLS/HR; Start 09/19/16 at 09:30 Enoxaparin Sodium (Lovenox) 40 mg DAILY SC Last administered on 10/03/16 08:49 ; Admin Dose 40 MG; Start 09/19/16 at 10:00 Lansoprazole 30 mg 30 mg DAILY@06 NGT Last administered on 10/03/16 06:33; Admin Dose 30 MG; Start 09/20/16 at 06:00 Doxycycline Hyclate/Sodium Chloride (Vibramycin/NS) 250 ml @ 250 mls/hr Q12 IVPB Last administered on 10/03/16 08:45; Admin Dose 250 MLS/HR; Start at 14:00 Aspirin (Aspirin) 81 mg DAILY NGT Last administered on 10/03/16 08:46; Admin Dose 81 MG; Start 09/30/16 at 09:00 Mupirocin 1 applic 1 applic BID TOP Last administered on 10/03/16 08:46; Admin Dose 1 APPLIC; Start 10/02/16 at 21:00 Dextrose/Sodium Chloride (D5-1/2ns) 1,000 ml @ 75 mls/hr [id number] IV Last administered on 10/03/16 15:01; Admin Dose 75 MLS/HR; Start 10/03/16 at 09:30 NAZ MILES Oct 03, 2016 15:24
[2016-10-03 15:47] LABS: CALCIUM 8.8 mg/dl (8.4-10.2); CREATININE 0.63 mg/dl (0.61-1.24); POTASSIUM 3.5 mmol/L (3.5-5.1)
[2016-10-04] VITALS (24 sets, daily range): BP systolic 104–147; BP diastolic 63–93; PULSE 82–115; RESP 18–32
[2016-10-04] MEDS: DEXTROSE 5%-0.45% NACL 1,000 ML IV SCH (05:23)
[2016-10-04] MEDS: LANSOPRAZOLE 30 MG CAP NGT SCH (05:27)
[2016-10-04 06:55] LABS: ABNORMAL IP MESSAGE 1; HEMATOCRIT 40.2 % (42.0-52.0); HEMOGLOBIN 12.9 g/dl (14.0-18.0); MEAN CORPUSCULAR HEMOGLOBIN 29.7 pg (29.0-33.0); MEAN CORPUSCULAR HGB CONC 32.1 g/dl (32.0-37.0); MEAN CORPUSCULAR VOLUME 92.6 fl (82.0-101.0); PLATELET COUNT 400 10^3/UL (140-415); POSITIVE DIFF @See below; RED BLOOD COUNT 4.34 10^6/ul (4.70-6.10); RED CELL DISTRIBUTION WIDTH 12.5 % (11.5-14.5); WHITE BLOOD COUNT 26.2 10^3/ul (4.8-10.8)
[2016-10-04 07:04] LABS: CALCIUM 8.8 mg/dl (8.4-10.2); CREATININE 0.6 mg/dl (0.61-1.24); MAGNESIUM 2.1 mg/dl (1.7-2.5); PHOSPHORUS 3.2 mg/dl (2.5-4.9); POTASSIUM 3.9 mmol/L (3.5-5.1)
--- NOTE | 2016-10-04 08:59 | RADRPT ---
PROCEDURE: XR Chest. CLINICAL INDICATION: Dyspnea TECHNIQUE: Single frontal chest x-ray. COMPARISON: 10/02/2016 FINDINGS: Interval extubation and removal of NG tube. Left subclavian central line remain in satisfactory pos ition. There is mild bibasilar atelectasis/infiltrates. The heart is normal in size. There are no pleural effusions or pneumothoraces. IMPRESSION: 1. Mild bibasilar atelectasis/infiltrates. 2. Left subclavian central line remains in satisfactory position. RPTAT: [facility] .Pierce Melgoza MD, Date Time Electronically viewed and signed by .Pierce Melgoza MD, on 10/04/2016 08:58 .O/
[2016-10-04] MEDS: ASPIRIN 81 MG TAB NGT SCH (09:00)
--- NOTE | 2016-10-04 09:45 | CONS ---
Date/Time of Note Date/Time of Note DATE: 10/04/16 TIME: 09:43 Assessment/Plan Assessment/Plan Chief Complaint/Hosp Course 41-year-old man was found down in his car slumped over transferred to the emergency room [facility]. Patient is in the intensive care unit septic probable secondary to pneumonia. Also diagnosis of demand ischemia and possible anoxic encephalopathy, possible carbon monoxide poisoning, questionable opioid overdose. Tox screen positive for amphetamines only, although medical records indicate that patient may have overdosed on heroin also. There are no family members immediately available to question. Problems: Additional Assessment/Plan Patient remains neurologically unchanged. Waiting for family meeting to be rescheduled with patient's father. There are no other family members are involved decision making. Consultation Date/Type/Reason Admit Date/Time Sep 14, 2016 at 16:36 Initial Consult Date 09/16/16 Type of Consultation: Palliative Exam/Review of Systems Vital Signs Vitals Vital Signs Date Time Temp Pulse Resp B/P Pulse Ox O2 Delivery O2 Flow Rate FiO2 10/04/16 08:00 103 10/04/16 07:00 22 126/76 95 Nasal Cannula 3.0 10/04/16 06:00 97.8 10/03/16 13:20 30 Intake and Output 10/03/16 10/03/16 10/04/16 15:00 23:00 07:00 Intake Total 2310 ml 850 ml 600 ml Output Total 620 ml 550 ml 350 ml Balance 1690 ml 300 ml 250 ml Exam Constitutional: non-verbal Head: atraumatic, normocephalic Respiratory: No clear to auscultation, No congested cough, No crackles/rales, No diminished breath sounds, No intercostal retraction, No labored breathing, No normal air movement, No other, No respirations, No tactile fremitus, No wheezing Cardiovascular: No S3, No S4, No bruits, No diastolic murmur, No edema, No gallop, No irregular rhythm, No jugular venous distention (JVD), No murmurs/ extra sounds, No nl pulses, No other, No regular rate and rhythm, No rub, No systolic murmur Neurological: other (Does not track, does not follow simple commands other than open his eyes with deep stimulation, pupils bilateral equal round reactive to light extraocular movements grossly intact) Results Result Diagram: 10/04/16 0520 10/04/16 0520 Results 24 hrs Laboratory Tests Test 10/03/16 12:33 10/03/16 14:16 10/04/16 05:20 Blood Gas Specimen Source Blood arterial Arterial Blood Date Drawn 10/03/2016 12:50:05 PM Arterial Blood pH (Temp corrected) 7.446 Arterial Blood pCO2 (Temp correct) 39.7 Arterial Blood pO2 (Temp corrected) 116.6 H Arterial Blood HCO3 26.7 H Arterial Blood Base Excess 2.6 Arterial Blood Oxygen Saturation 98.3 H Vinicius Test ACCEPTAB Arterial Blood Gas Puncture Site Right Radial Arterial Blood Carboxyhemoglobin 0.4 Arterial Blood Methemoglobin 0.3 Blood Gas A-a O2 Differential 50.7 H Oxyhemoglobin Percent 97.6 Total Hemoglobin 14.4 Blood Gas Temperature 37.0 Blood Gas Modality VENT - CPAP FiO2 30.0 Blood Gas Low PEEP Setting 5.0 Blood Gas Pressure Support 10 Blood Gas Notified Whom TM Blood Gas Notified Time 10/03/2016 1:13:08 PM Sodium Level 145 H 142 Potassium Level 3.5 3.9 Chloride Level 101 105 Carbon Dioxide Level 31 28 Anion Gap 17 H 13 Blood Urea Nitrogen 28 H 20 Creatinine 0.63 0.60 L Glucose Level 237 H 143 # Calcium Level 8.8 8.8 White Blood Count 26.2 #H Red Blood Count 4.34 L Hemoglobin 12.9 L Hematocrit 40.2 L Mean Corpuscular Volume 92.6 Mean Corpuscular Hemoglobin 29.7 Mean Corpuscular Hemoglobin Concent 32.1 Red Cell Distribution Width 12.5 Platelet Count 400 Mean Platelet Volume 11.0 H Neutrophils % Lymphocytes % Monocytes % Eosinophils % Basophils % Nucleated Red Blood Cells % 0.0 Neutrophils # (Manual) 22 H Lymphocytes # Monocytes # Eosinophils # Basophils # Nucleated Red Blood Cells # Phosphorus Level 3.2 Magnesium Level 2.1 Medications Medications Current Medications Ondansetron HCl 4 mg 4 mg Q6H PRN IV NAUSEA AND/OR VOMITING; Start 09/14/16 at 17:00 Fentanyl (Sublimaze) 100 ml @ 2.5 mls/hr TITRATE IV Last administered on t 10:11; Admin Dose 2.5 MLS/HR; Start 09/15/16 at 13:30 Morphine Sulfate 2 mg 2 mg Q4H PRN IV SEVERE PAIN LEVEL 7-10 Last administered on 10/03/16 10:37; Admin Dose 2 MG; Start 09/16/16 at 10:30 Propofol 100 ml @ 0 mls/hr TITRATE IV Last administered on 10/03/16 02:24; Admin Dose 16.8 MLS/HR; Start 09/19/16 at 09:30 Midazolam HCl (Versed) 50 ml @ 1 mls/hr TITRATE IV Last administered on 23:36; Admin Dose 4 MLS/HR; Start 09/19/16 at 09:30 Enoxaparin Sodium (Lovenox) 40 mg DAILY SC Last administered on 10/03/16 08:49 ; Admin Dose 40 MG; Start 09/19/16 at 10:00 Lansoprazole (Prevacid) 30 mg DAILY@06 NGT Last administered on 10/03/16 06:33 ; Admin Dose 30 MG; Start 09/20/16 at 06:00 Aspirin (Aspirin) 81 mg DAILY NGT Last administered on 10/03/16 08:46; Admin Dose 81 MG; Start 09/30/16 at 09:00 Mupirocin 1 applic 1 applic BID TOP Last administered on 10/03/16 20:32; Admin Dose 1 APPLIC; Start 10/02/16 at 21:00 Dextrose/Sodium Chloride (D5-1/2ns) 1,000 ml @ 75 mls/hr [id number] IV Last administered on 10/04/16 05:23; Admin Dose 75 MLS/HR; Start 10/03/16 at 09:30 Acetaminophen (Tylenol Supp) 650 mg Q6H PRN [place] FEVER; Start 10/03/16 at 22:00 NAZ MILES Oct 04, 2016 09:45
[2016-10-04] MEDS: ENOXAPARIN 40 MG/0.4 ML SYG SC SCH (09:56)
[2016-10-04] MEDS: MUPIROCIN 2% 22 GM OINT TOP SCH ×2 (09:56→20:44)
[2016-10-04 11:08] LABS: HYPOCHROMASIA 1+ (0-0); MONOCYTES % (M) 9 % (0-11); PLATELET ESTIMATE NORMAL; POIKILOCYTOSIS 1+ (0-0); POLYCHROMASIA 1+ (0-0)
--- NOTE | 2016-10-04 16:12 | PN ---
Date/Time of Note Date/Time of Note DATE: 10/04/16 TIME: 16:09 Assessment/Plan VTE Prophylaxis VTE Prophylaxis Intervention: LMWH Lines/Catheters IV Catheter Type (from Nrsg): Central Line Central line still needed: Yes Urinary Cath still in place: Yes Reason Cath still needed: urinary retention Assessment/Plan Chief Complaint/Hosp Course 41 yo male with etoh use d/o, opiate use d/o who has developed respiratory failure requiring mechanical ventilation and VAP PULM: Acute hypoxic respiratory failure: - S/p doxy course for MRSA x 14 days - Pulmonary toilet - O2 by NC as needed RENAL: Hypernatremia, resolved - 2/2 diuretics - Give FW to eunatremia CV: - HD stable - Type II NSTEMI on admission, resolved NEURO: Weakness: - Likely 2/2 critical illness polyneuropathy. Needs PT/OT Stroke: - Imaging suggestive of watershed ischemic injury - Repeat MRI when stable to assess extent PSYCH: - Presentation likely 2/2 opiate overdose, also amphetamine use d/o - Monitor need for opiate replacement Encephelopathy: - Need to monitor mental status as opiates, benzos which have accumulated wear off HEME: - Anemia, mild, stable - Reactive thrombocytosis PPx: HSQ, PPI Problems: Subjective 24 Hr Interval Summary Free Text/Dictation Extubated yesterday! Doing well on NC today Alert, minimally responsive Exam/Review of Systems Vital Signs Vitals Vital Signs Date Time Temp Pulse Resp B/P Pulse Ox O2 Delivery O2 Flow Rate FiO2 10/04/16 13:00 113 23 128/91 93 Nasal Cannula 10/04/16 13:00 3.0 10/04/16 12:00 98.2 10/03/16 13:20 30 Intake and Output 10/03/16 10/03/16 10/04/16 15:00 23:00 07:00 Intake Total 2310 ml 850 ml 600 ml Output Total 620 ml 550 ml 350 ml Balance 1690 ml 300 ml 250 ml Exam Alert Very lethargic CN in tact Flaccid throughout Doesn't withdraw to pain at all Lungs w rhonchi Results Result Diagram: 10/04/16 0520 10/04/16 0520 Results 24 hrs Laboratory Tests Test 10/04/16 05:20 White Blood Count 26.2 #H Red Blood Count 4.34 L Hemoglobin 12.9 L Hematocrit 40.2 L Mean Corpuscular Volume 92.6 Mean Corpuscular Hemoglobin 29.7 Mean Corpuscular Hemoglobin Concent 32.1 Red Cell Distribution Width 12.5 Platelet Count 400 Mean Platelet Volume 11.0 H Neutrophils % Segmented Neutrophils % (Manual) 82 H Band Neutrophils % (Manual) 5 H Lymphocytes % Lymphocytes % (Manual) 5 L Monocytes % Monocytes % (Manual) 9 Eosinophils % Basophils % Nucleated Red Blood Cells % 0.0 Neutrophils # (Manual) 22 H Band Neutrophils # 1.3 H Absolute Lymphocytes (Manual) 1.3 Lymphocytes # Monocytes # Absolute Monocytes (Manual) 2.3 H Eosinophils # Basophils # Nucleated Red Blood Cells # Platelet Estimate NORMAL Polychromasia 1+ Hypochromasia 1+ Poikilocytosis 1+ Sodium Level 142 Potassium Level 3.9 Chloride Level 105 Carbon Dioxide Level 28 Anion Gap 13 Blood Urea Nitrogen 20 Creatinine 0.60 L Glucose Level 143 # Calcium Level 8.8 Phosphorus Level 3.2 Magnesium Level 2.1 Medications Medications Current Medications Ondansetron HCl 4 mg 4 mg Q6H PRN IV NAUSEA AND/OR VOMITING; Start 09/14/16 at 17:00 Fentanyl (Sublimaze) 100 ml @ 2.5 mls/hr TITRATE IV Last administered on 10:11; Admin Dose 2.5 MLS/HR; Start 09/15/16 at 13:30 Morphine Sulfate 2 mg 2 mg Q4H PRN IV SEVERE PAIN LEVEL 7-10 Last administered on 10/03/16 10:37; Admin Dose 2 MG; Start 09/16/16 at 10:30 Propofol 100 ml @ 0 mls/hr TITRATE IV Last administered on 10/03/16 02:24; Admin Dose 16.8 MLS/HR; Start 09/19/16 at 09:30 Midazolam HCl (Versed) 50 ml @ 1 mls/hr TITRATE IV Last administered on 23:36; Admin Dose 4 MLS/HR; Start 09/19/16 at 09:30 Enoxaparin Sodium (Lovenox) 40 mg DAILY SC Last administered on 10/04/16 09:56 ; Admin Dose 40 MG; Start 09/19/16 at 10:00 Lansoprazole (Prevacid) 30 mg DAILY@06 NGT Last administered on 8/22/17at 06:33 ; Admin Dose 30 MG; Start 09/20/16 at 06:00 Aspirin (Aspirin) 81 mg DAILY NGT Last administered on 10/03/16 08:46; Admin Dose 81 MG; Start 09/30/16 at 09:00 Mupirocin 1 applic 1 applic BID TOP Last administered on 10/04/16 09:56; Admin Dose 1 APPLIC; Start 10/02/16 at 21:00 Dextrose/Sodium Chloride (D5-1/2ns) 1,000 ml @ 75 mls/hr [id number] IV Last administered on 10/04/16 05:23; Admin Dose 75 MLS/HR; Start 10/03/16 at 09:30 Acetaminophen (Tylenol Supp) 650 mg Q6H PRN [place] FEVER; Start 10/03/16 at 22:00 LACY WOLF MD Oct 04, 2016 16:12
--- NOTE | 2016-10-04 17:09 | RADRPT ---
PROCEDURE: XR Abdomen. CLINICAL INDICATION: Check nasogastric tube position. TECHNIQUE: AP supine abdomen x-ray. COMPARISON: Chest x-ray done earlier the same day. FINDINGS: There is a new nasogastric tube with the tip in the stomach. There is a Paulino catheter in the bladde r. The bowel gas pattern is normal with no evidence of obstruction. There are no abnormal calcifications overlying the urinary tracts. The osseus structures are unremarkable. IMPRESSION: 1. Nasogastric tube tip in the stomach. 2. No evidence of bowel obstruction. 3. Paulino catheter in the bladder. RPTAT: QQ .Sunny Oleary MD, MD Date Time Electronically viewed and signed by .Sunny Oleary MD, MD on 10/04/2016 17:09 .R/
[2016-10-05] VITALS (19 sets, daily range): BP systolic 96–145; BP diastolic 66–99; PULSE 73–103; RESP 13–27
[2016-10-05] MEDS: DEXTROSE 5%-0.45% NACL 1,000 ML IV SCH ×3 (01:23→20:29)
[2016-10-05] MEDS: LANSOPRAZOLE 30 MG CAP NGT SCH (05:31)
[2016-10-05 06:34] LABS: BASOPHILS % 0.3 % (0.0-2.0); EOSINOPHILS # 0.5 10^3/ul (0.0-0.5); EOSINOPHILS % 3.3 % (0.0-7.0); HEMATOCRIT 38.8 % (42.0-52.0); HEMOGLOBIN 12.3 g/dl (14.0-18.0); LYMPHOCYTES # 1.4 10^3/ul (0.8-2.9); LYMPHOCYTES % 8.9 % (15.0-51.0); MEAN CORPUSCULAR HGB CONC 31.7 g/dl (32.0-37.0); MEAN CORPUSCULAR VOLUME 91.5 fl (82.0-101.0); MEAN PLATELET VOLUME 11.2 fl (7.4-10.4); MONOCYTE # 1.1 10^3/ul (0.3-0.9); MONOCYTES % 6.9 % (0.0-11.0); NEUTROPHILS % 79.8 % (39.0-77.0); PLATELET COUNT 336 10^3/UL (140-415); RED BLOOD COUNT 4.24 10^6/ul (4.70-6.10); RED CELL DISTRIBUTION WIDTH 12.6 % (11.5-14.5); WHITE BLOOD COUNT 15.6 10^3/ul (4.8-10.8)
[2016-10-05 06:56] LABS: CALCIUM 8.5 mg/dl (8.4-10.2); CREATININE 0.6 mg/dl (0.61-1.24); MAGNESIUM 2.2 mg/dl (1.7-2.5); PHOSPHORUS 3.3 mg/dl (2.5-4.9); POTASSIUM 3.1 mmol/L (3.5-5.1)
[2016-10-05] MEDS: ACETAMINOPHEN 650 MG SUPP PR PRN (07:55)
[2016-10-05] MEDS: ASPIRIN 81 MG TAB NGT SCH (09:59)
[2016-10-05] MEDS: MUPIROCIN 2% 22 GM OINT TOP SCH ×2 (10:00→22:40)
[2016-10-05] MEDS: ENOXAPARIN 40 MG/0.4 ML SYG SC SCH (10:00)
[2016-10-05] MEDS: POTASSIUM CHLORIDE 250 ML IVPB SCH ×2 (10:29→13:30)
[2016-10-05] MEDS: MULTIVITAMINS THERAPEUTIC TAB PO SCH (10:50)
--- NOTE | 2016-10-05 11:00 | CONS ---
Date/Time of Note Date/Time of Note DATE: 10/05/16 TIME: 10:58 Consult Date/Type/Reason Admit Date/Time Sep 14, 2016 at 16:36 Initial Consult Date 09/16/16 Type of Consultation: Pulmonary Subjective Patient more alert today. Awake alert comfortable. Still mild confusion. Objective Vital Signs Date Time Temp Pulse Resp B/P Pulse Ox O2 Delivery O2 Flow Rate FiO2 10/05/16 08:00 88 10/05/16 08:00 Nasal Cannula 3.0 10/05/16 07:00 25 121/82 99 10/05/16 04:00 97.8 10/03/16 13:20 30 Intake and Output 10/04/16 10/04/16 10/05/16 15:00 23:00 07:00 Intake Total 425 ml 960 ml Output Total 520 ml 400 ml 400 ml Balance -520 ml 25 ml 560 ml Exam PHYSICAL EXAMINATION GENERAL: Well-nourished well-developed gentleman nasal cannula oxygen. Appears comfortable. VITAL SIGNS: see below. HEENT: Pupils equal, round, and reactive to light. CARDIAC: S1, S2, 1/6 systolic ejection murmur CHEST: Diminished air entry bilaterally. ABDOMEN: Mildly distended. Bowel sounds present no guarding or rebound EXTREMITIES: No cyanosis, clubbing edema +1 NEUROLOGIC: Generalized weakness Results/Medications Result Diagram: 10/05/16 0500 10/05/16 0500 Results 24 hrs Laboratory Tests Test 10/05/16 05:00 White Blood Count 15.6 #H Red Blood Count 4.24 L Hemoglobin 12.3 L Hematocrit 38.8 L Mean Corpuscular Volume 91.5 Mean Corpuscular Hemoglobin 29.0 Mean Corpuscular Hemoglobin Concent 31.7 L Red Cell Distribution Width 12.6 Platelet Count 336 Mean Platelet Volume 11.2 H Neutrophils % 79.8 H Lymphocytes % 8.9 L Monocytes % 6.9 Eosinophils % 3.3 Basophils % 0.3 Nucleated Red Blood Cells % 0.0 Neutrophils # (Manual) 13 H Lymphocytes # 1.4 Monocytes # 1.1 H Eosinophils # 0.5 Basophils # 0.0 Nucleated Red Blood Cells # 0.0 Sodium Level 142 Potassium Level 3.1 L Chloride Level 104 Carbon Dioxide Level 31 Anion Gap 10 Blood Urea Nitrogen 17 Creatinine 0.60 L Glucose Level 133 Calcium Level 8.5 Phosphorus Level 3.3 Magnesium Level 2.2 Medications Current Medications Ondansetron HCl (Zofran Inj) 4 mg Q6H PRN IV NAUSEA AND/OR VOMITING; Start 09/14 at 17:00 Enoxaparin Sodium (Lovenox) 40 mg DAILY SC Last administered on 10/05/16 10:00 ; Admin Dose 40 MG; Start 09/19/16 at 10:00 Lansoprazole (Prevacid) 30 mg DAILY@06 NGT Last administered on 10/05/16 05:31 ; Admin Dose 30 MG; Start 09/20/16 at 06:00 Aspirin (Aspirin) 81 mg DAILY NGT Last administered on 10/05/16 09:59; Admin Dose 81 MG; Start 09/30/16 at 09:00 Mupirocin 1 applic 1 applic BID TOP Last administered on 10/05/16 10:00; Admin Dose 1 APPLIC; Start 10/02/16 at 21:00 Dextrose/Sodium Chloride (D5-1/2ns) 1,000 ml @ 75 mls/hr [id number] IV Last administered on 10/05/16 05:31; Admin Dose 75 MLS/HR; Start 10/03/16 at 09:30 Acetaminophen 650 mg 650 mg Q6H PRN [place] FEVER Last administered on 10/05/16 07: 55; Admin Dose 650 MG; Start 10/03/16 at 22:00 Potassium Chloride (KCl 40 MEQ/250 ML NS) 250 ml @ 62.5 mls/hr Q4H IVPB Last administered on 10/05/16 10:29; Admin Dose 62.5 MLS/HR; Start 10/05/16 at 09:30 ; Stop 10/05/16 at 17:29 Multivitamins Therapeutic (Theragran) 1 tab DAILY PO ; Start 10/05/16 at 10:30 Assessment/Plan Chief Complaint/Hosp Course Assessment/Plan IMP: 1. AMS--encephalopathy currently of unclear etiology. Possible anoxic brain injury. MRI findings noted. 2. Resp Failure, atelectasis right lower lobe. Significant hypoxemic respiratory failure however. Questionable shunt phenomena. Now extubated. 3. Acute Renal Failure--resolved 4. Mild Rhabdo improved. 5. Demand Ischemia/type II NSTEMI 6. Concern for aspiration pneumonitis radiographically stable. 7. Heroin and Meth use questionable alcohol abuse also. RECS: 1. Antibiotics per primary team 2. Decrease sedation as tolerated continue pulmonary toilet. 3. Continue aspiration precautions. Physical therapy eval. 4. Continue tube feeding, repeat speech therapy eval 5. DVT GI prophylaxis Transfer to telemetry. Problems: BRANDON CORONA MD, [facility] Oct 05, 2016 11:00
[2016-10-05 14:55] LABS: ADD UMIC YES; UR ASCORBIC ACID 40 mg/dL (NEGATIVE); UR BACTERIA FEW /HPF (NONE SEEN); UR BILIRUBIN (Dip) NEGATIVE (NEGATIVE); UR BLOOD (Dip) 3+ mg/dL (NEGATIVE); UR CLARITY SLIGHTLY CLOUDY (CLEAR); UR COLOR AMBER (YELLOW); UR GLUCOSE (Dip) NEGATIVE (NEGATIVE); UR KETONES (Dip) NEGATIVE (NEGATIVE); UR LEUKOCYTE ESTERASE (Dip) 3+ Leu/ul (NEGATIVE); UR MUCUS MODERATE /HPF (NONE SEEN); UR NITRITE (Dip) POSITIVE (NEGATIVE); UR NONSQUAMOUS EPITHELIAL CELL 1 /HPF (NONE SEEN); UR RBC > 182 /HPF (0-5); UR SPECIFIC GRAVITY (Dip) 1.025 (1.003-1.030); UR TOTAL PROTEIN (Dip) 2+ mg/dl (NEGATIVE); UR UROBILINOGEN (Dip) 2+ mg/dL (NEGATIVE)
--- NOTE | 2016-10-05 16:57 | PN ---
Date/Time of Note Date/Time of Note DATE: 10/05/16 TIME: 16:56 Assessment/Plan VTE Prophylaxis VTE Prophylaxis Intervention: LMWH Lines/Catheters IV Catheter Type (from Nrsg): Central Line Central line still needed: No Urinary Cath still in place: No Assessment/Plan Chief Complaint/Hosp Course 41 yo male with etoh use d/o, opiate use d/o who has developed respiratory failure requiring mechanical ventilation and VAP RENAL: Hypernatremia, resolved - 2/2 diuretics - Give FW to eunatremia CV: - HD stable - Type II NSTEMI on admission, resolved NEURO: Weakness: - Likely 2/2 critical illness polyneuropathy. Needs PT/OT Stroke: - Imaging suggestive of watershed ischemic injury - Repeat MRI when stable to assess extent NG tube for now with tube feeds - Video swallow study PSYCH: - Presentation likely 2/2 opiate overdose, also amphetamine use d/o - Monitor need for opiate replacement Encephelopathy: - Need to monitor mental status as opiates, benzos which have accumulated wear off HEME: - Anemia, mild, stable - Reactive thrombocytosis PPx: HSQ, PPI Problems: Subjective 24 Hr Interval Summary Free Text/Dictation More alert today Still extremely lethargic but interacts Failed swallow study Having diarrhea Exam/Review of Systems Vital Signs Vitals Vital Signs Date Time Temp Pulse Resp B/P Pulse Ox O2 Delivery O2 Flow Rate FiO2 10/05/16 14:00 102 22 141/82 100 Room Air 10/05/16 12:00 98.5 3.0 10/03/16 13:20 30 Intake and Output 10/04/16 10/04/16 10/05/16 15:00 23:00 07:00 Intake Total 425 ml 960 ml Output Total 520 ml 400 ml 400 ml Balance -520 ml 25 ml 560 ml Exam Alert, very lethargic Interactive Responds to commands Can lift hands, wiggle toes Results Result Diagram: 10/05/16 0500 10/05/16 0500 Results 24 hrs Laboratory Tests Test 10/05/16 05:00 10/05/16 13:50 White Blood Count 15.6 #H Red Blood Count 4.24 L Hemoglobin 12.3 L Hematocrit 38.8 L Mean Corpuscular Volume 91.5 Mean Corpuscular Hemoglobin 29.0 Mean Corpuscular Hemoglobin Concent 31.7 L Red Cell Distribution Width 12.6 Platelet Count 336 Mean Platelet Volume 11.2 H Neutrophils % 79.8 H Lymphocytes % 8.9 L Monocytes % 6.9 Eosinophils % 3.3 Basophils % 0.3 Nucleated Red Blood Cells % 0.0 Neutrophils # (Manual) 13 H Lymphocytes # 1.4 Monocytes # 1.1 H Eosinophils # 0.5 Basophils # 0.0 Nucleated Red Blood Cells # 0.0 Sodium Level 142 Potassium Level 3.1 L Chloride Level 104 Carbon Dioxide Level 31 Anion Gap 10 Blood Urea Nitrogen 17 Creatinine 0.60 L Glucose Level 133 Calcium Level 8.5 Phosphorus Level 3.3 Magnesium Level 2.2 Urine Color SATISH Urine Clarity SLIGHTLY CLOUDY A Urine pH 5.0 Urine Specific [place] 1.025 Urine Ketones NEGATIVE Urine Nitrite POSITIVE A Urine Bilirubin NEGATIVE Urine Urobilinogen 2+ H Urine Leukocyte Esterase 3+ H Urine Microscopic RBC > 182 H Urine Microscopic WBC > 182 H Urine Bacteria FEW A Urine Mucus MODERATE Urine Hemoglobin 3+ H Urine Glucose NEGATIVE Urine Total Protein 2+ H Medications Medications Current Medications Ondansetron HCl (Zofran Inj) 4 mg Q6H PRN IV NAUSEA AND/OR VOMITING; Start 09/14 at 17:00 Enoxaparin Sodium (Lovenox) 40 mg DAILY SC Last administered on 10/05/16 10:00 ; Admin Dose 40 MG; Start 09/19/16 at 10:00 Lansoprazole (Prevacid) 30 mg DAILY@06 NGT Last administered on 10/05/16 05:31 ; Admin Dose 30 MG; Start 09/20/16 at 06:00 Aspirin (Aspirin) 81 mg DAILY NGT Last administered on 10/05/16 09:59; Admin Dose 81 MG; Start 09/30/16 at 09:00 Mupirocin (Bactroban) 1 applic BID TOP Last administered on 10/05/16 10:00; Admin Dose 1 APPLIC; Start 10/02/16 at 21:00 Acetaminophen 650 mg 650 mg Q6H PRN [place] FEVER Last administered on 10/05/16 07: 55; Admin Dose 650 MG; Start 10/03/16 at 22:00 Potassium Chloride (KCl 40 MEQ/250 ML NS) 250 ml @ 62.5 mls/hr Q4H IVPB Last administered on 10/05/16 10:29; Admin Dose 62.5 MLS/HR; Start 10/05/16 at 09:30 ; Stop 10/05/16 at 17:29 Multivitamins Therapeutic (Theragran) 1 tab DAILY PO Last administered on t 10:50; Admin Dose 1 TAB; Start 10/05/16 at 10:30 LACY WOLF MD Oct 05, 2016 16:57
[2016-10-06 02:00] VITALS: BP 136/77; RESP 20
[2016-10-06] MEDS: LANSOPRAZOLE 30 MG CAP NGT SCH (05:06)
[2016-10-06 05:26] LABS: BASOPHILS % 0.4 % (0.0-2.0); EOSINOPHILS # 0.3 10^3/ul (0.0-0.5); EOSINOPHILS % 3.5 % (0.0-7.0); HEMATOCRIT 37.3 % (42.0-52.0); LYMPHOCYTES # 1.2 10^3/ul (0.8-2.9); LYMPHOCYTES % 16.5 % (15.0-51.0); MEAN CORPUSCULAR HEMOGLOBIN 28.7 pg (29.0-33.0); MEAN CORPUSCULAR HGB CONC 32.2 g/dl (32.0-37.0); MEAN CORPUSCULAR VOLUME 89.2 fl (82.0-101.0); MEAN PLATELET VOLUME 10.8 fl (7.4-10.4); MONOCYTE # 0.7 10^3/ul (0.3-0.9); MONOCYTES % 9.8 % (0.0-11.0); NEUTROPHILS % 68.4 % (39.0-77.0); PLATELET COUNT 288 10^3/UL (140-415); RED BLOOD COUNT 4.18 10^6/ul (4.70-6.10); RED CELL DISTRIBUTION WIDTH 12.2 % (11.5-14.5); WHITE BLOOD COUNT 7.1 10^3/ul (4.8-10.8)
[2016-10-06 05:43] LABS: CALCIUM 8.3 mg/dl (8.4-10.2); CREATININE 0.61 mg/dl (0.61-1.24); PHOSPHORUS 3.4 mg/dl (2.5-4.9)
[2016-10-06] MEDS: DEXTROSE 5%-0.45% NACL 1,000 ML IV SCH ×2 (07:02→14:00)
[2016-10-06 08:00] VITALS: BP 140/84; RESP 24
[2016-10-06] MEDS: MULTIVITAMINS THERAPEUTIC TAB PO SCH (09:00)
[2016-10-06] MEDS: ASPIRIN 81 MG TAB NGT SCH (09:00)
--- NOTE | 2016-10-06 09:05 | CONS ---
Date/Time of Note Date/Time of Note DATE: 10/06/16 TIME: 09:02 Assessment/Plan Assessment/Plan Chief Complaint/Hosp Course 41-year-old man was found down in his car slumped over transferred to the emergency room [facility]. Patient is in the intensive care unit septic probable secondary to pneumonia. Also diagnosis of demand ischemia and possible anoxic encephalopathy, possible carbon monoxide poisoning, questionable opioid overdose. Tox screen positive for amphetamines only, although medical records indicate that patient may have overdosed on heroin also. There are no family members immediately available to question. Problems: Additional Assessment/Plan Family conference with patient's father. There are no other first-degree family members were available at this time. Discussed goals of care, patient's prognosis, past medical history father's hopes desires fears and patient's pain management physical symptoms. He still remains hopeful especially since his son has been extubated, however his neurological status has not significantly improved he remains profoundly encephalopathic. Consultation Date/Type/Reason Admit Date/Time Sep 14, 2016 at 16:36 Initial Consult Date 09/16/16 Type of Consultation: Palliative care Exam/Review of Systems Vital Signs Vitals Vital Signs Date Time Temp Pulse Resp B/P Pulse Ox O2 Delivery O2 Flow Rate FiO2 10/06/16 08:00 98.5 90 24 140/84 93 10/05/16 18:00 Room Air 10/05/16 12:00 3.0 10/03/16 13:20 30 Intake and Output 10/05/16 10/05/16 10/06/16 15:00 23:00 07:00 Intake Total 590 ml 90 ml 900 ml Output Total 400 ml 150 ml Balance 190 ml -60 ml 900 ml Exam Constitutional: non-verbal Respiratory: clear to auscultation, normal air movement, No congested cough, No crackles/rales, No diminished breath sounds, No intercostal retraction, No labored breathing, No other, No respirations, No tactile fremitus, No wheezing Cardiovascular: No S3, No S4, No bruits, No diastolic murmur, No edema, No gallop, No irregular rhythm, No jugular venous distention (JVD), No murmurs/ extra sounds, No nl pulses, No other, No regular rate and rhythm, No rub, No systolic murmur Neurological: other (Does not follow simple commands, lethargic, minimally opens his eyes with stimulation, does not follow simple commands) Results Result Diagram: 10/06/16 0432 10/06/16 0432 Results 24 hrs Laboratory Tests Test 10/05/16 13:50 10/06/16 04:32 Urine Color SATISH Urine Clarity SLIGHTLY CLOUDY A Urine pH 5.0 Urine Specific [place] 1.025 Urine Ketones NEGATIVE Urine Nitrite POSITIVE A Urine Bilirubin NEGATIVE Urine Urobilinogen 2+ H Urine Leukocyte Esterase 3+ H Urine Microscopic RBC > 182 H Urine Microscopic WBC > 182 H Urine Bacteria FEW A Urine Mucus MODERATE Urine Hemoglobin 3+ H Urine Glucose NEGATIVE Urine Total Protein 2+ H White Blood Count 7.1 # Red Blood Count 4.18 L Hemoglobin 12.0 L Hematocrit 37.3 L Mean Corpuscular Volume 89.2 Mean Corpuscular Hemoglobin 28.7 L Mean Corpuscular Hemoglobin Concent 32.2 Red Cell Distribution Width 12.2 Platelet Count 288 Mean Platelet Volume 10.8 H Neutrophils % 68.4 Lymphocytes % 16.5 Monocytes % 9.8 Eosinophils % 3.5 Basophils % 0.4 Nucleated Red Blood Cells % 0.0 Neutrophils # (Manual) 4.9 Lymphocytes # 1.2 Monocytes # 0.7 Eosinophils # 0.3 Basophils # 0.0 Nucleated Red Blood Cells # 0.0 Sodium Level 143 Potassium Level 3.0 L Chloride Level 103 Carbon Dioxide Level 28 Anion Gap 15 Blood Urea Nitrogen 12 Creatinine 0.61 Glucose Level 121 Calcium Level 8.3 L Phosphorus Level 3.4 Magnesium Level 2.0 Medications Medications Current Medications Ondansetron HCl (Zofran Inj) 4 mg Q6H PRN IV NAUSEA AND/OR VOMITING; Start 09/14 at 17:00 Enoxaparin Sodium (Lovenox) 40 mg DAILY SC Last administered on 10/05/16 10:00 ; Admin Dose 40 MG; Start 09/19/16 at 10:00 Lansoprazole (Prevacid) 30 mg DAILY@06 NGT Last administered on 10/05/16 05:31 ; Admin Dose 30 MG; Start 09/20/16 at 06:00 Aspirin (Aspirin) 81 mg DAILY NGT Last administered on 10/05/16 09:59; Admin Dose 81 MG; Start 09/30/16 at 09:00 Mupirocin (Bactroban) 1 applic BID TOP Last administered on 10/05/16 22:40; Admin Dose 1 APPLIC; Start 10/02/16 at 21:00 Acetaminophen (Tylenol Supp) 650 mg Q6H PRN [place] FEVER Last administered on 07:55; Admin Dose 650 MG; Start 10/03/16 at 22:00 Multivitamins Therapeutic 1 tab 1 tab DAILY PO Last administered on 10/05/16 10:50; Admin Dose 1 TAB; Start 10/05/16 at 10:30 Dextrose/Sodium Chloride (D5-1/2ns) 1,000 ml @ 100 mls/hr Q10H IV Last administered on 10/06/16 07:02; Admin Dose 100 MLS/HR; Start 10/05/16 at 18:00 NZA MILES Oct 06, 2016 09:04
[2016-10-06] MEDS: MUPIROCIN 2% 22 GM OINT TOP SCH ×2 (09:09→20:46)
[2016-10-06] MEDS: ENOXAPARIN 40 MG/0.4 ML SYG SC SCH (09:12)
[2016-10-06 14:00] VITALS: BP 140/80; RESP 20
--- NOTE | 2016-10-06 15:13 | RADRPT ---
PROCEDURE: Video-fluoroscopy swallowing study. CLINICAL INDICATION: Dysphagia. TECHNIQUE: Fluoroscopic guided video swallowing study was done in conjunction with the speech ther apist. The study was confined to the oral, pharyngeal, and cervical phases of the swallowing mechani sm. 3.2 minutes of fluoroscopy time was used. 39 series of images were obtained. COMPARISON: No prior study is available for comparison. FINDINGS: There is penetration during swallowing. There is no aspiration during swallowing. IMPRESSION: 1. Penetration without aspiration. 2. Please refer to the speech therapist's recommendations for future feedings. RPTAT: QQ .Sunny Oleary MD, MD Date Time Electronically viewed and signed by .Sunny Oleary MD, on 10/06/2016 15:13 .R/
--- NOTE | 2016-10-06 17:48 | PN ---
Date/Time of Note Date/Time of Note DATE: 10/06/16 TIME: 17:45 Assessment/Plan VTE Prophylaxis VTE Prophylaxis Intervention: LMWH Lines/Catheters IV Catheter Type (from Nrs): Central Line Central line still needed: No Urinary Cath still in place: No Assessment/Plan Chief Complaint/Hosp Course 41 yo male with etoh use d/o, opiate use d/o who has developed respiratory failure in setting of opiate overdose, required mechanical ventilation and then developed VAP. S/p prolonged intubation, now stable on RA. Debilitated. Mental status improving S/p ICU stay with prolonged intubation, now stable Opiate overdose resolved Currently very deconditioned, critical illness myopathy - PT/OT Encephelopathy: - Had evidecne of anoxic jony injury/stroke on MRI - Monitor mental status as recovers from ICU stay PPx: HSQ, PPI Dispo to acute rehab Problems: Subjective 24 Hr Interval Summary Free Text/Dictation Markedly improved today Alert, very interactive, conversant though often nonsensical Friend at bedside visiting. Says he is likely homeless, stays with his friends on couch etc. Prior to admission was found with heroin needle in arm Exam/Review of Systems Vital Signs Vitals Vital Signs Date Time Temp Pulse Resp B/P Pulse Ox O2 Delivery O2 Flow Rate FiO2 10/06/16 14:00 98.6 79 20 140/80 95 10/05/16 18:00 Room Air 10/05/16 12:00 3.0 10/03/16 13:20 30 Intake and Output 10/05/16 10/05/16 10/06/16 14:59 22:59 06:59 Intake Total 665 ml 120 ml 900 ml Output Total 400 ml 200 ml Balance 265 ml -80 ml 900 ml Results Result Diagram: 10/06/16 0432 10/06/16 0432 Results 24 hrs Laboratory Tests Test 10/06/16 04:32 White Blood Count 7.1 # Red Blood Count 4.18 L Hemoglobin 12.0 L Hematocrit 37.3 L Mean Corpuscular Volume 89.2 Mean Corpuscular Hemoglobin 28.7 L Mean Corpuscular Hemoglobin Concent 32.2 Red Cell Distribution Width 12.2 Platelet Count 288 Mean Platelet Volume 10.8 H Neutrophils % 68.4 Lymphocytes % 16.5 Monocytes % 9.8 Eosinophils % 3.5 Basophils % 0.4 Nucleated Red Blood Cells % 0.0 Neutrophils # (Manual) 4.9 Lymphocytes # 1.2 Monocytes # 0.7 Eosinophils # 0.3 Basophils # 0.0 Nucleated Red Blood Cells # 0.0 Sodium Level 143 Potassium Level 3.0 L Chloride Level 103 Carbon Dioxide Level 28 Anion Gap 15 Blood Urea Nitrogen 12 Creatinine 0.61 Glucose Level 121 Calcium Level 8.3 L Phosphorus Level 3.4 Magnesium Level 2.0 Medications Medications Current Medications Ondansetron HCl (Zofran Inj) 4 mg Q6H PRN IV NAUSEA AND/OR VOMITING; Start 09/14 at 17:00 Enoxaparin Sodium (Lovenox) 40 mg DAILY SC Last administered on 10/06/16 09:12 ; Admin Dose 40 MG; Start 09/19/16 at 10:00 Lansoprazole (Prevacid) 30 mg DAILY@06 NGT Last administered on 10/05/16 05:31 ; Admin Dose 30 MG; Start 09/20/16 at 06:00 Aspirin (Aspirin) 81 mg DAILY NGT Last administered on 10/05/16 09:59; Admin Dose 81 MG; Start 09/30/16 at 09:00 Mupirocin (Bactroban) 1 applic BID TOP Last administered on 10/06/16 09:09; Admin Dose 1 APPLIC; Start 10/02/16 at 21:00 Acetaminophen (Tylenol Supp) 650 mg Q6H PRN [place] FEVER Last administered on 07:55; Admin Dose 650 MG; Start 10/03/16 at 22:00 Multivitamins Therapeutic 1 tab 1 tab DAILY PO Last administered on 10/05/16 10:50; Admin Dose 1 TAB; Start 10/05/16 at 10:30 Dextrose/Sodium Chloride 1,000 ml @ 100 mls/hr Q10H IV Last administered on 07:02; Admin Dose 100 MLS/HR; Start 10/05/16 at 18:00 Potassium Chloride (KCl 40 MEQ/250 ML NS) 250 ml @ 62.5 mls/hr Q4H IVPB ; Start 10/06/16 at 17:00; Stop 10/07/16 at 00:59 LACY WOLF MD Oct 06, 2016 17:48
[2016-10-06] MEDS: POTASSIUM CHLORIDE 250 ML IVPB SCH ×2 (17:59→21:17)
[2016-10-06 19:22] VITALS: BP 118/68; RESP 18
[2016-10-07 02:00] VITALS: BP 141/79; PULSE 79; RESP 18
[2016-10-07 06:50] LABS: CALCIUM 8.7 mg/dl (8.4-10.2); CREATININE 0.55 mg/dl (0.61-1.24); POTASSIUM 3.7 mmol/L (3.5-5.1)
[2016-10-07] MEDS: DEXTROSE 5%-0.45% NACL 1,000 ML IV SCH ×3 (07:28→18:25)
[2016-10-07 07:33] VITALS: BP 130/87; RESP 20
[2016-10-07] MEDS: MULTIVITAMINS THERAPEUTIC TAB PO SCH (08:08)
[2016-10-07] MEDS: MUPIROCIN 2% 22 GM OINT TOP SCH ×2 (08:10→21:09)
[2016-10-07] MEDS: ASPIRIN 81 MG TAB PO SCH (08:33)
[2016-10-07] MEDS: ENOXAPARIN 40 MG/0.4 ML SYG SC SCH (08:33)
[2016-10-07 14:00] VITALS: BP 121/72; RESP 16
--- NOTE | 2016-10-07 15:35 | PN ---
Date/Time of Note Date/Time of Note DATE: 10/07/16 TIME: 15:33 Assessment/Plan VTE Prophylaxis VTE Prophylaxis Intervention: LMWH Lines/Catheters IV C[facility] Type (from [facility] [place] Urinary Cath still in place: No Assessment/Plan Chief Complaint/Hosp Course 41 yo male with etoh use d/o, opiate use d/o who has developed respiratory failure in setting of opiate overdose, required mechanical ventilation and then developed VAP. S/p prolonged intubation, now stable on RA. Debilitated. Mental status improving S/p ICU stay with prolonged intubation, now stable Opiate overdose resolved Currently very deconditioned, critical illness myopathy but improving - PT/OT Encephelopathy: - Had evidecne of anoxic jony injury/stroke on MRI - Monitor mental status as recovers from ICU stay - Unclear baseline Hypokalemia is resolved PPx: HSQ, PPI Dispo to acute rehab Problems: Subjective 24 Hr Interval Summary Free Text/Dictation Patient again looking better, mentation still imparied but improving Exam/Review of Systems Vital Signs Vitals Vital Signs Date Time Temp Pulse Resp B/P Pulse Ox O2 Delivery O2 Flow Rate FiO2 10/07/16 14:00 98.1 81 16 121/72 99 10/07/16 02:00 Room Air 10/05/16 12:00 3.0 10/03/16 13:20 30 Intake and Output 10/06/16 10/06/16 10/07/16 15:00 23:00 07:00 Intake Total 450 ml 990 ml Output Total 300 ml 300 ml Balance -300 ml 150 ml 990 ml Exam Alert, oriented to place Conversant but often nonsensical Excellent sternght recovery in limbs Results Result Diagram: 10/06/16 0432 10/07/16 0444 Results 24 hrs Laboratory Tests Test 10/07/16 04:44 Sodium Level 137 Potassium Level 3.7 Chloride Level 100 Carbon Dioxide Level 26 Anion Gap 15 Blood Urea Nitrogen 10 Creatinine 0.55 L Glucose Level 131 Calcium Level 8.7 Medications Medications Current Medications Ondansetron HCl (Zofran Inj) 4 mg Q6H PRN IV NAUSEA AND/OR VOMITING; Start 09/14 at 17:00 Enoxaparin Sodium (Lovenox) 40 mg DAILY SC Last administered on 10/06/16t 09:12 ; Admin Dose 40 MG; Start 09/19/16 at 10:00 Mupirocin (Bactroban) 1 applic BID TOP Last administered on 10/07/16 08:10; Admin Dose 1 APPLIC; Start 10/02/16 at 21:00 Acetaminophen (Tylenol Supp) [address] FEVER Last administered on 07:55; Admin Dose 650 MG; Start 10/03/16 at 22:00 Multivitamins Therapeutic 1 tab 1 tab DAILY PO Last administered on 10/05/16 10:50; Admin Dose 1 TAB; Start 10/05/16 at 10:30 Dextrose/Sodium Chloride (D5-1/2ns) 1,000 ml @ 100 mls/hr Q10H IV Last administered on 10/07/16 07:28; Admin Dose 100 MLS/HR; Start 10/05/16 at 18:00 Aspirin (Aspirin) 81 mg DAILY PO ; Start 10/07/16 at 08:12 LACY WOLF MD Oct 07, 2016 15:35
--- NOTE | 2016-10-07 16:16 | CONS ---
Date/Time of Note Date/Time of Note DATE: 10/07/16 TIME: 16:14 Consult Date/Type/Reason Admit Date/Time Sep 14, 2016 at 16:36 Initial Consult Date 09/16/16 Type of Consultation: Pulm Subjective No events. Objective Vital Signs Date Time Temp Pulse Resp B/P Pulse Ox O2 Delivery O2 Flow Rate FiO2 10/07/16 14:00 98.1 81 16 121/72 99 10/07/16 02:00 Room Air 10/05/16 12:00 3.0 10/03/16 13:20 30 Intake and Output 10/06/16 10/06/16 10/07/16 15:00 23:00 07:00 Intake Total 450 ml 990 ml Output Total 300 ml 300 ml Balance -300 ml 150 ml 990 ml Exam HEENT: Pupils equal, round, and reactive to light. CARDIAC: S1, S2, 1/6 systolic ejection murmur CHEST: Diminished air entry bilaterally. ABDOMEN: Mildly distended. Bowel sounds present no guarding or rebound EXTREMITIES: No cyanosis, clubbing edema +1 NEUROLOGIC: Generalized weakness Results/Medications Result Diagram: 10/06/16 0432 10/07/16 0444 Results 24 hrs Laboratory Tests Test 10/07/16 04:44 Sodium Level 137 Potassium Level 3.7 Chloride Level 100 Carbon Dioxide Level 26 Anion Gap 15 Blood Urea Nitrogen 10 Creatinine 0.55 L Glucose Level 131 Calcium Level 8.7 Medications Current Medications Ondansetron HCl (Zofran Inj) 4 mg Q6H PRN IV NAUSEA AND/OR VOMITING; Start 09/14 at 17:00 Enoxaparin Sodium (Lovenox) 40 mg DAILY SC Last administered on 10/06/16 09:12 ; Admin Dose 40 MG; Start 09/19/16 at 10:00 Mupirocin (Bactroban) 1 applic BID TOP Last administered on 10/07/16 08:10; Admin Dose 1 APPLIC; Start 10/02/16 at 21:00 Acetaminophen (Tylenol Supp) 650 mg Q6H PRN [place] FEVER Last administered on 07:55; Admin Dose 650 MG; Start 10/03/16 at 22:00 Multivitamins Therapeutic 1 tab 1 tab DAILY PO Last administered on 10/05/16 10:50; Admin Dose 1 TAB; Start 10/05/16 at 10:30 Dextrose/Sodium Chloride (D5-1/2ns) 1,000 ml @ 100 mls/hr Q10H IV Last administered on 10/07/16t 07:28; Admin Dose 100 MLS/HR; Start 10/05/16 at 18:00 Aspirin (Aspirin) 81 mg DAILY PO ; Start 10/07/16 at 08:12 Assessment/Plan Chief Complaint/Hosp Course Briefly, this is a 43-year-old male with a history of substance abuse, notably with methamphetamines and heroin, who was found unresponsive and apneic. He was intubated for airway protection and has since been in the ED and now in the ICU. Thus far, he has been found to have type II NSTEMI and possible acute CVA ( based on MRI). He is deeply sedated on the vent. Problems: Additional Assessment/Plan IMP: 1. Encephalopathy 2. s/p Resp Failure, atelectasis right lower lobe. Significant hypoxemic respiratory failure however. Questionable shunt phenomena. Now extubated. 3. s/p Acute Renal Failure--resolved 4. s/p Mild Rhabdo improved. 5. s/p Demand Ischemia/type II NSTEMI 6. Critical Illness Myopathy RECS: 1. PT/OT 2. Aspiration precautions KIKI EUBANKS MD Oct 07, 2016 16:16
[2016-10-07 19:44] VITALS: BP 153/87; RESP 18
[2016-10-08] MEDS: DEXTROSE 5%-0.45% NACL 1,000 ML IV SCH ×2 (05:46→17:16)
[2016-10-08 08:13] VITALS: BP 126/78; RESP 20
[2016-10-08] MEDS: ENOXAPARIN 40 MG/0.4 ML SYG SC SCH (08:50)
[2016-10-08] MEDS: MULTIVITAMINS THERAPEUTIC TAB PO SCH (08:50)
[2016-10-08] MEDS: ASPIRIN 81 MG TAB PO SCH (08:51)
[2016-10-08] MEDS: MUPIROCIN 2% 22 GM OINT TOP SCH ×2 (08:52→21:26)
--- NOTE | 2016-10-08 14:15 | CONS ---
Date/Time of Note Date/Time of Note DATE: 10/08/16 TIME: 14:14 Consult Date/Type/Reason Admit Date/Time Sep 14, 2016 at 16:36 Initial Consult Date 09/16/16 Type of Consultation: Pulm Subjective No events. Objective Vital Signs Date Time Temp Pulse Resp B/P Pulse Ox O2 Delivery O2 Flow Rate FiO2 10/08/16 08:13 97.4 68 20 126/78 98 10/07/16 02:00 Room Air 10/05/16 12:00 3.0 Intake and Output 10/07/16 10/07/16 10/08/16 15:00 23:00 07:00 Intake Total 1520 ml 1195 ml Balance 1520 ml 1195 ml Exam HEENT: Pupils equal, round, and reactive to light. CARDIAC: S1, S2, 1/6 systolic ejection murmur CHEST: Diminished air entry bilaterally. ABDOMEN: Mildly distended. Bowel sounds present no guarding or rebound EXTREMITIES: No cyanosis, clubbing edema +1 Results/Medications Result Diagram: 10/06/16 0432 10/07/16 0444 Medications Current Medications Ondansetron HCl (Zofran Inj) 4 mg Q6H PRN IV NAUSEA AND/OR VOMITING; Start 09/14 at 17:00 Enoxaparin Sodium (Lovenox) 40 mg DAILY SC Last administered on 10/08/16 08:50 ; Admin Dose 40 MG; Start 09/19/16 at 10:00 Mupirocin (Bactroban) 1 applic BID TOP Last administered on 10/08/16 08:52; Admin Dose 1 APPLIC; Start 10/02/16 at 21:00 Acetaminophen (Tylenol Supp) 650 mg Q6H PRN [place] FEVER Last administered on 07:55; Admin Dose 650 MG; Start 10/03/16 at 22:00 Multivitamins Therapeutic 1 tab 1 tab DAILY PO Last administered on 10/08/16 08:50; Admin Dose 1 TAB; Start 10/05/16 at 10:30 Dextrose/Sodium Chloride (D5-1/2ns) 1,000 ml @ 100 mls/hr Q10H IV Last administered on 10/08/16 05:46; Admin Dose 100 MLS/HR; Start 10/05/16 at 18:00 Aspirin (Aspirin) 81 mg DAILY PO Last administered on 10/08/16t 08:51; Admin Dose 81 MG; Start 10/07/16 at 08:12 Assessment/Plan Chief Complaint/Hosp Course Briefly, this is a 43-year-old male with a history of substance abuse, notably with methamphetamines and heroin, who was found unresponsive and apneic. He was intubated for airway protection and has since been in the ED and now in the ICU. Thus far, he has been found to have type II NSTEMI and possible acute CVA ( based on MRI). He is deeply sedated on the vent. Problems: Additional Assessment/Plan IMP: 1. Encephalopathy 2. s/p Resp Failure, atelectasis right lower lobe. Significant hypoxemic respiratory failure however. Questionable shunt phenomena. Now extubated. 3. s/p Acute Renal Failure--resolved 4. s/p Mild Rhabdo improved. 5. s/p Demand Ischemia/type II NSTEMI 6. Critical Illness Myopathy RECS: 1. PT/OT 2. Aspiration precautions 3. D/C planning KIKI EUBANKS MD Oct 08, 2016 14:15
[2016-10-08 15:43] VITALS: BP 126/80; RESP 17
--- NOTE | 2016-10-08 17:49 | PN ---
Date/Time of Note Date/Time of Note DATE: 10/08/16 TIME: 17:48 Assessment/Plan VTE Prophylaxis VTE Prophylaxis Intervention: LMWH Lines/Catheters IV Catheter Type (from Nrs): Peripheral IV Urinary Cath still in place: No Assessment/Plan Chief Complaint/Hosp Course 41 yo male with etoh use d/o, opiate use d/o who has developed respiratory failure in setting of opiate overdose, required mechanical ventilation and then developed VAP. S/p prolonged intubation, now stable on RA. Debilitated. Mental status improving S/p ICU stay with prolonged intubation, now stable Opiate overdose resolved Pneumonai resolved Currently deconditioned, critical illness myopathy but improving - PT/OT Encephelopathy: - Had evidecne of anoxic jony injury/stroke on MRI - Monitor mental status as recovers from ICU stay - Unclear baseline Hypokalemia is resolved PPx: HSQ, PPI Patient is ready to be discharge to rehab Problems: Subjective 24 Hr Interval Summary Free Text/Dictation Continues to improve Behavior controlled More sensible thought process Strenght improving Exam/Review of Systems Vital Signs Vitals Vital Signs Date Time Temp Pulse Resp B/P Pulse Ox O2 Delivery O2 Flow Rate FiO2 10/08/16 15:43 98.0 70 17 126/80 95 10/07/16 02:00 Room Air 10/05/16 12:00 3.0 Intake and Output 10/07/16 10/07/16 10/08/16 15:00 23:00 07:00 Intake Total 1520 ml 1195 ml Balance 1520 ml 1195 ml Results Result Diagram: 10/06/16 0432 10/07/16 0444 Medications Medications Current Medications Ondansetron HCl (Zofran Inj) 4 mg Q6H PRN IV NAUSEA AND/OR VOMITING; Start 09/14 at 17:00 Enoxaparin Sodium (Lovenox) 40 mg DAILY SC Last administered on 10/08/16 08:50 ; Admin Dose 40 MG; Start 09/19/16 at 10:00 Mupirocin (Bactroban) 1 applic BID TOP Last administered on 10/08/16 08:52; Admin Dose 1 APPLIC; Start 10/02/16 at 21:00 Acetaminophen (Tylenol Supp) 650 mg Q6H PRN [place] FEVER Last administered on 07:55; Admin Dose 650 MG; Start 10/03/16 at 22:00 Multivitamins Therapeutic 1 tab 1 tab DAILY PO Last administered on 10/08/16 08:50; Admin Dose 1 TAB; Start 10/05/16 at 10:30 Dextrose/Sodium Chloride (D5-1/2ns) 1,000 ml @ 100 mls/hr Q10H IV Last administered on 10/08/16 17:16; Admin Dose 100 MLS/HR; Start 10/05/16 at 18:00 Aspirin (Aspirin) 81 mg DAILY PO Last administered on 10/08/16 08:51; Admin Dose 81 MG; Start 10/07/16 at 08:12 LACY WOLF MD Oct 08, 2016 17:49
[2016-10-08 20:00] VITALS: BP 126/82; RESP 18
[2016-10-09 02:00] VITALS: BP 135/85; RESP 18
[2016-10-09] MEDS: DEXTROSE 5%-0.45% NACL 1,000 ML IV SCH ×3 (03:47→17:12)
[2016-10-09 08:00] VITALS: BP 121/76; RESP 18
[2016-10-09] MEDS: MULTIVITAMINS THERAPEUTIC TAB PO SCH (08:19)
[2016-10-09] MEDS: ASPIRIN 81 MG TAB PO SCH (08:19)
[2016-10-09] MEDS: MUPIROCIN 2% 22 GM OINT TOP SCH ×2 (08:20→20:11)
[2016-10-09] MEDS: ENOXAPARIN 40 MG/0.4 ML SYG SC SCH (08:20)
[2016-10-09 14:53] VITALS: BP 127/80; RESP 20
--- NOTE | 2016-10-09 15:44 | PN ---
Date/Time of Note Date/Time of Note DATE: 10/09/16 TIME: 15:43 Assessment/Plan VTE Prophylaxis VTE Prophylaxis Intervention: LMWH Lines/Catheters IV Catheter Type (from Nrs): Peripheral IV Urinary Cath still in place: No Assessment/Plan Chief Complaint/Hosp Course 41 yo male with etoh use d/o, opiate use d/o who has developed respiratory failure in setting of opiate overdose, required mechanical ventilation and then developed VAP. S/p prolonged intubation, now stable on RA. Debilitated. Mental status improving S/p ICU stay with prolonged intubation, now stable Opiate overdose resolved Pneumonai resolved Currently deconditioned, critical illness myopathy but improving - PT/OT Encephelopathy: - Had evidecne of anoxic jony injury/stroke on MRI - Monitor mental status as recovers from ICU stay - Unclear baseline Hypokalemia is resolved PPx: HSQ, PPI Patient is ready to be discharge to rehab Problems: Subjective 24 Hr Interval Summary Constitutional: no complaints Exam/Review of Systems Vital Signs Vitals Vital Signs Date Time Temp Pulse Resp B/P Pulse Ox O2 Delivery O2 Flow Rate FiO2 10/09/16 14:53 98.1 80 20 127/80 96 10/07/16 02:00 Room Air 10/05/16 12:00 3.0 Intake and Output 10/08/16 10/08/16 10/09/16 14:59 22:59 06:59 Intake Total 1855 ml 365 ml Output Total 200 ml 300 ml Balance 1655 ml 65 ml Exam Constitutional: alert Respiratory: clear to auscultation Cardiovascular: regular rate and rhythm Gastrointestinal: soft, No distended Musculoskeletal: nl extremities to inspection Results Result Diagram: 10/06/16 0432 10/07/16 0444 Medications Medications Current Medications Ondansetron HCl (Zofran Inj) 4 mg Q6H PRN IV NAUSEA AND/OR VOMITING; Start 09/14 at 17:00 Enoxaparin Sodium (Lovenox) 40 mg DAILY SC Last administered on 10/09/16 08:20 ; Admin Dose 40 MG; Start 09/19/16 at 10:00 Mupirocin (Bactroban) 1 applic BID TOP Last administered on 10/09/16 08:20; Admin Dose 1 APPLIC; Start 10/02/16 at 21:00 Acetaminophen (Tylenol Supp) 650 mg Q6H PRN [place] FEVER Last administered on 07:55; Admin Dose 650 MG; Start 10/03/16 at 22:00 Multivitamins Therapeutic 1 tab 1 tab DAILY PO Last administered on 10/09/16 08:19; Admin Dose 1 TAB; Start 10/05/16 at 10:30 Dextrose/Sodium Chloride (D5-1/2ns) 1,000 ml @ 100 mls/hr Q10H IV Last administered on 10/09/16 03:47; Admin Dose 100 MLS/HR; Start 10/05/16 at 18:00 Aspirin (Aspirin) 81 mg DAILY PO Last administered on 10/09/16 08:19; Admin Dose 81 MG; Start 10/07/16 at 08:12 MARCIO STOREY Oct 09, 2016 15:44
[2016-10-09 20:00] VITALS: BP 141/83; RESP 19
[2016-10-10] VITALS (7 sets, daily range): BP systolic 127–139; BP diastolic 74–82; PULSE 111–125; RESP 18–20
[2016-10-10] MEDS: DEXTROSE 5%-0.45% NACL 1,000 ML IV SCH ×2 (04:29→17:03)
[2016-10-10] MEDS: ENOXAPARIN 40 MG/0.4 ML SYG SC SCH (08:48)
[2016-10-10] MEDS: ASPIRIN 81 MG TAB PO SCH (08:49)
[2016-10-10] MEDS: MUPIROCIN 2% 22 GM OINT TOP SCH ×2 (08:49→20:15)
[2016-10-10] MEDS: MULTIVITAMINS THERAPEUTIC TAB PO SCH (08:49)
--- NOTE | 2016-10-10 15:38 | PN ---
Date/Time of Note Date/Time of Note DATE: 10/10/16 TIME: 15:37 Assessment/Plan VTE Prophylaxis VTE Prophylaxis Intervention: LMWH Lines/Catheters IV Catheter Type (from Nrs): Peripheral IV Urinary Cath still in place: No Assessment/Plan Chief Complaint/Hosp Course 41 yo male with etoh use d/o, opiate use d/o who has developed respiratory failure in setting of opiate overdose, required mechanical ventilation and then developed VAP. S/p prolonged intubation, now stable on RA. Debilitated. Mental status improving S/p ICU stay with prolonged intubation, now stable Opiate overdose resolved Pneumonai resolved Currently deconditioned, critical illness myopathy but improving - PT/OT Encephelopathy: - Had evidecne of anoxic jony injury/stroke on MRI - Monitor mental status as recovers from ICU stay - Unclear baseline Hypokalemia is resolved PPx: Lovenox, PPI Patient is ready to be discharge to rehab Problems: Subjective 24 Hr Interval Summary Constitutional: no complaints Exam/Review of Systems Vital Signs Vitals Vital Signs Date Time Temp Pulse Resp B/P Pulse Ox O2 Delivery O2 Flow Rate FiO2 10/10/16 08:56 98.8 88 18 130/74 95 10/07/16 02:00 Room Air Intake and Output 10/09/16 10/09/16 10/10/16 15:00 23:00 07:00 Intake Total 1955 ml 1200 ml Output Total 800 ml Balance 1155 ml 1200 ml Exam Constitutional: alert Respiratory: clear to auscultation Cardiovascular: regular rate and rhythm Gastrointestinal: soft, No distended Musculoskeletal: nl extremities to inspection Results Result Diagram: 10/06/16 0432 10/07/16 0444 Medications Medications Current Medications Ondansetron HCl (Zofran Inj) 4 mg Q6H PRN IV NAUSEA AND/OR VOMITING; Start 09/14 at 17:00 Enoxaparin Sodium (Lovenox) 40 mg DAILY SC Last administered on 10/10/16 08:48 ; Admin Dose 40 MG; Start 09/19/16 at 10:00 Mupirocin (Bactroban) 1 applic BID TOP Last administered on 10/10/16 08:49; Admin Dose 1 APPLIC; Start 10/02/16 at 21:00 Acetaminophen (Tylenol Supp) 650 mg Q6H PRN [place] FEVER Last administered on 07:55; Admin Dose 650 MG; Start 10/03/16 at 22:00 Multivitamins Therapeutic 1 tab 1 tab DAILY PO Last administered on 10/10/16 08:49; Admin Dose 1 TAB; Start 10/05/16 at 10:30 Dextrose/Sodium Chloride (D5-1/2ns) 1,000 ml @ 100 mls/hr Q10H IV Last administered on 10/10/16 04:29; Admin Dose 100 MLS/HR; Start 10/05/16 at 18:00 Aspirin (Aspirin) 81 mg DAILY PO Last administered on 10/10/16 08:49; Admin Dose 81 MG; Start 10/07/16 at 08:12 MARCIO STOREY Oct 10, 2016 15:38
[2016-10-10] MEDS: ACETAMINOPHEN 650 MG SUPP PR PRN (20:15)
[2016-10-10] MEDS ORDERED: IBUPROFEN 600 MG TAB PO ONE (21:30)
[2016-10-10] MEDS: SOD CHLORIDE 0.9% 1,000 ML IV SCH (21:37)
[2016-10-11 02:05] VITALS: BP 122/75; RESP 18
[2016-10-11] MEDS: SOD CHLORIDE 0.9% 1,000 ML IV SCH ×4 (04:10→21:10)
[2016-10-11 08:00] VITALS: BP 121/78; RESP 20
[2016-10-11] MEDS: MUPIROCIN 2% 22 GM OINT TOP SCH ×2 (08:44→19:46)
[2016-10-11] MEDS: MULTIVITAMINS THERAPEUTIC TAB PO SCH (08:44)
[2016-10-11] MEDS: ASPIRIN 81 MG TAB PO SCH (08:44)
[2016-10-11] MEDS: ENOXAPARIN 40 MG/0.4 ML SYG SC SCH (08:46)
--- NOTE | 2016-10-11 13:43 | PN ---
Date/Time of Note Date/Time of Note DATE: 10/11/16 TIME: 13:30 Assessment/Plan VTE Prophylaxis VTE Prophylaxis Intervention: LMWH Lines/Catheters IV Catheter Type (from Nrs): Peripheral IV Urinary Cath still in place: No Assessment/Plan Chief Complaint/Hosp Course 41 yo male with etoh use d/o, opiate use d/o who has developed respiratory failure in setting of opiate overdose, required mechanical ventilation and then developed VAP. S/p prolonged intubation, now stable on RA. Debilitated. Mental status improving S/p ICU stay with prolonged intubation, now stable Opiate overdose resolved Pneumonai resolved Currently deconditioned, critical illness myopathy but improving - PT/OT Encephelopathy: - Had evidecne of anoxic jony injury/stroke on MRI - Monitor mental status as recovers from ICU stay - Unclear baseline Hypokalemia is resolved PPx: Lovenox, PPI Patient is ready to be discharge to rehab Problems: Subjective 24 Hr Interval Summary Constitutional: no complaints Exam/Review of Systems Vital Signs Vitals Vital Signs Date Time Temp Pulse Resp B/P Pulse Ox O2 Delivery O2 Flow Rate FiO2 10/11/16 08:00 99.8 104 20 121/78 96 10/10/16 21:15 Room Air Intake and Output 10/10/16 10/10/16 10/11/16 15:00 23:00 07:00 Intake Total 2020 ml 1200 ml Output Total 1000 ml Balance 1020 ml 1200 ml Exam Constitutional: alert Respiratory: clear to auscultation Cardiovascular: regular rate and rhythm Gastrointestinal: soft, No distended Musculoskeletal: nl extremities to inspection Results Result Diagram: 10/07/16 0444 Medications Medications Current Medications Ondansetron HCl (Zofran Inj) 4 mg Q6H PRN IV NAUSEA AND/OR VOMITING; Start 09/14 at 17:00 Enoxaparin Sodium (Lovenox) 40 mg DAILY SC Last administered on 10/11/16 08:46 ; Admin Dose 40 MG; Start 09/19/16 at 10:00 Mupirocin (Bactroban) 1 applic BID TOP Last administered on 10/11/16 08:44; Admin Dose 1 APPLIC; Start 10/02/16 at 21:00 Acetaminophen (Tylenol Supp) [address] FEVER Last administered on 20:15; Admin Dose 650 MG; Start 10/03/16 at 22:00 Multivitamins Therapeutic (Theragran) 1 tab DAILY PO Last administered on 08:44; Admin Dose 1 TAB; Start 10/05/16 at 10:30 Aspirin 81 mg 81 mg DAILY PO Last administered on 10/11/16 08:44; Admin Dose 81 MG; Start 10/07/16 at 08:12 Sodium Chloride (NS) 1,000 ml @ 150 mls/hr Q6H40M IV Last administered on 10/11 05:22; Admin Dose 150 MLS/HR; Start 10/10/16 at 21:30 MARCIO STOREY Oct 11, 2016 13:40
[2016-10-11 14:00] VITALS: BP 142/64; RESP 20
[2016-10-11] MEDS: ACETAMINOPHEN 650 MG SUPP PR PRN (19:09)
[2016-10-11 20:05] VITALS: BP 132/77; RESP 20
[2016-10-11] MEDS ORDERED: IBUPROFEN 600 MG TAB PO ONE (21:00)
[2016-10-11] MEDS ORDERED: IBUPROFEN 600 MG TAB ONE (21:07)
[2016-10-12 02:08] VITALS: BP 123/70; RESP 18
[2016-10-12] MEDS: SOD CHLORIDE 0.9% 1,000 ML IV SCH ×3 (04:33→20:28)
[2016-10-12 06:42] LABS: ABNORMAL IP MESSAGE 1; BASOPHILS % 0.3 % (0.0-2.0); EOSINOPHILS # 0.1 10^3/ul (0.0-0.5); EOSINOPHILS % 0.8 % (0.0-7.0); HEMATOCRIT 35.4 % (42.0-52.0); HEMOGLOBIN 11.8 g/dl (14.0-18.0); LYMPHOCYTES # 1.2 10^3/ul (0.8-2.9); LYMPHOCYTES % 8.4 % (15.0-51.0); MEAN CORPUSCULAR HEMOGLOBIN 29.1 pg (29.0-33.0); MEAN CORPUSCULAR HGB CONC 33.3 g/dl (32.0-37.0); MEAN CORPUSCULAR VOLUME 87.4 fl (82.0-101.0); MEAN PLATELET VOLUME 9.9 fl (7.4-10.4); MONOCYTE # 1.6 10^3/ul (0.3-0.9); MONOCYTES % 10.9 % (0.0-11.0); NEUTROPHILS % 78.7 % (39.0-77.0); PLATELET COUNT 314 10^3/UL (140-415); POSITIVE DIFF @See below; RED BLOOD COUNT 4.05 10^6/ul (4.70-6.10); RED CELL DISTRIBUTION WIDTH 12.8 % (11.5-14.5); WHITE BLOOD COUNT 14.5 10^3/ul (4.8-10.8)
[2016-10-12 07:10] LABS: CALCIUM 7.8 mg/dl (8.4-10.2); CREATININE 0.62 mg/dl (0.61-1.24); POTASSIUM 3.3 mmol/L (3.5-5.1)
[2016-10-12 08:00] VITALS: BP 146/76; RESP 20
[2016-10-12] MEDS: MULTIVITAMINS THERAPEUTIC TAB PO SCH (08:51)
[2016-10-12] MEDS: ASPIRIN 81 MG TAB PO SCH (08:51)
[2016-10-12] MEDS: MUPIROCIN 2% 22 GM OINT TOP SCH ×2 (08:54→20:27)
[2016-10-12] MEDS: ENOXAPARIN 40 MG/0.4 ML SYG SC SCH (08:56)
[2016-10-12 14:00] VITALS: BP 132/76; RESP 18
[2016-10-12] MEDS ORDERED: POTASSIUM CHLORIDE (SR) 20 MEQ TAB PO STA (14:35)
--- NOTE | 2016-10-12 17:37 | PN ---
Date/Time of Note Date/Time of Note DATE: 10/12/16 TIME: 17:36 Assessment/Plan VTE Prophylaxis VTE Prophylaxis Intervention: LMWH Lines/Catheters IV Catheter Type (from Nrs): Peripheral IV Urinary Cath still in place: No Assessment/Plan Chief Complaint/Hosp Course 41 yo male with etoh use d/o, opiate use d/o who has developed respiratory failure in setting of opiate overdose, required mechanical ventilation and then developed VAP. S/p prolonged intubation, now stable on RA. Debilitated. Mental status improving S/p ICU stay with prolonged intubation, now stable Opiate overdose resolved Pneumonai resolved Currently deconditioned, critical illness myopathy but improving - PT/OT Encephelopathy: - Had evidecne of anoxic jony injury/stroke on MRI - Monitor mental status as recovers from ICU stay - Unclear baseline Hypokalemia is resolved PPx: Lovenox, PPI Patient is ready to be discharge to rehab Problems: Subjective 24 Hr Interval Summary Constitutional: no complaints Exam/Review of Systems Vital Signs Vitals Vital Signs Date Time Temp Pulse Resp B/P Pulse Ox O2 Delivery O2 Flow Rate FiO2 10/12/16 14:00 98.8 76 18 132/76 96 10/10/16 21:15 Room Air Intake and Output 10/11/16 10/11/16 10/12/16 15:00 23:00 07:00 Intake Total 900 ml 1470 ml 1195 ml Output Total 1375 ml Balance 900 ml 95 ml 1195 ml Exam Constitutional: alert Respiratory: clear to auscultation Cardiovascular: regular rate and rhythm Gastrointestinal: soft, No distended Musculoskeletal: nl extremities to inspection Results Result Diagram: 10/12/16 0555 10/12/16 0555 Results 24 hrs Laboratory Tests Test 10/12/16 05:55 10/12/16 09:55 White Blood Count 14.5 #H Red Blood Count 4.05 L Hemoglobin 11.8 L Hematocrit 35.4 L Mean Corpuscular Volume 87.4 Mean Corpuscular Hemoglobin 29.1 Mean Corpuscular Hemoglobin Concent 33.3 Red Cell Distribution Width 12.8 Platelet Count 314 Mean Platelet Volume 9.9 Neutrophils % 78.7 H Lymphocytes % 8.4 L Monocytes % 10.9 Eosinophils % 0.8 Basophils % 0.3 Nucleated Red Blood Cells % 0.0 Neutrophils # (Manual) 11.4 H Lymphocytes # 1.2 Monocytes # 1.6 H Eosinophils # 0.1 Basophils # 0.0 Nucleated Red Blood Cells # 0.0 Sodium Level 141 Potassium Level 3.3 L Chloride Level 100 Carbon Dioxide Level 29 Anion Gap 15 Blood Urea Nitrogen 3 L Creatinine 0.62 Glucose Level 112 Calcium Level 7.8 L Lab Scanned Report REFERENCE LAB Medications Medications Current Medications Ondansetron HCl (Zofran Inj) 4 mg Q6H PRN IV NAUSEA AND/OR VOMITING; Start 09/14 at 17:00 Enoxaparin Sodium (Lovenox) 40 mg DAILY SC Last administered on 10/12/16 08:56 ; Admin Dose 40 MG; Start 09/19/16 at 10:00 Mupirocin (Bactroban) 1 applic BID TOP Last administered on 10/12/16 08:54; Admin Dose 1 APPLIC; Start 10/02/16 at 21:00 Acetaminophen (Tylenol Supp) 650 mg Q6H PRN [place] FEVER Last administered on 19:09; Admin Dose 650 MG; Start 10/03/16 at 22:00 Multivitamins Therapeutic (Theragran) 1 tab DAILY PO Last administered on 08:51; Admin Dose 1 TAB; Start 10/05/16 at 10:30 Aspirin 81 mg 81 mg DAILY PO Last administered on 10/12/16 08:51; Admin Dose 81 MG; Start 10/07/16 at 08:12 Sodium Chloride (NS) 1,000 ml @ 150 mls/hr Q6H40M IV Last administered on 10/12 14:15; Admin Dose 150 MLS/HR; Start 10/10/16 at 21:30 MARCIO STOREY Oct 12, 2016 17:37
[2016-10-12 20:00] VITALS: BP 137/67; RESP 19
[2016-10-12] MEDS: ACETAMINOPHEN 650 MG SUPP PR PRN (20:27)
[2016-10-12] MEDS: LEVOFLOXACIN 500MG/D5W (PMX) 100 ML IVPB SCH (20:27)
--- NOTE | 2016-10-12 21:33 | RADRPT ---
PROCEDURE: XR Chest. CLINICAL INDICATION: Fever. TECHNIQUE: Portable AP upright view of the chest was obtained. COMPARISON: 10/04/2016 FINDINGS: The cardiomediastinal silhouette is within normal limits. The lungs are clear of acute infiltrates, minimal bibasilar subsegmental atelectasis seen previously has improved but is not completely resol jadiel. There is no evidence for pleural effusion, pneumothorax or pulmonary vascular congestion. The osseous structures are intact with no evidence for acute abnormality. Previously seen left subclavi an central venous access catheter has been removed in the interval RPTAT:HJJR IMPRESSION: Slight radiographic improvement in bibasilar subsegmental atelectasis compared to 10/04/2016 without findings to suggest pneumonia. Physician Sofi Date Time Electronically viewed and signed by Physician Sofi on 10/12/2016 21:33 /
[2016-10-13 02:00] VITALS: BP 111/57; RESP 20
[2016-10-13] MEDS: SOD CHLORIDE 0.9% 1,000 ML IV SCH ×4 (04:01→21:12)
[2016-10-13] MEDS: ACETAMINOPHEN 650 MG SUPP PR PRN (06:21)
[2016-10-13 08:00] VITALS: BP 118/64; RESP 20
[2016-10-13] MEDS: MULTIVITAMINS THERAPEUTIC TAB PO SCH (08:38)
[2016-10-13] MEDS: ASPIRIN 81 MG TAB PO SCH (08:38)
[2016-10-13] MEDS: MUPIROCIN 2% 22 GM OINT TOP SCH ×2 (08:38→21:11)
[2016-10-13] MEDS: ENOXAPARIN 40 MG/0.4 ML SYG SC SCH (08:44)
[2016-10-13 14:00] VITALS: BP 124/64; RESP 18
--- NOTE | 2016-10-13 14:53 | PN ---
Date/Time of Note Date/Time of Note DATE: 10/13/16 TIME: 14:53 Assessment/Plan VTE Prophylaxis VTE Prophylaxis Intervention: LMWH Lines/Catheters IV Catheter Type (from Nrs): Peripheral IV Urinary Cath still in place: No Assessment/Plan Chief Complaint/Hosp Course 41 yo male with etoh use d/o, opiate use d/o who has developed respiratory failure in setting of opiate overdose, required mechanical ventilation and then developed VAP. S/p prolonged intubation, now stable on RA. Debilitated. Mental status improving S/p ICU stay with prolonged intubation, now stable Opiate overdose resolved Pneumonai resolved Currently deconditioned, critical illness myopathy but improving - PT/OT Encephelopathy: - Had evidecne of anoxic jony injury/stroke on MRI - Monitor mental status as recovers from ICU stay - Unclear baseline Hypokalemia is resolved PPx: Lovenox, PPI Patient is ready to be discharge to home versus drug rehab once able to ambulate Problems: Subjective 24 Hr Interval Summary Constitutional: no complaints Exam/Review of Systems Vital Signs Vitals Vital Signs Date Time Temp Pulse Resp B/P Pulse Ox O2 Delivery O2 Flow Rate FiO2 10/13/16 14:00 98.8 82 18 124/64 96 10/10/16 21:15 Room Air Intake and Output 10/12/16 10/12/16 10/13/16 15:00 23:00 07:00 Intake Total 925 ml 1760 ml 1700 ml Output Total 500 ml 1200 ml Balance 925 ml 1260 ml 500 ml Exam Constitutional: alert, oriented Respiratory: clear to auscultation Cardiovascular: regular rate and rhythm Gastrointestinal: soft, No distended Musculoskeletal: nl extremities to inspection Results Result Diagram: 10/12/16 0555 10/12/16 0555 Medications Medications Current Medications Ondansetron HCl (Zofran Inj) 4 mg Q6H PRN IV NAUSEA AND/OR VOMITING; Start 09/14 at 17:00 Enoxaparin Sodium (Lovenox) 40 mg DAILY SC Last administered on 10/13/16 08:44 ; Admin Dose 40 MG; Start 09/19/16 at 10:00 Mupirocin (Bactroban) 1 applic BID TOP Last administered on 10/13/16 08:38; Admin Dose 1 APPLIC; Start 10/02/16 at 21:00 Acetaminophen (Tylenol Supp) 650 mg Q6H PRN [place] FEVER Last administered on 06:21; Admin Dose 650 MG; Start 10/03/16 at 22:00 Multivitamins Therapeutic (Theragran) 1 tab DAILY PO Last administered on 08:38; Admin Dose 1 TAB; Start 10/05/16 at 10:30 Aspirin 81 mg 81 mg DAILY PO Last administered on 10/13/16 08:38; Admin Dose 81 MG; Start 10/07/16 at 08:12 Sodium Chloride 1,000 ml @ 150 mls/hr Q6H40M IV Last administered on 10/13/16 10:28; Admin Dose 150 MLS/HR; Start 10/10/16 at 21:30 Levofloxacin/ Dextrose (Levaquin 500mg/ D5W 100 ml (Pmx)) 100 ml @ 100 mls/hr Q24H IVPB Last administered on 10/12/16 20:27; Admin Dose 100 MLS/HR; Start at 20:00 MARCIO STOREY Oct 13, 2016 14:53
[2016-10-13 20:25] VITALS: BP 138/81; RESP 20
[2016-10-13] MEDS: LEVOFLOXACIN 500MG/D5W (PMX) 100 ML IVPB SCH (21:11)
[2016-10-13] MEDS: ACETAMINOPHEN 325 MG TAB PO PRN (21:11)
[2016-10-14 02:49] VITALS: BP 134/77; RESP 18
[2016-10-14] MEDS: SOD CHLORIDE 0.9% 1,000 ML IV SCH ×3 (05:16→16:22)
[2016-10-14 05:25] LABS: BASOPHILS % 0.3 % (0.0-2.0); EOSINOPHILS # 0.2 10^3/ul (0.0-0.5); EOSINOPHILS % 2.4 % (0.0-7.0); HEMATOCRIT 34.3 % (42.0-52.0); HEMOGLOBIN 11.6 g/dl (14.0-18.0); LYMPHOCYTES # 1.6 10^3/ul (0.8-2.9); LYMPHOCYTES % 16.5 % (15.0-51.0); MEAN CORPUSCULAR HEMOGLOBIN 29.3 pg (29.0-33.0); MEAN CORPUSCULAR HGB CONC 33.8 g/dl (32.0-37.0); MEAN CORPUSCULAR VOLUME 86.6 fl (82.0-101.0); MEAN PLATELET VOLUME 9.9 fl (7.4-10.4); MONOCYTE # 1.3 10^3/ul (0.3-0.9); MONOCYTES % 13.6 % (0.0-11.0); NEUTROPHILS % 66.7 % (39.0-77.0); PLATELET COUNT 341 10^3/UL (140-415); RED BLOOD COUNT 3.96 10^6/ul (4.70-6.10); RED CELL DISTRIBUTION WIDTH 12.5 % (11.5-14.5); WHITE BLOOD COUNT 9.5 10^3/ul (4.8-10.8)
[2016-10-14 05:38] LABS: CALCIUM 8.5 mg/dl (8.4-10.2); CREATININE 0.58 mg/dl (0.61-1.24); MAGNESIUM 1.6 mg/dl (1.7-2.5); POTASSIUM 3.4 mmol/L (3.5-5.1)
[2016-10-14 07:53] VITALS: BP 127/71; RESP 18
[2016-10-14] MEDS: ASPIRIN 81 MG TAB PO SCH (09:15)
[2016-10-14] MEDS: MUPIROCIN 2% 22 GM OINT TOP SCH ×2 (09:15→21:58)
[2016-10-14] MEDS: MULTIVITAMINS THERAPEUTIC TAB PO SCH (09:15)
[2016-10-14] MEDS: ENOXAPARIN 40 MG/0.4 ML SYG SC SCH (09:16)
--- NOTE | 2016-10-14 12:57 | PN ---
Date/Time of Note Date/Time of Note DATE: 10/14/16 TIME: 12:56 Assessment/Plan VTE Prophylaxis VTE Prophylaxis Intervention: LMWH Lines/Catheters IV Catheter Type (from Nrs): Peripheral IV Urinary Cath still in place: No Assessment/Plan Chief Complaint/Hosp Course 41 yo male with etoh use d/o, opiate use d/o who has developed respiratory failure in setting of opiate overdose, required mechanical ventilation and then developed VAP. S/p prolonged intubation, now stable on RA. Debilitated. Mental status improving S/p ICU stay with prolonged intubation, now stable Opiate overdose resolved Pneumonai resolved Currently deconditioned, critical illness myopathy but improving - PT/OT Encephelopathy: - Had evidecne of anoxic jony injury/stroke on MRI - Monitor mental status as recovers from ICU stay - Unclear baseline Hypokalemia is resolved PPx: Lovenox, PPI Patient is ready to be discharge to home versus drug rehab once able to ambulate Problems: Subjective 24 Hr Interval Summary Constitutional: no complaints Exam/Review of Systems Vital Signs Vitals Vital Signs Date Time Temp Pulse Resp B/P Pulse Ox O2 Delivery O2 Flow Rate FiO2 10/14/16 07:53 98.6 71 18 127/71 98 10/10/16 21:15 Room Air Intake and Output 10/13/16 10/13/16 10/14/16 15:00 23:00 07:00 Intake Total 1050 ml 1930 ml 1480 ml Output Total 1450 ml 1000 ml Balance 1050 ml 480 ml 480 ml Exam Constitutional: alert Respiratory: clear to auscultation Cardiovascular: regular rate and rhythm Gastrointestinal: soft, No distended Musculoskeletal: nl extremities to inspection Results Result Diagram: 10/14/16 0425 10/14/16 0425 Results 24 hrs Laboratory Tests Test 10/14/16 04:25 White Blood Count 9.5 # Red Blood Count 3.96 L Hemoglobin 11.6 L Hematocrit 34.3 L Mean Corpuscular Volume 86.6 Mean Corpuscular Hemoglobin 29.3 Mean Corpuscular Hemoglobin Concent 33.8 Red Cell Distribution Width 12.5 Platelet Count 341 Mean Platelet Volume 9.9 Neutrophils % 66.7 Lymphocytes % 16.5 Monocytes % 13.6 H Eosinophils % 2.4 Basophils % 0.3 Nucleated Red Blood Cells % 0.0 Neutrophils # (Manual) 6.4 Lymphocytes # 1.6 Monocytes # 1.3 H Eosinophils # 0.2 Basophils # 0.0 Nucleated Red Blood Cells # 0.0 Sodium Level 138 Potassium Level 3.4 L Chloride Level 99 Carbon Dioxide Level 32 H Anion Gap 10 # Blood Urea Nitrogen 2 L Creatinine 0.58 L Glucose Level 113 Calcium Level 8.5 Magnesium Level 1.6 L Medications Medications Current Medications Ondansetron HCl (Zofran Inj) 4 mg Q6H PRN IV NAUSEA AND/OR VOMITING; Start 09/14 at 17:00 Enoxaparin Sodium (Lovenox) 40 mg DAILY SC Last administered on 10/14/16 09:16 ; Admin Dose 40 MG; Start 09/19/16 at 10:00 Mupirocin (Bactroban) 1 applic BID TOP Last administered on 10/14/16 09:15; Admin Dose 1 APPLIC; Start 10/02/16 at 21:00 Multivitamins Therapeutic (Theragran) 1 tab DAILY PO Last administered on 09:15; Admin Dose 1 TAB; Start 10/05/16 at 10:30 Aspirin 81 mg 81 mg DAILY PO Last administered on 10/14/16 09:15; Admin Dose 81 MG; Start 10/07/16 at 08:12 Sodium Chloride 1,000 ml @ 150 mls/hr Q6H40M IV Last administered on 10/14/16 05:16; Admin Dose 150 MLS/HR; Start 10/10/16 at 21:30 Levofloxacin/ Dextrose (Levaquin 500mg/ D5W 100 ml (Pmx)) 100 ml @ 100 mls/hr Q24H IVPB Last administered on 10/13/16 21:11; Admin Dose 100 MLS/HR; Start at 20:00 Acetaminophen (Tylenol Tab) 650 mg Q6H PRN PO PAIN AND OR ELEVATED TEMP Last administered on 10/13/16 21:11; Admin Dose 650 MG; Start 10/13/16 at 17:30 MARCIO STOREY Oct 14, 2016 12:56
[2016-10-14 14:30] VITALS: BP 122/75; RESP 18
[2016-10-14] MEDS ORDERED: POTASSIUM CHLORIDE (SR) 20 MEQ TAB PO STA (20:06)
[2016-10-14 20:43] VITALS: BP 130/74; RESP 21
[2016-10-14] MEDS: LEVOFLOXACIN 500MG/D5W (PMX) 100 ML IVPB SCH (21:53)
[2016-10-14] MEDS ORDERED: MAGNESIUM SULFATE 2 GM/50 ML 50 ML IVPB ONE (22:00)
[2016-10-15 03:33] VITALS: BP 135/77; RESP 18
[2016-10-15] MEDS: ACETAMINOPHEN 325 MG TAB PO PRN (03:57)
[2016-10-15] MEDS: SOD CHLORIDE 0.9% 1,000 ML IV SCH ×5 (03:58→22:56)
[2016-10-15 08:06] VITALS: BP 134/77; RESP 16
[2016-10-15] MEDS: MULTIVITAMINS THERAPEUTIC TAB PO SCH (09:18)
[2016-10-15] MEDS: MUPIROCIN 2% 22 GM OINT TOP SCH ×2 (09:18→21:00)
[2016-10-15] MEDS: ASPIRIN 81 MG TAB PO SCH (09:18)
[2016-10-15] MEDS: ENOXAPARIN 40 MG/0.4 ML SYG SC SCH (09:19)
[2016-10-15 14:38] VITALS: BP 130/70; RESP 18
--- NOTE | 2016-10-15 18:46 | PN ---
Date/Time of Note Date/Time of Note DATE: 10/15/16 TIME: 18:44 Assessment/Plan VTE Prophylaxis VTE Prophylaxis Intervention: LMWH Lines/Catheters IV [facility] (from [facility]): Peripheral IV Urinary Cath still in place: No Assessment/Plan Chief Complaint/Hosp Course 1. Anoxic encephalopathy-improved Continue PT, patient can be discharged to a friend's house once ambulating 2. Acute respiratory failure secondary to #1-resolved 3. Pneumonia-resolved 4. Substance abuse Patient would benefit from a drug rehab program PPx: Lovenox, PPI Patient is ready to be discharge to home versus drug rehab once able to ambulate Problems: Subjective 24 Hr Interval Summary Constitutional: no complaints Exam/Review of Systems Vital Signs Vitals Vital Signs Date Time Temp Pulse Resp B/P Pulse Ox O2 Delivery O2 Flow Rate FiO2 10/15/16 14:38 98.0 70 18 130/70 95 Intake and Output 10/14/16 10/14/16 10/15/16 15:00 23:00 07:00 Intake Total 2320 ml 1070 ml Output Total 750 ml 2350 ml Balance 1570 ml -1280 ml Exam Constitutional: alert Respiratory: clear to auscultation Cardiovascular: regular rate and rhythm Gastrointestinal: soft, No distended Musculoskeletal: nl extremities to inspection Results Result Diagram: 10/14/16 0425 10/14/16 0425 Medications Medications Current Medications Ondansetron HCl (Zofran Inj) 4 mg Q6H PRN IV NAUSEA AND/OR VOMITING; Start 09/14 at 17:00 Enoxaparin Sodium (Lovenox) 40 mg DAILY SC Last administered on 10/15/16 09:19 ; Admin Dose 40 MG; Start 09/19/16 at 10:00 Mupirocin (Bactroban) 1 applic BID TOP Last administered on 10/15/16 09:18; Admin Dose 1 APPLIC; Start 10/02/16 at 21:00 Multivitamins Therapeutic (Theragran) 1 tab DAILY PO Last administered on 09:18; Admin Dose 1 TAB; Start 10/05/16 at 10:30 Aspirin 81 mg 81 mg DAILY PO Last administered on 10/15/16 09:18; Admin Dose 81 MG; Start 10/07/16 at 08:12 Sodium Chloride 1,000 ml @ 150 mls/hr Q6H40M IV Last administered on 10/15/16 15:15; Admin Dose 150 MLS/HR; Start 10/10/16 at 21:30 Levofloxacin/ Dextrose (Levaquin 500mg/ D5W 100 ml (Pmx)) 100 ml @ 100 mls/hr Q24H IVPB Last administered on 10/14/16 21:53; Admin Dose 100 MLS/HR; Start at 20:00 Acetaminophen (Tylenol Tab) 650 mg Q6H PRN PO PAIN AND OR ELEVATED TEMP Last administered on 10/15/16 03:57; Admin Dose 650 MG; Start 10/13/16 at 17:30 MARCIO STOREY Oct 15, 2016 18:46
[2016-10-15 20:48] VITALS: BP 124/67; RESP 19
[2016-10-15] MEDS: LEVOFLOXACIN 500MG/D5W (PMX) 100 ML IVPB SCH (21:00)
[2016-10-16 03:11] VITALS: BP 119/63; RESP 18
[2016-10-16 06:27] LABS: ANION GAP 10 (8-16); CALCIUM 8.3 mg/dl (8.4-10.2); CARBON DIOXIDE 28 mmol/L (21-31); CHLORIDE 103 mmol/L (97-110); CREATININE 0.49 mg/dl (0.61-1.24); GLUCOSE 100 mg/dl (70-220); MAGNESIUM 1.7 mg/dl (1.7-2.5); POTASSIUM 3.2 mmol/L (3.5-5.1); SODIUM 138 mmol/L (135-144)
[2016-10-16 06:28] LABS: BLOOD UREA NITROGEN < 2 mg/dl (7-20)
[2016-10-16] MEDS: SOD CHLORIDE 0.9% 1,000 ML IV SCH (06:41)
[2016-10-16 07:55] VITALS: BP 120/74; RESP 20
[2016-10-16] MEDS: MULTIVITAMINS THERAPEUTIC TAB PO SCH (09:09)
[2016-10-16] MEDS: ENOXAPARIN 40 MG/0.4 ML SYG SC SCH (09:10)
[2016-10-16] MEDS: ASPIRIN 81 MG TAB PO SCH (09:10)
[2016-10-16] MEDS: MUPIROCIN 2% 22 GM OINT TOP SCH ×2 (09:10→21:28)
[2016-10-16] MEDS ORDERED: POTASSIUM CHLORIDE (SR) 20 MEQ TAB PO STA (12:39)
--- NOTE | 2016-10-16 15:35 | PN ---
Date/Time of Note Date/Time of Note DATE: 10/16/16 TIME: 15:34 Assessment/Plan VTE Prophylaxis VTE Prophylaxis Intervention: LMWH Lines/Catheters IV Catheter Type (from Nrs): Peripheral IV Urinary Cath still in place: No Assessment/Plan Chief Complaint/Hosp Course 41 yo male with etoh use d/o, opiate use d/o who has developed respiratory failure in setting of opiate overdose, required mechanical ventilation and then developed VAP. S/p prolonged intubation, now stable on RA. Debilitated. Mental status improving S/p ICU stay with prolonged intubation, now stable Opiate overdose resolved Pneumonia resolved Currently deconditioned, critical illness myopathy but improving - PT/OT Encephelopathy: - Had evidecne of anoxic jony injury/stroke on MRI - Monitor mental status as recovers from ICU stay - Unclear baseline Hypokalemia is resolved PPx: HSQ, PPI Patient is ready to be discharge to rehab Problems: Subjective 24 Hr Interval Summary Free Text/Dictation Strength and mentation both recovering very nicely Walking around the room wihtout dificulty Converseant and coherent. Says julien prefer to got to rehab facility, but if unable requests home with his dad rather than his friend Exam/Review of Systems Vital Signs Vitals Vital Signs Date Time Temp Pulse Resp B/P Pulse Ox O2 Delivery O2 Flow Rate FiO2 10/16/16 07:55 98.1 60 20 120/74 95 Intake and Output 10/15/16 10/15/16 10/16/16 15:00 23:00 07:00 Intake Total 700 ml 2420 ml 1200 ml Output Total 1180 ml 1700 ml Balance 700 ml 1240 ml -500 ml Exam Constitutional: alert, oriented, well developed Psych: nl mood/affect, no complaints Head: atraumatic, normocephalic Eyes: EOMI, PERRL, nl conjunctiva, nl lids, nl sclera ENMT: nl external ears & nose, nl lips & teeth, nl nasal mucosa & septum Neck: non-tender, supple Respiratory: clear to auscultation, normal air movement Cardiovascular: nl pulses, regular rate and rhythm Gastrointestinal: nl liver, spleen, non-tender, soft Musculoskeletal: nl extremities to inspection, nl gait and stance Extremities: normal pulses Neurological: CRISIS CLINICIAN II-XII intact, nl mental status, nl speech, nl strength Skin: nl turgor, No rash or lesions Lymph: nl lymph nodes Results Result Diagram: 10/14/16 0425 10/16/16 0431 Results 24 hrs Laboratory Tests Test 10/16/16 04:31 Sodium Level 138 Potassium Level 3.2 L Chloride Level 103 Carbon Dioxide Level 28 Anion Gap 10 Blood Urea Nitrogen < 2 L Creatinine 0.49 L Glucose Level 100 Calcium Level 8.3 L Magnesium Level 1.7 Medications Medications Current Medications Ondansetron HCl (Zofran Inj) 4 mg Q6H PRN IV NAUSEA AND/OR VOMITING; Start 09/14 at 17:00 Enoxaparin Sodium (Lovenox) 40 mg DAILY SC Last administered on 10/16/16 09:10 ; Admin Dose 40 MG; Start 09/19/16 at 10:00 Mupirocin (Bactroban) 1 applic BID TOP Last administered on 10/16/16 09:10; Admin Dose 1 APPLIC; Start 10/02/16 at 21:00 Multivitamins Therapeutic (Theragran) 1 tab DAILY PO Last administered on 09:09; Admin Dose 1 TAB; Start 10/05/16 at 10:30 Aspirin (Aspirin) 81 mg DAILY PO Last administered on 10/16/16 09:10; Admin Dose 81 MG; Start 10/07/16 at 08:12 Acetaminophen (Tylenol Tab) 650 mg Q6H PRN PO PAIN AND OR ELEVATED TEMP Last administered on 10/15/16 03:57; Admin Dose 650 MG; Start 10/13/16 at 17:30 LACY WOLF MD Oct 16, 2016 15:35
[2016-10-16 19:58] VITALS: BP 123/73; RESP 18
[2016-10-17 02:38] VITALS: BP 111/67; RESP 18
[2016-10-17 08:21] VITALS: BP 110/66; RESP 18
[2016-10-17] MEDS: ASPIRIN 81 MG TAB PO SCH (09:35)
[2016-10-17] MEDS: MULTIVITAMINS THERAPEUTIC TAB PO SCH (09:35)
[2016-10-17] MEDS: ENOXAPARIN 40 MG/0.4 ML SYG SC SCH (09:36)
[2016-10-17] MEDS: MUPIROCIN 2% 22 GM OINT TOP SCH (09:36)
[2016-10-17 14:00] VITALS: BP 118/70; RESP 20
--- NOTE | 2016-10-17 14:00 | PDOCDIS ---
Discharge Instructions CONDITION Patient Condition: Good HOME CARE INSTRUCTIONS: Diet Instructions: RegularSpecial Diet: Mechanical soft LACY WOLF MD Oct 17, 2016 14:00
--- NOTE | 2016-10-17 16:43 | DS ---
Date/Time of Note Date/Time of Note DATE: 10/17/16 TIME: 16:42 Discharge Summary Admission/Discharge Info Admit Date/Time Sep 14, 2016 at 16:36 Discharge Date/Time Oct 17, 2016 at 14:55 Patient Condition: Good Hx of Present Illness Patient is 43-year-old male with unknown medical history. 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 He was found to have shallow respirations and was given Narcan. He had improvement of his respirations but did not become more responsive. He was noted to have pinpoint pupils and glucose was 476. Patient was altered and was intubated in the ER for airway protection, no history can be obtained from patient and history is obtained from the ER physician. Hospital Course 41 yo male with etoh use d/o, opiate use d/o who has developed respiratory failure in setting of opiate overdose, required mechanical ventilation and then developed VAP. He was intubated for over two weeks but then easily exubated as his pneumonia resolved. He was very week following extubation, but his strenght and mental status both retunred to baseline. He suffered no residual damage it seems from this episode. He was counseled extnesively regarding drug/ opaite use and need to abstain. Home Meds Unable to Obtain Active Prescriptions or Reported Meds Primary Care Provider Care Physician LACY Brantley MD Oct 17, 2016 16:43
== END 2016-10-17 14:55 | disposition home or self-care (01) | DRG 917 ==
LOC: E/R 11:04 → ICU 16:36 → EDBD 16:36 → ICU 09-21 12:25 → PP2 10-05 19:04
PROVIDERS: ADMIT Internal Medicine; ATTEND Internal Medicine
PROC: 5A1955Z Respiratory Ventilation, Greater than 96 Consecutive Hours (ICD-10-PCS; principal; 2016-09-14)
PROC: 0BH17EZ Insertion of Endotracheal Airway into Trachea, Via Natural or Artificial Opening (ICD-10-PCS; 2016-09-14)
DX: T40.1X1A Poisoning by heroin, accidental (unintentional), initial encounter (principal); I21.4 Non-ST elevation (NSTEMI) myocardial infarction; I63.412 Cerebral infarction due to embolism of left middle cerebral artery; I63.8 Other cerebral infarction; J96.01 Acute respiratory failure with hypoxia; J69.0 Pneumonitis due to inhalation of food and vomit; N17.9 Acute kidney failure, unspecified; G62.81 Critical illness polyneuropathy; G93.1 Anoxic brain damage, not elsewhere classified; G72.9 Myopathy, unspecified; E87.0 Hyperosmolality and hypernatremia; E87.1 Hypo-osmolality and hyponatremia; I24.8 Other forms of acute ischemic heart disease; T58.8X1A Toxic effect of carbon monoxide from other source, accidental (unintentional), initial encounter; J98.11 Atelectasis; T43.621A Poisoning by amphetamines, accidental (unintentional), initial encounter; D64.9 Anemia, unspecified; R73.9 Hyperglycemia, unspecified; F15.10 Other stimulant abuse, uncomplicated; F15.129 Other stimulant abuse with intoxication, unspecified; F11.10 Opioid abuse, uncomplicated; Y92.810 Car as the place of occurrence of the external cause
CPT/HCPCS: 31500; 36415; 36600; 70450; 70546; 70551; 71010; 74000; 74230; 80048; 80053; 80061; 80306; 80307; 81001; 81003; 82550; 82803; 82962; 83036; 83605; 83690; 83735; 84100; 84436; 84479; 84484; 85025; 85610; 85730; 86703; 86704; 86709; 86803; 87040; 87070; 87075; 87081; 87086; 87340; 92507; 92523; 92526; 92610; 92611; 93005; 93306; 94002; 94003; 94770; 96365; 96366; 96375; 96376; 97110; 97116; 97162; 97530; C9113; J0171; J0295; J1650; J1940; J1956; J2250; J2270; J2920; J2930; J3010; J3370; J3475; J3480; J7030; J7040; J7042; J7050; J7070